=== PATIENT | male | born 1960 | race Two or more races ===

== ENCOUNTER 2020-10-19 06:54 | Day surgery (SDC) | payer OTHER, SELFPAY ==
[2020-10-13 13:42] VITALS: BMI 33.0
--- NOTE | 2020-10-18 12:23 | HO.ANESPROP2 ---
Documented by User: Jasmin Newell 10/18/20 12:24 HPI - Anesthesia Eval Consult details Narrative: 60yo M for Colonoscopy [facility] Past Medical History Medical History Amputation of thumb, left Asthma CAD (coronary artery disease) DDD (degenerative disc disease), lumbar DJD (degenerative joint disease) of cervical spine History of back pain HTN (hypertension) Hx of hepatitis Hx of vertigo Hyperlipidemia Myocardial infarction Peripheral neuropathy Surgical History Surgical History History of circumcision History of rhinoplasty History of surgery on left wrist Hx of colonoscopy Hx of left knee surgery Social History Social History Smoking Status: Former smoker Smoking Quit Date: > 10 yrs ago Advance Directives: No Advance Directives Information Provided: No Advance Directives on File: No Meds Allergies Allergy/AdvReac Type Severity Reaction Status Date / Time Penicillins Allergy Intermediate PASSED Unverified 10/13/20 13:23 OUT simvastatin Allergy Unknown blurring Unverified 10/13/20 13:23 of vision atorvastatin AdvReac Unknown blurring Verified 10/13/20 13:23 of vision Home Medications Medication Instructions Recorded Confirmed Type rosuvastatin 5 mg tablet 5 mg PO DAILY 10/01/20 10/13/20 History ibuprofen 800 mg PO TID PRN 10/13/20 10/13/20 History Exam Exam Date and Time: October 18, 2020 1223 Height,Weight and Vital Signs: Height 5 ft 10 in Weight 104.326 kg Assessment and Plan Assessment Anesthesia Assessment: Chart Reviewed Documented by User: Shawna Nelson 10/19/20 08:09 [facility] Past Medical History Medical History Amputation of thumb, left Asthma CAD (coronary artery disease) DDD (degenerative disc disease), lumbar DJD (degenerative joint disease) of cervical spine History of back pain HTN (hypertension) Hx of hepatitis Hx of vertigo Hyperlipidemia Myocardial infarction Peripheral neuropathy Surgical History Surgical History History of circumcision History of rhinoplasty History of surgery on left wrist Hx of colonoscopy Hx of left knee surgery Social History Social History Smoking Status: Former smoker Smoking Quit Date: > 10 yrs ago Advance Directives: No Advance Directives Information Provided: No Advance Directives on File: No Meds Allergies Allergy/AdvReac Type Severity Reaction Status Date / Time Penicillins Allergy Intermediate PASSED Unverified 10/13/20 13:23 OUT simvastatin Allergy Unknown blurring Unverified 10/13/20 13:23 of vision atorvastatin AdvReac Unknown blurring Verified 10/13/20 13:23 of vision Home Medications Medication Instructions Recorded Confirmed Type rosuvastatin 5 mg tablet 5 mg PO DAILY 10/01/20 10/13/20 History ibuprofen 800 mg PO TID PRN 10/13/20 10/13/20 History Exam Airway Mallampati Class: III TM Dist: >3cm Neck ROM: Full
[2020-10-19 07:56] VITALS: BP 136/86; PULSE 84; RESP 16; TEMP 35.9; O2SAT 98
[2020-10-19] MEDS: Lactated Ringers 1,000 ML 100 ML IVCONT (08:15)
--- NOTE | 2020-10-19 08:16 | W.PM.OPN ---
Operative Note Operative Note Date of Service: 10/19/20 Narrative: Pre-op diagnosis: Colon cancer screening, hx of colon polyps Post-op diagnosis: other (Colon polyps, diverticulosis, hemorrhoids) Procedure: COLONOSCOPY TO CECUM WITH BIOPSIES AND SNARE POLYPECTOMY Consent: Indications for the procedure and potential complications of bleeding, perforation, reaction to medications and missed diagnosis were discussed with the patient and informed consent was obtained. Instrument: Olympus PCF H 190 L variable stiffness pediatric colonoscope Monitoring: Vital signs and clinical assessment, intermittent blood pressure monitoring, continuous EKG monitoring, Pulse oximetry and Carbon Dioxide monitoring were done throughout the procedure. Colon withdrawl time was 20 minutes. Procedure: The patient was placed in the left lateral decubitis position and pre-procedure medications were administered. After a digital rectal examination of the ano-rectum, the video colonoscope was inserted into the rectum and advanced through the colon to the cecum. The colonoscope was slowly withdrawn in a retrograde panoramic fashion and the colon mucosa was carefully examined including a retroflexed view of the rectum. Findings and interventions are described below. Procedure Difficulty: Colon was long and there was some loop formation. Pt was placed in the supine position and LLQ pressure was applied to intubate the cecum Findings: Terminal Ileum: Not evaluated Cecum: Normal Ascending Colon: Normal Transverse Colon: A 10-12 mm sessile polyp in proximal TC removed with a hot snare. Descending Colon: Normal Sigmoid Colon: Two 12-15 mm sessile polyps - removed with a hot snare. A 4-5 mm sessile polyp removed with a cold bx. Moderate diverticulosis Rectum: Normal Ano-rectum: Moderate internal hemorrhoids Colon preparation: Excellent Impression and Post Procedure Diagnosis: Colonoscopy Findings: Four polyps removed (three polyps were 10-15 mm in size) Moderate diverticulosis seen in the sigmoid colon Moderate hemorrhoids on retroflexed exam. Plan: Await pathology results Patient has an appointment on in the GI Clinic with [ALFONSO Pink] [Mesha Ryan NP] [Gume Hamilton M.D.]. Repeat Colonoscopy interval based on path results - in 3 years if polyps are adenomatous and 5 years if polyps are hyperplastic. Above findings were reviewed with the patient and colon polyps and diverticulosis handouts were given in the discharge area Surgeon: Gume Hamilton MD Anesthesia: MAC (BONNIE Petersen & Dr Nelson) Estimated blood loss (mL): 0 Pathology: other (A. TC polyp x 1, B. SC polyps x 3) Condition: stable Disposition: PACU
--- NOTE | 2020-10-19 08:16 | MHC.SHP ---
Pre-Procedural Eval Section A The patient is an INPATIENT: No The History & Physical has been completed within 30 days and I have reviewed it.: No Section B Chief Complaint: POLP OF COLON Relevant Family History (Specify if Yes): No Present Medications: see Short Stay Collaborative assessment Medical History: Significant History (Hypertension. Hyperlipidemia. transient ischemic attack (TIA). Peripheral neuropathy. H. pylori tx'd 01/2015. LLQ abdominal pain-probable hyperesthetic type. Tubular adenoma (02/2015)-repeat colo 5 yrs. Chronic low lumbar and L lower back pain-hx DDD L4) History of Previous Operations: Relevant previous surgery/procedure and date(s) (Colonoscopy-sm TA, unusual appearing appendiceal orifice (Dr. Fuentes) 02/2015 Colonoscopy normal, though unable to see behind ileocecal valve (Dr. Ren) 08/2011 foot surgery left knee arthroscopy femur surgery, left for tumor deviated septum repair left hand and and arm surgery nose ) Allergies: Allergies Allergy/AdvReac Type Severity Reaction Status Date / Time Penicillins Allergy Intermediate PASSED Unverified 10/13/20 13:23 OUT simvastatin Allergy Unknown blurring Unverified 10/13/20 13:23 of vision atorvastatin AdvReac Unknown blurring Verified 10/13/20 13:23 of vision Review of Systems Sugical H&P ROS: Negative: Constitution, Cardiovascular, Respiratory and Gastrointestinal Exam Surgical H&P Exam: Normal: Heart, Normal: Lungs, Normal: Extremities and Normal: Abdomen Plan Diagnosis/Plan: Unchanged Patient has been examined and remains a candidate for the planned procedure
[2020-10-19 09:09] VITALS: BP 109/74; PULSE 93; RESP 16; TEMP 36.6; O2SAT 99
[2020-10-19 09:25] VITALS: BP 111/70; PULSE 76; RESP 16; TEMP 36.1; O2SAT 96
[2020-10-19 09:40] VITALS: BP 117/60; PULSE 75; RESP 16; TEMP 36.1; O2SAT 97
== END 2020-10-19 10:20 | disposition home or self-care (01) ==
PROVIDERS: PCP Internal Medicine; Visit Provider Internal Medicine Gastroenterology
PROC: 0DJD8ZZ Inspection of Lower Intestinal Tract, Via Natural or Artificial Opening Endoscopic (ICD-10-PCS; CPT 45378; principal; 2020-10-19 08:30)
DX: Z12.11 Encounter for screening for malignant neoplasm of colon (principal); D12.3 Benign neoplasm of transverse colon; D12.5 Benign neoplasm of sigmoid colon; K57.30 Diverticulosis of large intestine without perforation or abscess without bleeding; K56.2 Volvulus; K64.8 Other hemorrhoids; Z86.010 Personal history of colon polyps; Z88.0 Allergy status to penicillin; Z88.8 Allergy status to other drugs, medicaments and biological substances
CPT/HCPCS: 45385; 45380; 88305

== ENCOUNTER 2020-10-27 08:16 | Outpatient (REF) | payer OTHER, SELFPAY ==
[2020-10-27 12:35] LABS: MANUAL DIFF FLAG NO
[2020-10-27 12:39] LABS: Basophils Percent Auto 0.6 % (0-2); Eosinophils Absolute Auto 0.3 X10*3/uL (0.0-0.4); Eosinophils Percent Auto 4.3 % (0-4); Hematocrit 43.1 % (42-52); Hemoglobin 14.9 g/dl (14.0-18.0); Imm Gran Abs Auto 0.02 X10*3/uL (0.00-0.03); Imm Gran Pct Auto 0.3 % (0.0-0.4); Lymphocytes Percent Auto 28.9 % (20-40); Mean Corpuscular HGB Conc 34.6 g/dl (31.0-36.0); Mean Corpuscular Hemoglobin 31.4 pg (27.0-33.0); Mean Corpuscular Volume 90.7 fL (80-98); Mean Platelet Volume 9.8 fL (9.4-12.4); Monocytes Absolute Auto 0.5 X10*3/uL (0.1-1.2); Monocytes Percent Auto 6.6 % (2-11); Neutrophils Absolute Auto 4.1 X10*3/uL (2.0-8.3); Neutrophils Percent Auto 59.3 % (45-73); Platelet Count 286 X10*3/uL (160-400); Red Blood Count 4.75 X10*6/uL (4.60-5.80); Red Cell Distribution Width 12.3 % (11.0-16.0); White Blood Count 6.8 X10*3/uL (4.8-10.8)
[2020-10-27 13:11] LABS: Alanine Aminotransferase 34 U/L (0-40); Albumin Level 4.4 g/dL (3.5-5.0); Alkaline Phosphatase 70 U/L (39-117); Anion Gap 10 (12-20); Aspartate Amino Transferase 25 U/L (5-37); Bilirubin Total 0.7 mg/dL (0.0-1.0); Blood Urea Nitrogen 11 mg/dL (9-16); Calcium 9.4 mg/dL (8.4-10.2); Carbon Dioxide 32 mmol/L (22-29); Chloride 102 mmol/L (96-108); Estimated Glomerular Filt Rate > 60; Glucose Random 96 mg/dL (60-115); Potassium 3.9 mmol/l (3.3-5.1); Sodium 140 mmol/L (135-145); Total Protein 7.1 g/dL (6.5-8.0)
[2020-10-27 13:54] LABS: Erythrocyte Sedimentation Rate 2 MM/HR (0-15)
== END 2020-10-27 08:17 | disposition home or self-care (01) ==
LOC: HO.LAB 08:16
PROVIDERS: Visit Provider Internal Medicine
DX: R19.04 Left lower quadrant abdominal swelling, mass and lump (principal); R10.9 Unspecified abdominal pain
CPT/HCPCS: 36415; 80053; 85025; 85652

== ENCOUNTER → 2020-11-02 14:31 | Outpatient (BNVA) | payer OTHER, SELFPAY | PROVIDERS: PCP Internal Medicine; Visit Provider Physician Assistant | DX: Z76.89 Persons encountering health services in other specified circumstances (principal) ==

== ENCOUNTER 2020-11-29 13:34 | Outpatient (REF) | payer OTHER, SELFPAY | END 2020-11-29 13:35 | disposition home or self-care (01) | LOC: HO.LAB 13:34 | PROVIDERS: Visit Provider Internal Medicine | DX: Z20.822 Contact with and (suspected) exposure to COVID-19 (principal) | CPT/HCPCS: 36415; C9803; U0003 ==

== ENCOUNTER 2021-01-07 13:10 | Outpatient (REF) | payer OTHER, SELFPAY ==
--- NOTE | ~2021-01-07 | CT_ITS ---
EXAMINATION: CT ABDOMEN AND PELVIS WITH CONTRAST CLINICAL INFORMATION: Left lower quadrant pain COMPARISON: Previous CT of the abdomen and pelvis most recent December 2016 TECHNIQUE: Multidetector volumetric images were obtained from the superior aspect of the liver through the pubic symphysis following administration of 75 mL of Omnipaque 350 intravenous contrast. Sagittal and coronal reformatted images were obtained on the technologist's workstation. Oral contrast: Yes This CT examination was performed using dose optimization techniques as appropriate, variously including the following: *Automated exposure control *Adjustment of mA and/or kV according to patient size (this includes techniques or standardized protocols for targeted exams where dose is matched to indication/reason for exam; i.e. extremities or head) *Use of iterative reconstruction technique DLP: 631 mGy-cm FINDINGS: LUNG BASES: The visualized lung bases are unremarkable. LIVER, GALLBLADDER, AND BILIARY TREE: The liver is normal in size and shape. The liver is low in attenuation suggestive of fatty infiltration. No focal liver lesion or biliary ductal dilatation is seen. The gallbladder is unremarkable with no evidence of radiopaque gallstones, gallbladder wall thickening, or obvious pericholecystic inflammatory changes. PANCREAS: Unremarkable. SPLEEN: Unremarkable. ADRENAL GLANDS: There is a 1 x 1.3 cm low-attenuation right adrenal nodule that is able. The left adrenal gland is normal. KIDNEYS AND URETERS: There are small bilateral renal stones. There is a 2 mm stone in the mid right kidney. There is a 3 mm stone in the lower pole right kidney. There is a 1 to 2 mm stone in the upper pole the left kidney. There is a 3 mm stone in the lower pole of the left kidney. No hydronephrosis, ureteral dilatation or ureteral stone is seen. BLADDER: Unremarkable. GASTROINTESTINAL TRACT: The colon is slightly distended. There is a large amount of stool seen in the proximal colon questionable for constipation. No evidence of mechanical obstruction, diverticular disease disease, colitis or mass is seen. The appendix is normal. The stomach is normal. ABDOMINAL WALL: No significant hernia is appreciated. LYMPH NODES: Normal. VASCULAR: Unremarkable. PELVIC VISCERA: The prostate gland is slightly enlarged measuring 4 x 4.4 cm in AP and transverse dimension. OSSEOUS STRUCTURES: There are degenerative changes of the spine. CT/CT abdomen pelvis w con IMPRESSION: Fatty liver. Small bilateral renal stones. Stable small right adrenal nodule. Stool throughout the colon questionable for constipation.
[2021-01-07 14:43] LABS: Alanine Aminotransferase 39 U/L (0-40); Albumin Level 4.6 g/dL (3.5-5.0); Alkaline Phosphatase 75 U/L (39-117); Anion Gap 11 (12-20); Aspartate Amino Transferase 27 U/L (5-37); Bilirubin Total 0.5 mg/dL (0.0-1.0); Blood Urea Nitrogen 14 mg/dL (9-16); Calcium 9.8 mg/dL (8.4-10.2); Carbon Dioxide 33 mmol/L (22-29); Chloride 101 mmol/L (96-108); Cholesterol 199 mg/dL; Estimated Glomerular Filt Rate > 60; Glucose Fasting 93 mg/dL (60-99); HDL Cholesterol 36 mg/dL; LDL Cholesterol Calculated 108 mg/dl; Potassium 4.3 mmol/L (3.3-5.1); Sodium 141 mmol/L (135-145); Total Protein 7.2 g/dL (6.5-8.0); Triglycerides 279 mg/dL
[2021-01-07] MEDS: Barium Sulfate Oral (Mocha) 450 ML ORAL.SUSP 900 ML PO (15:54)
[2021-01-07] MEDS: iohexoL 350 MG/ML 75 ML INFUS..BTL IV (15:54)
== END 2021-01-07 13:11 | disposition home or self-care (01) ==
LOC: HO.CT 13:10
PROVIDERS: PCP Internal Medicine; Visit Provider Internal Medicine
DX: R10.9 Unspecified abdominal pain (principal); R19.04 Left lower quadrant abdominal swelling, mass and lump; E78.00 Pure hypercholesterolemia, unspecified
CPT/HCPCS: 36415; 74177; 80053; 80061; Q9967

== ENCOUNTER 2021-01-28 15:02 | Outpatient (REF) | payer OTHER, SELFPAY | END 2021-01-28 15:03 | disposition home or self-care (01) | LOC: HO.LAB 15:02 | PROVIDERS: Visit Provider Internal Medicine | DX: Z20.822 Contact with and (suspected) exposure to COVID-19 (principal) | CPT/HCPCS: 36415; C9803; U0003; U0005 ==

== ENCOUNTER → 2021-02-10 15:12 | Outpatient (BNVA) | payer OTHER, SELFPAY | PROVIDERS: Visit Provider Physician Assistant | DX: K64.9 Unspecified hemorrhoids (principal); K59.09 Other constipation | CPT/HCPCS: 99212 ==

== ENCOUNTER → 2021-03-03 08:02 | Outpatient (BNVA) | payer OTHER, SELFPAY | PROVIDERS: PCP Internal Medicine; Visit Provider Physician Assistant | DX: K64.9 Unspecified hemorrhoids (principal); K59.09 Other constipation | CPT/HCPCS: 99212 ==

== ENCOUNTER → 2021-04-25 15:18 | Outpatient (BNVA) | payer OTHER, SELFPAY | PROVIDERS: PCP Internal Medicine; Referring Provider Internal Medicine; Visit Provider Surgery | DX: K64.4 Residual hemorrhoidal skin tags (principal); K64.8 Other hemorrhoids | CPT/HCPCS: 46600; 99202 ==

== ENCOUNTER → 2021-06-13 07:43 | Outpatient (BNVA) | payer OTHER, SELFPAY | PROVIDERS: PCP Internal Medicine; Visit Provider Physician Assistant | DX: K59.09 Other constipation (principal); D12.6 Benign neoplasm of colon, unspecified | CPT/HCPCS: 99212 ==

== ENCOUNTER 2021-08-24 13:47 | Emergency (ER) | payer OTHER, SELFPAY ==
[2021-08-24 14:12] VITALS: BP 169/99; PULSE 90; RESP 18; TEMP 37.1; O2SAT 97; BMI 34.0
== END 2021-08-24 15:58 | disposition left against medical advice (07) ==
PROVIDERS: Emergency Provider Emergency Medicine; PCP Internal Medicine
DX: R50.9 Fever, unspecified (principal)
CPT/HCPCS: 99281; 99282

== ENCOUNTER 2021-08-25 13:53 | Outpatient (REF) | payer OTHER, SELFPAY ==
[2021-08-25 14:58] LABS: Influenza A PCR NEGATIVE (Negative); Influenza B PCR NEGATIVE (Negative); Resp Syncy Virus RNA Qual PCR NEGATIVE (Negative); SARS COV2 PCR INHOUSE NEGATIVE (Negative)
== END 2021-08-25 13:54 | disposition home or self-care (01) ==
LOC: HO.LNP 13:53
PROVIDERS: Visit Provider Physician Assistant Medical
DX: Z20.822 Contact with and (suspected) exposure to COVID-19 (principal); J06.9 Acute upper respiratory infection, unspecified
CPT/HCPCS: 0241U

== ENCOUNTER 2022-02-25 06:58 | Outpatient (REF) | payer OTHER, SELFPAY ==
[2022-02-25 08:10] LABS: Alanine Aminotransferase 40 U/L (0-40); Albumin Level 4.3 g/dL (3.5-5.0); Alkaline Phosphatase 71 U/L (39-117); Anion Gap 9 (12-20); Aspartate Amino Transferase 29 U/L (5-37); Bilirubin Total 0.7 mg/dL (0.0-1.0); Blood Urea Nitrogen 14 mg/dL (9-16); Calcium 9.6 mg/dL (8.4-10.2); Carbon Dioxide 30 mmol/L (22-29); Chloride 105 mmol/L (96-108); Cholesterol 185 mg/dL; Estimated Glomerular Filt Rate > 60; Glucose Fasting 112 mg/dL (60-99); HDL Cholesterol 33 mg/dL; LDL Cholesterol Calculated 116 mg/dl; Sodium 140 mmol/L (135-145); Total Protein 6.9 g/dL (6.5-8.0); Triglycerides 180 mg/dL
== END 2022-02-25 06:59 | disposition home or self-care (01) ==
LOC: HO.LAB 06:58
PROVIDERS: PCP Internal Medicine; Visit Provider Internal Medicine
DX: E78.00 Pure hypercholesterolemia, unspecified (principal)
CPT/HCPCS: 36415; 80053; 80061

== ENCOUNTER 2022-03-10 09:52 | Outpatient (REF) | payer OTHER, SELFPAY ==
[2022-03-10 10:14] LABS: MANUAL DIFF FLAG NO
[2022-03-10 10:33] LABS: Basophils Percent Auto 0.5 % (0-2); Eosinophils Absolute Auto 0.2 X10*3/uL (0.0-0.4); Eosinophils Percent Auto 3.8 % (0-4); Hematocrit 42.4 % (42.0-52.0); Imm Gran Abs Auto 0.02 X10*3/uL (0.00-0.03); Imm Gran Pct Auto 0.3 % (0.0-0.4); Lymphocytes Percent Auto 32.2 % (20-40); Mean Corpuscular HGB Conc 35.4 g/dl (31.0-36.0); Mean Corpuscular Hemoglobin 31.6 pg (27.0-33.0); Mean Corpuscular Volume 89.3 fL (80.0-98.0); Mean Platelet Volume 9.9 fL (9.4-12.4); Monocytes Absolute Auto 0.5 X10*3/uL (0.1-1.2); Neutrophils Absolute Auto 3.5 x10*3/uL (2.0-8.3); Neutrophils Percent Auto 55.2 % (45-73); Platelet Count 265 X10*3/uL (160-400); Red Blood Count 4.75 X10*6/uL (4.60-5.80); Red Cell Distribution Width 12.3 % (11.0-16.0); White Blood Count 6.3 X10*3/uL (4.8-10.8)
[2022-03-10 11:10] LABS: Prostate Specific Antigen 0.82 ng/mL (<0.05-4.0)
[2022-03-10 11:39] LABS: Vitamin B12 371 pg/mL (200-900)
[2022-03-10 11:46] LABS: Erythrocyte Sedimentation Rate 5 MM/HR (0-15)
== END 2022-03-10 09:53 | disposition home or self-care (01) ==
LOC: HO.LAB 09:52
PROVIDERS: PCP Internal Medicine; Visit Provider Internal Medicine
DX: Z12.5 Encounter for screening for malignant neoplasm of prostate (principal); G62.9 Polyneuropathy, unspecified; I10 Essential (primary) hypertension; E53.8 Deficiency of other specified B group vitamins; N40.0 Benign prostatic hyperplasia without lower urinary tract symptoms
CPT/HCPCS: 36415; 82607; 82746; 84153; 85025; 85652

== ENCOUNTER → 2022-08-08 14:35 | Outpatient (BNVA) | payer OTHER, SELFPAY | PROVIDERS: PCP Internal Medicine; Visit Provider Nurse Practitioner Family | DX: E66.9 Obesity, unspecified (principal); R06.83 Snoring; R40.0 Somnolence; Z68.33 Body mass index [BMI] 33.0-33.9, adult | CPT/HCPCS: 99202 ==

== ENCOUNTER 2022-10-10 14:21 | Outpatient (REF) | payer OTHER, SELFPAY ==
--- NOTE | ~2022-10-10 | XR_ITS ---
EXAMINATION: XR FOOT, RIGHT CLINICAL INFORMATION: Pain COMPARISON: 09/20/2015 TECHNIQUE: AP, lateral, and oblique views of the right foot. FINDINGS: No acute fracture or dislocation. Mild hallux sinus. Small first metatarsophalangeal joint marginal osteophytes. Small plantar calcaneal enthesophyte. Moderate Achilles insertional enthesophyte. Small bunion. Soft tissues unremarkable. XR/XR foot RT min 3V IMPRESSION: No acute findings. Mild first metatarsophalangeal joint arthrosis, associated hallux valgus and small bunion, similar in appearance to prior. Calcaneal spurs
== END 2022-10-10 14:22 | disposition home or self-care (01) ==
LOC: HO.HMGCX 14:21
PROVIDERS: PCP Internal Medicine; Visit Provider Nurse Practitioner Family
DX: R52 Pain, unspecified (principal)
CPT/HCPCS: 73630

== ENCOUNTER 2022-10-14 07:09 | Outpatient (REF) | payer OTHER, SELFPAY ==
[2022-10-14 08:23] LABS: Alanine Aminotransferase 33 U/L (0-40); Albumin Level 4.5 g/dL (3.5-5.0); Alkaline Phosphatase 76 U/L (39-117); Anion Gap 12 (12-20); Aspartate Amino Transferase 24 U/L (5-37); Blood Urea Nitrogen 13 mg/dL (9-16); Calcium 9.6 mg/dL (8.4-10.2); Carbon Dioxide 31 mmol/L (22-29); Chloride 103 mmol/L (96-108); Cholesterol 221 mg/dL; Estimated Glomerular Filt Rate > 60; Glucose Fasting 114 mg/dL (60-99); HDL Cholesterol 35 mg/dL; LDL Cholesterol Calculated 140 mg/dl; Potassium 4.3 mmol/L (3.3-5.1); Sodium 142 mmol/L (135-145); TSH reflex Free T4 2.21 uIU/mL (0.32-4.0); Triglycerides 234 mg/dL
[2022-10-14 08:34] LABS: Estimated Average Glucose 131 mg/dL; Hemoglobin A1c % 6.2 %
[2022-10-14 08:44] LABS: Bilirubin Total 0.8 mg/dL (0.0-1.0)
[2022-10-14 10:35] LABS: Appearance Urine Clear; Color Urine Yellow; Glucose Urine UA Negative (Negative); Leukocyte Esterase Urine Negative (Negative); Nitrite Urine Negative (Negative); Urine Blood Negative (Negative); Urine Ketones Negative (Negative); Urine Protein Negative (Neg-Trace)
== END 2022-10-14 07:10 | disposition home or self-care (01) ==
LOC: HO.LAB 07:09
PROVIDERS: PCP Internal Medicine; Visit Provider Internal Medicine
DX: E78.00 Pure hypercholesterolemia, unspecified (principal); E55.9 Vitamin D deficiency, unspecified; I10 Essential (primary) hypertension; R73.01 Impaired fasting glucose
CPT/HCPCS: 36415; 80053; 80061; 81003; 82306; 83036; 84443

== ENCOUNTER → 2022-11-10 15:13 | Outpatient (BNVA) | payer OTHER, SELFPAY | PROVIDERS: PCP Internal Medicine; Visit Provider Surgery | DX: M25.522 Pain in left elbow (principal); R22.32 Localized swelling, mass and lump, left upper limb; I25.10 Atherosclerotic heart disease of native coronary artery without angina pectoris; I10 Essential (primary) hypertension; E78.00 Pure hypercholesterolemia, unspecified; Z89.012 Acquired absence of left thumb | CPT/HCPCS: 99202 ==

== ENCOUNTER → 2022-11-28 09:46 | Outpatient (BNVA) | payer OTHER, SELFPAY | PROVIDERS: PCP Internal Medicine; Visit Provider Urology | DX: N40.1 Benign prostatic hyperplasia with lower urinary tract symptoms (principal); R35.0 Frequency of micturition; R39.11 Hesitancy of micturition | CPT/HCPCS: 51798; 99202 ==

== ENCOUNTER 2022-12-13 12:11 | Outpatient (REF) | payer OTHER, SELFPAY ==
--- NOTE | ~2022-12-13 | XR_ITS ---
EXAMINATION: XR ELBOW, LEFT CLINICAL INFORMATION: Pain in left elbow COMPARISON: None TECHNIQUE: AP, lateral, and oblique views of the left elbow. FINDINGS: The bones and soft tissues are normal. No fracture or joint effusion. Alignment is anatomic. Joint spaces are maintained. XR/XR elbow LT min 3V IMPRESSION: Normal left elbow.
== END 2022-12-13 12:12 | disposition home or self-care (01) ==
LOC: HO.HOSX 12:11
PROVIDERS: Visit Provider Physician Assistant
DX: M77.12 Lateral epicondylitis, left elbow (principal); S68.012A Complete traumatic metacarpophalangeal amputation of left thumb, initial encounter
CPT/HCPCS: 73080; 99202

== ENCOUNTER 2022-12-26 14:14 | Outpatient (REF) | payer OTHER, SELFPAY ==
--- NOTE | ~2022-12-26 | US_ITS ---
EXAMINATION: US PELVIS LIMITED (BLADDER) CLINICAL INFORMATION: Poor urinary stream. COMPARISON: CT abdomen and pelvis with contrast 01/07/2021. TECHNIQUE: Real-time imaging of the bladder. FINDINGS: BLADDER: Well distended and normal. Bilateral ureteral jets are demonstrated. Prevoid bladder volume is 179 mL. Postvoid bladder volume is 21.5 mL. ADDITIONAL FINDINGS: Enlarged prostate with volume of 53 mL. US/US bladder IMPRESSION: Enlarged prostate. Post void residual volume of 21.5 mL.
== END 2022-12-26 14:15 | disposition home or self-care (01) ==
LOC: HO.US 14:14
PROVIDERS: Visit Provider Urology
DX: R39.12 Poor urinary stream (principal)
CPT/HCPCS: 76857

== ENCOUNTER 2023-01-13 07:26 | Outpatient (REF) | payer OTHER, SELFPAY ==
[2023-01-13 07:41] LABS: MANUAL DIFF FLAG NO
[2023-01-13 07:58] LABS: Basophils Percent Auto 0.7 % (0-2); Eosinophils Absolute Auto 0.3 X10*3/uL (0.0-0.4); Eosinophils Percent Auto 4.5 % (0-4); Hematocrit 43.9 % (42.0-52.0); Hemoglobin 15.4 g/dl (14.0-18.0); Imm Gran Abs Auto 0.01 X10*3/uL (0.00-0.03); Imm Gran Pct Auto 0.2 % (0.0-0.4); Lymphocytes Absolute Auto 1.9 X10*3/uL (1.2-4.9); Lymphocytes Percent Auto 32.4 % (20-40); Mean Corpuscular HGB Conc 35.1 g/dl (31.0-36.0); Mean Corpuscular Hemoglobin 31.1 pg (27.0-33.0); Mean Corpuscular Volume 88.7 fL (80.0-98.0); Mean Platelet Volume 9.9 fL (9.4-12.4); Monocytes Absolute Auto 0.4 X10*3/uL (0.1-1.2); Monocytes Percent Auto 7.5 % (2-11); Neutrophils Absolute Auto 3.2 x10*3/uL (2.0-8.3); Neutrophils Percent Auto 54.7 % (45-73); Platelet Count 249 X10*3/uL (160-400); Red Blood Count 4.95 X10*6/uL (4.60-5.80); Red Cell Distribution Width 12.2 % (11.0-16.0); White Blood Count 5.8 X10*3/uL (4.8-10.8)
[2023-01-13 08:18] LABS: Appearance Urine Clear; Color Urine Yellow; Glucose Urine UA Negative (Negative); Leukocyte Esterase Urine Negative (Negative); Nitrite Urine Negative (Negative); Urine Blood Negative (Negative); Urine Ketones Negative (Negative); Urine Protein Negative (Neg-Trace)
[2023-01-13 08:22] LABS: Estimated Average Glucose 114 mg/dL; Hemoglobin A1c % 5.6 %
[2023-01-13 08:51] LABS: Alanine Aminotransferase 20 U/L (0-40); Albumin Level 4.3 g/dL (3.5-5.0); Alkaline Phosphatase 77 U/L (39-117); Anion Gap 13 (12-20); Aspartate Amino Transferase 22 U/L (5-37); Bilirubin Total 1.1 mg/dL (0.0-1.0); Blood Urea Nitrogen 15 mg/dL (9-16); Calcium 9.1 mg/dL (8.4-10.2); Carbon Dioxide 27 mmol/L (22-29); Chloride 105 mmol/L (96-108); Cholesterol 164 mg/dL; Estimated Glomerular Filt Rate > 60; Glucose Fasting 102 mg/dL (60-99); HDL Cholesterol 33 mg/dL; LDL Cholesterol Calculated 108 mg/dl; Sodium 141 mmol/L (135-145); Total Protein 6.7 g/dL (6.5-8.0); Triglycerides 116 mg/dL
[2023-01-13 09:14] LABS: TSH reflex Free T4 1.29 uIU/mL (0.32-4.0)
[2023-01-13 09:53] LABS: Vitamin D 25-OH Total 19.4 ng/mL (>30)
== END 2023-01-13 07:27 | disposition home or self-care (01) ==
LOC: HO.LAB 07:26
PROVIDERS: PCP Internal Medicine; Visit Provider Internal Medicine
DX: E78.00 Pure hypercholesterolemia, unspecified (principal); E55.9 Vitamin D deficiency, unspecified; R30.0 Dysuria; E11.9 Type 2 diabetes mellitus without complications; I10 Essential (primary) hypertension
CPT/HCPCS: 36415; 80053; 80061; 81003; 82306; 83036; 84443; 85025

== ENCOUNTER 2023-01-23 09:31 | Outpatient (REF) | payer OTHER, SELFPAY ==
--- NOTE | ~2023-01-23 | XR_ITS ---
EXAMINATION: XR HAND, LEFT CLINICAL INFORMATION: Pain. Attention thumb COMPARISON: None available. TECHNIQUE: PA, lateral, and oblique views of the left hand. FINDINGS: There is chronic amputation of the distal first phalanx with bony irregularity along the distal aspect of the remaining first proximal phalanx. This appears be well-corticated however and does not appear to represent an acute bony destruction. I do not appreciate any obvious soft tissue gas or radiopaque foreign body. XR/XR hand LT min 3V IMPRESSION: Chronic appearing changes to the remaining aspect of the first digit status post amputated distal first phalanx. I do not appreciate any superimposed acute bony destruction or soft tissue gas.
== END 2023-01-23 09:32 | disposition home or self-care (01) ==
LOC: HO.HOSX 09:31
PROVIDERS: Visit Provider Orthopaedic Surgery
DX: S68.022D Partial traumatic metacarpophalangeal amputation of left thumb, subsequent encounter (principal); L60.8 Other nail disorders; X58.XXXD Exposure to other specified factors, subsequent encounter
CPT/HCPCS: 73130; 99202

== ENCOUNTER 2023-02-12 06:54 | Day surgery (SDC) | payer OTHER, SELFPAY ==
[2023-02-12 09:16] VITALS: BMI 32.5
--- NOTE | 2023-02-12 10:04 | MHC.SHP ---
Pre-Procedural Eval Section A Date of Service: 02/12/23 The patient is an INPATIENT: No Changes since office visit: No Cold of Flu in the past 2 weeks, No New Medical Problems, No Changes in Medication and No Patient answered all questions The History & Physical has been completed within 30 days and I have reviewed it.: Yes Section B Chief Complaint: Complete traumatic metacarpophalangeal amp,nail di Allergies: Allergies Allergy/AdvReac Type Severity Reaction Status Date / Time Penicillins Allergy Intermediate PASSED Verified 01/23/23 14:50 OUT gabapentin AdvReac Intermediate Dizziness Verified 01/23/23 14:50 atorvastatin AdvReac Unknown blurring Verified 01/23/23 14:50 of vision simvastatin AdvReac Unknown blurring Verified 01/23/23 14:50 of vision Plan I have reviewed the history and physical and performed a pertinent physical examination on my patient. No changes have occurred unless specified. Time Spent With Patient Time: Total time managing care of this patient today ____ minutes.
--- NOTE | 2023-02-12 10:04 | W.PM.OPN ---
Operative Note Operative Note Date of Service: 02/12/23 Narrative: Operative Note Preop diagnosis: 1. Left thumb nail horn Postop diagnosis: same Procedure: 1. Left thumb nail horn excision of nail and germinal matrix Surgeon: Mary Webster MD Anesthesia: digital block using 1% lidocaine with epinephrine Findings: Nail horn EBL: Less than 5 mL Tourniquet time: None Specimens: Nail horn and germinal matrix Complications: None Disposition: Brought to recovery room in stable condition Plan: Follow-up for 7-10 days for wound check and suture removal and to check pathology Indications: The patient is 62 years old, with a left thumb nail horn in a patient status post a traumatic thumb amputation some years ago. . The risks and benefits of operative treatment including but not limited to risk of damage to blood vessels, nerves, tendons, infection, persistent pain, persistent symptoms, recurrence or possible need for additional surgery were discussed with the patient and the patient wishes to proceed with surgery. Procedure: Once consent was obtained a digital block was performed in the preop area using a combination of 1% lidocaine with epinephrine. The patient was then brought back to the operating suite and placed on the operative table in supine position. The left upper extremity and the limb was prepped and draped in a standard surgical fashion. Once assured that we had a good block, I applied a finger tourniquet about the base of the thumb. I then made an elliptical incision extending about the nail horn and approximately 5 mm proximally. I used a 15. Blade to follow the nail horn deeply to its base. Iris scissors were then used to isolate it and to remove it from its base within the thumb. I then used a rongeur or to further try to assure that all of the germinal matrix cells were removed. Once satisfied with our nail horn removal and removed removal of the remaining germinal matrix the wound was copiously irrigated with normal saline and hemostasis was obtained with a brief period of local pressure. The skin edges were reapproximated with some 5.0 nylon suture material and a sterile dressing was applied. The patient appears to have tolerated the procedure well and with no complications. All digits were well vascularized at the conclusion of the case.
[2023-02-12 11:14] VITALS: BP 122/78; PULSE 74; RESP 17; O2SAT 96
== END 2023-02-12 11:16 | disposition home or self-care (01) ==
PROVIDERS: PCP Internal Medicine; Visit Provider Orthopaedic Surgery
PROC: (CPT 11750; principal; 2023-02-12 09:50)
DX: L60.2 Onychogryphosis (principal); S68.0 Traumatic metacarpophalangeal amputation of thumb; W34.00XS Accidental discharge from unspecified firearms or gun, sequela; I10 Essential (primary) hypertension; J45.909 Unspecified asthma, uncomplicated; Z88.0 Allergy status to penicillin; Y93.9 Activity, unspecified; Y92.9 Unspecified place or not applicable; Y99.1 Military activity
CPT/HCPCS: 11750; 88304; J0171

== ENCOUNTER 2023-02-16 15:16 | Outpatient (AMB) | payer OTHER, SELFPAY ==
--- NOTE | 2023-02-16 15:34 | A.OFFVIS_ITS ---
Intake Intake Visit Reasons: US/PVR(SET) Intake Note: Patient is present for Ultrasound/PVR Urology Med: Doxazosin, Antibiotic Allergy: Penicillins Blood Thinner: None PVR: 0ML Allergies Penicillins Allergy (Intermediate, Verified 03/27/23 14:52) PASSED OUT gabapentin Adverse Reaction (Intermediate, Verified 03/27/23 14:52) Dizziness atorvastatin Adverse Reaction (Unknown, Verified 03/27/23 14:52) blurring of vision simvastatin Adverse Reaction (Unknown, Verified 03/27/23 14:52) blurring of vision Medication List - Last Reconciled 02/16/23 by Terry Kearney MD bisacodyl (Dulcolax (bisacodyl)) 10 mg VA DAILY PRN cholecalciferol (vitamin D3) 50 mcg PO DAILY 90 days doxazosin 4 mg PO BEDTIME 90 days hydrocodone-acetaminophen 5-325 mg 1 tab PO Q4-6H PRN hydrocortisone 2.5% (Proctozone-HC) 1 appl VA BID PRN lisinopril 10 mg PO DAILY 90 days rosuvastatin 10 mg PO DAILY 90 days sennosides (Senna Lax) 17.2 mg (2 x 8.6 mg) PO BEDTIME PRN 30 days tizanidine 4 mg PO BEDTIME PRN 30 days HPI HPI Comments History of Present Illness Details Antonio is a very pleasant male. He is a patient of Dr. Han. He is seen for the following urologic conditions - lower urinary tract symptoms Good response to alpha-ara Will continue 6 month review Lower urinary tract symptoms Follow-up symptom presentation - lower urinary tract symptoms predominantly obstructive symptoms with hesitancy. Current treatment includes - doxazosin 4 mg Prostate Symptom Score - Initial moderate moderate bother Symptoms include - weakness of stream, hesitancy, intermittency - and are slowly progressing Results from testing include - 12/28 bladder ultrasound 53 g prostate, 20 cc residual PSA - 03/26 0.8 Associated conditions CAD No CVA No Diabetes - new pad glucose tolerance Treatment plan - continue therapy PFSH Medical History Amputation of thumb, left Asthma Benign essential hypertension CAD (coronary artery disease) Chronic constipation DDD (degenerative disc disease), lumbar DJD (degenerative joint disease) of cervical spine Hemorrhoids History of back pain HTN (hypertension) Hx of hepatitis Hx of vertigo Hyperlipidemia Left lower quadrant abdominal mass Left sided abdominal pain Myocardial infarction Neuropathy Obesity (BMI 30-39.9) Peripheral neuropathy Pure hypercholesterolemia Vitamin D deficiency Surgical History History of circumcision History of rhinoplasty History of surgery on left wrist Hx of colonoscopy Hx of left knee surgery Family History Unknown No family history of colorectal cancer Social History Household Members: None Housing: House Alcohol intake: never Patient Tobacco Use Status: Former Tobacco user e-Cigarette/Vaping Use: Never Used Second Hand Smoke Exposure: Yes service: No Current occupational status: retired Cognitive needs: No Hearing needs: Yes (? B/L hearing loss) Vision needs: Yes Review of Systems Const Denies chills and Denies fever(s) Card Reports no additional complaints and Denies syncope Resp Denies cough GI Denies abdominal pain and Denies heartburn Reports as per HPI and Denies change in libido Neuro Denies syncope Psych Denies change in libido Endo Denies change in libido Physical Exam Const General: cooperative, healthy appearing, comfortable and no acute distress Orientation/consciousness: patient oriented x3 HEENT Face and sinus: Yes normal facial exam Mouth: moist mucous membranes Neck Neck: Yes normal visual inspection, Yes full ROM and Yes trachea midline Chest Chest palpation & inspection: normal inspection of the chest Resp Effort & Inspection: normal respiratory effort, able to speak in complete sentences and no respiratory distress GI Inspection: Yes normal to inspection Back/Spine/Pelvis Cervical Spine: normal cervical lordosis Thoracic/Lumbar Spine: thoracic and lumbar spine normal to inspection Skin General skin exam: no rashes or lesions noted Neuro General: patient oriented x3, gait normal, tone normal and moves all extremities Extrem General: Yes normal to inspection and Yes capillary refill normal Office Procedures Post Void Residual Post Residual Void Post Void Residual (PVR): 0 [id number] Void Residual by ultrasound Assessment & Plan Assessment & Plan (1) Urinary hesitancy due to benign prostatic hyperplasia: Code(s): N40.1 - Benign prostatic hyperplasia with lower urinary tract symptoms; R39.11 - Hesitancy of micturition Plan 6 month follow-up PVR Orders: Orders AMB Urinalysis Automated 02/16/23 Z13.9 - Encounter for screening, unspecified AMB Post Void Residual by ultrasound 02/16/23 R35.0 - Frequency of micturition Patient Instructions: Imaging studies, laboratory and physical exam results were discussed and reviewed in detail. No major barriers to patient understanding were identified. An opportunity to ask questions regarding the treatment plan was provided. All questions were answered. The patient expressed understanding and agreement with the above treatment plan. The patient is aware they should contact our office by phone for worsening of their current condition or the appearance of new urologic symptoms. Compliance is encouraged with any medications and followup testing that is ordered. It is a privilege to participate in the urologic care of your patient. If you have any questions or concerns regarding treatment for the above conditions, or other urologic issues, please do not hesitate to contact me. The office telephone contact is [phone]. This note is constructed using voice recognition software. While every effort has been made to ensure accuracy assistant softball coach errors may have been included. Yours sincerely, Dr Terry Kearney MD, [facility] - Urology Providers of expert, compassionate care for the genitourinary system Coding Level of Care Code Est Pt Level 3 (98743) Diagnoses Urinary hesitancy due to benign prostatic hyperplasia N40.1; R39.11 CPT Codes Post Residual Void - PVR CPT Code: 64574-Eyxx Void Residual by ultrasound ([id number])
== END 2023-02-16 16:15 | disposition home or self-care (01) ==
LOC: HO.HUSH 15:16
PROVIDERS: PCP Internal Medicine; Visit Provider Urology
DX: N40.1 Benign prostatic hyperplasia with lower urinary tract symptoms (principal); R39.11 Hesitancy of micturition
CPT/HCPCS: 99213

== ENCOUNTER → 2023-02-16 15:16 | Outpatient (BNVA) | payer OTHER, SELFPAY | PROVIDERS: PCP Internal Medicine; Visit Provider Urology | DX: R35.0 Frequency of micturition (principal); N40.1 Benign prostatic hyperplasia with lower urinary tract symptoms; N13.8 Other obstructive and reflux uropathy; R39.11 Hesitancy of micturition | CPT/HCPCS: 51798; 99212 ==

== ENCOUNTER → 2023-02-27 09:33 | Outpatient (BNVA) | payer SELFPAY | PROVIDERS: PCP Internal Medicine; Visit Provider Physician Assistant Medical | DX: Z02.79 Encounter for issue of other medical certificate (principal); Z48.02 Encounter for removal of sutures; S68.012A Complete traumatic metacarpophalangeal amputation of left thumb, initial encounter; W34.00XA Accidental discharge from unspecified firearms or gun, initial encounter; L85.8 Other specified epidermal thickening ==

== ENCOUNTER → 2023-03-13 08:46 | Outpatient (BNVA) | payer OTHER, SELFPAY | PROVIDERS: PCP Internal Medicine; Visit Provider Orthopaedic Surgery ==

== ENCOUNTER → 2023-03-16 13:07 | Outpatient (BNVA) | payer OTHER, SELFPAY | PROVIDERS: PCP Internal Medicine; Visit Provider Physician Assistant ==

== ENCOUNTER → 2023-03-27 14:42 | Outpatient (BNVA) | payer OTHER, SELFPAY | PROVIDERS: PCP Internal Medicine; Visit Provider Orthopaedic Surgery | DX: L85.8 Other specified epidermal thickening (principal); S68.012A Complete traumatic metacarpophalangeal amputation of left thumb, initial encounter; L03.012 Cellulitis of left finger; W34.00XA Accidental discharge from unspecified firearms or gun, initial encounter; Y93.89 Activity, other specified; Y92.138 Other place on military base as the place of occurrence of the external cause; Y99.1 Military activity | CPT/HCPCS: 99212 ==

== ENCOUNTER 2023-03-31 07:25 | Outpatient (REF) | payer OTHER, SELFPAY ==
[2023-03-31 07:41] LABS: MANUAL DIFF FLAG NO
[2023-03-31 08:08] LABS: Basophils Percent Auto 0.3 % (0-2); Eosinophils Absolute Auto 0.1 X10*3/uL (0.0-0.4); Eosinophils Percent Auto 2.4 % (0-4); Hematocrit 42.3 % (42.0-52.0); Hemoglobin 14.7 g/dl (14.0-18.0); Imm Gran Abs Auto 0.01 X10*3/uL (0.00-0.03); Imm Gran Pct Auto 0.2 % (0.0-0.4); Lymphocytes Percent Auto 33.3 % (20-40); Mean Corpuscular HGB Conc 34.8 g/dl (31.0-36.0); Mean Corpuscular Hemoglobin 30.9 pg (27.0-33.0); Mean Corpuscular Volume 88.9 fL (80.0-98.0); Mean Platelet Volume 9.9 fL (9.4-12.4); Monocytes Absolute Auto 0.5 X10*3/uL (0.1-1.2); Monocytes Percent Auto 7.6 % (2-11); Neutrophils Absolute Auto 3.3 x10*3/uL (2.0-8.3); Neutrophils Percent Auto 56.2 % (45-73); Platelet Count 239 X10*3/uL (160-400); Red Blood Count 4.76 X10*6/uL (4.60-5.80); Red Cell Distribution Width 12.4 % (11.0-16.0); White Blood Count 5.9 X10*3/uL (4.8-10.8)
[2023-03-31 08:18] LABS: Estimated Average Glucose 111 mg/dL; Hemoglobin A1c % 5.5 %
[2023-03-31 08:36] LABS: Alanine Aminotransferase 19 U/L (0-40); Albumin Level 4.2 g/dL (3.5-5.0); Alkaline Phosphatase 71 U/L (39-117); Anion Gap 10 (12-20); Aspartate Amino Transferase 25 U/L (5-37); Blood Urea Nitrogen 13 mg/dL (9-16); Calcium 9.4 mg/dL (8.4-10.2); Carbon Dioxide 30 mmol/L (22-29); Chloride 105 mmol/L (96-108); Cholesterol 163 mg/dL; Estimated Glomerular Filt Rate > 60; Glucose Fasting 103 mg/dL (60-99); HDL Cholesterol 32 mg/dL; LDL Cholesterol Calculated 107 mg/dl; Potassium 3.9 mmol/L (3.3-5.1); Sodium 141 mmol/L (135-145); Total Protein 6.6 g/dL (6.5-8.0); Triglycerides 123 mg/dL
[2023-03-31 08:54] LABS: TSH reflex Free T4 1.28 uIU/mL (0.32-4.0); Vitamin D 25-OH Total 25.5 ng/mL (>30)
[2023-03-31 09:02] LABS: Appearance Urine Clear; Color Urine Yellow; Glucose Urine UA Negative (Negative); Leukocyte Esterase Urine Negative (Negative); Nitrite Urine Negative (Negative); PH 5.5 (5.0-9.0); UMIC TRIGGER UACC YES; Urine Blood Small (1+) (Negative); Urine Ketones Negative (Negative); Urine Protein Negative (Neg-Trace)
[2023-03-31 09:07] LABS: Bacteria Urine None Seen (None Seen); Hyaline Casts Urine 0-2 /LPF (0-2); Squamous Epithelial Cell Urine 0-2 /HPF (0-2); WBC Urine 0-5 /HPF (0-5)
== END 2023-03-31 07:26 | disposition home or self-care (01) ==
LOC: HO.LAB 07:25
PROVIDERS: PCP Internal Medicine; Visit Provider Internal Medicine
DX: E78.00 Pure hypercholesterolemia, unspecified (principal); R73.01 Impaired fasting glucose; E55.9 Vitamin D deficiency, unspecified; R31.9 Hematuria, unspecified; R30.0 Dysuria; I10 Essential (primary) hypertension
CPT/HCPCS: 36415; 80053; 80061; 81001; 81003; 82306; 83036; 84443; 85025

== ENCOUNTER 2023-08-17 06:57 | Emergency (ER) | payer MEDICARE, MEDICAID, SELFPAY ==
--- NOTE | ~2023-08-17 | CT_ITS ---
EXAMINATION: CT ABDOMEN AND PELVIS WITHOUT CONTRAST CLINICAL INFORMATION: Flank pain COMPARISON: Previous studies, most recent, 01/08/2021, most remote, 06/18/2014 TECHNIQUE: Multidetector volumetric imaging was performed from the superior aspect of the liver through the pubic symphysis. Sagittal and coronal reformatted images were obtained on the technologist's workstation. This CT examination was performed using dose optimization techniques as appropriate, variously including the following: *Automated exposure control *Adjustment of mA and/or kV according to patient size (this includes techniques or standardized protocols for targeted exams where dose is matched to indication/reason for exam; i.e. 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 Pelvic phleboliths. Degenerative changes and mild dextroscoliosis. LUNG BASES: Right middle lobe granuloma. Bibasilar atelectasis. Nonenlarged heart. No pericardial effusion. LIVER, GALLBLADDER, AND BILIARY TREE: No focal hepatic lesion or biliary ductal dilatation is present. The gallbladder is decompressed without evidence of radiopaque gallstones, gallbladder wall thickening, or obvious pericholecystic inflammatory changes. PANCREAS: Unremarkable. SPLEEN: Unremarkable. ADRENAL GLANDS: 1.7 cm right adrenal lesion has been present dating back to 2013, slightly increased in size to 1.7 cm currently. Hounsfield units less than 10 consistent with lipid rich adenoma. No further workup recommended. KIDNEYS AND URETERS: Left kidney measures 11.9 cm in longest sagittal projection, right 11.6 cm. Bilateral nonspecific perinephric stranding. No hydronephrosis. Multiple left nonobstructing renal calculi, largest measures measures 4 mm in the mid/lower pole. 2 mm nonobstructing right lower pole renal calculus. There is a 6 mm calculus in the right hemipelvis, not seen on previous studies and associated with focally prominent distal ureter just proximal to the stone. BLADDER: Under distended with mild wall thickening. GASTROINTESTINAL TRACT: Moderately distended stomach. Nonobstructive bowel pattern. Unremarkable appendix. Mild fecal retention. Decompressed descending colon. ABDOMINAL WALL: Tiny fat filled umbilical and inguinal hernias. LYMPH NODES: No pathologic lymphadenopathy. PERITONEUM: Mesenteric swirling again noted. No free air or free fluid. No significant inflammatory changes. VASCULAR: Nonaneurysmal aorta with atherosclerotic calcifications. Tortuous iliac arteries. Normal caliber inferior vena cava. Left retroaortic renal vein. PELVIC VISCERA: Unremarkable. Multiple phleboliths. OSSEOUS AND SOFT TISSUE STRUCTURES: Mild gynecomastia. Degenerative changes. L3-L4 spurring with moderate spinal canal narrowing narrowing CT/CT abdomen pelvis wo IV con IMPRESSION: 6 mm distal right ureteral calculus. Only mild dilatation of the distal right ureter proximal to the stone. No significant hydroureteronephrosis. Absence of perinephric and periureteral stranding. Nonobstructing left renal calculi. Fleischner guidelines were followed.
[2023-08-17 07:08] VITALS: BP 130/84; PULSE 100; RESP 17; TEMP 36.1; O2SAT 97; BMI 32.4
--- NOTE | 2023-08-17 07:26 | ED.GENADULT ---
HPI - General Adult General Chief complaint: General Medical Stated complaint: Low back pain Time Seen by Provider: 08/17/23 07:20 Source: patient and log brander Mode of arrival: ambulatory Limitations: language barrier History of Present Illness HPI narrative: Patient is a 63-year-old Maori-speaking male with history of BPH, HTN, chronic constipation, hypercholesterolemia, asthma, HLD, [place] in 2005, CAD presenting to the emergency department with complaint of sudden onset left flank pain which began at midnight. Reports some lower abdominal pain. Denies any dysuria, frequency, hematuria. Denies nausea, vomiting, diarrhea. Denies fevers. Reports that he had a test done in March which showed some hematuria. Denies any history of kidney stones. Deneis chest pain or dyspnea. MD complaint: left flank pain Onset (ago): hour(s) Location: left Radiation: abdomen Severity: severe Quality: sharp Pain Consistency: constant Relieving factors: none Exacerbating factors: other (palpation) Associated symptoms: denies other symptoms Treatments prior to arrival: none Related Data Previous Rx's Medication Instructions Recorded bisacodyl 10 mg rectal suppository 10 mg [place] DAILY PRN constipation 11/02/20 (Dulcolax (bisacodyl)) #20 ea hydrocortisone 2.5 % topical cream 1 appl [place] BID PRN hemorrhoids #30 02/10/21 with perineal applicator grams (Proctozone-HC) cholecalciferol (vitamin D3) 50 50 mcg PO DAILY 90 days #90 caps 11/16/22 mcg (2,000 unit) capsule tizanidine 4 mg tablet 4 mg PO BEDTIME PRN low back pain 01/22/23 30 days #30 tabs hydrocodone 5 mg-acetaminophen 325 1 tab PO Q4-6H PRN pain #5 tabs 02/12/23 mg tablet amoxicillin 875 mg-potassium 1 tab PO Q12H #20 tabs 03/13/23 clavulanate 125 mg tablet lisinopril 10 mg tablet 10 mg PO DAILY 90 days #90 tabs 07/22/23 rosuvastatin 10 mg tablet 10 mg PO DAILY 90 days #90 tabs 07/22/23 doxazosin 4 mg tablet 4 mg PO BEDTIME 90 days #90 tabs 08/15/23 sennosides 8.6 mg tablet (Senna 17.2 mg (2 x 8.6 mg) PO BEDTIME 10/11/23 Lax) PRN constipation 30 days #60 tabs Allergies Allergy/AdvReac Type Severity Reaction Status Date / Time Penicillins Allergy Intermediate PASSED Verified 03/27/23 14:52 OUT gabapentin AdvReac Intermediate Dizziness Verified 03/27/23 14:52 atorvastatin AdvReac Unknown blurring Verified 03/27/23 14:52 of vision simvastatin AdvReac Unknown blurring Verified 03/27/23 14:52 of vision Review of Systems Review of Systems: As per HPI. Yes all other systems are reviewed and are negative Constitutional: Constitutional: Reports as per HPI [facility] Past Medical History Medical History Amputation of thumb, left Asthma Benign essential hypertension CAD (coronary artery disease) Chronic constipation DDD (degenerative disc disease), lumbar DJD (degenerative joint disease) of cervical spine Hemorrhoids History of back pain HTN (hypertension) Hx of hepatitis Hx of vertigo Hyperlipidemia Left lower quadrant abdominal mass Left sided abdominal pain Myocardial infarction Neuropathy Obesity (BMI 30-39.9) Peripheral neuropathy Pure hypercholesterolemia Vitamin D deficiency Surgical History History of circumcision History of rhinoplasty History of surgery on left wrist Hx of colonoscopy Hx of left knee surgery Family History Family History Unknown No family history of colorectal cancer Social History Social History Household Members: None Housing: House Alcohol intake: never Patient Tobacco Use Status: Former Tobacco user e-Cigarette/Vaping Use: Never Used Second Hand Smoke Exposure: Yes Advance Directives: Yes Advance Directives Information Provided: Yes Advance Directives on File: No service: No Current occupational status: retired Cognitive needs: No Hearing needs: Yes (? B/L hearing loss) Vision needs: Yes Physical Exam ED Vital Signs: Vital Signs - 24 hr 08/17/23 07:08 Temperature 96.9 F Pulse Rate 100 Respiratory Rate 17 Blood Pressure 130/84 Pulse Oximetry 97 Oxygen Delivery Method Room Air BMI result Body Mass Index 32.4 Vital signs have been reviewed and appear to be correct. Blood pressure normal. Heart rate normal. Respiratory rate normal. Temperature normal. Oxygen saturation normal. Const General: cooperative, healthy appearing and no acute distress Orientation/consciousness: oriented to person, oriented to place, oriented to time and patient oriented x3 Limitations: no limitations HENMT Head: Yes normocephalic and Yes atraumatic Ears: external ears normal General nose exam: Normal external nose present Face and sinus: Yes face symmetric Mouth: oropharynx normal and moist mucous membranes Throat: Yes uvula midline Eyes Pupils: Equal, round and reactive pupils present Neck Neck: Yes normal visual inspection and Yes supple Resp Effort & Inspection: normal respiratory effort and able to speak in complete sentences Auscultation: clear to auscultation bilaterally Cardio Rate: regular rate Rhythm: regular rhythm Heart sounds: S1 normal heart sound present and S2 normal heart sound present GI Inspection: Yes normal to inspection Palpation (GI): Soft to palpation, Tenderness to palpation present (GI) in the LLQ, in the RLQ, in the LUQ and suprapubicly, no guarding and No Rebound tenderness present Auscultation: normoactive bowel sounds General: Yes CVA tenderness on the left Back/Spine/Pelvis Back: CVA tenderness Skin General skin exam: elasticity normal and turgor normal Neuro General: oriented to person, oriented to place, oriented to time, patient oriented x3, moves all extremities, no focal motor deficits and CN's II-XI intact bilaterally Cranial nerves: Yes Equal, round and reactive pupils present Cognition (Neuro): normal cognition Extrem General: Yes full ROM, Yes no pedal edema and Yes no calf tenderness Psych Mental Status: mental status grossly normal Affect: normal affect Thought process: Normal thought process present Medications Administered Discontinued Medications Generic Name Dose Route Start Last Admin Trade Name Jonesq PRN Reason Stop Dose Admin Sodium Chloride 1,000 mls @ 999 mls/hr 08/17/23 07:45 08/17/23 09:00 Ns IV 08/17/23 08:45 Infused .Q1H1M NANNETTE Infusion Ketorolac Tromethamine 15 mg 08/17/23 07:40 08/17/23 07:50 Ketorolac Tromethamine 15 Mg/Ml Vial IVPUSH 08/17/23 07:41 15 mg ONCE ONE Administration Morphine Sulfate 2 mg 08/17/23 10:04 08/17/23 10:15 Morphine Sulfate 2 Mg/Ml Cartridge IVPUSH 08/17/23 10:05 2 mg ONCE ONE Administration Protocol Ondansetron HCl 4 mg 08/17/23 07:32 08/17/23 07:50 Ondansetron Hcl 4 Mg/2 Ml Vial IVPUSH 08/17/23 07:33 4 mg ONCE ONE Administration Prednisone 20 mg 08/17/23 10:07 08/17/23 10:16 Prednisone 20 Mg Tablet PO 08/17/23 10:08 20 mg ONCE ONE Administration Medical Decision Making Medical Decision Making MDM Narrative: Patient is a 63-year-old Maori-speaking male with history of BPH, HTN, chronic constipation, hypercholesterolemia, asthma, HLD, [place] in 2005, CAD presenting to the emergency department with complaint of sudden onset left flank pain which began at midnight. On exam patient is awake, A+Ox3, VS WNL, afebrile, normal neurological exam without focal deficits, physical exam findings as above. Given reported symptoms and physical exam findings, initial differential includes renal colic/calculi, UTI/pyelonephritis, diverticulitis. Do not suspect AAA rupture, mesenteric ischemia, perforated viscous, SBO. Labs notable for no leukocytosis, anemia, no significant electrolyte abnormalities. No hematuria or evidence of UTI on UA. Plan is for pain medication, CT abdomen pelvis. Initially ordered morphine which patient declined, will order ketorolac. CT notable for 6mm distal right ureteral calculus, only mild dilation of distal ureter proximal to the stone, no significant hydronephrosis. No stranding. My interpretation is in agreement with the radiologist's interpretation. Pain improved in the ED with ketorolac initially then worsened again. Patient finally agreeable to small dose of morphine. Patient and updated on results and all questions answered. Discussed case with Dr. Deleon and she is comfortable with patient being discharged home on p.o. oxycodone, prednisone, tamsulosin. During discussion, patient stating that he has an appointment with Dr. Kearney at 1:30 p.m. this afternoon. [place] text also sent to Dr. Kearney to notify him of patient's diagnosis. Return precautions discussed at bedside. Patient and verbalized understanding of and agreement with plan. Differential Diagnosis Differential Diagnoses: The differential diagnosis associated with the presentation includes As per MDM. Admission/Observation Consideration of admission/observation: Escalation of care including admission/observation considered Considered admission for pain management Consult Healthcare Provider Management of the patient was discussed with: Sharemilker (Dr. Deleon) Lab Data [facility] Lab Attestation statement: I reviewed the patient's lab results. As per [facility]. 08/17/23 07:21 08/17/23 07:21 Labs: Lab Results 08/17/23 Range/Units 07:21 WBC 7.2 (4.8-10.8) X10*3/uL RBC 4.90 (4.60-5.80) X10*6/uL Hgb 15.3 (14.0-18.0) g/dl Hct 43.7 (42.0-52.0) % MCV 89.2 (80.0-98.0) fL MCH 31.2 (27.0-33.0) pg MCHC 35.0 (31.0-36.0) g/dl RDW 12.3 (11.0-16.0) % Plt Count 259 (160-400) X10*3/uL MPV 9.4 (9.4-12.4) fL Immature Gran % (Auto) 0.3 (0.0-0.4) % Neut % (Auto) 73.1 H (45-73) % Lymph % (Auto) 19.4 L (20-40) % Smith % (Auto) 4.3 (2-11) % Eos % (Auto) 2.5 (0-4) % Baso % (Auto) 0.4 (0-2) % Lymph # (Auto) 1.4 (1.2-4.9) X10*3/uL Smith # (Auto) 0.3 (0.1-1.2) X10*3/uL Eos # (Auto) 0.2 (0.0-0.4) X10*3/uL Baso # (Auto) 0.0 (0.0-0.2) X10*3/uL Abs Immat Gran (auto) 0.02 (0.00-0.03) X10*3/uL Absolute Neuts (auto) 5.2 (2.0-8.3) x10*3/uL Absolute Nucleated RBC 0.000 (0.0-0.012) X10*3/uL Nucleated RBC % (auto) 0.0 (0.0-0.2) /100WBC Sodium 140 (135-145) mmol/L Potassium 4.0 (3.3-5.1) mmol/L Chloride 101 (96-108) mmol/L Carbon Dioxide 28 (22-29) mmol/L Anion Gap 15 (12-20) BUN 12 (9-16) mg/dL Creatinine 1.04 (0.5-1.4) mg/dL Estim Creat Clear Calc 84.8 Estimated GFR > 60 Random Glucose 170 H (60-115) mg/dL Calcium 9.7 (8.4-10.2) mg/dL Total Bilirubin 0.9 (0.0-1.0) mg/dL AST 21 (5-37) U/L ALT 18 (0-40) U/L Alkaline Phosphatase 79 (39-117) U/L Total Protein 7.2 (6.5-8.0) g/dL Albumin 4.3 (3.5-5.0) g/dL Urine Color Yellow Urine Appearance Clear Urine pH 7.0 (5.0-9.0) Ur Specific [place] 1.020 (1.005-1.025) Urine Protein Negative (Neg-Trace) mg/dL Urine Glucose (UA) Negative (Negative) mg/dL Urine Ketones Negative (Negative) mg/dL Urine Blood Negative (Negative) Urine Nitrite Negative (Negative) Ur Leukocyte Esterase Negative (Negative) Independent Interpretation I performed an independent interpretation of an: CT Scan Interpretation: 6 mm distal right ureteral calculus. Radiology Impression Discussion of test interpretation with radiology: I have reviewed the radiologist's reading. Radiologist Impression: CT/CT abdomen pelvis wo IV con IMPRESSION: 6 mm distal right ureteral calculus. Only mild dilatation of the distal right ureter proximal to the stone. No significant hydroureteronephrosis. Absence of perinephric and periureteral stranding. Nonobstructing left renal calculi. Fleischner guidelines were followed. Independent Historian Clinical information obtained from an independent historian. History obtained from or confirmed by: Spouse External Record Review External record reviewed: Inpatient record, Office record and Outpatient record Prescription Management I considered prescription management with: Pain Medication and Other Discharge Plan Discharge Clinical Impression: Calculi, ureter Patient Disposition: Home, Self-Care Instructions: Renal Colic (ED), How to Strain Your Urine (ED), Ureteral Stones (ED) Additional Instructions: Usted fue evaluado en el departamento de emergencias por dolor en el flanco. Pizano tomograf?a computarizada mostr? evidencia de un c?lculo en el ur?ter derecho. El c?lculo es de 6 mm que puede pasar o no por s? solo. Se le proporcionar? un colador de orina para usar en casa; las instrucciones se incluyen en la documentaci?n del mirtha. Le recetan prednisona para disminuir la inflamaci?n, tamsulosina para ayudar a que el c?lculo pase m?s f?cilmente y oxicodona seg?n sea necesario para el dolor intenso. Tambi?n puedes abdulaziz 600 mg de ibuprofeno cada 6 horas seg?n sea necesario para el dolor. Por favor acuda a pizano manda con el Dr. Caio chung a la 1:30. ?l est? al tanto de los resultados de pizano TC. Regrese al departamento de emergencias si presenta un dolor que empeora, v?mitos persistentes, fiebre de 100,4? o m?s, incapacidad para orinar o cualquier otro s?ntoma preocupante. Prescriptions: No Action lisinopril 10 mg tablet 10 mg PO DAILY 90 Days Qty: 90 1RF rosuvastatin 10 mg tablet 10 mg PO DAILY 90 Days Qty: 90 1RF doxazosin 4 mg tablet 4 mg PO BEDTIME 90 Days Qty: 90 1RF sennosides [Senna Lax] 8.6 mg tablet 17.2 mg PO BEDTIME PRN (Reason: constipation) 30 Days Qty: 60 5RF hydrocodone-acetaminophen 5-325 mg tablet 1 tab PO Q4-6H PRN (Reason: pain) Qty: 5 0RF Rx Instructions: Partial Fill upon patient request. cholecalciferol (vitamin D3) 50 mcg (2,000 unit) capsule 50 mcg PO DAILY 90 Days Qty: 90 3RF ibuprofen 200 mg tablet 600 mg PO ONCE Qty: 3 0RF tizanidine 4 mg tablet 4 mg PO BEDTIME PRN (Reason: low back pain) 30 Days Qty: 30 3RF bisacodyl [Dulcolax (bisacodyl)] 10 mg suppository 10 mg AK DAILY PRN (Reason: constipation) Qty: 20 0RF hydrocortisone [Proctozone-HC] 2.5 % cream with perineal applicator 1 appl AK BID PRN (Reason: hemorrhoids) Qty: 30 3RF Rx Instructions: apply AK BID prn amoxicillin-pot clavulanate 875-125 mg tablet 1 tab PO Q12H Qty: 20 0RF Referrals: [facility] [place] [facility] [Provider Group]
[2023-08-17 07:27] LABS: MANUAL DIFF FLAG NO
[2023-08-17 07:30] LABS: Appearance Urine Clear; Color Urine Yellow; Glucose Urine UA Negative (Negative); Leukocyte Esterase Urine Negative (Negative); Nitrite Urine Negative (Negative); Urine Blood Negative (Negative); Urine Ketones Negative (Negative); Urine Protein Negative (Neg-Trace)
[2023-08-17 07:35] LABS: Basophils Percent Auto 0.4 % (0-2); Eosinophils Absolute Auto 0.2 X10*3/uL (0.0-0.4); Eosinophils Percent Auto 2.5 % (0-4); Hematocrit 43.7 % (42.0-52.0); Hemoglobin 15.3 g/dl (14.0-18.0); Imm Gran Abs Auto 0.02 X10*3/uL (0.00-0.03); Imm Gran Pct Auto 0.3 % (0.0-0.4); Lymphocytes Absolute Auto 1.4 X10*3/uL (1.2-4.9); Lymphocytes Percent Auto 19.4 % (20-40); Mean Corpuscular Hemoglobin 31.2 pg (27.0-33.0); Mean Corpuscular Volume 89.2 fL (80.0-98.0); Mean Platelet Volume 9.4 fL (9.4-12.4); Monocytes Absolute Auto 0.3 X10*3/uL (0.1-1.2); Monocytes Percent Auto 4.3 % (2-11); Neutrophils Absolute Auto 5.2 x10*3/uL (2.0-8.3); Neutrophils Percent Auto 73.1 % (45-73); Platelet Count 259 X10*3/uL (160-400); Red Cell Distribution Width 12.3 % (11.0-16.0); White Blood Count 7.2 X10*3/uL (4.8-10.8)
[2023-08-17 07:44] LABS: Alanine Aminotransferase 18 U/L (0-40); Albumin Level 4.3 g/dL (3.5-5.0); Alkaline Phosphatase 79 U/L (39-117); Anion Gap 15 (12-20); Aspartate Amino Transferase 21 U/L (5-37); Bilirubin Total 0.9 mg/dL (0.0-1.0); Blood Urea Nitrogen 12 mg/dL (9-16); Calcium 9.7 mg/dL (8.4-10.2); Carbon Dioxide 28 mmol/L (22-29); Chloride 101 mmol/L (96-108); Creatinine Clr Calc Pharmacy 84.8; Estimated Glomerular Filt Rate > 60; Glucose Random 170 mg/dL (60-115); Sodium 140 mmol/L (135-145); Total Protein 7.2 g/dL (6.5-8.0)
[2023-08-17] MEDS: Ketorolac Tromethamine 15 MG/ML VIAL IVPUSH (07:50)
[2023-08-17] MEDS: ondansetron HCL 4 MG/2 ML VIAL IVPUSH (07:50)
[2023-08-17] MEDS: 0.9 % Sodium Chloride 1,000 ML 999 ML IV (07:51)
[2023-08-17] MEDS: Morphine Sulfate 2 MG/ML CARTRIDGE IVPUSH (10:15)
[2023-08-17] MEDS: predniSONE 20 MG TABLET PO (10:16)
[2023-08-17 11:00] VITALS: BP 127/72; PULSE 67; RESP 18; O2SAT 96
== END 2023-08-17 11:31 | disposition home or self-care (01) ==
PROVIDERS: Emergency Provider Student in an Organized Health Care Education/Training Program; PCP Internal Medicine
DX: N20.1 Calculus of ureter (principal); M54.50 Low back pain, unspecified; E78.00 Pure hypercholesterolemia, unspecified; Z79.899 Other long term (current) drug therapy; Z87.891 Personal history of nicotine dependence
CPT/HCPCS: 36415; 51798; 74176; 80053; 81003; 85025; 96361; 96374; 96375; 99212; 99284; J1885; J2270; J2405

== ENCOUNTER 2023-08-17 12:57 | Outpatient (AMB) | payer MEDICARE, MEDICAID, SELFPAY ==
--- NOTE | 2023-08-17 13:48 | A.OFFVIS_ITS ---
Intake Intake Visit Reasons: 6m/PVR Intake Note: Patient is Present for Follow Up PVR Urology Medication: Doxazosin Antibiotic Allergies: Penicillin Blood Thinners: None Pharmacy: [facility] PVR: 0 Patient states he is currently having severe pain on left flank side, States this started since last night and the pain has not gone away. States he had Kidney stones in 1990. Denies any urinary issues Allergies Penicillins Allergy (Intermediate, Verified 08/17/23 13:50) PASSED OUT gabapentin Adverse Reaction (Intermediate, Verified 08/17/23 13:50) Dizziness atorvastatin Adverse Reaction (Unknown, Verified 08/17/23 13:50) blurring of vision simvastatin Adverse Reaction (Unknown, Verified 08/17/23 13:50) blurring of vision Medication List - Last Reconciled 08/17/23 by Terry Kearney MD amoxicillin-pot clavulanate 875-125 mg 1 tab PO Q12H bisacodyl (Dulcolax (bisacodyl)) 10 mg [place] DAILY PRN cholecalciferol (vitamin D3) 50 mcg PO DAILY 90 days doxazosin 4 mg PO BEDTIME 90 days hydrocodone-acetaminophen 5-325 mg 1 tab PO Q4-6H PRN hydrocortisone 2.5% (Proctozone-HC) 1 appl [place] BID PRN lisinopril 10 mg PO DAILY 90 days rosuvastatin 10 mg PO DAILY 90 days sennosides (Senna Lax) 17.2 mg (2 x 8.6 mg) PO BEDTIME PRN 30 days tizanidine 4 mg PO BEDTIME PRN 30 days HPI HPI Comments History of Present Illness Details Antonio is a very pleasant male. He is a patient of Dr. Han. He is seen for the following urologic conditions - lower urinary tract symptoms - nephrolithiasis Evaluated this morning at emergency room for nephrolithiasis CT Multiple left nonobstructing renal calculi, largest measures measures 4 mm in the mid/lower pole. 2 mm nonobstructing right lower pole renal calculus Prescriptions provided Six week follow-up ultrasound Lower urinary tract symptoms Follow-up symptom presentation - lower urinary tract symptoms predomina ntly obstructive symptoms with hesitancy. Current treatment includes - doxazosin 4 mg Prostate Symptom Score - Initial moderate moderate bother Symptoms include - weakness of stream, hesitancy, intermi ttency - and are slowly progressing Results from testing include - 12/28 bladder ultrasound 53 g prostate, 20 cc residual PSA - 03/26 0.8 Associated conditions CAD No CVA No Diabetes - no Treatment plan - continue therapy PFSH Medical History Amputation of thumb, left Asthma Benign essential hypertension CAD (coronary artery disease) Chronic constipation DDD (degenerative disc disease), lumbar DJD (degenerative joint disease) of cervical spine Hemorrhoids History of back pain HTN (hypertension) Hx of hepatitis Hx of vertigo Hyperlipidemia Left lower quadrant abdominal mass Left sided abdominal pain Myocardial infarction Neuropathy Obesity (BMI 30-39.9) Peripheral neuropathy Pure hypercholesterolemia Vitamin D deficiency Surgical History History of circumcision History of rhinoplasty History of surgery on left wrist Hx of colonoscopy Hx of left knee surgery Family History Unknown No family history of colorectal cancer Social History Household Members: None Housing: House Alcohol intake: never Patient Tobacco Use Status: Former Tobacco user e-Cigarette/Vaping Use: Never Used Second Hand Smoke Exposure: Yes service: No Current occupational status: retired Cognitive needs: No Hearing needs: Yes (? B/L hearing loss) Vision needs: Yes Review of Systems Const Denies chills and Denies fever(s) Card Reports no additional complaints and Denies syncope Resp Denies cough GI Denies abdominal pain and Denies heartburn Reports as per HPI and Denies change in libido Neuro Denies syncope Psych Denies change in libido Endo Denies change in libido Physical Exam Const General: cooperative, healthy appearing, comfortable and no acute distress Orientation/consciousness: patient oriented x3 HEENT Face and sinus: Yes normal facial exam Mouth: moist mucous membranes Neck Neck: Yes normal visual inspection, Yes full ROM and Yes trachea midline Chest Chest palpation & inspection: normal inspection of the chest Resp Effort & Inspection: normal respiratory effort, able to speak in complete sentences and no respiratory distress GI Inspection: Yes normal to inspection Back/Spine/Pelvis Cervical Spine: normal cervical lordosis Thoracic/Lumbar Spine: thoracic and lumbar spine normal to inspection Skin General skin exam: no rashes or lesions noted Neuro General: patient oriented x3, gait normal, tone normal and moves all extremities Extrem General: Yes normal to inspection and Yes capillary refill normal Office Procedures Post Void Residual Post Residual Void Post Void Residual (PVR): 0 [id number] Void Residual by ultrasound Results AMB Urinalysis, Automated UA Leukoctes 0 Michelle/uL Last Edit by Wendy Laguna [facility] on 08/17/23 13:58 UA Nitrite Negative Last Edit by Wendy Laguna [facility] on 08/17/23 13:58 UA Urobilinogen 0.2 mg/dL Last Edit by Wendy Laguna [facility] on 08/17/23 13:5 8 UA Protein 0 mg/dL Last Edit by Wendy Laguna A on 08/17/23 13:58 UA pH 6.0 Last Edit by Wendy Laguna [facility] on 08/17/23 13:58 UA Blood 10 Jose/uL Last Edit by Wendy Laguna [facility] on 08/17/23 13:58 UA Specific [place] 1.015 Last Edit by Wendy Laguna [facility] on 08/17/23 13: 58 UA Ketone Negative Last Edit by Wendy Laguna [facility] on 08/17/23 13:58 UA Bilirubin 0 mg/dL Last Edit by Wendy Laguna [facility] on 08/17/23 13:58 UA Glucose 0 mg/dL Last Edit by Wendy Laguna [facility] on 08/17/23 13:58 Results Reviewed Results Reviewed: Laboratory Last Values Urine pH (Auto) 6.0 08/17/23 13:50 Specific [place] (Auto) 1.015 08/17/23 13:50 Urine Protein (Auto) 0 mg/dL 08/17/23 13:50 Glucose (UA)(Auto) 0 mg/dL 08/17/23 13:50 Urine Ketones (Auto) Negative 08/17/23 13:50 Urine Blood (Auto) 10 Joes/uL 08/17/23 13:50 Urine Nitrite (Auto) Negative 08/17/23 13:50 Urine Bilirubin (Auto) 0 mg/dL 08/17/23 13:50 Urine Urobilinogen (Auto) 0.2 mg/dL 08/17/23 13:50 Leukocyte Esterase (Auto) 0 Michelle/uL 08/17/23 13:50 Assessment & Plan Assessment & Plan (1) Calculi, ureter: Code(s): N20.1 - Calculus of ureter Plan Six week follow-up Orders: Orders AMB Post Void Residual by ultrasound Today N40.1 - Benign prostatic hyperplasia with lower urinary tract symptoms, R39.11 - Hesitancy of micturition US renal BI 6 Weeks N20.0 - Calculus of kidney, N20.1 - Calculus of ureter AMB Urinalysis Automated Today Z13.9 - Encounter for screening, unspecified Medications: New tramadol 50 mg PO Q8H PRN 15 tabs 0RF pain N20.1 - Calculus of ureter, N43.3 - Hydrocele, unspecified prednisone 20 mg PO DAILY 5 tabs 0RF 5 days N20.0 - Calculus of kidney, N20.1 - Calculus of ureter Patient Instructions: Imaging studies, laboratory and physical exam results were discussed and reviewed in detail. No major barriers to patient understanding were identified. An opportunity to ask questions regarding the treatment plan was provided. All questions were answered. The patient expressed understanding and agreement with the above treatment plan. The patient is aware they should contact our office by phone for worsening of their current condition or the appearance of new urologic symptoms. Compliance is encouraged with any medications and followup testing that is ordered. It is a privilege to participate in the urologic care of your patient. If you have any questions or concerns regarding treatment for the above conditions, or other urologic issues, please do not hesitate to contact me. The office telephone contact is [phone]. This note is constructed using voice recognition software. While every effort has been made to ensure accuracy marzipan molder errors may have been included. Yours sincerely, Dr Terry Kearney MD, [facility] - Urology Providers of Expert, Compassionate Care for the Genitourinary System Coding Level of Care Code Est Pt Level 4 (88744) Diagnoses Calculi, ureter N20.1 CPT Codes Post Residual Void - PVR CPT Code: 99706-Pxqo Void Residual by ultrasound ([id number])
== END 2023-08-17 14:19 | disposition home or self-care (01) ==
PROVIDERS: PCP Internal Medicine; Visit Provider Urology
DX: N20.1 Calculus of ureter (principal); Z13.9 Encounter for screening, unspecified
CPT/HCPCS: 99214

== ENCOUNTER 2023-08-21 13:26 | Day surgery (SDC) | payer MEDICARE, MEDICAID, SELFPAY ==
[2023-08-21] VITALS (8 sets, daily range): BP systolic 130–151; BP diastolic 77–94; PULSE 78–88; RESP 14–18; TEMP 36.4–36.8; O2SAT 94–98; BMI 32.3
--- NOTE | ~2023-08-21 | FL_ITS ---
EXAMINATION: XR FLUOROSCOPY WITH IMAGES CLINICAL INFORMATION: Cystoscopy, ureteroscopy, retrograde, laser. COMPARISON: None available. TECHNIQUE: Fluoroscopy Supervised By: Dr. Deleon. Fluoroscopy Time: 61.1 seconds. Cumulative Dose: 28.61 mGy. Images: 14. FINDINGS: Fluoroscopy guidance for retrograde exam and bilateral ureteral stent placement. The left renal collecting system is normal. The left ureter not opacified. Right renal collecting system and ureter normal. Final images demonstrate bilateral internal ureteral stents in satisfactory position. FL/FL guidance in OR IMPRESSION: Fluoroscopy guidance for urology procedure.
--- NOTE | 2023-08-21 14:01 | PC.NURSE ---
IV inserted by Lili mistry RN
--- NOTE | 2023-08-21 14:11 | PC.NURSE ---
pt was c/o 10/10 pain to left flank and diaphoretic when arrived. vs wnl. patient now resting on right lateral side with pillow behind and warm blankets. sleeping and very comfortable now.
[2023-08-21] MEDS: Lactated Ringers 1,000 ML 80 ML IVCONT (14:15)
--- NOTE | 2023-08-21 14:27 | PC.NURSE ---
report given to karol english rn. report given to ask surgeon is she is ordering an antibiotic, and that procedure needs to be written in today's notes. and to also use lvn to identify pain as patient is c/o of more pain on the left today. patient moved to pacu and still comfortable laying on right side.
--- NOTE | 2023-08-21 15:19 | P.HPSUR_ITS ---
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 Relevant Family History (Specify if Yes): No Allergies: Allergies Allergy/AdvReac Type Severity Reaction Status Date / Time Penicillins Allergy Intermediate PASSED Verified 08/17/23 13:50 OUT gabapentin AdvReac Intermediate Dizziness Verified 08/17/23 13:50 atorvastatin AdvReac Unknown blurring Verified 08/17/23 13:50 of vision simvastatin AdvReac Unknown blurring Verified 08/17/23 13:50 of vision Review of Systems Review of Systems Comment: 10 point?review?of?systems?negative?other?than?stated?in?HPI Exam Surgical H&P Exam: Normal: HEENT, Normal: Heart, Normal: Lungs, Normal: Skin and Normal: Neurological Exam Comment: Left?flank?and?left?lower?quadrant?tenderness Plan Diagnosis/Plan: Unchanged I have reviewed the history and physical and performed a pertinent physical examination on my patient. No changes have occurred unless specified. Cystoscopy?right?retrograde?ureteroscopy?laser?lithotripsy?ureteral?stone?possib le?stent, left?retrograde?left?ureteral?stent, possible?ureteroscopy. Time Spent With Patient Time: Total time managing care of this patient today ____ minutes.
--- NOTE | 2023-08-21 17:11 | P.CONAN_ITS ---
Documented by User: Terry Apodaca MD 08/21/23 18:20 [facility] Past Medical History Medical History Amputation of thumb, left Asthma Benign essential hypertension CAD (coronary artery disease) Chronic constipation DDD (degenerative disc disease), lumbar DJD (degenerative joint disease) of cervical spine Hemorrhoids History of back pain HTN (hypertension) Hx of hepatitis Hx of vertigo Hyperlipidemia Left lower quadrant abdominal mass Left sided abdominal pain Myocardial infarction Neuropathy Obesity (BMI 30-39.9) Peripheral neuropathy Pure hypercholesterolemia Vitamin D deficiency Family History Family History Unknown No family history of colorectal cancer Family history of problems with anesthesia: No Surgical History Surgical History History of circumcision History of rhinoplasty History of surgery on left wrist Hx of colonoscopy Hx of left knee surgery History of Problems with Anesthesia: No Social History Social History Household Members: None Housing: House Alcohol intake: never Patient Tobacco Use Status: Former Tobacco user e-Cigarette/Vaping Use: Never Used Second Hand Smoke Exposure: Yes Are you DNR?: No Advance Directives: No Advance Directives Information Provided: Yes Nutrition Risks: No Nutritional Risk service: No Current occupational status: retired Cognitive needs: No Hearing needs: Yes (? B/L hearing loss) Vision needs: Yes Meds Allergies Allergy/AdvReac Type Severity Reaction Status Date / Time Penicillins Allergy Intermediate PASSED Verified 08/17/23 13:50 OUT gabapentin AdvReac Intermediate Dizziness Verified 08/17/23 13:50 atorvastatin AdvReac Unknown blurring Verified 08/17/23 13:50 of vision simvastatin AdvReac Unknown blurring Verified 08/17/23 13:50 of vision Exam Airway Mallampati Class: II TM Dist: >3cm Neck ROM: Full Loose/Missing/Broken Teeth: No Heart: RRR Lungs: CTA Assessment and Plan Assessment Anesthesia Assessment: Anesthesia Plan Discussed and Chart Reviewed Final Anesthetic Review Family History of Problems with Anesthesia: No History of Problems with Anesthesia: No NPO: Yes ASA Class: III Final Preanesthetic Review: No Changes in Pt Med Stat, Meds/Allgs Chart Reviewed, Consent Obtained/Reviewed and Anes Risks/Benef Reviewed Patient Risk: Intermediate Procedure Risk: Low Anesthetic Plan Anesthetic Plan: GA Disposition: Standard PACU Documented by User: Mariola Arias MD [facility] Active Problems Active Problems: All Active Problems (Updated 08/18/23 @ 00:03 by Background Rk) Cellulitis of thumb, left (Acute) Nail deformity (Acute) Amputation of left thumb (Acute) Lateral epicondylitis of left elbow (Acute) Urinary hesitancy due to benign prostatic hyperplasia (Acute) Vitamin D deficiency (Acute) Left elbow pain (Acute) Dermoid cyst of arm (Acute) Right foot pain (Acute) Daytime sleepiness (Acute) Loud snoring (Acute) Skin lesion of neck (Acute) Witnessed apneic spells (Acute) Urinary frequency (Acute) Impaired fasting glucose (Acute) Neuropathy (Acute) Asthma (Acute) Viral illness (Acute) Hemorrhoids (Acute) Chronic constipation (Acute) Tubular adenoma of colon (Acute) Obesity (BMI 30-39.9) (Acute) Benign essential hypertension (Acute) Pure hypercholesterolemia (Acute) CAD (coronary artery disease) (Acute) Skin lesions (Acute) Left lower quadrant abdominal mass (Acute) Left sided abdominal pain (Acute) Sessile colonic polyp (Acute) Hemorrhoids (Acute) Diverticulosis (Acute) Past Medical History Medical History Amputation of thumb, left Asthma Benign essential hypertension CAD (coronary artery disease) Chronic constipation DDD (degenerative disc disease), lumbar DJD (degenerative joint disease) of cervical spine Hemorrhoids History of back pain HTN (hypertension) Hx of hepatitis Hx of vertigo Hyperlipidemia Left lower quadrant abdominal mass Left sided abdominal pain Myocardial infarction Neuropathy Obesity (BMI 30-39.9) Peripheral neuropathy Pure hypercholesterolemia Vitamin D deficiency Family History Family History Unknown No family history of colorectal cancer Surgical History Surgical History History of circumcision History of rhinoplasty History of surgery on left wrist Hx of colonoscopy Hx of left knee surgery Social History Social History Household Members: None Housing: House Alcohol intake: never Patient Tobacco Use Status: Former Tobacco user e-Cigarette/Vaping Use: Never Used Second Hand Smoke Exposure: Yes Are you DNR?: No Advance Directives: No Advance Directives Information Provided: Yes Nutrition Risks: No Nutritional Risk service: No Current occupational status: retired Cognitive needs: No Hearing needs: Yes (? B/L hearing loss) Vision needs: Yes Meds Allergies Allergy/AdvReac Type Severity Reaction Status Date / Time Penicillins Allergy Intermediate PASSED Verified 08/17/23 13:50 OUT gabapentin AdvReac Intermediate Dizziness Verified 08/17/23 13:50 atorvastatin AdvReac Unknown blurring Verified 08/17/23 13:50 of vision simvastatin AdvReac Unknown blurring Verified 08/17/23 13:50 of vision Active Medications: Current Medications Lactated Ringer's (Lr) 1,000 mls @ 80 mls/hr IVCONT .[id number] NANNETTE Last Admin: 08/21/23 14:15 Dose: 80 mls/hr Exam Exam Date and Time: August 21, [id number] Height,Weight and Vital Signs: Height 5 ft 10 in Weight 102 kg Last Vital Signs Temp 97.9 F 08/21/23 14:02 Pulse 81 08/21/23 14:02 Resp 18 08/21/23 14:02 BP 151/94 H 08/21/23 14:02 Pulse Ox 96 08/21/23 14:02 O2 Del Method Room Air 08/21/23 14:02
[2023-08-21] MEDS: Acetaminophen 1,000 MG/100 ML PIGGYBACK 400 MG IV (17:26)
--- NOTE | 2023-08-21 17:27 | PC.NURSE ---
patient oob to voidx1 reports significant left flank pain. dr. salcedo and dr. guardado made aware. new orders obtained. medicated for pain
--- NOTE | 2023-08-21 19:59 | P.OP_ITS ---
Operative Note Operative Note Date of Service: 08/21/23 Narrative: PreOperative Diagnosis:?? Left?renal?calculi,?right?ureteral?stone,?hydronephrosis Post Operative Diagnosis:?? Left?renal?calculi,?right?ureteral?stone,?hydronephrosis Procedure: - cystoscopy, bilateral retrograde, right ureteroscopy laser lithotripsy Right?stent insertion, 6 Gu[place]ian by multi?length cm, Left?ureteral?stent?insertion 6?Guamanian?by?multi?length Surgeon:?Dr Jonathan Deleon Anesthesia:? General Indications for procedure: ?The?patient?wa s?seen?in?the?emergency?room?on?08/17/23 with?complaints?of?acute?left?flank?pain.??CTAP?noted?right?mid?to?distal?ureter al?stone?with?mild?right?dilatation, left?renal?calculi?with?some?isabell?nephric? stranding?and?prominence?of?the?left?pelvis. Procedure: After informed consent was verified the patient was brought to the operating placed on the OR table in supine position.? General Anesthesia was administered per protocol.? The patient was placed in lithotomy position, prepped and draped in the usual sterile fashion.? Safety pause time-out and side of surgery confirmed.? Antibiotics confirmed. 2% lidocaine jelly 10 mL was passed transurethrally. A 22 Guamanian cystoscope was inserted transurethrally, the bulbous urethra was within normal limits. The prostatic urethra was enlarged, with?mild to moderate?prominence?of?the?median?lobe. The bladder was visualized.? Both ureteric orifices were in normal position. An open-ended ureteral catheter was passed into the left ureteral orifice and a retrograde examination was performed. There?was?not?significant?distal?ureteral?dilatation.??The?guidewire?was?passed? into?the?kidney?a?double-J?stent?was?placed?size?6?Guamanian?by?multi?length?cm. An open-ended ureteral catheter was passed into the right ureteral orifice and a retrograde examination was performed. There was a filling defect in the mid ureter and dilatation of the proximal ureter and renal pelvis and calyces. A guidewire was passed through the ureteral catheter into the kidney. The balloon dilator size 12 fr by?4?cm?was passed over the guide -wire the balloon was inflated to 10 mmHg and the intramural ureter was dilated for 30 seconds. The balloon was deflated and removed. After removing the balloon dilator a 2nd guidewire was then passed into the kidney to use as a safety. The cystoscope was removed, leaving both guidewires in place. One guidewire was used as the safety and was attached to the draping. The semi rigid ureteroscope was passed over one of the guidewires to the level of the stone in the ureter. One guidewire was then removed. Laser lithotripsy of the stone was done using the 365 fiber with a settings 0.5 joules by 15 hertz. There was good fragmentation of the stone. The 0 degree basket was passed through the ureteroscope, and?stone?fragments?were removed to send for analysis. The ureteroscope was removed. The cystoscope was passed over the safety guidewire. A? 6 Gu[place]ian by multilevel cm stent was placed into the ureter and renal pelvis under a combination of fluoroscopy and direct visualization. The bladder was emptied.? The rigid cystoscope was removed. ? The patient tolerated the procedure well and was brought to the recovery room in stable condition. Complications: None Drains: Bilateral?Ureteral stents as dictated above
[2023-08-21] MEDS: Phenazopyridine HCL 200 MG TABLET PO (20:22)
[2023-08-21] MEDS: traMADoL HCL 50 MG TABLET PO (20:25)
[2023-08-28 16:08] LABS: Stone Source RIGHT URETERAL STONE
== END 2023-08-21 21:13 | disposition home or self-care (01) ==
PROVIDERS: PCP Internal Medicine; Visit Provider Urology
PROC: (CPT 52332; principal; 2023-08-21 15:00)
DX: N13.2 Hydronephrosis with renal and ureteral calculous obstruction (principal); Z87.442 Personal history of urinary calculi; N40.1 Benign prostatic hyperplasia with lower urinary tract symptoms; R39.11 Hesitancy of micturition; N43.3 Hydrocele, unspecified; I25.10 Atherosclerotic heart disease of native coronary artery without angina pectoris; I25.2 Old myocardial infarction; I10 Essential (primary) hypertension; E78.00 Pure hypercholesterolemia, unspecified; E55.9 Vitamin D deficiency, unspecified; J45.909 Unspecified asthma, uncomplicated; G62.9 Polyneuropathy, unspecified; Z79.899 Other long term (current) drug therapy; Z88.0 Allergy status to penicillin; Z88.8 Allergy status to other drugs, medicaments and biological substances; Z87.891 Personal history of nicotine dependence
CPT/HCPCS: 52332; 52356; 52344; 82365; 88300; C1726; C1758; C1769; C2617; J0131; J1100; J1956; J2250; J3010; Q9967

== ENCOUNTER → 2023-08-21 13:26 | Outpatient (BNV) | payer MEDICARE, MEDICAID, SELFPAY | PROVIDERS: PCP Internal Medicine; Visit Provider Urology | DX: N20.2 Calculus of kidney with calculus of ureter (principal) | CPT/HCPCS: 52356; 74420 ==

== ENCOUNTER 2023-09-12 11:06 | Outpatient (REF) | payer MEDICARE, MEDICAID, SELFPAY ==
--- NOTE | ~2023-09-12 | US_ITS ---
EXAMINATION: US RETROPERITONEAL LIMITED (RENAL ONLY) CLINICAL INFORMATION: Calculus of kidney. COMPARISON: CT abdomen and pelvis without contrast 08/17/2023. Ultrasound pelvis limited (bladder) 12/26/2022. Ultrasound retroperitoneal limited 11/27/2016. TECHNIQUE: Real-time imaging of the kidneys. FINDINGS: RIGHT KIDNEY: 10.5 x 6.2 x 6.3 cm (SAG x AP x TRV). The kidney is normal in size, contour, and echogenicity. Renal cortical thickness is normal. No focal parenchymal lesions or hydronephrosis. 5 mm nonobstructing calculus in the lower pole. 6 mm nonobstructing calculus in the lower pole. LEFT KIDNEY: 10.7 x 5.7 x 4.9 cm (SAG x AP x TRV). The kidney is normal in size and echogenicity. Renal cortical thickness is normal. No focal parenchymal lesions or hydronephrosis. Multiple calculi, the largest measuring 5 mm in the mid kidney and 5 mm in the mid kidney. US/US renal BI IMPRESSION: Bilateral renal calculi with no hydronephrosis.
== END 2023-09-12 11:07 | disposition home or self-care (01) ==
LOC: HO.US 11:06
PROVIDERS: PCP Internal Medicine; Visit Provider Urology
DX: N20.0 Calculus of kidney (principal); N20.1 Calculus of ureter
CPT/HCPCS: 76775

== ENCOUNTER 2023-09-12 13:13 | Outpatient (AMB) | payer MEDICARE, MEDICAID, SELFPAY ==
[2023-09-12 13:14] VITALS: BP 108/70; PULSE 93; O2SAT 97; BMI 31.4
--- NOTE | 2023-09-12 13:14 | MHC.PC.OV ---
Vital Signs 09/12/23 13:14 Height 5 ft 10 in Weight 219 lb BMI 31.4 BP 108/70 Blood Pressure Location Lt brachial Position Sitting Pulse 93 Pulse Source Pulse Oximeter Pulse Oximetry (%) 97 Oxygen Delivery Method Room Air Intake Visit Reasons: kidney stones high bp Intake Note: pt states custodial kidney stones, with dark urine, dizziness and low blood pressure Glove Parts Inspector Required: No Accompanied by: Self / Same As Patient Allergies Penicillins Allergy (Intermediate, Verified 09/12/23 13:50) PASSED OUT gabapentin Adverse Reaction (Intermediate, Verified 09/12/23 13:50) Dizziness atorvastatin Adverse Reaction (Unknown, Verified 09/12/23 13:50) blurring of vision simvastatin Adverse Reaction (Unknown, Verified 09/12/23 13:50) blurring of vision Medication List - Last Reconciled 09/12/23 by Ambreen Slater MD bisacodyl (Dulcolax (bisacodyl)) 10 mg WI DAILY PRN cholecalciferol (vitamin D3) 50 mcg PO DAILY 90 days doxazosin 4 mg PO BEDTIME 90 days hydrocodone-acetaminophen 5-325 mg 1 tab PO Q4-6H PRN hydrocortisone 2.5% (Proctozone-HC) 1 appl WI BID PRN levofloxacin 500 mg PO DAILY 7 days lisinopril 10 mg PO DAILY 90 days oxycodone-acetaminophen 5-325 mg (Percocet) 1 tab PO Q6H PRN phenazopyridine (Pyridium) 200 mg PO TID rosuvastatin 10 mg PO DAILY 90 days sennosides (Senna Lax) 17.2 mg (2 x 8.6 mg) PO BEDTIME PRN 30 days tizanidine 4 mg PO BEDTIME PRN 30 days tramadol 50 mg PO Q8H PRN Tobacco use date assessed: 09/12/23 Fall risk assessment: No Falls in past year Last assessed Fall Risk: 09/12/23 HPI HPI Comments History of Present Illness Details This is a 63-year-old male with hypertension, pure hypercholesterolemia, impaired fasting glucose and nephrolithiasis that comes today complaining of left lower quadrant abdominal pain that has been present for about 1-2 weeks. He had procedure to remove kidney stones 2 weeks ago. Tomorrow he will see urology for this matter. Had an ultrasound of did abdomen today. Results still pending. Blood pressure stable. Stop taking statins a while ago and lipid panel will be order. He complains of polyuria and polydipsia and had elevated random blood glucose and fasting blood glucose will be order. [facility] Medical History (Updated 09/12/23 @ 14:27 by Ambreen Slater MD) Vitamin D deficiency Neuropathy Hemorrhoids Chronic constipation Obesity (BMI 30-39.9) Benign essential hypertension Pure hypercholesterolemia Left lower quadrant abdominal mass Left sided abdominal pain Peripheral neuropathy History of back pain Hx of hepatitis Amputation of thumb, left DJD (degenerative joint disease) of cervical spine DDD (degenerative disc disease), lumbar Hx of vertigo Asthma Hyperlipidemia Myocardial infarction CAD (coronary artery disease) HTN (hypertension) Surgical History History of surgery on left wrist History of circumcision History of rhinoplasty Hx of left knee surgery Hx of colonoscopy Family History Unknown No family history of colorectal cancer Social History Household Members: None Housing: House Alcohol intake: never Patient Tobacco Use Status: Former Tobacco user e-Cigarette/Vaping Use: Never Used Second Hand Smoke Exposure: Yes service: No Current occupational status: retired Cognitive needs: No Hearing needs: Yes (? B/L hearing loss) Vision needs: Yes Questionnaire Thrive Questionnaire Date Thrive assessed: 01/22/23 AUDIT C Alcohol Use Questionnaire (AUDIT-C) 1. How often do you have a drink containing alcohol?: Never 3. How often do you have six or more drinks on one occasion?: Never Total Score: 0 Score Reviewed/Action Taken: Yes LING-7 AMB Questionnaire LING-7 Date LING - 7 assessed: 01/22/23 Source: Developed by Drs. Brendon Nixon, Marlen Tanner, Angelo Arreola and colleagues, with an educational zen from ice. Review of Systems Const All systems reviewed & are unremarkable except as noted in HPI and below Eyes Reports no additional complaints, Denies change in vision and Denies other visual disturbances Card Denies chest pain at rest, Denies chest pain with activity, Denies edema, Denies irregular heart rhythm, Denies claudication, Denies dyspnea, Denies dyspnea on exertion, Denies orthopnea, Denies paroxysmal nocturnal dyspnea and Denies slow heart rate Resp Denies cough, Denies dyspnea and Denies dyspnea on exertion GI Reports abdominal pain, Denies change in bowel habits, Denies excessive flatus, Denies nausea and Denies vomiting Denies urinary hesitancy, Denies urinary incontinence and Denies urinary urgency Musc Denies atrophy, Denies deformity and Denies limited range of motion Skin/Breast Denies bleeding lesions, Denies changing lesions and Denies rash Physical exam (Primary Care) Vital Signs: Last Vital Signs Pulse 93 09/12/23 13:14 BP 108/70 09/12/23 13:14 Pulse Ox 97 09/12/23 13:14 Oxygen Delivery Method Room Air 09/12/23 13:14 BMI result Body Mass Index 31.4 Tobacco/Smoking Status: Tobacco use Status Tobacco use date assessed 09/12/23 09/12/23 13:15 Patient Tobacco Use Status Former Tobacco user 09/12/23 13:15 e-Cigarette/Vaping Use Never Used 09/12/23 13:15 Thrive Assessment: Date of Thrive Assessment Date Thrive assessed 01/22/23 09/12/23 13:15 HENMT Head: Yes normal to inspection, Yes normocephalic and Yes atraumatic Ears: external ears normal General nose exam: Normal external nose present and No nasal discharge present Face and sinus: Yes sinuses nontender Mouth: lip normal Eyes General: appearance normal, both eyes and all related structures Eyelids: Yes eyelids normal Conjunctivae: conjunctivae normal Neck Neck: Yes normal visual inspection and Yes supple Resp Effort & Inspection: normal respiratory effort Auscultation: clear to auscultation bilaterally Cardio Jugular venous distension: no JVD Rate: regular rate Rhythm: regular rhythm Heart sounds: S1 normal heart sound present and S2 normal heart sound present GI Palpation (GI): Tenderness to palpation present (GI) in the LLQ Extrem General: Yes full ROM Assessment and Plan Assessment & Plan (1) Benign essential hypertension: Code(s): I10 - Essential (primary) hypertension Plan: Continue lisinopril. Blood pressure goal is equal or less than 130/80. (2) Pure hypercholesterolemia: Code(s): E78.00 - Pure hypercholesterolemia, unspecified Plan: Repeat lipid panel. (3) Impaired fasting glucose: Code(s): R73.01 - Impaired fasting glucose Plan: Fasting blood glucose ordered. (4) Nephrolithiasis: Code(s): N20.0 - Calculus of kidney Plan: Follow-up with Urology. Orders: Orders Lipid Panel Today E78.5 - Hyperlipidemia, unspecified Comprehensive [place]. Panel Fast Today R73.01 - Impaired fasting glucose Vitamin D 25-OH Total Today E55.9 - Vitamin D deficiency, unspecified Medications: New pyridoxine (vitamin B6) 50 mg PO DAILY 90 days 90 tabs 1RF Coding Level of Care Code Est Pt Level 4 (57744) Diagnoses Benign essential hypertension I10 Pure hypercholesterolemia E78.00 Impaired fasting glucose R73.01 Nephrolithiasis N20.0 Time Spent (min) 24
== END 2023-09-12 14:08 | disposition home or self-care (01) ==
PROVIDERS: PCP Internal Medicine; Visit Provider Internal Medicine
DX: I10 Essential (primary) hypertension (principal); E78.00 Pure hypercholesterolemia, unspecified; R73.01 Impaired fasting glucose; N20.0 Calculus of kidney
CPT/HCPCS: 99214

== ENCOUNTER 2023-09-13 07:06 | Outpatient (REF) | payer MEDICARE, MEDICAID, SELFPAY ==
--- NOTE | ~2023-09-13 | XR_ITS ---
EXAMINATION: XR ABDOMEN KUB CLINICAL INDICATION: Calculus of kidney. COMPARISON: Renal ultrasound 09/14/2023. CT scan of the abdomen and pelvis of 08/17/2020. TECHNIQUE: 2 AP views of the abdomen. FINDINGS: Nonobstructive bowel gas pattern. Moderate amount of stool in the colon. Visualization of the bilateral kidneys is limited due to overlying bowel. Calcifications overlying the left kidney, largest lower pole 4 mm. Possible calcifications overlying the right kidney are difficult to characterize due to overlying bowel. Right double-J ureteral stent with proximal portion overlying the right kidney and distal portion overlying the pelvis. Left double-J ureteral stent with proximal portion overlying the left kidney and distal portion overlying the pelvis. Small rounded pelvic calcifications are likely vascular. Dextroscoliosis of the lumbar spine with advanced degenerative changes. XR/XR KUB IMPRESSION: Bilateral ureteral stents in place.
[2023-09-13 08:48] LABS: Alanine Aminotransferase 13 U/L (0-40); Alkaline Phosphatase 69 U/L (39-117); Anion Gap 12 (12-20); Aspartate Amino Transferase 15 U/L (5-37); Bilirubin Total 0.8 mg/dL (0.0-1.0); Blood Urea Nitrogen 15 mg/dL (9-16); Calcium 9.1 mg/dL (8.4-10.2); Carbon Dioxide 31 mmol/L (22-29); Chloride 104 mmol/L (96-108); Cholesterol 202 mg/dL (<200); Estimated Glomerular Filt Rate > 60; Glucose Fasting 107 mg/dL (60-99); HDL Cholesterol 34 mg/dL (>40); LDL Cholesterol Calculated 130 mg/dL (<100); Potassium 3.5 mmol/L (3.3-5.1); Sodium 143 mmol/L (135-145); Total Protein 6.6 g/dL (6.5-8.0); Triglycerides 193 mg/dL (<150)
[2023-09-13 09:04] LABS: Vitamin D 25-OH Total 22.1 ng/mL (>30)
[2023-09-21 18:13] LABS: Stone Source KIDNEY STONE
== END 2023-09-13 07:07 | disposition home or self-care (01) ==
LOC: HO.XRAY 07:06
PROVIDERS: Absent Provider Urology; PCP Internal Medicine; Visit Provider Internal Medicine
DX: N20.0 Calculus of kidney (principal); R10.9 Unspecified abdominal pain; N11.9 Chronic tubulo-interstitial nephritis, unspecified; E78.5 Hyperlipidemia, unspecified; R73.01 Impaired fasting glucose; E55.9 Vitamin D deficiency, unspecified; Z79.899 Other long term (current) drug therapy
CPT/HCPCS: 36415; 74018; 80053; 80061; 81003; 82306; 82365; 88300; 99212

== ENCOUNTER 2023-09-13 09:19 | Outpatient (AMB) | payer MEDICARE, MEDICAID, SELFPAY ==
--- NOTE | 2023-09-13 09:24 | A.OFFVIS_ITS ---
Intake Intake Visit Reasons: BI stent removal Intake Note: Patient presents today for a CYSTOSCOPY/STENT REMOVAL Procedure: Patient declined to be performed in office School Bus Driver/Teacher Assistant Required: Yes School Bus Driver/Teacher Assistant Language: Development Spec Name: ELISA Cotton, IVONE SPAN Information Interpreted: non-clinical & clinical Peanut Sheller: Peanut Sheller Present Accompanied by: Self / Same As Patient Allergies Penicillins Allergy (Intermediate, Verified 09/13/23 09:54) PASSED OUT gabapentin Adverse Reaction (Intermediate, Verified 09/13/23 09:54) Dizziness atorvastatin Adverse Reaction (Unknown, Verified 09/13/23 09:54) blurring of vision simvastatin Adverse Reaction (Unknown, Verified 09/13/23 09:54) blurring of vision Medication List - Last Reconciled 09/13/23 by Jonathan Deleon MD bisacodyl (Dulcolax (bisacodyl)) 10 mg AK DAILY PRN cholecalciferol (vitamin D3) 50 mcg PO DAILY 90 days doxazosin 4 mg PO BEDTIME 90 days hydrocodone-acetaminophen 5-325 mg 1 tab PO Q4-6H PRN hydrocortisone 2.5% (Proctozone-HC) 1 appl AK BID PRN levofloxacin 500 mg PO DAILY 7 days lisinopril 10 mg PO DAILY 90 days oxycodone-acetaminophen 5-325 mg (Percocet) 1 tab PO Q6H PRN phenazopyridine (Pyridium) 200 mg PO TID pyridoxine (vitamin B6) 50 mg PO DAILY 90 days rosuvastatin 10 mg PO DAILY 90 days sennosides (Senna Lax) 17.2 mg (2 x 8.6 mg) PO BEDTIME PRN 30 days tizanidine 4 mg PO BEDTIME PRN 30 days tramadol 50 mg PO Q8H PRN HPI HPI Comments History of Present Illness Details Yash is a 63-year-old male who presents today to the office for a follow-up. 09/13/2023-- Yash is followed today post outpatient procedure 08/21/23 for Cystoscopy, bilateral ureteral stent, right ureteroscopy and laser stone which was performed due to 6 mm obstructing right ureteral stone and Left flank pain, left kidney pyelonephritis. Patient was scheduled to have stent removal today in the office; however, he refuses today and states that he only wants the stent to be removed in the operating room as he cannot tolerate the pain related to the procedure. He has seen Terry Neves in the past for kidney stones. He had circumcision about 7-8 years ago. Patient states that he had seen his PCP on 09/12/2023. He c/o's of persistent left flank pain is improved but not resolved Evaluation today--UA--Leukocytes: 2 +; blood: 3 +. Patient has had US yesterday and the final meter attendant is pending. I will review it with the patient when the results are available. Plan: To schedule an X-ray KUB. Refilled Levaquin for 7 days for chronic pyelonephritis I will schedule a follow-up Cystoscopy, bilateral stent removal as an outpatient. [facility] Medical History Vitamin D deficiency Neuropathy Hemorrhoids Chronic constipation Obesity (BMI 30-39.9) Benign essential hypertension Pure hypercholesterolemia Left lower quadrant abdominal mass Left sided abdominal pain Peripheral neuropathy History of back pain Hx of hepatitis Amputation of thumb, left DJD (degenerative joint disease) of cervical spine DDD (degenerative disc disease), lumbar Hx of vertigo Asthma Hyperlipidemia Myocardial infarction CAD (coronary artery disease) HTN (hypertension) Surgical History History of surgery on left wrist History of circumcision History of rhinoplasty Hx of left knee surgery Hx of colonoscopy Family History Unknown No family history of colorectal cancer Social History Household Members: None Housing: House Alcohol intake: never Patient Tobacco Use Status: Former Tobacco user e-Cigarette/Vaping Use: Never Used Second Hand Smoke Exposure: Yes service: No Current occupational status: retired Cognitive needs: No Hearing needs: Yes (? B/L hearing loss) Vision needs: Yes Review of Systems Const All systems reviewed & are unremarkable except as noted in HPI and below Reports no additional complaints Eyes Reports no additional complaints ENT Reports no additional complaints Card Denies dyspnea Resp Denies cough and Denies dyspnea GI Reports no additional complaints Musc Reports no additional complaints Skin/Breast Denies rash and Denies unusual bruising Neuro Reports no additional complaints Psych Reports no additional complaints Endo Reports no additional complaints Niko/Lymph Reports no additional complaints Aller/Immun Reports no additional complaints Physical Exam Const General: healthy appearing, no acute distress and well developed Orientation/consciousness: patient oriented x3 HEENT Head: Yes normocephalic and Yes atraumatic Eyes Conjunctivae: conjunctivae normal Neck Neck: Yes normal visual inspection Chest Chest palpation & inspection: normal inspection of the chest Resp Effort & Inspection: normal respiratory effort Cardio Rate: regular rate GI Inspection: Yes normal to inspection Skin General skin exam: no rashes or lesions noted Neuro General: patient oriented x3 Extrem General: No pedal edema Psych Appearance: grossly normal Affect: normal affect Office Procedures Cystoscopy Consent Discussed risk and benefit or proposed procedure with the patient. Information consent for procedure given to the patient. Discussed technical aspects, risks, benefits and alternatives in full. Addressed all of the patient's questions and concerns regarding the procedure. The patient demonstrated knowledge and understanding. They wish to proceed with this procedure. Preparation The patient was prepped in the usual manner. A form carpenter was present and in the room. Genitalia was prepped with betadine solution in a sterile manner. Lidocaine Jelly 2% was placed into the urethra and 16Fr flexible Olympus cystoscope was inserted into the meatus after adequate lubrication. Procedure code (CPT) selection complete (PT REFUSED PROCEDURE- NOT DONE ) Office Meds lidocaine HCl 2 % mucosal jelly in applicator Performing Provider: Jonathan Deleon MD [facility] Documented (not given) by: Esthela Gandara RN on 09/13/23 09:32 Reason Not Given: Patient Refused naproxen 500 mg tablet Performing Provider: Jonathan Deleon MD Performing Location[facility] Documented (not given) by: Esthela Gandara RN on 09/13/23 09:32 Reason Not Given: Patient Refused ciprofloxacin HCl 500 mg tablet Performing Provider: Jonathan Deleon MD Performing Location: [facility] Documented (not given) by: Esthela Gandara RN on 09/13/23 09:32 Reason Not Given: Patient Refused Results AMB Urinalysis, Automated UA Leukoctes 125 Michelle/uL Last Edit by ELISA Cotton on 09/13/23 12:02 2+ Nacho Maldonado 09/13/23 12:02 UA Nitrite Negative Last Edit by ELISA Cotton on 09/13/23 12:02 UA Urobilinogen 0.2 mg/dL Last Edit by ELISA Cotton on 09/13/23 12:0 2 UA Protein 15 mg/dL Last Edit by ELISA Cotton on 09/13/23 12:02 UA pH 6.0 Last Edit by ELISA Cotton on 09/13/23 12:02 UA Blood 200 Jose/uL Last Edit by ELISA Cotton on 09/13/23 12:02 3+ Nacho Maldonado 09/13/23 12:02 UA Specific [place] 1.015 Last Edit by ELISA Cotton on 09/13/23 12: 02 UA Ketone Negative Last Edit by ELISA Cotton on 09/13/23 12:02 UA Bilirubin 0 mg/dL Last Edit by ELISA Cotton on 09/13/23 12:02 UA Glucose 0 mg/dL Last Edit by ELISA oCtton on 09/13/23 12:02 Results Reviewed Results Reviewed: Laboratory Last Values Urine pH (Auto) 6.0 09/13/23 12:00 Specific [place] (Auto) 1.015 09/13/23 12:00 Urine Protein (Auto) 15 mg/dL 09/13/23 12:00 Glucose (UA)(Auto) 0 mg/dL 09/13/23 12:00 Urine Ketones (Auto) Negative 09/13/23 12:00 Urine Blood (Auto) 200 Jose/uL 09/13/23 12:00 Urine Nitrite (Auto) Negative 09/13/23 12:00 Urine Bilirubin (Auto) 0 mg/dL 09/13/23 12:00 Urine Urobilinogen (Auto) 0.2 mg/dL 09/13/23 12:00 Leukocyte Esterase (Auto) 125 Michelle/uL 09/13/23 12:00 Date of Service: 08/17/23 EXAMINATION: CT ABDOMEN AND PELVIS WITHOUT CONTRAST CLINICAL INFORMATION: Flank pain COMPARISON: Previous studies, most recent, 01/08/2021, most remote, 06/18/2014 TECHNIQUE: Multidetector volumetric imaging was performed from the superior aspect of the liver through the pubic symphysis. Sagittal and coronal reformatted images were obtained on the technologist's workstation. This CT examination was performed using dose optimization techniques as appropriate, variously including the following: *Automated exposure control *Adjustment of mA and/or kV according to patient size (this includes techniques or standardized protocols for targeted exams where dose is matched to indication/reason for exam; i.e. extremities or head) *Use of iterative reconstruction technique DLP: 741 mGy-cm FINDINGS: [employer]: Nonobstructive bowel pattern. Pelvic phleboliths. Degenerative changes and mild dextroscoliosis. LUNG BASES: Right middle lobe granuloma. Bibasilar atelectasis. Nonenlarged heart. No pericardial effusion. LIVER, GALLBLADDER, AND BILIARY TREE: No focal hepatic lesion or biliary ductal dilatation is present. The gallbladder is decompressed without evidence of radiopaque gallstones, gallbladder wall thickening, or obvious pericholecystic inflammatory changes. PANCREAS: Unremarkable. SPLEEN: Unremarkable. ADRENAL GLANDS: 1.7 cm right adrenal lesion has been present dating back to 2013, slightly increased in size to 1.7 cm currently. Hounsfield units less than 10 consistent with lipid rich adenoma. No further workup recommended. KIDNEYS AND URETERS: Left kidney measures 11.9 cm in longest sagittal projection, right 11.6 cm. Bilateral nonspecific perinephric stranding. No hydronephrosis. Multiple left nonobstructing renal calculi, largest measures measures 4 mm in the mid/lower pole. 2 mm nonobstructing right lower pole renal calculus. There is a 6 mm calculus in the right hemipelvis, not seen on previous studies and associated with focally prominent distal ureter just proximal to the stone. BLADDER: Under distended with mild wall thickening. GASTROINTESTINAL TRACT: Moderately distended stomach. Nonobstructive bowel pattern. Unremarkable appendix. Mild fecal retention. Decompressed descending colon. ABDOMINAL WALL: Tiny fat filled umbilical and inguinal hernias. LYMPH NODES: No pathologic lymphadenopathy. PERITONEUM: Mesenteric swirling again noted. No free air or free fluid. No significant inflammatory changes. VASCULAR: Nonaneurysmal aorta with atherosclerotic calcifications. Tortuous iliac arteries. Normal caliber inferior vena cava. Left retroaortic renal vein. PELVIC VISCERA: Unremarkable. Multiple phleboliths. OSSEOUS AND SOFT TISSUE STRUCTURES: Mild gynecomastia. Degenerative changes. L3-L4 spurring with moderate spinal canal narrowing narrowing IMPRESSION: 6 mm distal right ureteral calculus. Only mild dilatation of the distal right ureter proximal to the stone. No significant hydroureteronephrosis. Absence of perinephric and periureteral stranding. Nonobstructing left renal calculi. Assessment & Plan Assessment & Plan (1) Nephrolithiasis: Code(s): N20.0 - Calculus of kidney (2) Left flank pain: Code(s): R10.9 - Unspecified abdominal pain (3) Chronic pyelonephritis: Code(s): N11.9 - Chronic tubulo-interstitial nephritis, unspecified Plan To schedule an X-ray KUB. Refilled Levaquin for 7 days. I will schedule a follow-up Cystoscopy, bilateral stent removal as an outpa tient. Orders: Orders AMB Cystoscopy 09/13/23 N20.0 - Calculus of kidney XR KUB 09/13/23 N20.0 - Calculus of kidney AMB Urinalysis Automated 09/13/23 Z13.9 - Encounter for screening, unspecified Surgical 09/13/23 N20.0 - Calculus of kidney Medications: Refilled levofloxacin 500 mg PO DAILY 7 days 7 tabs 0RF Patient Instructions: The patient had an opportunity to ask questions regarding treatment plan. All questions were answered. Imaging, Laboratory studies and physical exam results were discussed and reviewed in detail. No major barriers to understanding were identified. The patient expressed understanding and agreement with the above treatment plan. The patient is aware they should contact our office by phone for worsening of their current condition or the appearance of new symptoms. Compliance is encouraged with any medications and followup testing that is ordered. It is a privilege to be allowed the opportunity to participate in the urologic care of your patient. If you have any questions or concerns regarding treatment for the above conditions please do not hesitate to contact me. The office telephone contact is [phone]. This note is constructed in part using voice recognition software. While every effort has been made to ensure accuracy meter attendant errors may have been included. Yours sincerely, Jonathan Deleon MD Coding Level of Care Code Est Pt Level 4 (53644) Diagnoses Nephrolithiasis N20.0 Left flank pain R10.9 Chronic pyelonephritis N11.9
== END 2023-09-13 10:40 | disposition home or self-care (01) ==
PROVIDERS: PCP Internal Medicine; Visit Provider Urology
DX: N20.0 Calculus of kidney (principal); R10.9 Unspecified abdominal pain; N11.9 Chronic tubulo-interstitial nephritis, unspecified
CPT/HCPCS: 99214

== ENCOUNTER 2023-09-25 08:17 | Day surgery (SDC) | payer MEDICARE, MEDICAID, SELFPAY ==
[2023-09-20 14:29] VITALS: BMI 31.4
--- NOTE | 2023-09-24 09:47 | HO.ANESPROP2 ---
HPI - Anesthesia Eval Consult details Narrative: 63yo M for Cystoscopy, Ureteroroscopy, Retro, Laser,with poss stent removal, s/p same 08/2023 with LMA 5 PMFSH Active Problems Active Problems: All Active Problems (Updated 09/15/23 @ 20:10 by Jonathan Deleon MD) Chronic pyelonephritis (Acute) Left flank pain (Acute) Nephrolithiasis (Acute) Cellulitis of thumb, left (Acute) Nail deformity (Acute) Amputation of left thumb (Acute) Lateral epicondylitis of left elbow (Acute) Urinary hesitancy due to benign prostatic hyperplasia (Acute) Left elbow pain (Acute) Dermoid cyst of arm (Acute) Right foot pain (Acute) Daytime sleepiness (Acute) Loud snoring (Acute) Skin lesion of neck (Acute) Witnessed apneic spells (Acute) Urinary frequency (Acute) Impaired fasting glucose (Acute) Viral illness (Acute) Tubular adenoma of colon (Acute) Skin lesions (Acute) Sessile colonic polyp (Acute) Hemorrhoids (Acute) Diverticulosis (Acute) Vitamin D deficiency (Acute) Neuropathy (Acute) Asthma (Acute) Hemorrhoids (Acute) Chronic constipation (Acute) Obesity (BMI 30-39.9) (Acute) Benign essential hypertension (Acute) Pure hypercholesterolemia (Acute) CAD (coronary artery disease) (Acute) Left lower quadrant abdominal mass (Acute) Left sided abdominal pain (Acute) Past Medical History Medical History (Updated 09/15/23 @ 20:10 by Jonathan Deleon MD) Vitamin D deficiency Neuropathy Hemorrhoids Chronic constipation Obesity (BMI 30-39.9) Benign essential hypertension Pure hypercholesterolemia Left lower quadrant abdominal mass Left sided abdominal pain Peripheral neuropathy History of back pain Hx of hepatitis Amputation of thumb, left DJD (degenerative joint disease) of cervical spine DDD (degenerative disc disease), lumbar Hx of vertigo Asthma Hyperlipidemia Myocardial infarction CAD (coronary artery disease) HTN (hypertension) Family History Family History Unknown No family history of colorectal cancer Family history of problems with anesthesia: No Surgical History Surgical History (Updated 09/20/23 @ 14:24 by Patricia Loya RN) Hx of cystoscopy History of surgery on left wrist History of circumcision History of rhinoplasty Hx of left knee surgery Hx of colonoscopy History of Problems with Anesthesia: No Social History Social History Household Members: None Housing: House Alcohol intake: never Patient Tobacco Use Status: Former Tobacco user e-Cigarette/Vaping Use: Never Used Second Hand Smoke Exposure: Yes service: No Current occupational status: retired Cognitive needs: No Hearing needs: Yes (? B/L hearing loss) Vision needs: Yes Meds Allergies Allergy/AdvReac Type Severity Reaction Status Date / Time Penicillins Allergy Intermediate PASSED Verified 09/13/23 09:54 OUT atorvastatin AdvReac Intermediate blurring Verified 09/20/23 14:25 of vision gabapentin AdvReac Intermediate Dizziness Verified 09/13/23 09:54 simvastatin AdvReac Intermediate blurring Verified 09/20/23 14:25 of vision Exam Height,Weight and Vital Signs: Height 5 ft 10 in Weight 99.337 kg Pertinent Lab Results Pertinent Lab Results: Laboratory Tests 08/17/23 09/13/23 07:21 07:20 WBC 7.2 Hgb 15.3 Hct 43.7 Plt Count 259 Sodium 143 Potassium 3.5 Chloride 104 Carbon Dioxide 31 H BUN 15 Creatinine 0.95 Assessment and Plan Assessment Anesthesia Assessment: Chart Reviewed Final Anesthetic Review Family History of Problems with Anesthesia: No History of Problems with Anesthesia: No
[2023-09-25 08:26] VITALS: BMI 31.4
[2023-09-25 09:04] VITALS: BP 145/85; PULSE 82; RESP 16; TEMP 36.3; O2SAT 98
[2023-09-25] MEDS: Lactated Ringers 1,000 ML 100 ML IVCONT (09:11)
--- NOTE | 2023-09-25 10:06 | MHC.SHP ---
Pre-Procedural Eval Section A Date of Service: 09/25/23 The patient is an INPATIENT: No The History & Physical has been completed within 30 days and I have reviewed it.: Yes Section B Chief Complaint: Nephrolithiasis Allergies: Allergies Allergy/AdvReac Type Severity Reaction Status Date / Time Penicillins Allergy Intermediate PASSED Verified 09/25/23 08:35 OUT atorvastatin AdvReac Intermediate blurring Verified 09/25/23 08:35 of vision gabapentin AdvReac Intermediate Dizziness Verified 09/25/23 08:35 simvastatin AdvReac Intermediate blurring Verified 09/25/23 08:35 of vision Plan Diagnosis/Plan: Unchanged I have reviewed the history and physical and performed a pertinent physical examination on my patient. No changes have occurred unless specified. Cystoscopy, Ureteroroscopy, Retro, Laser,with poss bilateral stent removal. Time Spent With Patient Time: Total time managing care of this patient today ____ minutes.
--- NOTE | 2023-09-25 10:08 | P.CONAN_ITS ---
[facility] Active Problems Active Problems: All Active Problems (Updated 09/15/23 @ 20:10 by Jonathan Deleon MD) Chronic pyelonephritis (Acute) Left flank pain (Acute) Nephrolithiasis (Acute) Cellulitis of thumb, left (Acute) Nail deformity (Acute) Amputation of left thumb (Acute) Lateral epicondylitis of left elbow (Acute) Urinary hesitancy due to benign prostatic hyperplasia (Acute) Left elbow pain (Acute) Dermoid cyst of arm (Acute) Right foot pain (Acute) Daytime sleepiness (Acute) Loud snoring (Acute) Skin lesion of neck (Acute) Witnessed apneic spells (Acute) Urinary frequency (Acute) Impaired fasting glucose (Acute) Viral illness (Acute) Tubular adenoma of colon (Acute) Skin lesions (Acute) Sessile colonic polyp (Acute) Hemorrhoids (Acute) Diverticulosis (Acute) Vitamin D deficiency (Acute) Neuropathy (Acute) Asthma (Acute) Hemorrhoids (Acute) Chronic constipation (Acute) Obesity (BMI 30-39.9) (Acute) Benign essential hypertension (Acute) Pure hypercholesterolemia (Acute) CAD (coronary artery disease) (Acute) Left lower quadrant abdominal mass (Acute) Left sided abdominal pain (Acute) Past Medical History Medical History Vitamin D deficiency Neuropathy Hemorrhoids Chronic constipation Obesity (BMI 30-39.9) Benign essential hypertension Pure hypercholesterolemia Left lower quadrant abdominal mass Left sided abdominal pain Peripheral neuropathy History of back pain Hx of hepatitis Amputation of thumb, left DJD (degenerative joint disease) of cervical spine DDD (degenerative disc disease), lumbar Hx of vertigo Asthma Hyperlipidemia Myocardial infarction CAD (coronary artery disease) HTN (hypertension) Family History Family History Unknown No family history of colorectal cancer Family history of problems with anesthesia: No Surgical History Surgical History Hx of cystoscopy History of surgery on left wrist History of circumcision History of rhinoplasty Hx of left knee surgery Hx of colonoscopy History of Problems with Anesthesia: No Social History Household Members: None Housing: House Alcohol intake: never Patient Tobacco Use Status: Former Tobacco user Quit Date: 1983 e-Cigarette/Vaping Use: Never Used Second Hand Smoke Exposure: Yes Use of substances other than those prescribed or required for medical reasons: No Are you DNR?: No Advance Directives: No Advance Directives Information Provided: Yes service: No Current occupational status: retired Cognitive needs: No Hearing needs: Yes (? B/L hearing loss) Vision needs: Yes Meds Allergies Allergy/AdvReac Type Severity Reaction Status Date / Time Penicillins Allergy Intermediate PASSED Verified 09/25/23 08:35 OUT atorvastatin AdvReac Intermediate blurring Verified 09/25/23 08:35 of vision gabapentin AdvReac Intermediate Dizziness Verified 09/25/23 08:35 simvastatin AdvReac Intermediate blurring Verified 09/25/23 08:35 of vision Active Medications: Current Medications Albuterol Sulfate (Albuterol Sulfate (0.083%) 2.5 Mg/3 Ml Vial.Neb) 2.5 mg INHALE ONCE PRN PRN Reason: Shortness of Breath/Wheezing Lactated Ringer's (Lr) 1,000 mls @ 100 mls/hr IVCONT .Q10H NANNETTE Last Admin: 09/25/23 09:11 Dose: 100 mls/hr Exam Height,Weight and Vital Signs: Height 5 ft 10 in Weight 99.393 kg Last Vital Signs Temp 97.3 F 09/25/23 09:04 Pulse 82 09/25/23 09:04 Resp 16 09/25/23 09:04 BP 145/85 H 09/25/23 09:04 Pulse Ox 98 09/25/23 09:04 O2 Del Method Room Air 09/25/23 09:04 Airway Mallampati Class: I TM Dist: >3cm Neck ROM: Full Denture: Upper Heart: rrr Lungs: clear Assessment and Plan Final Anesthetic Review Family History of Problems with Anesthesia: No History of Problems with Anesthesia: No NPO: Yes ASA Class: III Final Preanesthetic Review: No Changes in Pt Med Stat, Meds/Allgs Chart Reviewed, Consent Obtained/Reviewed and Anes Risks/Benef Reviewed Patient Risk: Intermediate Procedure Risk: Low Anesthetic Plan Anesthetic Plan: GA Disposition: Standard PACU
[2023-09-25 11:07] VITALS: BP 117/68; PULSE 81; RESP 18; TEMP 36.2; O2SAT 98
[2023-09-25 11:10] VITALS: BP 124/72; PULSE 77; RESP 16; O2SAT 98
[2023-09-25 11:15] VITALS: BP 108/80; PULSE 76; RESP 16; O2SAT 98
[2023-09-25 11:20] VITALS: BP 113/66; PULSE 81; RESP 16; O2SAT 98
[2023-09-25] MEDS: Phenazopyridine HCL 200 MG TABLET PO (11:21)
[2023-09-25 11:35] VITALS: BP 120/72; PULSE 81; RESP 16; TEMP 36.3; O2SAT 96
--- NOTE | 2023-09-25 14:10 | P.OP_ITS ---
Operative Note Operative Note Date of Service: 09/25/23 Narrative: PreOperative Diagnosis:?? Nephrolithiasis, s/p bilateral ureteral stents Post Operative Diagnosis:?? Nephrolithiasis, s/p bilateral ureteral stents Procedure: Cystoscopy, Bilateral ureteral stent removal Surgeon:?Dr Jonathan Deleon Anesthesia:? General Indications for procedure: The patient refused to have ureteral stents removed in the office, he stated he was tramatized due to a painful aguilar catheter insertion in the past. Procedure: After informed consent was verified the patient was brought to the operating placed on the OR table in supine position.? General Anesthesia was administered per protocol.? The patient was placed in lithotomy position, prepped and draped in the usual sterile fashion.? Safety pause time-out and side of surgery confirmed.? Antibiotics confirmed. A 22 Croatian cystoscope was inserted transurethrally, the bulbous urethra was within normal limits. The prostatic urethra had a prominent median lobe. The bladder was visualized.? Both ureteric orifices were in normal position. Both the ureteral stents were curled in the bladder. The? distal end of the right ureteral stent was grasped with the flexible grasping forceps. The right stent was pulled retrograde through the urethra. This was repeated on the left side. Both ureteral stents were removed without difficulty. The bladder was emptied.? The rigid cystoscope was removed. ? The patient tolerated the procedure well and was brought to the recovery room in stable condition. Complications: None Drains: None
== END 2023-09-25 12:22 | disposition home or self-care (01) ==
PROVIDERS: PCP Internal Medicine; Visit Provider Urology
PROC: (CPT 52310; principal; 2023-09-25 10:10)
DX: N11.9 Chronic tubulo-interstitial nephritis, unspecified (principal); Z87.442 Personal history of urinary calculi; I10 Essential (primary) hypertension; E78.00 Pure hypercholesterolemia, unspecified; N40.1 Benign prostatic hyperplasia with lower urinary tract symptoms; R35.0 Frequency of micturition; E55.9 Vitamin D deficiency, unspecified; J45.909 Unspecified asthma, uncomplicated; I25.10 Atherosclerotic heart disease of native coronary artery without angina pectoris; R19.04 Left lower quadrant abdominal swelling, mass and lump; K57.90 Diverticulosis of intestine, part unspecified, without perforation or abscess without bleeding; Z87.891 Personal history of nicotine dependence; Z79.899 Other long term (current) drug therapy
CPT/HCPCS: 52310; C1769; J1100; J1956; J2250; J2405; J2704; J3010; Q9967

== ENCOUNTER → 2023-09-25 08:17 | Outpatient (BNV) | payer MEDICARE, MEDICAID, SELFPAY | PROVIDERS: PCP Internal Medicine; Visit Provider Urology | DX: N20.0 Calculus of kidney (principal); Z96.0 Presence of urogenital implants | CPT/HCPCS: 52310 ==

== ENCOUNTER 2023-10-02 10:22 | Outpatient (AMB) | payer MEDICARE, MEDICAID, SELFPAY ==
[2023-10-02 10:22] VITALS: BP 136/84; PULSE 86; O2SAT 98; BMI 31.7
--- NOTE | 2023-10-02 10:22 | A.OFFPC_ITS ---
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 Ca[employer] Shift Superintendent Language: Panamanian Allergies Penicillins Allergy (Intermediate, Verified 10/02/23 10:34) PASSED OUT atorvastatin Adverse Reaction (Intermediate, Verified 10/02/23 10:34) blurring of vision gabapentin Adverse Reaction (Intermediate, Verified 10/02/23 10:34) Dizziness simvastatin Adverse Reaction (Intermediate, Verified 10/02/23 10:34) blurring of vision Medication List - Last Reconciled 10/02/23 by Nasreen Pulliam, JASON bisacodyl (Dulcolax (bisacodyl)) 10 mg [place] DAILY PRN cholecalciferol (vitamin D3) 50 mcg PO DAILY 90 days doxazosin 4 mg PO BEDTIME 90 days hydrocortisone 2.5% (Proctozone-HC) 1 appl VA BID PRN lisinopril 10 mg PO DAILY 90 days phenazopyridine (Pyridium) 200 mg PO TID pyridoxine (vitamin B6) 50 mg PO DAILY 90 days rosuvastatin 10 mg PO DAILY 90 days sennosides (Senna Lax) 17.2 mg (2 x 8.6 mg) PO BEDTIME PRN 30 days tizanidine 4 mg PO BEDTIME PRN 30 days Tobacco use date assessed: 10/02/23 Fall risk assessment: No Falls in past year Last assessed Fall Risk: 10/02/23 HPI Kidneys F/U 2 HPI0 Details Patient is a 63-year-old male presents today to follow-up on his kidneys. Patient of Dr. Han. Medical history significant for CAD, hypercholesterolemia, hypertension asthma nephrolithiasis-followed by Urology. Patient did have cystoscopy and bilateral stent removal 7 days ago by [facility], he is here for a follow-up - patient also reports that urology office will call him for an appointment after this procedure. Patient reports chronic low back pain before procedure. He also reports left lower quadrant lump prior to this procedure which is chronic for him which is tender. Reports mild pain with urination, reports this prior to procedure as well. No urgency or frequency. Denies blood in urine, reports urinating fine. No changes in bowels. Fever or chills. Patient is a Panamanian-speaking and Mel KAY was helping with interpretation. [facility] Medical History Vitamin D deficiency Neuropathy Hemorrhoids Chronic constipation Obesity (BMI 30-39.9) Benign essential hypertension Pure hypercholesterolemia Left lower quadrant abdominal mass Left sided abdominal pain Peripheral neuropathy History of back pain Hx of hepatitis Amputation of thumb, left DJD (degenerative joint disease) of cervical spine DDD (degenerative disc disease), lumbar Hx of vertigo Asthma Hyperlipidemia Myocardial infarction CAD (coronary artery disease) HTN (hypertension) Surgical History Hx of cystoscopy History of surgery on left wrist History of circumcision History of rhinoplasty Hx of left knee surgery Hx of colonoscopy Family History Unknown No family history of colorectal cancer Social History Household Members: None Housing: House Alcohol intake: never Patient Tobacco Use Status: Former Tobacco user Quit Date: 1983 e-Cigarette/Vaping Use: Never Used Second Hand Smoke Exposure: Yes service: No Current occupational status: retired Cognitive needs: No Hearing needs: Yes (? B/L hearing loss) Vision needs: Yes Questionnaire PHQ-9 Over the last 2 weeks, how often have you been bothered by any of the following problems? 1. Little interest or pleasure in doing things: not at all 2. Feeling down, depressed, or hopeless: not at all 3. Trouble falling or staying asleep, or sleeping too much: not at all 4. Feeling tired or having little energy: not at all 5. Poor appetite or overeating: not at all 6. Feeling bad about yourself - or that you are a failure or have let yourself or your family down: not at all 7. Trouble concentrating on things, such as reading the newspaper or watching television: not at all 8. Moving or speaking so slowly that other people could have noticed. Or the opposite - being so fidgety or restless that you have been moving around a lot more than usual: not at all 9. Thoughts that you would be better off or of hurting yourself in some way: not at all Total score: 0 Depression Screening Interpretation: Negative Depression Screening Done: Yes 63506 - PHQ-9 Billing: Yes Source: Developed by Drs. Brendon Nixon, Marlen Tanner, Angelo Arreola and colleagues, with an educational zen from [employer]. Thrive Questionnaire Date Thrive assessed: 01/22/23 AUDIT C Alcohol Use Questionnaire (AUDIT-C) 1. How often do you have a drink containing alcohol?: Never 3. How often do you have six or more drinks on one occasion?: Never Total Score: 0 Score Reviewed/Action Taken: No LING-7 AMB Questionnaire LING-7 Date LING - 7 assessed: 01/22/23 Source: Developed by Drs. Brendon Nixon, Marlen Tanner, Angelo Arreola and colleagues, with an educational zen from [employer]. Review of Systems Const Denies body aches, Denies chills, Denies fever(s) and Denies headache(s) ENT Denies dizziness, Denies otalgia, Denies headache(s), Denies nasal discharge, Denies sinus pain and Denies sore throat Card Denies chest pain, Denies edema, Denies lightheadedness and Denies dyspnea Resp Denies cough, Denies dyspnea and Denies wheezing GI Reports as per HPI, Reports abdominal pain, Denies constipation, Denies diarrhea, Denies nausea and Denies vomiting Reports dysuria (Chronic) Musc Denies myalgias Skin/Breast Denies rash Neuro Denies dizziness and Denies headache(s) Aller/Immun Denies wheezing Physical exam (Primary Care) Vital Signs: Last Vital Signs Pulse 86 10/02/23 10:22 BP 136/84 10/02/23 10:22 Pulse Ox 98 10/02/23 10:22 Oxygen Delivery Method Room Air 10/02/23 10:22 BMI result Body Mass Index 31.7 Tobacco/Smoking Status: Tobacco use Status Tobacco use date assessed 10/02/23 10/02/23 10:23 Patient Tobacco Use Status Former Tobacco user 10/02/23 10:23 e-Cigarette/Vaping Use Never Used 10/02/23 10:23 PHQ-9: PHQ-9 Score PHQ-9: Total score 0 11/28/23 11:16 Depression Screening Interpretation: Negative Thrive Assessment: Date of Thrive Assessment Date Thrive assessed 01/22/23 10/02/23 10:23 Const General: cooperative and no acute distress Orientation/consciousness: patient oriented x3 HENMT Head: Yes normocephalic and Yes atraumatic Throat: Yes posterior oropharynx normal Eyes General: appearance normal, both eyes and all related structures Neck Neck: Yes normal visual inspection and Yes full ROM Resp Effort & Inspection: normal respiratory effort and able to speak in complete sentences Auscultation: clear to auscultation bilaterally, no crackles, no rales, no rhonchi and no wheezes Cardio Rate: regular rate Rhythm: regular rhythm Heart sounds: S1 normal heart sound present and S2 normal heart sound present GI Palpation (GI): Soft to palpation, not firm, nontender, no guarding, not rigid and no hepatosplenomegaly Auscultation: normal bowel sounds Abdomen image: 2 1. Left lower quadrant tender lump noted about 4cm, skin intact, no signs of infection noted General: No CVA tenderness Back/Spine/Pelvis Back: No CVA tenderness Thoracic/Lumbar Spine: paraspinal muscle tenderness (Bilateral lumbar aspect), No thoracic spinal tenderness and lumbar spinal tenderness Skin General skin exam: no rashes or lesions noted Neuro General: patient oriented x3 Gait exam (Neuro): Normal gait present Extrem General: Yes full ROM and No edema Results AMB Urinalysis, Automated 2 UA Leukoctes 0 Michelle/uL Last Edit by ELISA Smith on 10/02/23 11:18 UA Nitrite Negative Last Edit by ELISA Smith on 10/02/23 11:18 UA Urobilinogen 0.2 mg/dL Last Edit by ELISA Smith on 10/02/23 11:18 UA Protein 0 mg/dL Last Edit by ELISA Smith on 10/02/23 11:18 UA pH 6.0 Last Edit by ELISA Smith on 10/02/23 11:18 UA Blood 10 Jose/uL Last Edit by ELISA Smith on 10/02/23 11:18 UA Specific [place] 1.025 Last Edit by ELISA Smith on 10/02/23 11:18 UA Ketone Negative Last Edit by ELISA Smith on 10/02/23 11:18 UA Bilirubin 0 mg/dL Last Edit by ELISA Smith on 10/02/23 11:18 UA Glucose 0 mg/dL Last Edit by ELISA Smith on 10/02/23 11:18 Results Reviewed Results Reviewed: Laboratory Last Values Urine pH (Auto) 6.0 10/02/23 11:16 Specific [place] (Auto) 1.025 10/02/23 11:16 Urine Protein (Auto) 0 mg/dL 10/02/23 11:16 Glucose (UA)(Auto) 0 mg/dL 10/02/23 11:16 Urine Ketones (Auto) Negative 10/02/23 11:16 Urine Blood (Auto) 10 Jose/uL 10/02/23 11:16 Urine Nitrite (Auto) Negative 10/02/23 11:16 Urine Bilirubin (Auto) 0 mg/dL 10/02/23 11:16 Urine Urobilinogen (Auto) 0.2 mg/dL 10/02/23 11:16 Leukocyte Esterase (Auto) 0 Michelle/uL 10/02/23 11:16 Assessment and Plan Assessment & Plan (1) Elevated fasting glucose: Code(s): R73.01 - Impaired fasting glucose Plan: A1c ordered Fasting glucose 107 09/2023 (2) Nephrolithiasis: Code(s): N20.0 - Calculus of kidney Plan: Continue to follow-up with [facility] Will provide patient with Tylenol as needed for pain Refill sent on tizanidine Urinalysis with some blood, will send urine for culture (3) Vitamin D deficiency: Code(s): E55.9 - Vitamin D deficiency, unspecified Plan: Vitamin-D 22.1 Will decrease vitamin D to 25 mcg daily (4) Left sided abdominal pain: Code(s): R10.9 - Unspecified abdominal pain Plan: Left lower quadrant tender lump noted about 4cm, skin intact, no signs of infection noted ? Hernia/lipoma Will obtain ultrasound of this area Plan Follow-up with PCP in 3 months or sooner as needed Orders: Orders 2 Hemoglobin A1c Today R73.01 - Impaired fasting glucose AMB Urinalysis Automated Today R10.9 - Unspecified abdominal pain US pelvic limited Today R10.9 - Unspecified abdominal pain Urine Culture Today R10.9 - Unspecified abdominal pain Medications: New 2 cholecalciferol (vitamin D3) 25 mcg PO DAILY 90 tabs 0RF R79.89 - Other specified abnormal findings of blood chemistry acetaminophen (Tylenol) 650 mg (2 x 325 mg) PO Q6H PRN 60 tabs 0RF pain R10.9 - Unspecified abdominal pain Refilled 2 tizanidine 4 mg PO BEDTIME 30 days PRN 30 tabs 3RF low back pain Discontinued 2 cholecalciferol (vitamin D3) Discontinued Reason: Doctor's Order 50 mcg PO DAILY 90 days 90 caps 3RF E55.9 - Vitamin D deficiency, unspecified Coding Level of Care Code Est Pt Level 4 (60253) Diagnoses Elevated fasting glucose R73.01 Nephrolithiasis N20.0 Vitamin D deficiency E55.9 Left sided abdominal pain R10.9
== END 2023-10-02 11:01 | disposition home or self-care (01) ==
PROVIDERS: PCP Internal Medicine; Visit Provider Nurse Practitioner Family
DX: R73.01 Impaired fasting glucose (principal); N20.0 Calculus of kidney; E55.9 Vitamin D deficiency, unspecified; R10.9 Unspecified abdominal pain
CPT/HCPCS: 81003; 99214

== ENCOUNTER 2023-10-02 10:52 | Outpatient (REF) | payer MEDICARE, MEDICAID, SELFPAY | END 2023-10-02 10:53 | disposition home or self-care (01) | LOC: HO.LAB 10:52 | PROVIDERS: Visit Provider Nurse Practitioner Family | DX: R10.9 Unspecified abdominal pain (principal); R73.01 Impaired fasting glucose | CPT/HCPCS: 87086 ==

== ENCOUNTER 2023-11-06 10:44 | Outpatient (AMB) | payer MEDICARE, MEDICAID, SELFPAY ==
--- NOTE | 2023-11-06 10:57 | A.OFFVIS_ITS ---
Intake Vital Signs 11/06/23 10:59 Height 5 ft 10 in Weight 224 lb BMI 32.1 BP 132/74 Blood Pressure Location Lt brachial Position Sitting Pulse 100 Intake Visit Reasons: pre colonoscopy screening Intake Note: Patient follow up for pre colonoscopy screening and chronic constipation. Patient denies any GI issues. Household Personal Assistant Required: No Accompanied by: Self / Same As Patient Allergies Penicillins Allergy (Intermediate, Verified 11/06/23 10:57) PASSED OUT atorvastatin Adverse Reaction (Intermediate, Verified 11/06/23 10:57) blurring of vision gabapentin Adverse Reaction (Intermediate, Verified 11/06/23 10:57) Dizziness simvastatin Adverse Reaction (Intermediate, Verified 11/06/23 10:57) blurring of vision Medication List - Last Reconciled 11/06/23 by Nisa Simms PA-C acetaminophen (Tylenol) 650 mg (2 x 325 mg) PO Q6H PRN bisacodyl (Dulcolax (bisacodyl)) 10 mg ME DAILY PRN cholecalciferol (vitamin D3) 25 mcg PO DAILY doxazosin 4 mg PO BEDTIME 90 days hydrocortisone 2.5% (Proctozone-HC) 1 appl ME BID PRN lisinopril 10 mg PO DAILY 90 days phenazopyridine (Pyridium) 200 mg PO TID pyridoxine (vitamin B6) 50 mg PO DAILY 90 days rosuvastatin 10 mg PO DAILY 90 days sennosides (Senna Lax) 17.2 mg (2 x 8.6 mg) PO BEDTIME PRN 30 days tizanidine 4 mg PO BEDTIME PRN 30 days HPI HPI Comments History of Present Illness Details 63-year-old male personal history of col on polyps due for polyp surveillance colonoscopy-last colonoscopy 2019 revealed adenomas He had history of constipation however we have begun him on a bowel regimen with very good response. His appetite is good as well. He had recent kidney stones- In going to [facility] in January for 3 weeks very excited about No N/V/D/ abdominal pain- fever or chills PFSH Medical History Vitamin D deficiency Neuropathy Hemorrhoids Chronic constipation Obesity (BMI 30-39.9) Benign essential hypertension Pure hypercholesterolemia Left lower quadrant abdominal mass Left sided abdominal pain Peripheral neuropathy History of back pain Hx of hepatitis Amputation of thumb, left DJD (degenerative joint disease) of cervical spine DDD (degenerative disc disease), lumbar Hx of vertigo Asthma Hyperlipidemia Myocardial infarction CAD (coronary artery disease) HTN (hypertension) Surgical History Hx of cystoscopy History of surgery on left wrist History of circumcision History of rhinoplasty Hx of left knee surgery Hx of colonoscopy Family History Unknown No family history of colorectal cancer Social History Household Members: None Housing: House Alcohol intake: never Patient Tobacco Use Status: Former Tobacco user Quit Date: 1983 e-Cigarette/Vaping Use: Never Used Second Hand Smoke Exposure: Yes service: No Current occupational status: retired Cognitive needs: No Hearing needs: Yes (? B/L hearing loss) Vision needs: Yes Review of Systems Const All systems reviewed & are unremarkable except as noted in HPI and below Card Denies chest pain and Denies dyspnea Resp Denies dyspnea Physical Exam Vital Signs: Last Vital Signs Pulse 100 11/06/23 10:59 BP 132/74 11/06/23 10:59 BMI result Body Mass Index 32.1 Const General: cooperative, healthy appearing and comfortable Orientation/consciousness: patient oriented x3 Limitations: language barrier Eyes Sclerae: sclerae normal Resp Effort & Inspection: normal respiratory effort and able to speak in complete sentences Auscultation: clear to auscultation bilaterally, no rales, no rhonchi and no wheezes Cardio Rate: regular rate () Rhythm: regular rhythm Heart sounds: S1 normal heart sound present and S2 normal heart sound present GI Inspection: Yes obesity Palpation (GI): Soft to palpation and nontender Auscultation: normal bowel sounds Skin General skin exam: no rashes or lesions noted Neuro General: patient oriented x3 Extrem General: Yes full ROM Psych Appearance: grossly normal and well kempt Speech and movement: Normal speech and movement present Affect: normal affect Attitude: cooperative Thought process: Normal thought process present Thought content: Normal thought content present Results Reviewed Results Reviewed: 09/2023 XR/XR KUB IMPRESSION: Bilateral ureteral stents in place. 08/2023 CT/CT abdomen pelvis wo IV con IMPRESSION: 6 mm distal right ureteral calculus. Only mild dilatation of the distal right ureter proximal to the stone. No significant hydroureteronephrosis. Absence of perinephric and periureteral stranding. Nonobstructing left renal calculi. Fleischner guidelines were followed. 10/2020- Dr. Hamilton Impression and Post Procedure Diagnosis: Colonoscopy Findings: Four polyps removed (three polyps were 10-15 mm in size) Moderate diverticulosis seen in the sigmoid colon Moderate hemorrhoids on retroflexed exam. Plan: Await pathology results Patient has an appointment on in the GI Clinic with [ALFONSO Pink] [Mesha Ryan NP] [Gume Hamilton M.D.]. Repeat Colonoscopy interval based on path results - in 3 years if polyps are adenomatous and 5 years if polyps are hyperplastic. Above findings were reviewed with the patient and colon polyps and diverticulosis handouts were given in the discharge area taryn: Yash Elena Specimen #: [id number] Age/Sex: 60/M Attending: Gume Hamilton MD : 1960 Submitted by: Gume Hamilton MD Collected: 10/19/20 MR #: [id number] Received: 10/19/20 Status: [facility] Location: [facility] Diagnosis A. Colon, transverse, polypectomy: Fragments of tubular adenoma; no high grade dysplasia or carcinoma seen. B. Colon, sigmoid, polypectomies: Tubular adenomas (3); no high grade dysplasia or carcinoma seen. Clinical History Pre-Op Dx: Polyp of colon Post-Op Dx: Colon polyps, diverticulosis, hemorrhoids Assessment & Plan Assessment & Plan (1) Tubular adenoma of colon: Comment: 63-year-old male hx 4 tubular adenomas, no high-grade dysplasia or carcinoma seen due for colonoscopy 3 years Yash Elena Specimen #: [id number] Age/Sex: 60/M Attending: Gume Hamilton MD : 1960 Submitted by: Gume Hamilton MD Collected: 10/19/20 MR #: [id number] Received: 10/19/20 Status: [facility] Location: [facility] Diagnosis A. Colon, transverse, polypectomy: Fragments of tubular adenoma; no high grade dysplasia or carcinoma seen. B. Colon, sigmoid, polypectomies: Tubular adenomas (3); no high grade dysplasia or carcinoma seen. Code(s): D12.6 - Benign neoplasm of colon, unspecified Plan: Polyp surveillance colon Plan polyp surveillance colonoscopy MG prep Dr. Hamilton- established Orders: Orders Colonoscopy - GI Use Only Today D12.6 - Benign neoplasm of colon, unspecified Medications: New bisacodyl (Dulcolax (bisacodyl)) Day before procedure, prep day Take 4 tablets by mouth upon awakening followed by large glass of water 20 mg (4 x 5 mg) PO ONCE PRN 4 tabs 0RF colonoscopy prep 1 day Z12.11 - Encounter for screening for malignant neoplasm of colon polyethylene glycol 3350 (Miralax) Take as directed by mouth the day before your procedure. 238 grams PO ONCE 238 grams 0RF laxative effect 1 day psyllium husk (with sugar) 3.4 gram/12 gram (Metamucil (with sugar)) 1 tsp PO DAILY 575 grams 3RF Patient Instructions: Pleasant 63-year-old Gent personal history of colon polyps polyp surveillance colonoscopy MG prep-reviewed, Encouraged to call with questions or concerns Coding Level of Care Code Est Pt Level 3 (18190) Diagnoses Tubular adenoma of colon D12.6 Time Spent (min) 30
[2023-11-06 10:59] VITALS: BP 132/74; PULSE 100; BMI 32.1
== END 2023-11-06 11:35 | disposition home or self-care (01) ==
PROVIDERS: PCP Internal Medicine; Visit Provider Physician Assistant
DX: D12.6 Benign neoplasm of colon, unspecified (principal)
CPT/HCPCS: 99213

== ENCOUNTER 2023-11-06 13:29 | Outpatient (REF) | payer MEDICARE, MEDICAID, SELFPAY ==
--- NOTE | ~2023-11-06 | US_ITS ---
EXAMINATION: US ABDOMEN LIMITED CLINICAL INFORMATION: Unspecified abdominal pain Left lower quadrant tender lump. COMPARISON: Renal ultrasound 09/12/2023 TECHNIQUE: Real-time imaging of the left lower quadrant over the palpable area indicated by the patient. FINDINGS: The area indicated by the patient was the left flank/left kidney. No abnormality is seen in the area indicated by the patient. There is no free fluid, no hernia. LEFT KIDNEY: No hydronephrosis. No renal calculi. 0.8 x 0.7 x 0.8 cm simple exophytic cyst in the lower pole requires no imaging follow-up. The kidney measures 12.2 cm in maximum dimension. FREE FLUID: None. US/US abdomen limited IMPRESSION: No abnormality demonstrated in the area indicated by the patient in the left flank/left kidney.
== END 2023-11-06 13:30 | disposition home or self-care (01) ==
LOC: HO.US 13:29
PROVIDERS: PCP Internal Medicine; Visit Provider Nurse Practitioner Family
DX: D12.5 Benign neoplasm of sigmoid colon (principal); D12.3 Benign neoplasm of transverse colon; Z98.890 Other specified postprocedural states
CPT/HCPCS: 76705; 99212

== ENCOUNTER 2023-11-07 09:30 | Outpatient (REF) | payer MEDICARE, SELFPAY | END 2023-11-07 09:31 | disposition home or self-care (01) | LOC: HO.LAB 09:30 | PROVIDERS: PCP Internal Medicine; Visit Provider Nurse Practitioner Family | DX: R73.01 Impaired fasting glucose (principal) | CPT/HCPCS: 36415; 83036 ==

== ENCOUNTER 2023-11-26 09:47 | Outpatient (AMB) | payer MEDICARE, MEDICAID, SELFPAY ==
--- NOTE | 2023-11-26 10:06 | A.OFFVIS_ITS ---
Intake Intake Visit Reasons: 2 month follow up/ US Intake Note: Patient is Present for follow-up for US Results: Urology Medication: Doxazosin & Pyridium Antibiotic Allergies: Penicillin Blood Thinners: None Accompanied by: Self / Same As Patient Allergies Penicillins Allergy (Intermediate, Verified 11/06/23 10:57) PASSED OUT atorvastatin Adverse Reaction (Intermediate, Verified 11/06/23 10:57) blurring of vision gabapentin Adverse Reaction (Intermediate, Verified 11/06/23 10:57) Dizziness simvastatin Adverse Reaction (Intermediate, Verified 11/06/23 10:57) blurring of vision Medication List - Last Reconciled 11/26/23 by Jonathan Deleon MD acetaminophen (Tylenol) 650 mg (2 x 325 mg) PO Q6H PRN bisacodyl (Dulcolax (bisacodyl)) 10 mg CO DAILY PRN bisacodyl (Dulcolax (bisacodyl)) 20 mg (4 x 5 mg) PO ONCE PRN 1 day cholecalciferol (vitamin D3) 25 mcg PO DAILY hydrocortisone 2.5% (Proctozone-HC) 1 appl CO BID PRN lisinopril 10 mg PO DAILY 90 days polyethylene glycol 3350 (Miralax) 238 grams PO ONCE 1 day psyllium husk (with sugar) 3.4 gram/12 gram (Metamucil (with sugar)) 1 tsp PO DAILY pyridoxine (vitamin B6) 50 mg PO DAILY 90 days rosuvastatin 10 mg PO DAILY 90 days sennosides (Senna Lax) 17.2 mg (2 x 8.6 mg) PO BEDTIME PRN 30 days tamsulosin (Flomax) 0.8 mg (2 x 0.4 mg) PO BEDTIME tizanidine 4 mg PO BEDTIME PRN 30 days HPI HPI Comments History of Present Illness Details Yash is a 63-year-old male who presents today to the office for a follow-up. 11/26/23-- s/p cystoscopy bilateral stent removal on 09/25/23; he complains of urinary frequency and ocassional dysuria. He finished the cardura that was prescribed by Dr. Kearney and did not get it refilled. I have discussed that I will prescribe tamsulosin. UA today no signs of infection. He continues to has intermittent left flank pain, recent Abd sono on 11/06/23 was WNL Review of chart: LV--09/13/2023-- followed today post outpatient procedure 08/21/23 for Cystoscopy, bilateral ureteral stent, right ureteroscopy and laser stone which was performed due to 6 mm obstructing right ureteral stone and Left flank pain, left kidney pyelonephritis. He has seen Terry Neves in the past for kidney stones. He had circumcision about 7-8 years ago. Evaluation today--UA--Leukocytes: neg blood: tr. Plan:11/26/23 tamsulosin 0.8 mg qhs CTAP stone protocol in 3 months, FU post PFSH Medical History Vitamin D deficiency Neuropathy Hemorrhoids Chronic constipation Obesity (BMI 30-39.9) Benign essential hypertension Pure hypercholesterolemia Left lower quadrant abdominal mass Left sided abdominal pain Peripheral neuropathy History of back pain Hx of hepatitis Amputation of thumb, left DJD (degenerative joint disease) of cervical spine DDD (degenerative disc disease), lumbar Hx of vertigo Asthma Hyperlipidemia Myocardial infarction CAD (coronary artery disease) HTN (hypertension) Surgical History Hx of cystoscopy History of surgery on left wrist History of circumcision History of rhinoplasty Hx of left knee surgery Hx of colonoscopy Family History Unknown No family history of colorectal cancer Social History Household Members: None Housing: House Alcohol intake: never Patient Tobacco Use Status: Former Tobacco user Quit Date: 1983 e-Cigarette/Vaping Use: Never Used Second Hand Smoke Exposure: Yes service: No Current occupational status: retired Cognitive needs: No Hearing needs: Yes (? B/L hearing loss) Vision needs: Yes Review of Systems Const All systems reviewed & are unremarkable except as noted in HPI and below Reports no additional complaints Eyes Reports no additional complaints ENT Reports no additional complaints Card Denies dyspnea Resp Denies cough and Denies dyspnea GI Reports no additional complaints Musc Reports no additional complaints Skin/Breast Denies rash and Denies unusual bruising Neuro Reports no additional complaints Psych Reports no additional complaints Endo Reports no additional complaints Niko/Lymph Reports no additional complaints Aller/Immun Reports no additional complaints Results AMB Urinalysis, Automated UA Leukoctes 0 Michelle/uL Last Edit by Nacho Maldonado [facility] on 11/26/23 10:26 UA Nitrite Negative Last Edit by Nacho Maldonado Thomas on 11/26/23 10:26 UA Urobilinogen 0 mg/dL Last Edit by Nacho Maldonado [facility] on 11/26/23 10:26 UA Protein 15 mg/dL Last Edit by Nacho Maldonado [facility] on 11/26/23 10:26 UA pH 6.0 Last Edit by Nacho Maldonado [facility] on 11/26/23 10:26 UA Blood 10 Jose/uL Last Edit by Nacho Maldonado [facility] on 11/26/23 10:26 UA Specific [place] 1.020 Last Edit by Nacho Maldonado Thomas on 11/26/23 10: 26 UA Ketone Negative Last Edit by Nacho Maldonado Thomas on 11/26/23 10:26 UA Bilirubin 0 mg/dL Last Edit by Nacho Maldonado [facility] on 11/26/23 10:26 UA Glucose 0 mg/dL Last Edit by Nacho Maldonado [facility] on 11/26/23 10:26 Results Reviewed Results Reviewed: Laboratory Last Values Urine pH (Auto) 6.0 11/26/23 10:17 Specific [place] (Auto) 1.020 11/26/23 10:17 Urine Protein (Auto) 15 mg/dL 11/26/23 10:17 Glucose (UA)(Auto) 0 mg/dL 11/26/23 10:17 Urine Ketones (Auto) Negative 11/26/23 10:17 Urine Blood (Auto) 10 Jose/uL 11/26/23 10:17 Urine Nitrite (Auto) Negative 11/26/23 10:17 Urine Bilirubin (Auto) 0 mg/dL 11/26/23 10:17 Urine Urobilinogen (Auto) 0 mg/dL 11/26/23 10:17 Leukocyte Esterase (Auto) 0 Michelle/uL 11/26/23 10:17 Date of Service: 11/06/23 EXAMINATION: US ABDOMEN LIMITED CLINICAL INFORMATION: Unspecified abdominal pain Left lower quadrant tender lump. COMPARISON: Renal ultrasound 09/12/2023 TECHNIQUE: Real-time imaging of the left lower quadrant over the palpable area indicated by the patient. FINDINGS: The area indicated by the patient was the left flank/left kidney. No abnormality is seen in the area indicated by the patient. There is no free fluid, no hernia. LEFT KIDNEY: No hydronephrosis. No renal calculi. 0.8 x 0.7 x 0.8 cm simple exophytic cyst in the lower pole requires no imaging follow-up. The kidney measures 12.2 cm in maximum dimension. FREE FLUID: None. IMPRESSION: No abnormality demonstrated in the area indicated by the patient in the left flank/left kidney. Assessment & Plan Assessment & Plan (1) Nephrolithiasis: Code(s): N20.0 - Calculus of kidney (2) Left flank pain: Code(s): R10.9 - Unspecified abdominal pain (3) Chronic pyelonephritis: Code(s): N11.9 - Chronic tubulo-interstitial nephritis, unspecified Plan tamsulosin 0.8 mg qhs CTAP stone protocol in 3 months, FU post Orders: Orders AMB Urinalysis Automated Today Z13.9 - Encounter for screening, unspecified CT abdomen pelvis wo IV con Today R10.9 - Unspecified abdominal pain Medications: New tamsulosin (Flomax) 0.8 mg (2 x 0.4 mg) PO BEDTIME 60 caps 3RF Patient Instructions: The patient had an opportunity to ask questions regarding treatment plan. All questions were answered. Imaging, Laboratory studies and physical exam results were discussed and reviewed in detail. No major barriers to understanding were identified. The patient expressed understanding and agreement with the above treatment plan. The patient is aware they should contact our office by phone for worsening of their current condition or the appearance of new symptoms. Compliance is encouraged with any medications and followup testing that is ordered. It is a privilege to be allowed the opportunity to participate in the urologic care of your patient. If you have any questions or concerns regarding treatment for the above conditions please do not hesitate to contact me. The office telephone contact is [phone]. This note is constructed in part using voice recognition software. While every effort has been made to ensure accuracy biochemical development engineer errors may have been included. Yours sincerely, Jonathan Deleon MD Coding Level of Care Code Est Pt Level 4 (06394) Diagnoses Nephrolithiasis N20.0 Left flank pain R10.9 Chronic pyelonephritis N11.9
== END 2023-11-26 10:39 | disposition home or self-care (01) ==
PROVIDERS: PCP Internal Medicine; Visit Provider Urology
DX: N20.0 Calculus of kidney (principal); R10.9 Unspecified abdominal pain; N11.9 Chronic tubulo-interstitial nephritis, unspecified; Z13.9 Encounter for screening, unspecified
CPT/HCPCS: 99214

== ENCOUNTER → 2023-11-26 09:47 | Outpatient (BNVA) | payer MEDICARE, MEDICAID, SELFPAY | PROVIDERS: PCP Internal Medicine; Visit Provider Urology | DX: N20.0 Calculus of kidney (principal); N11.9 Chronic tubulo-interstitial nephritis, unspecified; R10.9 Unspecified abdominal pain | CPT/HCPCS: 81003; 99212 ==

== ENCOUNTER 2023-12-20 07:14 | Outpatient (REF) | payer OTHER, SELFPAY ==
[2023-12-20 07:35] LABS: MANUAL DIFF FLAG NO
[2023-12-20 07:58] LABS: Basophils Percent Auto 0.4 % (0-2); Eosinophils Absolute Auto 0.3 X10*3/uL (0.0-0.4); Eosinophils Percent Auto 3.8 % (0-4); Hematocrit 41.3 % (42.0-52.0); Hemoglobin 14.6 g/dl (14.0-18.0); Imm Gran Abs Auto 0.01 X10*3/uL (0.00-0.03); Imm Gran Pct Auto 0.1 % (0.0-0.4); Lymphocytes Absolute Auto 2.4 X10*3/uL (1.2-4.9); Lymphocytes Percent Auto 35.5 % (20-40); Mean Corpuscular HGB Conc 35.4 g/dl (31.0-36.0); Mean Corpuscular Hemoglobin 31.4 pg (27.0-33.0); Mean Corpuscular Volume 88.8 fL (80.0-98.0); Mean Platelet Volume 9.6 fL (9.4-12.4); Monocytes Absolute Auto 0.4 X10*3/uL (0.1-1.2); Monocytes Percent Auto 6.1 % (2-11); Neutrophils Absolute Auto 3.7 x10*3/uL (2.0-8.3); Neutrophils Percent Auto 54.1 % (45-73); Platelet Count 248 X10*3/uL (160-400); Red Blood Count 4.65 X10*6/uL (4.60-5.80); Red Cell Distribution Width 12.2 % (11.0-16.0); White Blood Count 6.9 X10*3/uL (4.8-10.8)
[2023-12-20 08:08] LABS: Estimated Average Glucose 103 mg/dL; Hemoglobin A1c % 5.2 % (<6.0)
[2023-12-20 08:19] LABS: Alanine Aminotransferase 24 U/L (0-40); Albumin Level 4.1 g/dL (3.5-5.0); Alkaline Phosphatase 65 U/L (39-117); Anion Gap 13 (12-20); Aspartate Amino Transferase 24 U/L (5-37); Bilirubin Total 0.8 mg/dL (0.0-1.0); Blood Urea Nitrogen 13 mg/dL (9-16); Calcium 9.2 mg/dL (8.4-10.2); Carbon Dioxide 30 mmol/L (22-29); Chloride 105 mmol/L (96-108); Cholesterol 152 mg/dL (<200); Estimated Glomerular Filt Rate > 60; Glucose Fasting 96 mg/dL (60-99); HDL Cholesterol 32 mg/dL (>40); LDL Cholesterol Calculated 88 mg/dL (<100); Potassium 3.6 mmol/L (3.3-5.1); Sodium 144 mmol/L (135-145); Total Protein 6.6 g/dL (6.5-8.0); Triglycerides 162 mg/dL (<150)
[2023-12-20 08:30] LABS: Prostate Specific Antigen 1.15 ng/mL (<0.05-4.0)
[2023-12-20 08:31] LABS: Appearance Urine Clear; Color Urine Yellow; Glucose Urine UA Negative (Negative); Leukocyte Esterase Urine Negative (Negative); Nitrite Urine Negative (Negative); UMIC TRIGGER UACC YES; Urine Blood Trace (Negative); Urine Ketones Negative (Negative); Urine Protein Negative (Neg-Trace)
[2023-12-20 08:37] LABS: Bacteria Urine None Seen (None Seen); Hyaline Casts Urine 0-2 /LPF (0-2); RBC Urine 0-2 /HPF (0-2); Squamous Epithelial Cell Urine 0-2 /HPF (0-2); WBC Urine 0-5 /HPF (0-5)
[2023-12-20 08:39] LABS: TSH reflex Free T4 2.81 uIU/mL (0.32-4.0); Vitamin D 25-OH Total 18.1 ng/mL (>30)
[2023-12-20 08:54] LABS: Microalbum/Creatinine Ratio Ur 4.7 ug/mg cr (<30)
== END 2023-12-20 07:15 | disposition home or self-care (01) ==
LOC: HO.LAB 07:14
PROVIDERS: PCP Internal Medicine; Visit Provider Internal Medicine
DX: D64.9 Anemia, unspecified (principal); R30.0 Dysuria; E55.9 Vitamin D deficiency, unspecified; E78.00 Pure hypercholesterolemia, unspecified; N40.0 Benign prostatic hyperplasia without lower urinary tract symptoms; E11.9 Type 2 diabetes mellitus without complications; Z12.5 Encounter for screening for malignant neoplasm of prostate
CPT/HCPCS: 36415; 80053; 80061; 81001; 82043; 82306; 82570; 83036; 84153; 84443; 85025

== ENCOUNTER 2023-12-26 12:44 | Outpatient (AMB) | payer OTHER, SELFPAY ==
[2023-12-26 13:09] VITALS: BP 108/80; PULSE 90; O2SAT 96; BMI 33.3
--- NOTE | 2023-12-26 13:09 | A.OFFPC_ITS ---
Vital Signs 12/26/23 13:09 Height 5 ft 10 in Weight 232 lb BMI 33.3 BP 108/80 Blood Pressure Location Lt brachial Position Sitting Pulse 90 Pulse Source Pulse Oximeter Pulse Oximetry (%) 96 Oxygen Delivery Method Room Air Intake Visit Reasons: kidneys Septic Tank Servicer Required: No Accompanied by: Self / Same As Patient Allergies Penicillins Allergy (Intermediate, Verified 12/26/23 14:05) PASSED OUT atorvastatin Adverse Reaction (Intermediate, Verified 12/26/23 14:05) blurring of vision gabapentin Adverse Reaction (Intermediate, Verified 12/26/23 14:05) Dizziness simvastatin Adverse Reaction (Intermediate, Verified 12/26/23 14:05) blurring of vision tamsulosin Adverse Reaction (Intermediate, Verified 12/26/23 14:05) Dizziness Medication List - Last Reconciled 12/26/23 by Cristhian Han MD acetaminophen (Tylenol) 650 mg (2 x 325 mg) PO Q6H PRN bisacodyl (Dulcolax (bisacodyl)) 20 mg (4 x 5 mg) PO ONCE PRN 1 day cholecalciferol (vitamin D3) 25 mcg PO DAILY doxazosin 4 mg PO BEDTIME 90 days hydrocortisone 2.5% (Proctozone-HC) 1 appl MA BID PRN lisinopril 10 mg PO DAILY 90 days polyethylene glycol 3350 (Miralax) 238 grams PO ONCE 1 day psyllium husk (with sugar) 3.4 gram/12 gram (Metamucil (with sugar)) 1 tsp PO DAILY pyridoxine (vitamin B6) 50 mg PO DAILY 90 days rosuvastatin 10 mg PO DAILY 90 days tizanidine 4 mg PO BEDTIME PRN 30 days Tobacco use date assessed: 12/26/23 Fall risk assessment: No Falls in past year Last assessed Fall Risk: 12/26/23 Dental Screening Dental Screen Date: 12/26/23 Did you have a dental visit in the last 12 months?: Yes Did you have a dental problem in the last 6 months where you did not have access to dental care?: No Was dental information given to patient?: Patient has dentist HPI kidneys HPI Details Patient comes in today for his follow up visit - was last seen by me in January 2023 States that he feels okay Had a bout of kidney stones back in September 2023 - states that he's had no problems since He denies any headaches or dizziness Denies any chest pains, no SOB No nausea/vomiting, no abdominal pain No change in bowel habits noted Had his follow up labs done last week - to discuss his results [facility] Medical History Vitamin D deficiency Neuropathy Hemorrhoids Chronic constipation Obesity (BMI 30-39.9) Benign essential hypertension Pure hypercholesterolemia Left lower quadrant abdominal mass Left sided abdominal pain Peripheral neuropathy History of back pain Hx of hepatitis Amputation of thumb, left DJD (degenerative joint disease) of cervical spine DDD (degenerative disc disease), lumbar Hx of vertigo Asthma Hyperlipidemia Myocardial infarction CAD (coronary artery disease) HTN (hypertension) Surgical History Hx of cystoscopy History of surgery on left wrist History of circumcision History of rhinoplasty Hx of left knee surgery Hx of colonoscopy Family History Unknown No family history of colorectal cancer Social History Household Members: None Housing: House Alcohol intake: never Patient Tobacco Use Status: Former Tobacco user Quit Date: 1983 e-Cigarette/Vaping Use: Never Used Second Hand Smoke Exposure: Yes service: No Current occupational status: retired Cognitive needs: No Hearing needs: Yes (? B/L hearing loss) Vision needs: Yes Questionnaire PHQ-9 Over the last 2 weeks, how often have you been bothered by any of the following problems? 1. Little interest or pleasure in doing things: not at all 2. Feeling down, depressed, or hopeless: not at all 3. Trouble falling or staying asleep, or sleeping too much: not at all 4. Feeling tired or having little energy: not at all 5. Poor appetite or overeating: not at all 6. Feeling bad about yourself - or that you are a failure or have let yourself or your family down: not at all 7. Trouble concentrating on things, such as reading the newspaper or watching television: not at all 8. Moving or speaking so slowly that other people could have noticed. Or the opposite - being so fidgety or restless that you have been moving around a lot more than usual: not at all 9. Thoughts that you would be better off or of hurting yourself in some way: not at all Total score: 0 Depression Screening Interpretation: Negative Depression Screening Done: Yes 64994 - PHQ-9 Billing: Yes Source: Developed by Drs. Brendon Nixon, Marlen Tanner, Angelo Arreola and colleagues, with an educational zen from [employer]. Thrive Questionnaire Date Thrive assessed: 12/26/23 I am a: Patient What is your living situation today?: I have a steady place to live Within the past 12 months, did the food you bought not last and you didn't have the money to get more?: Never true Within the past 12 months, did you worry whether your food would run out before you got money to buy more?: Never true Do you have trouble paying for medicines?: No Do you have trouble getting transportation to medical appointments?: No Do you have trouble paying your heating and electricity bill?: No Do you have trouble taking care of your child, family member or friend?: No Do you have trouble with day-to-day activities such as bathing, preparing meals, shopping, managing finances, etc.?: No Are you currently unemployed and looking for a job?: No Are you interested in more education?: No Please select the resources that you would like help with: None Currently or been in a relationship where the following occur: no concerns reported THRIVE Score: 0 AUDIT C Alcohol Use Questionnaire (AUDIT-C) 1. How often do you have a drink containing alcohol?: Never 3. How often do you have six or more drinks on one occasion?: Never Total Score: 0 Score Reviewed/Action Taken: Yes LING-7 AMB Questionnaire LING-7 Date LING - 7 assessed: 12/26/23 Feeling nervous, anxious, or on edge: 0 = Not at all Not being able to stop or control worryin = Not at all Worrying too much about different things: 0 = Not at all Trouble relaxin = Not at all Being so restless that it is hard to sit still: 0 = Not at all Becoming easily annoyed or irritable: 0 = Not at all Feeling afraid as if something awful might happen: 0 = Not at all Total LING-7 score (0-4 normal; 5-9 mild; 10-14 moderate; 15-21 severe): 0 Source: Developed by Drs. Brendon Nixon, Marlen Tanner, Angelo Arreola and colleagues, with an educational zen from [employer]. Review of Systems Const Denies chills, Denies fatigue, Denies fever(s) and Denies headache(s) ENT Denies dysphagia, Denies dizziness, Denies otalgia, Denies headache(s), Denies neck pain, Denies odynophagia and Denies sore throat Card Denies chest pain, Denies palpitations and Denies dyspnea Resp Denies chest congestion, Denies cough and Denies dyspnea GI Denies abdominal pain, Denies constipation, Denies dysphagia, Denies heartburn, Denies diarrhea, Denies nausea, Denies odynophagia and Denies vomiting Denies difficulty urinating, Denies dysuria, Denies nocturia and Denies urinary frequency Musc Reports back pain (over the lower back, on and off), Denies arthralgias and Denies neck pain Skin/Breast Denies rash Neuro Denies dizziness and Denies headache(s) Psych Denies anxiety and Denies depression Endo Denies fatigue and Denies palpitations Physical exam (Primary Care) Vital Signs: Last Vital Signs Pulse 90 12/26/23 13:09 BP 108/80 12/26/23 13:09 Pulse Ox 96 12/26/23 13:09 Oxygen Delivery Method Room Air 12/26/23 13:09 BMI result Body Mass Index 33.3 Tobacco/Smoking Status: Tobacco use Status Tobacco use date assessed 12/26/23 12/26/23 13:11 Patient Tobacco Use Status Former Tobacco user 12/26/23 13:11 e-Cigarette/Vaping Use Never Used 12/26/23 13:11 PHQ-9: PHQ-9 Score PHQ-9: Total score 0 12/26/23 13:11 Depression Screening Interpretation: Negative Thrive Assessment: Date of Thrive Assessment Date Thrive assessed 12/26/23 12/26/23 13:11 Currently or been in a relationship where the following occur: no concerns reported Const General: no acute distress and alert HENMT Ears: TM's normal bilaterally and EAC's normal Throat: Yes posterior oropharynx normal and Yes tonsils normal (no TP congestion) Neck Neck: Yes no lymphadenopathy and Yes supple Thyroid: Thyroid normal Resp Auscultation: clear to auscultation bilaterally, no rales and no wheezes Cardio Rate: regular rate Rhythm: regular rhythm Heart sounds: no murmurs GI Palpation (GI): Soft to palpation and nontender Auscultation: normal bowel sounds General: Yes no CVA tenderness Back/Spine/Pelvis Back: no CVA tenderness Thoracic/Lumbar Spine: lumbar spinal tenderness Skin Rashes: no rashes Extrem General: Yes no clubbing, cyanosis or edema Results Reviewed Results Reviewed: Laboratory Tests 12/20/23 12/20/23 12/20/23 07:33 07:33 07:34 WBC 6.9 Hgb 14.6 Hct 41.3 L Plt Count 248 Sodium 144 Potassium 3.6 Creatinine 1.06 Estimated GFR > 60 Fasting Glucose Hemoglobin A1c % 5.2 Calcium 9.2 AST 24 ALT 24 Triglycerides 162 H Cholesterol 152 LDL Cholesterol, Calc 88 HDL Cholesterol 32 L Prostate Specific Ag 1.15 25-OH Vitamin D Total 18.1 L TSH 2.81 Urine pH 6.0 Ur Specific [place] 1.020 Urine Protein Negative Urine Glucose (UA) Negative Urine Blood Trace H Urine Nitrite Negative Ur Leukocyte Esterase Negative Microalb/Creat Ratio 4.7 12/20/23 07:34 WBC Hgb Hct Plt Count Sodium Potassium Creatinine Estimated GFR Fasting Glucose 96 Hemoglobin A1c % Calcium AST ALT Triglycerides Cholesterol LDL Cholesterol, Calc HDL Cholesterol Prostate Specific Ag 25-OH Vitamin D Total TSH Urine pH Ur Specific [place] Urine Protein Urine Glucose (UA) Urine Blood Urine Nitrite Ur Leukocyte Esterase Microalb/Creat Ratio Assessment and Plan Assessment & Plan (1) Pure hypercholesterolemia: Code(s): E78.00 - Pure hypercholesterolemia, unspecified Plan: Results of his labs done last week reviewed and discussed with patient Reinforced low cholesterol diet Continue Rosuvastatin 10 mg QD Will recheck his labs and fasting lipids in 4 months for follow up (2) CAD (coronary artery disease): Comment: S/P [facility] in 2005 Code(s): I25.10 - Atherosclerotic heart disease of [place] coronary artery without angina pectoris Qualifiers: Coronary Disease-Associated Artery/Lesion type: [place] artery [place] vs. transplanted heart: [place] heart Associated angina: without angina Qualified Code(s): I25.10 - Atherosclerotic heart disease of [place] coronary [place] without angina pectoris Plan: Patient currently remains asymptomatic from a cardiac standpoint Follow up with cardiology as scheduled (3) Benign essential hypertension: Code(s): I10 - Essential (primary) hypertension Plan: Reinforced low sodium diet - goal is systolic BP of 120 to 130 mm or less Continue Lisinopril 10 mg QD (4) Impaired fasting glucose: Code(s): R73.01 - Impaired fasting glucose Plan: HgbA1c is at 5.2% on his labs done last week (was previously at 5.6%); FBS was normal at 96 mg/dL Reassured that he does NOT have diabetes and is not even a borderline diabetic any longer Reinforced low calorie diet/exercise as tolerated (5) Neuropathy: Code(s): G62.9 - Polyneuropathy, unspecified Plan: Most likely due to neuropathy Was previously started on Gabapentin 100 mg BID but he stopped taking this a few weeks ago as he started experiencing dizziness every time he took the Rx Still does not wish to take anything else at this time (6) Vitamin D deficiency: Code(s): E55.9 - Vitamin D deficiency, unspecified Plan: Patient is advised that his vitamin D level is low again on his recent labs and he should start back on Vitamin D3 2000 units QD - Rx sent (7) Urinary frequency: Code(s): R35.0 - Frequency of micturition Plan: PSA was normal when checked back in March 2022; his urinary frequency may be partly due to his water/fluid intake as he admits to drinking a lot of water often throughout the day Continue Doxazosin 4 mg QD Follow up with urology as scheduled (8) Chronic constipation: Comment: Colace 200 mg, MiraLax 17 g q.h.s. maintain high-fiber diet, Proctozone is need for hemorrhoid Code(s): K59.09 - Other constipation Plan: Reinforced increased oral fluids and dietary fiber States that his bowels are presently well-controlled on his current regimen of fiber laxative and stool softeners PRN Will start him on Senna 8.6 mg 2 tablets Q HS Follow up with GI as scheduled (9) Obesity (BMI 30-39.9): Code(s): E66.9 - Obesity, unspecified Plan: Reinforced diet/exercise as tolerated/lose weight Plan Follow up in 4 months Orders: Orders Complete Blood Count Auto Diff 4 Months D64.9 - Anemia, unspecified UA CC w/rflx Micro + Cult 4 Months R30.0 - Dysuria Vitamin B12 and Folate 4 Months E53.8 - Deficiency of other specified B group vitamins Vitamin D 25-OH Total 4 Months E55.9 - Vitamin D deficiency, unspecified Comprehensive [place]. Panel Fast 4 Months E78.00 - Pure hypercholesterolemia, unspecified Lipid Panel 4 Months E78.00 - Pure hypercholesterolemia, unspecified TSH reflex Free T4 4 Months E78.00 - Pure hypercholesterolemia, unspecified Medications: Changed From cholecalciferol (vitamin D3) 25 mcg PO DAILY 90 tabs 0RF R79.89 - Other specified abnormal findings of blood chemistry To cholecalciferol (vitamin D3) 50 mcg PO DAILY 90 days 90 tabs 3RF R79.89 - Other specified abnormal findings of blood chemistry Coding Level of Care Code Est Pt Level 4 (42581) Diagnoses Pure hypercholesterolemia E78.00 Coronary artery disease involving [place] coronary artery of [place] heart without angina pectoris I25.10 Coronary Disease-Associated Artery/Lesion type: [place] artery [place] vs. transplanted heart: [place] heart Associated angina: without angina Benign essential hypertension I10 Impaired fasting glucose R73.01 Neuropathy G62.9 Vitamin D deficiency E55.9 Urinary frequency R35.0 Chronic constipation K59.09 Obesity (BMI 30-39.9) E66.9
== END 2023-12-26 14:18 | disposition home or self-care (01) ==
PROVIDERS: PCP Internal Medicine; Visit Provider Internal Medicine
DX: E78.00 Pure hypercholesterolemia, unspecified (principal); I25.10 Atherosclerotic heart disease of native coronary artery without angina pectoris; E66.9 Obesity, unspecified; Z68.33 Body mass index [BMI] 33.0-33.9, adult; I10 Essential (primary) hypertension; R73.01 Impaired fasting glucose; G62.9 Polyneuropathy, unspecified; E55.9 Vitamin D deficiency, unspecified; R35.0 Frequency of micturition; K59.09 Other constipation
CPT/HCPCS: 99214

== ENCOUNTER 2024-02-05 12:00 | Outpatient (AMB) | payer OTHER, SELFPAY ==
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
== END 2024-02-05 13:09 | disposition home or self-care (01) ==
LOC: HO.HOS 12:00
PROVIDERS: PCP Internal Medicine; Visit Provider Orthopaedic Surgery
DX: S68.012A Complete traumatic metacarpophalangeal amputation of left thumb, initial encounter (principal); L60.8 Other nail disorders; Z04.2 Encounter for examination and observation following work accident
CPT/HCPCS: 99214

== ENCOUNTER → 2024-02-05 12:00 | Outpatient (BNVA) | payer OTHER, SELFPAY | PROVIDERS: PCP Internal Medicine; Visit Provider Orthopaedic Surgery | DX: S68.012D Complete traumatic metacarpophalangeal amputation of left thumb, subsequent encounter (principal); L60.8 Other nail disorders | CPT/HCPCS: 99212 ==

== ENCOUNTER 2024-03-10 07:53 | Outpatient (REF) | payer OTHER, SELFPAY ==
--- NOTE | ~2024-03-10 | CT_ITS ---
EXAMINATION: CT ABDOMEN AND PELVIS WITHOUT CONTRAST CLINICAL INFORMATION: Unspecified abdominal pain. Left flank pain. Calculus of kidney. COMPARISON: Abdominal ultrasound 11/06/[address] abdomen pelvis 08/17/2023 TECHNIQUE: Multidetector volumetric imaging was performed from the superior aspect of the liver through the pubic symphysis. Sagittal and coronal reformatted images were obtained on the technologist's workstation. This CT examination was performed using dose optimization techniques as appropriate, variously including the following: *Automated exposure control *Adjustment of mA and/or kV according to patient size (this includes techniques or standardized protocols for targeted exams where dose is matched to indication/reason for exam; i.e. extremities or head) *Use of iterative reconstruction technique DLP: 671 mGy-cm FINDINGS: Visualized lung bases are well aerated. Similar partially visualized small right middle lobe granuloma. Small cystic focus within the posterior right lung base is unchanged. The liver is normal in size but demonstrates diffusely decreased attenuation. The gallbladder is normal in appearance. The pancreas, spleen and left adrenal gland are unremarkable. Stable 1.7 cm right adrenal lesion most consistent with an adenoma. Symmetrically sized kidneys. There are a few nonobstructing calculi present within the left kidney, largest measuring approximately 5 mm. No right-sided renal calculi are identified. There is no hydronephrosis of either kidney. Normal caliber loops of small and large bowel. Normal appendix. Normal caliber abdominal aorta demonstrating mild atherosclerotic disease. Retroaortic left renal vein. No retroperitoneal lymphadenopathy. The bladder is normal in appearance. The prostate gland is normal in size. Tiny fat-containing inguinal hernias bilaterally. No inguinal lymphadenopathy. No gross free pelvic fluid. Mild to moderate diffuse degenerative changes of the spine. Stable sclerotic focus within the right ilium, likely bone island. CT/CT abdomen pelvis wo IV con IMPRESSION: 1. There are a few nonobstructing calculi present within the left kidney, largest measuring approximately 5 mm. No right-sided renal calculi are identified. There is no hydronephrosis of either kidney. 2. Diffusely decreased liver attenuation suggesting hepatic steatosis. Correlation with liver enzymes recommended. 3. Stable 1.7 cm right adrenal lesion most consistent with an adenoma. Fleischner guidelines were followed.
== END 2024-03-10 07:54 | disposition home or self-care (01) ==
LOC: HO.CT 07:53
PROVIDERS: PCP Internal Medicine; Visit Provider Urology
DX: R10.9 Unspecified abdominal pain (principal)
CPT/HCPCS: 74176

== ENCOUNTER 2024-03-24 09:19 | Outpatient (AMB) | payer OTHER, SELFPAY ==
--- NOTE | 2024-03-24 09:55 | A.OFFVIS_ITS ---
Intake Visit Reasons: 4m/CT Intake Note: Patient is Present for follow-up for CT Results: Urology Medication: Doxazosin & vitamin B6 Antibiotic Allergies: Penicillin Blood Thinners: None Shield Runner Required: No Accompanied by: Self / Same As Patient Allergies Penicillins Allergy (Intermediate, Verified 03/24/24 09:56) PASSED OUT atorvastatin Adverse Reaction (Intermediate, Verified 03/24/24 09:56) blurring of vision gabapentin Adverse Reaction (Intermediate, Verified 03/24/24 09:56) Dizziness simvastatin Adverse Reaction (Intermediate, Verified 03/24/24 09:56) blurring of vision tamsulosin Adverse Reaction (Intermediate, Verified 03/24/24 09:56) Dizziness Medication List - Last Reconciled 03/24/24 by Jonathan Deleon MD acetaminophen (Tylenol) 650 mg (2 x 325 mg) PO Q6H PRN bisacodyl (Dulcolax (bisacodyl)) 20 mg (4 x 5 mg) PO ONCE PRN 1 day cholecalciferol (vitamin D3) 50 mcg PO DAILY 90 days doxazosin 4 mg PO BEDTIME 90 days hydrocortisone 2.5% (Proctozone-HC) 1 appl SC BID PRN lisinopril 10 mg PO DAILY 90 days polyethylene glycol 3350 (Miralax) 238 grams PO ONCE 1 day psyllium husk (with sugar) 3.4 gram/12 gram (Metamucil (with sugar)) 1 tsp PO DAILY pyridoxine (vitamin B6) 50 mg PO DAILY 90 days rosuvastatin 10 mg PO DAILY 90 days tizanidine 4 mg PO BEDTIME PRN 30 days HPI Comments Details: 03/24/2024 Yash is a 63-year-old male who presents today to the office for a follow-up. Yash is evaluated due to nephrolithiasis and BPH. I have reviewed recent CT scan, 03/10/2024. There are a few kidney stones in the left kidney largest measuring up to 5 mm. Right kidney no renal calculi noted. No hydronephrosis present. He is prescribed doxazosin 4 mg daily. He states that the tamsulosin affects his breathing. 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 The patient states he gets intermittent left kidney pain. I have discussed scheduling left ESWL. Gabonese pamphlet provided. Review of chart: 11/26/23-- s/p cystoscopy bilateral stent removal on 09/25/23; he complains of urinary frequency and ocassional dysuria. He finished the cardura that was prescribed by Dr. Kearney and did not get it refilled. I have discussed that I will prescribe tamsulosin. UA today no signs of infection. He continues to has intermittent left flank pain, recent Abd sono on 11/06/23 was WNL. Plan discussed tamsulosin 0.8 mg qhs, CTAP stone protocol in 3 months, FU post. 09/13/2023-- followed today post outpatient procedure 08/21/23 for Cystoscopy, bilateral ureteral stent, right ureteroscopy and laser stone which was performed due to 6 mm obstructing right ureteral stone and Left flank pain, left kidney pyelonephritis. He has seen Terry Neves in the past for kidney stones. He had circumcision about 7-8 years ago. Evaluation today--UA--Leukocytes: neg blood: tr. PFSH Medical History Vitamin D deficiency Neuropathy Hemorrhoids Chronic constipation Obesity (BMI 30-39.9) Benign essential hypertension Pure hypercholesterolemia Left lower quadrant abdominal mass Left sided abdominal pain Peripheral neuropathy History of back pain Hx of hepatitis Amputation of thumb, left DJD (degenerative joint disease) of cervical spine DDD (degenerative disc disease), lumbar Hx of vertigo Asthma Hyperlipidemia Myocardial infarction CAD (coronary artery disease) HTN (hypertension) Surgical History Hx of cystoscopy History of surgery on left wrist History of circumcision History of rhinoplasty Hx of left knee surgery Hx of colonoscopy Family History Unknown No family history of colorectal cancer Social History Household Members: None Housing: House Alcohol intake: never Patient Tobacco Use Status: Former Tobacco user Quit Date: 1983 e-Cigarette/Vaping Use: Never Used Second Hand Smoke Exposure: Yes service: No Current occupational status: retired Cognitive needs: No Hearing needs: Yes (? B/L hearing loss) Vision needs: Yes Review of Systems Const All systems reviewed & are unremarkable except as noted in HPI and below Reports no additional complaints Eyes Reports no additional complaints ENT Reports no additional complaints Card Reports no additional complaints Resp Reports no additional complaints GI Reports no additional complaints Reports as per HPI Musc Reports no additional complaints Skin/Breast Reports system reviewed and no additional complaints, except as documented Neuro Reports no additional complaints Psych Reports no additional complaints Endo Reports no additional complaints Niko/Lymph Reports no additional complaints Aller/Immun Reports no additional complaints Results Reviewed Results Reviewed: Date of Service: 03/10/24 CT ABDOMEN AND PELVIS WITHOUT CONTRAST CLINICAL INFORMATION: Unspecified abdominal pain. Left flank pain. Calculus of kidney. COMPARISON: Abdominal ultrasound 11/06/[address] abdomen pelvis 08/17/2023 TECHNIQUE: Multidetector volumetric imaging was performed from the superior aspect of the liver through the pubic symphysis. Sagittal and coronal reformatted images were obtained on the technologist's workstation. This CT examination was performed using dose optimization techniques as appropriate, variously including the following: *Automated exposure control *Adjustment of mA and/or kV according to patient size (this includes techniques or standardized protocols for targeted exams where dose is matched to indication/reason for exam; i.e. extremities or head) *Use of iterative reconstruction technique DLP: 671 mGy-cm FINDINGS: Visualized lung bases are well aerated. Similar partially visualized small right middle lobe granuloma. Small cystic focus within the posterior right lung base is unchanged. The liver is normal in size but demonstrates diffusely decreased attenuation. The gallbladder is normal in appearance. The pancreas, spleen and left adrenal gland are unremarkable. Stable 1.7 cm right adrenal lesion most consistent with an adenoma. Symmetrically sized kidneys. There are a few nonobstructing calculi present within the left kidney, largest measuring approximately 5 mm. No right-sided renal calculi are identified. There is no hydronephrosis of either kidney. Normal caliber loops of small and large bowel. Normal appendix. Normal caliber abdominal aorta demonstrating mild atherosclerotic disease. Retroaortic left renal vein. No retroperitoneal lymphadenopathy. The bladder is normal in appearance. The prostate gland is normal in size. Tiny fat-containing inguinal hernias bilaterally. No inguinal lymphadenopathy. No gross free pelvic fluid. Mild to moderate diffuse degenerative changes of the spine. Stable sclerotic focus within the right ilium, likely bone island. IMPRESSION: 1. There are a few nonobstructing calculi present within the left kidney, largest measuring approximately 5 mm. No right-sided renal calculi are identified. There is no hydronephrosis of either kidney. 2. Diffusely decreased liver attenuation suggesting hepatic steatosis. Correlation with liver enzymes recommended. 3. Stable 1.7 cm right adrenal lesion most consistent with an adenoma. Date of Service: 11/06/23 EXAMINATION: US ABDOMEN LIMITED CLINICAL INFORMATION: Unspecified abdominal pain Left lower quadrant tender lump. COMPARISON: Renal ultrasound 09/12/2023 TECHNIQUE: Real-time imaging of the left lower quadrant over the palpable area indicated by the patient. FINDINGS: The area indicated by the patient was the left flank/left kidney. No abnormality is seen in the area indicated by the patient. There is no free fluid, no hernia. LEFT KIDNEY: No hydronephrosis. No renal calculi. 0.8 x 0.7 x 0.8 cm simple exophytic cyst in the lower pole requires no imaging follow-up. The kidney measures 12.2 cm in maximum dimension. FREE FLUID: None. IMPRESSION: No abnormality demonstrated in the area indicated by the patient in the left flank/left kidney. Assessment & Plan Assessment & Plan (1) Nephrolithiasis: Code(s): N20.0 - Calculus of kidney Category: Medical (2) Left flank pain: Code(s): R10.9 - Unspecified abdominal pain Category: Medical (3) Chronic pyelonephritis: Code(s): N11.9 - Chronic tubulo-interstitial nephritis, unspecified Category: Medical (4) BPH loc w urin obs/LUTS: Code(s): N40.1 - Benign prostatic hyperplasia with lower urinary tract symptoms Category: Medical Plan Discussed left ESWL. Continue doxazosin 4 mg daily. Continue vitamin B6 50 mg daily. Patient Instructions: The patient had an opportunity to ask questions regarding treatment plan. The patient expressed understanding and agreement with the above treatment plan. The patient is aware they should contact our office by phone for worsening of their current condition or the appearance of new symptoms. Compliance is encouraged with any medications and followup testing that is ordered. It is a privilege to be allowed the opportunity to participate in the urologic care of your patient. If you have any questions or concerns regarding treatment for the above conditions please do not hesitate to contact me. The office telephone contact is [phone]. This note is constructed in part using voice recognition software. While every effort has been made to ensure accuracy greens cutter errors may have been included. Yours sincerely, Jonathan Deleon MD Coding Level of Care Code Est Pt Level 4 (40286) Complex EM visit Add On G2211 Diagnoses Nephrolithiasis N20.0 Left flank pain R10.9 Chronic pyelonephritis N11.9 BPH loc w urin obs/LUTS N40.1
== END 2024-03-24 11:09 | disposition home or self-care (01) ==
PROVIDERS: PCP Internal Medicine; Visit Provider Urology
DX: N20.0 Calculus of kidney (principal); R10.9 Unspecified abdominal pain; N11.9 Chronic tubulo-interstitial nephritis, unspecified; N40.1 Benign prostatic hyperplasia with lower urinary tract symptoms; Z13.9 Encounter for screening, unspecified
CPT/HCPCS: 99214; G2211

== ENCOUNTER → 2024-03-24 09:19 | Outpatient (BNVA) | payer OTHER, SELFPAY | PROVIDERS: PCP Internal Medicine; Visit Provider Urology | DX: N20.0 Calculus of kidney (principal); N40.1 Benign prostatic hyperplasia with lower urinary tract symptoms; N11.9 Chronic tubulo-interstitial nephritis, unspecified; R10.9 Unspecified abdominal pain | CPT/HCPCS: 81003; 99212 ==

== ENCOUNTER 2024-04-07 06:00 | Day surgery (SDC) | payer OTHER, SELFPAY ==
--- NOTE | 2024-04-03 12:45 | HO.ANESPROP2 ---
Documented by User: Jasmin Newell NP 04/03/24 12:50 HPI - Anesthesia Eval Consult details Narrative: 63yo M for Colonoscopy PMFSH Active Problems Active Problems: All Active Problems BPH loc w urin obs/LUTS (Acute) Elevated fasting glucose (Acute) Chronic pyelonephritis (Acute) Left flank pain (Acute) Nephrolithiasis (Acute) Cellulitis of thumb, left (Acute) Nail deformity (Acute) Amputation of left thumb (Acute) Lateral epicondylitis of left elbow (Acute) Urinary hesitancy due to benign prostatic hyperplasia (Acute) Left elbow pain (Acute) Dermoid cyst of arm (Acute) Right foot pain (Acute) Daytime sleepiness (Acute) Loud snoring (Acute) Skin lesion of neck (Acute) Witnessed apneic spells (Acute) Urinary frequency (Acute) Impaired fasting glucose (Acute) Viral illness (Acute) Tubular adenoma of colon (Acute) Skin lesions (Acute) Sessile colonic polyp (Acute) Hemorrhoids (Acute) Diverticulosis (Acute) Vitamin D deficiency (Acute) Neuropathy (Acute) Asthma (Acute) Hemorrhoids (Acute) Chronic constipation (Acute) Obesity (BMI 30-39.9) (Acute) Benign essential hypertension (Acute) Pure hypercholesterolemia (Acute) CAD (coronary artery disease) (Acute) Left lower quadrant abdominal mass (Acute) Left sided abdominal pain (Acute) Past Medical History Medical History (Updated 03/24/24 @ 11:04 by Jonathan Deleon MD) Vitamin D deficiency Neuropathy Hemorrhoids Chronic constipation Obesity (BMI 30-39.9) Benign essential hypertension Pure hypercholesterolemia Left lower quadrant abdominal mass Left sided abdominal pain Peripheral neuropathy History of back pain Hx of hepatitis Amputation of thumb, left DJD (degenerative joint disease) of cervical spine DDD (degenerative disc disease), lumbar Hx of vertigo Asthma Hyperlipidemia Myocardial infarction CAD (coronary artery disease) HTN (hypertension) Family History Family History Unknown No family history of colorectal cancer Family history of problems with anesthesia: No Surgical History Surgical History (Updated 04/07/24 @ 07:53 by Dottie Roy RN) History of amputation History of amputation of both great toes Hx of cystoscopy History of surgery on left wrist History of circumcision History of rhinoplasty Hx of left knee surgery Hx of colonoscopy History of Problems with Anesthesia: No Social History Social History Household Members: None Housing: House Alcohol intake: never Patient Tobacco Use Status: Former Tobacco user e-Cigarette/Vaping Use: Never Used Second Hand Smoke Exposure: Yes Use of substances other than those prescribed or required for medical reasons: No Are you DNR?: No Advance Directives: No Advance Directives Information Provided: Yes service: No Current occupational status: retired Cognitive needs: No Hearing needs: Yes (? B/L hearing loss) Vision needs: Yes Meds Allergies Allergy/AdvReac Type Severity Reaction Status Date / Time Penicillins Allergy Intermediate PASSED Verified 03/24/24 09:56 OUT atorvastatin AdvReac Intermediate blurring Verified 03/24/24 09:56 of vision gabapentin AdvReac Intermediate Dizziness Verified 03/24/24 09:56 simvastatin AdvReac Intermediate blurring Verified 03/24/24 09:56 of vision tamsulosin AdvReac Intermediate Dizziness Verified 03/24/24 09:56 Exam Pertinent Lab Results Pertinent Lab Results: Laboratory Tests 12/20/23 07:34 WBC 6.9 Hgb 14.6 Hct 41.3 L Plt Count 248 Sodium 144 Potassium 3.6 Chloride 105 Carbon Dioxide 30 H BUN 13 Creatinine 1.06 Assessment and Plan Assessment Anesthesia Assessment: Chart Reviewed Final Anesthetic Review Family History of Problems with Anesthesia: No History of Problems with Anesthesia: No Documented by User: Shahida Henderson MD 04/07/24 09:05 [facility] Past Medical History Medical History (Updated 03/24/24 @ 11:04 by Jonathan Deleon MD) Vitamin D deficiency Neuropathy Hemorrhoids Chronic constipation Obesity (BMI 30-39.9) Benign essential hypertension Pure hypercholesterolemia Left lower quadrant abdominal mass Left sided abdominal pain Peripheral neuropathy History of back pain Hx of hepatitis Amputation of thumb, left DJD (degenerative joint disease) of cervical spine DDD (degenerative disc disease), lumbar Hx of vertigo Asthma Hyperlipidemia Myocardial infarction CAD (coronary artery disease) HTN (hypertension) Family History Family History Unknown No family history of colorectal cancer Surgical History Surgical History (Updated 04/07/24 @ 07:53 by Dottie Roy RN) History of amputation History of amputation of both great toes Hx of cystoscopy History of surgery on left wrist History of circumcision History of rhinoplasty Hx of left knee surgery Hx of colonoscopy Social History Social History Household Members: None Housing: House Alcohol intake: never Patient Tobacco Use Status: Former Tobacco user e-Cigarette/Vaping Use: Never Used Second Hand Smoke Exposure: Yes Use of substances other than those prescribed or required for medical reasons: No Are you DNR?: No Advance Directives: No Advance Directives Information Provided: Yes service: No Current occupational status: retired Cognitive needs: No Hearing needs: Yes (? B/L hearing loss) Vision needs: Yes Meds Allergies Allergy/AdvReac Type Severity Reaction Status Date / Time Penicillins Allergy Intermediate PASSED Verified 03/24/24 09:56 OUT atorvastatin AdvReac Intermediate blurring Verified 03/24/24 09:56 of vision gabapentin AdvReac Intermediate Dizziness Verified 03/24/24 09:56 simvastatin AdvReac Intermediate blurring Verified 03/24/24 09:56 of vision tamsulosin AdvReac Intermediate Dizziness Verified 03/24/24 09:56 Exam Airway Mallampati Class: II TM Dist: >3cm Neck ROM: Full Heart: rrr Lungs: cta Assessment and Plan Assessment Anesthesia Assessment: Anesthesia Plan Discussed Final Anesthetic Review NPO: Yes ASA Class: II Final Preanesthetic Review: No Changes in Pt Med Stat, Meds/Allgs Chart Reviewed and Consent Obtained/Reviewed Patient Risk: Low Procedure Risk: Low Anesthetic Plan Anesthetic Plan: MAC: Disposition: Standard PACU
[2024-04-07 07:02] VITALS: BMI 30.4
[2024-04-07 07:49] VITALS: BP 162/90; PULSE 70; RESP 18; TEMP 36.1; O2SAT 97
--- NOTE | 2024-04-07 08:47 | MHC.SHP ---
Pre-Procedural Eval Section A - 24 Hr Update-Section A only Date of Service: 04/07/24 Section B - Complete if H&P > 30 days Chief Complaint: Benign neoplasm of colon, unspecified Relevant Family History (Specify if Yes): No Relevant Social History: None Present Medications: see Short Stay Collaborative assessment Medical History: Significant History (Vitamin D deficiency Neuropathy Hemorrhoids Chronic constipation Obesity (BMI 30-39.9) Benign essential hypertension Pure hypercholesterolemia Left lower quadrant abdominal mass Left sided abdominal pain Peripheral neuropathy History of back pain Hx of hepatitis Amputation of thumb, left DJD (degene) History of Previous Operations: Relevant previous surgery/procedure and date(s) ( Hx of cystoscopy History of surgery on left wrist History of circumcision History of rhinoplasty Hx of left knee surgery Hx of colonoscopy) Allergies: Allergies Allergy/AdvReac Type Severity Reaction Status Date / Time Penicillins Allergy Intermediate PASSED Verified 03/24/24 09:56 OUT atorvastatin AdvReac Intermediate blurring Verified 03/24/24 09:56 of vision gabapentin AdvReac Intermediate Dizziness Verified 03/24/24 09:56 simvastatin AdvReac Intermediate blurring Verified 03/24/24 09:56 of vision tamsulosin AdvReac Intermediate Dizziness Verified 03/24/24 09:56 Review of Systems Sugical H&P ROS: Negative: Constitution, Cardiovascular, Respiratory, Neurological, Psychiatric, Hem-Onc, Allergic/Immunologic, Gastrointestinal, Genitourinary, Musculoskeletal, Integumentary, Endocrine and Eyes/Ears/Nose/Throat Exam Surgical H&P Exam: Normal: HEENT, Normal: Heart, Normal: Lungs, Normal: Extremities, Normal: Abdomen, Normal: Skin and Normal: Neurological Plan Diagnosis/Plan: Unchanged I have reviewed the history and physical and performed a pertinent physical examination on my patient. No changes have occurred unless specified. Time Spent With Patient Time: Total time managing care of this patient today ____ minutes.
[2024-04-07] MEDS: Lactated Ringers 1,000 ML 100 ML IVCONT (08:58)
--- NOTE | 2024-04-07 10:15 | P.OPN-COLO_ITS ---
Colonoscopy Operative Note Operative Note Date of Service: 04/07/24 Narrative: Operative Information Procedure Description: Colonoscopy Indication: hx of colon polyps Anesthesia: MAC COLONOSCOPY Instrument: Olympus variable stiffness ADULT scope 190L Colonoscopy Monitoring: Vital signs and clinical assessment, continuous EKG monitoring, Pulse oximetry, Carbon Dioxide monitoring and blood pressure monitoring were done throughout the procedure. Colon withdrawal time was 14 minutes. Procedure: The patient was placed in the left lateral decubitis position and pre-procedure medications were administered. After a digital rectal examination of the ano-rectum, the video colonoscope was inserted into the rectum and advanced through the colon to the cecum/TI. The colonoscope was slowly withdrawn in a retrograde panoramic fashion and the colon mucosa was carefully examined including a retroflexed view of the rectum. Findings and interventions are described below. Procedure Difficulty: moderate Findings: Terminal Ileum-normal Cecum:normal Ascending Colon: normal Transverse Colon -normal Descending Colon: 4-6 mm sessile polyp removed with cold forceps Sigmoid Colon: normal Rectum: Retroflexion with small internal hemorrhoids seen, grade I Anorectum - normal Intervention: cold forceps Colon preparation: [place] Bowel Preparation Scale Right colon; 1-2 Transverse colon: 1-2 Left colon; 2 (0 = Unprepared colon segment with mucosa not seen due to solid stool that cannot be cleared. 1 = Portion of mucosa of the colon segment seen, but other areas of the colon segment not well seen due to staining, residual stool and/or opaque liquid. 2 = Minor amount of residual staining, small fragments of stool and/or opaque liquid, but mucosa of colon segment seen well. 3 = Entire mucosa of colon segment seen well with no residual staining, small fragments of stool or opaque liquid) Impression and Post Procedure Diagnosis: colon polyp internal hemorrhoids Plan: High fiber diet leaflet Avoid straining at stool, epsom salts and sitz bath, anusol supps or cream Repeat Colonoscopy in 3-5 years due to fair prep or earlier if clinically indicated Above findings were reviewed with the patient and relevant handouts were provided if indicated.
[2024-04-07 10:19] VITALS: BP 106/80; PULSE 83; RESP 16; TEMP 36.1; O2SAT 95
[2024-04-07 10:34] VITALS: BP 116/77; PULSE 85; RESP 16; O2SAT 96
[2024-04-07 10:49] VITALS: BP 108/75; PULSE 75; RESP 18; TEMP 36.6; O2SAT 96
== END 2024-04-07 12:41 | disposition home or self-care (01) ==
PROVIDERS: PCP Internal Medicine; Visit Provider Internal Medicine Gastroenterology
PROC: 0DJD8ZZ Inspection of Lower Intestinal Tract, Via Natural or Artificial Opening Endoscopic (ICD-10-PCS; CPT 45378; principal; 2024-04-07 10:40)
DX: Z12.11 Encounter for screening for malignant neoplasm of colon (principal); D12.4 Benign neoplasm of descending colon; K64.0 First degree hemorrhoids; Z86.010 Personal history of colon polyps; I10 Essential (primary) hypertension; Z88.0 Allergy status to penicillin
CPT/HCPCS: 45380; 88305; J2704

== ENCOUNTER → 2024-04-07 06:00 | Outpatient (BNV) | payer OTHER, SELFPAY | PROVIDERS: PCP Internal Medicine; Visit Provider Internal Medicine Gastroenterology | DX: Z12.11 Encounter for screening for malignant neoplasm of colon (principal); Z86.010 Personal history of colon polyps; K63.5 Polyp of colon; K64.0 First degree hemorrhoids | CPT/HCPCS: 45380 ==

== ENCOUNTER 2024-04-14 06:53 | Emergency (ER) | payer OTHER, SELFPAY ==
--- NOTE | ~2024-04-14 | XR_ITS ---
EXAMINATION: RIGHT SHOULDER, RIGHT HUMERUS CLINICAL INFORMATION: Pain COMPARISON: None available. TECHNIQUE: 3 views right shoulder, 2 views right humerus FINDINGS: Aside from degenerative changes seen at the right AC joint no significant abnormality is seen. No fractures or dislocations. No rotator cuff calcifications. XR/XR humerus RT IMPRESSION: Degenerative changes right AC joint. No acute finding.
--- NOTE | ~2024-04-14 | XR_ITS ---
EXAMINATION: RIGHT SHOULDER, RIGHT HUMERUS CLINICAL INFORMATION: Pain COMPARISON: None available. TECHNIQUE: 3 views right shoulder, 2 views right humerus FINDINGS: Aside from degenerative changes seen at the right AC joint no significant abnormality is seen. No fractures or dislocations. No rotator cuff calcifications. XR/XR shoulder RT min 2V IMPRESSION: Degenerative changes right AC joint. No acute finding.
[2024-04-14 07:05] VITALS: BP 147/85; PULSE 95; RESP 16; TEMP 36; O2SAT 95; BMI 33.4
--- NOTE | 2024-04-14 09:16 | ED_ITS ---
HPI - Extremity Problem General Chief complaint: Extremity Injury, Upper Stated complaint: pain upper right arm Time Seen by Provider: 04/14/24 09:14 Source: patient, RN notes reviewed and old records reviewed Mode of arrival: ambulatory Limitations: no limitations History of Present Illness ED Provider: REGINA VAZQUEZ PA-C HPI Narrative: 64 year old Citizen Of [place] speaking male with pmhx significant for presents to the ED today for evaluation of atraumatic right upper arm pain x45 days. Reports waking up this morning with a loose sensation in his right upper arm as though something snapped however denies known injury or trauma. Admits to taking naproxen and icing the area with minimal relief. Patient reports being evaluated by his PCP for this multiple times without diagnosis. Denies numbness/tingling/weakness of the extremity, fever, chills. Denies joint swelling. Denies recent tick or insect bites. Related Data Previous Rx's ?Medication ?Instructions ?Recorded hydrocortisone 2.5 % topical cream 1 appl [place] BID PRN hemorrhoids #30 02/10/21 with perineal applicator grams (Proctozone-HC) acetaminophen 325 mg tablet 650 mg (2 x 325 mg) PO Q6H PRN 10/02/23 (Tylenol) pain #60 tabs tizanidine 4 mg tablet 4 mg PO BEDTIME PRN low back pain 10/02/23 30 days #30 tabs doxazosin 4 mg tablet 4 mg PO BEDTIME 90 days #90 tabs 12/03/23 cholecalciferol (vitamin D3) 50 50 mcg PO DAILY 90 days #90 tabs 12/26/23 mcg (2,000 unit) tablet lisinopril 10 mg tablet 10 mg PO DAILY 90 days #90 tabs 02/07/24 rosuvastatin 10 mg tablet 10 mg PO DAILY 90 days #90 tabs 02/07/24 pyridoxine (vitamin B6) 50 mg 50 mg PO DAILY 90 days #90 tabs 03/24/24 tablet lidocaine 5 % topical patch 1 patch topical DAILY #15 ea 04/14/24 (Lidoderm) naproxen 500 mg tablet 500 mg PO Q8-12H PRN pain (scale 04/14/24 score 4-6) #20 tabs prednisone 20 mg tablet 40 mg (2 x 20 mg) PO DAILY 5 days 04/14/24 #10 tabs Allergies Allergy/AdvReac Type Severity Reaction Status Date / Time Penicillins Allergy Intermediate PASSED Verified 04/14/24 07:12 OUT atorvastatin AdvReac Intermediate blurring Verified 04/14/24 07:12 of vision gabapentin AdvReac Intermediate Dizziness Verified 04/14/24 07:12 simvastatin AdvReac Intermediate blurring Verified 04/14/24 07:12 of vision tamsulosin AdvReac Intermediate Dizziness Verified 04/14/24 07:12 Review of Systems Review of Systems: Constitutional: No fever, chills, fatigue, night sweats, weight changes ENT/Mouth: No ear pain, hearing loss, nasal congestion, sinus pain, rhinorrhea, sore throat Eyes: No eye pain, swelling, redness, vision changes, discharge Cardio: No chest pain, palpitations, PALACIO, orthopnea, peripheral edema Pulm: No SOB, cough, sputum, wheezing, dyspnea, hemoptysis GI: No nausea, vomiting, hematemesis, abdominal pain, diarrhea, constipation, hematochezia, melena : No irregular bleeding, dysuria, frequency, urgency, hesitancy, hematuria, flank pain, urinary flow changes, urinary incontinence or retention MSK: No back pain, neck pain, joint pain, myalgias, +right shoulder pain Skin: No lesions, rashes Neuro: No weakness, numbness, paresthesias, LOC, dizziness, headache Psych: No anxiety/panic, depression, SI/HI, AH/VH All other systems reviewed and are negative. [facility] Past Medical History Attestation statement: The following information was validated with the patient. Source: old records reviewed and nursing notes reviewed Medical History Vitamin D deficiency Neuropathy Hemorrhoids Chronic constipation Obesity (BMI 30-39.9) Benign essential hypertension Pure hypercholesterolemia Left lower quadrant abdominal mass Left sided abdominal pain Peripheral neuropathy History of back pain Hx of hepatitis Amputation of thumb, left DJD (degenerative joint disease) of cervical spine DDD (degenerative disc disease), lumbar Hx of vertigo Asthma Hyperlipidemia Myocardial infarction CAD (coronary artery disease) HTN (hypertension) Surgical History History of amputation History of amputation of both great toes Hx of cystoscopy History of surgery on left wrist History of circumcision History of rhinoplasty Hx of left knee surgery Hx of colonoscopy Family History Family History Unknown No family history of colorectal cancer Social History Social History Household Members: None Housing: House Alcohol intake: never Patient Tobacco Use Status: Former Tobacco user e-Cigarette/Vaping Use: Never Used Second Hand Smoke Exposure: Yes Advance Directives: No Advance Directives Information Provided: Yes Do you have a plan to hurt others: No Plan service: No Current occupational status: retired Cognitive needs: No Hearing needs: Yes (? B/L hearing loss) Vision needs: Yes Physical Exam Vital Signs: Vital Signs: Last Vital Signs Temp 97.2 F 04/14/24 09:54 Pulse 92 04/14/24 09:54 Resp 16 04/14/24 09:54 BP 138/88 04/14/24 09:54 Pulse Ox 96 04/14/24 09:54 O2 Del Method Room Air 04/14/24 09:54 BMI result Body Mass Index 33.4 Vital signs stable Const: General: cooperative, healthy appearing, comfortable, no acute distress, alert, awake and Physically active Orientation/consciousness: patient oriented x3 Limitations: no limitations HEENT: Head: Yes normal to inspection, Yes No palpable skull fracture present, Yes normocephalic and Yes atraumatic Eyes: General: appearance normal, both eyes and all related structures Conjunctivae: conjunctivae normal Sclerae: sclerae normal Pupils: Equal, round and reactive pupils present Neck: Neck: Yes normal visual inspection and Yes full ROM Resp: Effort & Inspection: normal respiratory effort and able to speak in complete sentences Auscultation: clear to auscultation bilaterally Cardio: Rate: regular rate Rhythm: regular rhythm Back/Spine/Pelvis: Other: No midline spinous tenderness or step off deformity. No paraspinal muscle tenderness. Skin: General skin exam: no rashes or lesions noted Neuro: Other: Strength 5/5 intact throughout.?Sensation intact to light touch.? Neurovascular intact distally.? General: patient oriented x3 Cranial nerves: Yes Equal, round and reactive pupils present Extrem: Other: + right shoulder with full ROM intact. No overlying deformities, skin changes o r joint effusion. Full ROM intact to right elbow and right wrist. positive yergasons test. 2+ radial/ulnar pulse intact. [employer] strength intact. Medical Decision Making Medical Decision Making MDM Narrative: 64 year old Citizen Of [place] speaking male with pmhx significant for presents to the ED today for evaluation of atraumatic right upper arm pain x45 days. Vital signs stable. He is nontoxic appearing and in NAD. On exam, right shoulder with full ROM intact. No overlying deformities, skin changes or joint effusion. Full ROM intact to right elbow and right wrist. positive yergasons test. 2+ radial/ulnar pulse intact. [employer] strength intact. Differential diagnosis includes fracture, dislocation, ligament/tendon injury, arthritis, tendonitis. Unlikely NV compromise, threat to limb, compartment syndrome, gout, pseudogout. Plan for xrays and re-evaluation. Differential Diagnosis Differential Diagnoses: The differential diagnosis associated with the presentation includes As above Admission/Observation Not indicated Independent Interpretation I performed an independent interpretation of an: Plain X-Ray Interpretation: X-rays right shoulder and humerus without acute fracture, agree with radiologist's interpretation. Radiology Impression Discussion of test interpretation with radiology: I have reviewed the radiologist's reading. Radiologist Impression: EXAMINATION: RIGHT SHOULDER, RIGHT HUMERUS CLINICAL INFORMATION: Pain COMPARISON: None available. TECHNIQUE: 3 views right shoulder, 2 views right humerus FINDINGS: Aside from degenerative changes seen at the right AC joint no significant abnormality is seen. No fractures or dislocations. No rotator cuff calcifications. XR/XR shoulder RT min 2V IMPRESSION: Degenerative changes right AC joint. No acute finding. EXAMINATION: RIGHT SHOULDER, RIGHT HUMERUS CLINICAL INFORMATION: Pain COMPARISON: None available. TECHNIQUE: 3 views right shoulder, 2 views right humerus FINDINGS: Aside from degenerative changes seen at the right AC joint no significant abnormality is seen. No fractures or dislocations. No rotator cuff calcifications. XR/XR humerus RT IMPRESSION: Degenerative changes right AC joint. No acute finding. External Record Review External record reviewed: Inpatient record, Office record, Outpatient record, Prior outpatient labs, Prior outpatient radiology, Primary care record and Outside ED record Prescription Management I considered prescription management with: Pain Medication (Naproxen) and Other (Prednisone) Social Determinants Patient?s care significantly limited by Social Determinants of Health including: Other Social Determinant of Health Critical Care Time Critical Care Time Critical Care Time: No Discharge Plan Discharge Clinical Impression: Bicipital tendinitis of right shoulder Patient Disposition: Home, Self-Care Instructions: Tendinitis (ED) Additional Instructions: Your xrays today do not demonstrate fracture. Prednisone is a steroid that has been sent to your pharmacy. Take this over the next 5 days in conjunction with naproxen every 8-12 hours. You are declining sling today. Please follow-up with your primary care provider as needed. You may also follow-up with our orthopedic team if symptoms continue. Return with new or worsening symptoms. In the case of an emergency call 911. Prescriptions: New prednisone 20 mg tablet 40 mg PO DAILY 5 Days Qty: 10 0RF lidocaine [Lidoderm] 5 % adhesive patch,medicated 1 patch topical DAILY Qty: 15 0RF Rx Instructions: leave on most painful area for up to 12 hrs naproxen 500 mg tablet 500 mg PO Q8-12H PRN (Reason: pain (scale score 4-6)) Qty: 20 0RF No Action doxazosin 4 mg tablet 4 mg PO BEDTIME 90 Days Qty: 90 1RF lisinopril 10 mg tablet 10 mg PO DAILY 90 Days Qty: 90 1RF rosuvastatin 10 mg tablet 10 mg PO DAILY 90 Days Qty: 90 1RF tizanidine 4 mg tablet 4 mg PO BEDTIME PRN (Reason: low back pain) 30 Days Qty: 30 3RF acetaminophen [Tylenol] 325 mg tablet 650 mg PO Q6H PRN (Reason: pain) Qty: 60 0RF cholecalciferol (vitamin D3) 50 mcg (2,000 unit) tablet 50 mcg PO DAILY 90 Days Qty: 90 3RF hydrocortisone [Proctozone-HC] 2.5 % cream with perineal applicator 1 appl [place] BID PRN (Reason: hemorrhoids) Qty: 30 3RF Rx Instructions: apply [place] BID prn pyridoxine (vitamin B6) 50 mg tablet 50 mg PO DAILY 90 Days Qty: 90 2RF Referrals: [facility] [Provider Group] Cristhian Han MD [Primary Care Provider] - Interventions: ED Discharge Assessment Last Done: 04/14/24 09:54 Discharge Date/Time: 04/14/24 09:55 Print Language: Citizen Of [place]
[2024-04-14 09:54] VITALS: BP 138/88; PULSE 92; RESP 16; TEMP 36.2; O2SAT 96
== END 2024-04-14 09:55 | disposition home or self-care (01) ==
PROVIDERS: Emergency Provider Emergency Medicine; PCP Internal Medicine
DX: M75.21 Bicipital tendinitis, right shoulder (principal); I10 Essential (primary) hypertension
CPT/HCPCS: 73030; 73060; 99282; 99283

== ENCOUNTER 2024-04-23 06:38 | Outpatient (REF) | payer OTHER, SELFPAY ==
[2024-04-23 06:56] LABS: MANUAL DIFF FLAG NO
[2024-04-23 07:49] LABS: Basophils Percent Auto 0.6 % (0-2); Eosinophils Absolute Auto 0.2 X10*3/uL (0.0-0.4); Eosinophils Percent Auto 2.3 % (0-4); Hematocrit 41.1 % (42.0-52.0); Hemoglobin 14.8 g/dl (14.0-18.0); Imm Gran Abs Auto 0.03 X10*3/uL (0.00-0.03); Imm Gran Pct Auto 0.4 % (0.0-0.4); Lymphocytes Percent Auto 28.6 % (20-40); Mean Corpuscular Hemoglobin 31.8 pg (27.0-33.0); Mean Corpuscular Volume 88.4 fL (80.0-98.0); Mean Platelet Volume 9.6 fL (9.4-12.4); Monocytes Absolute Auto 0.6 X10*3/uL (0.1-1.2); Monocytes Percent Auto 8.3 % (2-11); Neutrophils Absolute Auto 4.3 x10*3/uL (2.0-8.3); Neutrophils Percent Auto 59.8 % (45-73); Platelet Count 242 X10*3/uL (160-400); Red Blood Count 4.65 X10*6/uL (4.60-5.80); White Blood Count 7.1 X10*3/uL (4.8-10.8)
[2024-04-23 08:13] LABS: Alanine Aminotransferase 28 U/L (0-40); Alkaline Phosphatase 61 U/L (39-117); Anion Gap 10 (12-20); Aspartate Amino Transferase 23 U/L (5-37); Bilirubin Total 0.9 mg/dL (0.0-1.0); Blood Urea Nitrogen 17 mg/dL (9-16); Calcium 9.1 mg/dL (8.4-10.2); Carbon Dioxide 32 mmol/L (22-29); Chloride 106 mmol/L (96-108); Cholesterol 139 mg/dL (<200); Estimated Glomerular Filt Rate > 60; Glucose Fasting 104 mg/dL (60-99); HDL Cholesterol 35 mg/dL (>40); LDL Cholesterol Calculated 68 mg/dL (<100); Potassium 3.7 mmol/L (3.3-5.1); Sodium 144 mmol/L (135-145); Total Protein 6.6 g/dL (6.5-8.0); Triglycerides 183 mg/dL (<150)
[2024-04-23 08:26] LABS: Appearance Urine Cloudy; Color Urine Yellow; Glucose Urine UA Negative (Negative); Leukocyte Esterase Urine Negative (Negative); Nitrite Urine Negative (Negative); Urine Blood Negative (Negative); Urine Ketones Negative (Negative); Urine Protein Negative (Neg-Trace)
[2024-04-23 08:33] LABS: TSH reflex Free T4 1.47 uIU/mL (0.32-4.0); Vitamin D 25-OH Total 30.6 ng/mL (>30)
[2024-04-23 08:38] LABS: Folate 8.2 ng/mL (> or = 4.0); Vitamin B12 321 pg/mL (200-900)
== END 2024-04-23 06:39 | disposition home or self-care (01) ==
LOC: HO.LAB 06:38
PROVIDERS: PCP Internal Medicine; Visit Provider Internal Medicine
DX: D64.9 Anemia, unspecified (principal); R30.0 Dysuria; E53.8 Deficiency of other specified B group vitamins; E78.00 Pure hypercholesterolemia, unspecified; E55.9 Vitamin D deficiency, unspecified
CPT/HCPCS: 36415; 80053; 80061; 81003; 82306; 82607; 82746; 84443; 85025

== ENCOUNTER 2024-05-01 11:06 | Outpatient (AMB) | payer OTHER, SELFPAY ==
[2024-05-01 11:11] VITALS: BP 132/90; PULSE 98; O2SAT 98; BMI 33.4
--- NOTE | 2024-05-01 11:11 | A.OFFPC_ITS ---
Vital Signs 05/01/24 11:11 Height 5 ft 10 in Weight 233 lb BMI 33.4 BP 132/90 H Blood Pressure Location Lt brachial Position Sitting Pulse 98 Pulse Source Pulse Oximeter Pulse Oximetry (%) 98 Oxygen Delivery Method Room Air Intake Visit Reasons: hyperlipidemia, HTN, BPH Intake Note: Patient here for a follow up Hyperlipidemia, HTN, BPH, c/o right arm pain Receivable Manager Required: Yes Receivable Manager Language: Kiswahili Accompanied by: Self / Same As Patient Allergies Penicillins Allergy (Intermediate, Verified 05/01/24 11:37) PASSED OUT atorvastatin Adverse Reaction (Intermediate, Verified 05/01/24 11:37) blurring of vision gabapentin Adverse Reaction (Intermediate, Verified 05/01/24 11:37) Dizziness simvastatin Adverse Reaction (Intermediate, Verified 05/01/24 11:37) blurring of vision tamsulosin Adverse Reaction (Intermediate, Verified 05/01/24 11:37) Dizziness Medication List - Last Reconciled 05/01/24 by Cristhian Han MD cholecalciferol (vitamin D3) 50 mcg PO DAILY 90 days doxazosin 4 mg PO BEDTIME 90 days hydrocortisone 2.5% (Proctozone-HC) 1 appl SD BID PRN lidocaine 5% (Lidoderm) 1 patch topical DAILY lisinopril 10 mg PO DAILY 90 days naproxen 500 mg PO Q8-12H PRN pyridoxine (vitamin B6) 50 mg PO DAILY 90 days rosuvastatin 10 mg PO DAILY 90 days tizanidine 4 mg PO BEDTIME PRN 30 days Tobacco use date assessed: 12/26/23 Fall risk assessment: No Falls in past year Last assessed Fall Risk: 05/01/24 Dental Screening Dental Screen Date: 12/26/23 HPI hyperlipidemia, HTN, BPH HPI Details Patient comes in today for his follow up visit He went to the ER a couple of weeks ago for increasing pain over his right upper arm, which he states he's had for a while now but got worse for a few days before he went to the ER X-rays done at the ER revealed only (+) degenerative changes in the right AC joint He was diagnosed with bicipital tendinitis of the right shoulder and sent home with Rx for oral prednisone for a few days as well as Naproxen and Lidocaine patch He declined a sling at the time Patient states that the prednisone provided him with some temporary relief but his shoulder has been acting up again lately - notes that the sharp pains seem to occur more often when he is using his right arm Would like to see what else can be done to help with his shoulder pain but he does not want any injections at all - is averse to needles States that he feels okay otherwise and would like to know how his recent labs came out He denies any headaches or dizziness Denies any chest pains, no SOB No nausea/vomiting, no abdominal pain No change in bowel habits noted PFSH Medical History Vitamin D deficiency Neuropathy Hemorrhoids Chronic constipation Obesity (BMI 30-39.9) Benign essential hypertension Pure hypercholesterolemia Peripheral neuropathy History of back pain Hx of hepatitis Amputation of thumb, left DJD (degenerative joint disease) of cervical spine DDD (degenerative disc disease), lumbar Hx of vertigo Asthma Myocardial infarction CAD (coronary artery disease) Surgical History History of amputation History of amputation of both great toes Hx of cystoscopy History of surgery on left wrist History of circumcision History of rhinoplasty Hx of left knee surgery Hx of colonoscopy Family History Unknown No family history of colorectal cancer Social History Household Members: None Housing: House Alcohol intake: never Patient Tobacco Use Status: Former Tobacco user e-Cigarette/Vaping Use: Never Used Second Hand Smoke Exposure: Yes service: No Current occupational status: retired Cognitive needs: No Hearing needs: Yes (? B/L hearing loss) Vision needs: Yes Questionnaire Thrive Questionnaire Date Thrive assessed: 12/26/23 LING-7 AMB Questionnaire LING-7 Date LING - 7 assessed: 12/26/23 Source: Developed by Drs. Brendon Nixon, Marlen Tanner, Angelo Arreola and colleagues, with an educational zen from [employer]. Review of Systems Const Denies chills, Denies fatigue, Denies fever(s) and Denies headache(s) ENT Denies dysphagia, Denies dizziness, Denies otalgia, Denies headache(s), Denies neck pain, Denies odynophagia and Denies sore throat Card Denies chest pain, Denies palpitations and Denies dyspnea Resp Denies chest congestion, Denies cough and Denies dyspnea GI Denies abdominal pain, Denies constipation, Denies dysphagia, Denies heartburn, Denies diarrhea, Denies nausea, Denies odynophagia and Denies vomiting Denies difficulty urinating, Denies dysuria, Denies nocturia and Denies urinary frequency Musc Reports back pain (over the lower back, on and off), Denies arthralgias and Denies neck pain Skin/Breast Denies rash Neuro Denies dizziness and Denies headache(s) Psych Denies anxiety and Denies depression Endo Denies fatigue and Denies palpitations Physical exam (Primary Care) Vital Signs: Last Vital Signs Pulse 98 05/01/24 11:11 BP 132/90 H 05/01/24 11:11 Pulse Ox 98 05/01/24 11:11 Oxygen Delivery Method Room Air 05/01/24 11:11 BMI result Body Mass Index 33.4 Tobacco/Smoking Status: Tobacco use Status Tobacco use date assessed 12/26/23 05/01/24 11:17 Patient Tobacco Use Status Former Tobacco user 05/01/24 11:17 e-Cigarette/Vaping Use Never Used 05/01/24 11:17 Thrive Assessment: Date of Thrive Assessment Date Thrive assessed 12/26/23 05/01/24 11:17 Const General: no acute distress and alert HENMT Ears: TM's normal bilaterally and EAC's normal Throat: Yes posterior oropharynx normal and Yes tonsils normal (no TP congestion) Neck Neck: Yes no lymphadenopathy and Yes supple Thyroid: Thyroid normal Resp Auscultation: clear to auscultation bilaterally, no rales and no wheezes Cardio Rate: regular rate Rhythm: regular rhythm Heart sounds: no murmurs GI Palpation (GI): Soft to palpation and nontender Auscultation: normal bowel sounds General: Yes no CVA tenderness Back/Spine/Pelvis Back: no CVA tenderness Thoracic/Lumbar Spine: lumbar spinal tenderness Skin Rashes: no rashes Extrem General: Yes no clubbing, cyanosis or edema Right upper extremity: shoulder/upper arm Details: tenderness Location: of the A-C joint and of the proximal humerus ((+) tenderness on palpation over the proximal 3rd of the humerus) Results Reviewed Results Reviewed: Laboratory Tests 04/23/24 04/23/24 06:50 06:54 WBC 7.1 Hgb 14.8 Hct 41.1 L Plt Count 242 Sodium 144 Potassium 3.7 Creatinine 0.98 Estimated GFR > 60 Fasting Glucose 104 H Calcium 9.1 AST 23 ALT 28 Triglycerides 183 H Cholesterol 139 LDL Cholesterol, Calc 68 HDL Cholesterol 35 L Vitamin B12 321 25-OH Vitamin D Total 30.6 L TSH 1.47 Ur Specific [place] 1.020 Urine Protein Negative Urine Glucose (UA) Negative Urine Blood Negative Urine Nitrite Negative Ur Leukocyte Esterase Negative Assessment and Plan Assessment & Plan (1) Pure hypercholesterolemia: Code(s): E78.00 - Pure hypercholesterolemia, unspecified Plan: Results of his labs done last week reviewed and discussed with patient - he is reassured that his cholesterol levels are all at goal Reinforced low cholesterol diet Continue Rosuvastatin 10 mg QD Will recheck his labs and fasting lipids in 4 months for follow up (2) CAD (coronary artery disease): Comment: S/P OR in 2005 Code(s): I25.10 - Atherosclerotic heart disease of [place] coronary artery without angina pectoris Qualifiers: Coronary Disease-Associated Artery/Lesion type: [place] artery [place] vs. transplanted heart: [place] heart Associated angina: without angina Qualified Code(s): I25.10 - Atherosclerotic heart disease of [place] coronary artery without angina pectoris Plan: Patient currently remains asymptomatic from a cardiac standpoint Follow up with cardiology as scheduled (3) Benign essential hypertension: Code(s): I10 - Essential (primary) hypertension Plan: Reinforced low sodium diet - goal is systolic BP of 120 to 130 mm or less Continue Lisinopril 10 mg QD (4) Impaired fasting glucose: Code(s): R73.01 - Impaired fasting glucose Plan: His HgbA1c was at 5.2% and 5.6% when previously checked; FBS was slightly elevated at 104 mg/dL Patient is again reassured that he does NOT have diabetes Reinforced low calorie diet/exercise as tolerated (5) Neuropathy: Code(s): G62.9 - Polyneuropathy, unspecified Plan: This is most likely due to neuropathy He was previously started on Gabapentin 100 mg BID but he stopped taking this a few months ago when he experienced dizziness every time he took the Rx He still does not wish to take anything else for his neuropathy at this time (6) Right shoulder pain: Code(s): M25.511 - Pain in right shoulder Qualifiers: Chronicity: unspecified Qualified Code(s): M25.511 - Pain in right shoulder Plan: Patient states that his right shoulder has been bothering him for a while now but the pain has gotten worse lately He was advised at the ER that he has bicipital tendinitis; shoulder x-rays done a couple of weeks ago revealed (+) AC arthritis changes We offered to refer him to orthopedics for possible cortisone injection to provide him with some relief but he states that he is averse to needles and will NOT go for any injections and would like another alternative solution Will try referring him to physical therapy for further management and Tx with ultrasound and iontophoresis if appropriate Will also try him on some topical Lidocaine 5% ointment QID to the shoulder PRN for pain (7) Vitamin D deficiency: Code(s): E55.9 - Vitamin D deficiency, unspecified Plan: Continue Vitamin D3 2000 units QD (8) Urinary frequency: Code(s): R35.0 - Frequency of micturition Plan: PSA was normal when checked back in March 2022; his urinary frequency may be partly due to his water/fluid intake as he admits to drinking a lot of water often throughout the day Continue Doxazosin 4 mg QD Follow up with urology as scheduled (9) Chronic constipation: Comment: Colace 200 mg, MiraLax 17 g q.h.s. maintain high-fiber diet, Proctozone is need for hemorrhoid Code(s): K59.09 - Other constipation Plan: Reinforced increased oral fluids and dietary fiber States that his bowels are presently well-controlled on his current regimen of fiber laxative and stool softeners PRN Continue Senna 8.6 mg 2 tablets Q HS Follow up with GI as scheduled (10) Obesity (BMI 30-39.9): Code(s): E66.9 - Obesity, unspecified Plan: Reinforced diet/exercise as tolerated/lose weight Plan Follow up in 4 months Orders: Orders PT Evaluation and Treatment Today M25.511 - Pain in right shoulder, M75.21 - Bicipital tendinitis, right shoulder UA CC w/rflx Micro + Cult 4 Months R30.0 - Dysuria Vitamin D 25-OH Total 4 Months E55.9 - Vitamin D deficiency, unspecified Hemoglobin A1c 4 Months R73.01 - Impaired fasting glucose Complete Blood Count Auto Diff 4 Months D64.9 - Anemia, unspecified Comprehensive [place]. Panel Fast 4 Months E78.00 - Pure hypercholesterolemia, unspecified Lipid Panel 4 Months E78.00 - Pure hypercholesterolemia, unspecified TSH reflex Free T4 4 Months E78.00 - Pure hypercholesterolemia, unspecified Vitamin B12 and Folate 4 Months E53.8 - Deficiency of other specified B group vitamins Medications: New lidocaine 5% 1 appl topical QID 15 days PRN 60 grams 1RF pain Coding Level of Care Code Est Pt Level 4 (56049) Complex EM visit Add On G2211 Diagnoses Pure hypercholesterolemia E78.00 Coronary artery disease involving [place] coronary artery of [place] heart without angina pectoris I25.10 Coronary Disease-Associated Artery/Lesion type: [place] artery [place] vs. transplanted heart: [place] heart Associated angina: without angina Benign essential hypertension I10 Impaired fasting glucose R73.01 Neuropathy G62.9 Right shoulder pain, unspecified chronicity M25.511 Chronicity: unspecified Vitamin D deficiency E55.9 Urinary frequency R35.0 Chronic constipation K59.09 Obesity (BMI 30-39.9) E66.9
== END 2024-05-01 11:47 | disposition home or self-care (01) ==
PROVIDERS: PCP Internal Medicine; Visit Provider Internal Medicine
DX: E78.00 Pure hypercholesterolemia, unspecified (principal); I25.10 Atherosclerotic heart disease of native coronary artery without angina pectoris; E66.9 Obesity, unspecified; Z68.33 Body mass index [BMI] 33.0-33.9, adult; I10 Essential (primary) hypertension; R73.01 Impaired fasting glucose; G62.9 Polyneuropathy, unspecified; M25.511 Pain in right shoulder; E55.9 Vitamin D deficiency, unspecified; R35.0 Frequency of micturition; K59.09 Other constipation
CPT/HCPCS: 99214; G2211

== ENCOUNTER 2024-05-07 07:17 | Day surgery (SDC) | payer OTHER, SELFPAY ==
[2024-05-05 14:03] VITALS: BMI 33.4
[2024-05-07] VITALS (8 sets, daily range): BP systolic 118–135; BP diastolic 73–91; PULSE 69–80; RESP 16–18; TEMP 36.3–36.6; O2SAT 93–95; BMI 33.3
--- NOTE | ~2024-05-07 | XR_ITS ---
EXAMINATION: XR ABDOMEN KUB CLINICAL INDICATION: Pre-ESWL, left renal calculi. COMPARISON: CT abdomen and pelvis of 03/10/2024, x-ray abdomen 09/13/2023, renal ultrasound 09/14/2023, ultrasound abdomen 11/06/2023. TECHNIQUE: 2 AP views of the abdomen. FINDINGS: Nonobstructive bowel gas pattern. Degenerative changes in the lumbar spine. Multiple pelvic calcifications are likely vascular. Redemonstration of multiple left calculi overlying left kidney, largest lower pole 4 mm. No definitive right renal calculi appreciated; however, visualization limited due to overlying bowel. XR/XR KUB IMPRESSION: Redemonstration of multiple left calculi overlying left kidney, largest lower pole 4 mm. No definitive right renal calculi appreciated; however, visualization limited due to overlying bowel.
[2024-05-07] MEDS: Lactated Ringers 500 ML 999 ML IV (08:49)
--- NOTE | 2024-05-07 09:33 | MHC.SHP ---
Pre-Procedural Eval Section A - 24 Hr Update-Section A only Date of Service: 05/07/24 The patient is an INPATIENT: No The patient has been examined within 24 hours of the surgical procedure. The History & Physical has been completed within 30 days and I have reviewed it.: Yes Section B - Complete if H&P > 30 days Chief Complaint: Calculus of kidney Allergies: Allergies Allergy/AdvReac Type Severity Reaction Status Date / Time Penicillins Allergy Intermediate PASSED Verified 05/07/24 08:15 OUT atorvastatin AdvReac Intermediate blurring Verified 05/07/24 08:15 of vision gabapentin AdvReac Intermediate Dizziness Verified 05/07/24 08:15 simvastatin AdvReac Intermediate blurring Verified 05/07/24 08:15 of vision tamsulosin AdvReac Intermediate Dizziness Verified 05/07/24 08:15 Plan Diagnosis/Plan: Unchanged I have reviewed the history and physical and performed a pertinent physical examination on my patient. No changes have occurred unless specified. Left ESWL. Discussed risks to include but not limited to, blood in the urine, bruising to the skin, kidney hematoma, possible need for another procedure if a stone fragment obstructs the ureter while passing, possible need to repeat procedure if stone is not completely fragmented. Time Spent With Patient Time: Total time managing care of this patient today ____ minutes.
--- NOTE | 2024-05-07 09:40 | HO.ANESPROP2 ---
HPI - Anesthesia Eval Consult details Narrative: for left ESWL PMFSH Active Problems Active Problems: All Active Problems Right shoulder pain (Acute) BPH loc w urin obs/LUTS (Acute) Elevated fasting glucose (Acute) Chronic pyelonephritis (Acute) Left flank pain (Acute) Nephrolithiasis (Acute) Cellulitis of thumb, left (Acute) Nail deformity (Acute) Amputation of left thumb (Acute) Lateral epicondylitis of left elbow (Acute) Urinary hesitancy due to benign prostatic hyperplasia (Acute) Left elbow pain (Acute) Dermoid cyst of arm (Acute) Right foot pain (Acute) Daytime sleepiness (Acute) Loud snoring (Acute) Skin lesion of neck (Acute) Witnessed apneic spells (Acute) Urinary frequency (Acute) Impaired fasting glucose (Acute) Viral illness (Acute) Tubular adenoma of colon (Acute) Skin lesions (Acute) Left lower quadrant abdominal mass (Acute) Left sided abdominal pain (Acute) Sessile colonic polyp (Acute) Hemorrhoids (Acute) Diverticulosis (Acute) Vitamin D deficiency (Acute) Neuropathy (Acute) Asthma (Acute) Hemorrhoids (Acute) Chronic constipation (Acute) Obesity (BMI 30-39.9) (Acute) Benign essential hypertension (Acute) Pure hypercholesterolemia (Acute) CAD (coronary artery disease) (Acute) Past Medical History Medical History (Updated 05/01/24 @ 13:26 by Cristhian Han MD) Vitamin D deficiency Neuropathy Hemorrhoids Chronic constipation Obesity (BMI 30-39.9) Benign essential hypertension Pure hypercholesterolemia Peripheral neuropathy History of back pain Hx of hepatitis Amputation of thumb, left DJD (degenerative joint disease) of cervical spine DDD (degenerative disc disease), lumbar Hx of vertigo Asthma Myocardial infarction CAD (coronary artery disease) Family History Family History Unknown No family history of colorectal cancer Family history of problems with anesthesia: No Surgical History Surgical History (Updated 05/07/24 @ 08:14 by Dottie Roy RN) Hx of hand surgery History of amputation of both great toes Hx of cystoscopy History of surgery on left wrist History of circumcision History of rhinoplasty Hx of colonoscopy History of Problems with Anesthesia: No Social History Social History Household Members: None Housing: House Alcohol intake: never Patient Tobacco Use Status: Former Tobacco user e-Cigarette/Vaping Use: Never Used Second Hand Smoke Exposure: Yes Use of substances other than those prescribed or required for medical reasons: No Are you DNR?: No Advance Directives: No Advance Directives Information Provided: Yes service: No Current occupational status: retired Cognitive needs: No Hearing needs: Yes (? B/L hearing loss) Vision needs: Yes Meds Allergies Allergy/AdvReac Type Severity Reaction Status Date / Time Penicillins Allergy Intermediate PASSED Verified 05/07/24 08:15 OUT atorvastatin AdvReac Intermediate blurring Verified 05/07/24 08:15 of vision gabapentin AdvReac Intermediate Dizziness Verified 05/07/24 08:15 simvastatin AdvReac Intermediate blurring Verified 05/07/24 08:15 of vision tamsulosin AdvReac Intermediate Dizziness Verified 05/07/24 08:15 Exam Height,Weight and Vital Signs: Height 5 ft 10 in Weight 105.233 kg Last Vital Signs Temp 97.4 F 05/07/24 08:19 Pulse 78 05/07/24 08:19 Resp 18 05/07/24 08:19 BP 135/83 05/07/24 08:19 Pulse Ox 95 05/07/24 08:19 O2 Del Method Room Air 05/07/24 08:19 Airway Mallampati Class: II TM Dist: <=3cm Neck ROM: Full Heart: ok. was told he had a heart attack in 2005, but it was asx, he's never had heart problems. Lungs: ok Assessment and Plan Assessment Anesthesia Assessment: Anesthesia Plan Discussed and Chart Reviewed Final Anesthetic Review Family History of Problems with Anesthesia: No History of Problems with Anesthesia: No NPO: Yes ASA Class: III Final Preanesthetic Review: No Changes in Pt Med Stat, Meds/Allgs Chart Reviewed, Consent Obtained/Reviewed, Anes Risks/Benef Reviewed and DNR Form (If Appl.) Patient Risk: Intermediate Procedure Risk: Low Anesthetic Plan Anesthetic Plan: GA and Agree w/ Assess. and Plan Disposition: Standard PACU
--- NOTE | 2024-05-07 10:40 | P.OP_ITS ---
Operative Note Operative Note Date of Service: 05/07/24 Narrative: PreOperative Diagnosis:? ? Left Renal stone Post Operative Diagnosis:?Left? Renal stone Procedure:?Left? ESWL Surgeon:?Dr Jonathan Deleon Anesthesia:? General Indications for procedure: The patient understands there is a risk of bruising or hematoma to the kidney, infection, and stone migration following the procedure and subsequent intervention may be required.? - Imaging 6 mm left lower pole stone Procedure: After informed consent was verified the patient was brought to the operating room and placed in a supine position.? Anesthesia was performed per protocol. Safety pause time-out was performed. Imaging was displayed in the room and l aterality confirmed. ESWL was performed.?The stone was visualized on both fluoroscopy and ultrasound.? Shockwave lithotripsy was performed, with a maximum rate of 120 hertz. After the first 300 shocks a pause for 3 minutes was completed.? A total of 2500 shocks to a maximum of power of 18 with a maximum rate of 120 hertz.? Some fragmentation of the stone was appreciated. The patient tolerated the procedure well and was transferred to the recovery area upon completion. Complications: None
== END 2024-05-07 12:45 | disposition home or self-care (01) ==
PROVIDERS: PCP Internal Medicine; Visit Provider Urology
PROC: (CPT 50590; principal; 2024-05-07 09:30)
DX: N20.0 Calculus of kidney (principal); I25.10 Atherosclerotic heart disease of native coronary artery without angina pectoris; I10 Essential (primary) hypertension; E78.00 Pure hypercholesterolemia, unspecified; G62.9 Polyneuropathy, unspecified; J45.909 Unspecified asthma, uncomplicated; Z79.52 Long term (current) use of systemic steroids; Z79.899 Other long term (current) drug therapy; Z88.0 Allergy status to penicillin; Z88.8 Allergy status to other drugs, medicaments and biological substances; Z98.890 Other specified postprocedural states; Z87.891 Personal history of nicotine dependence
CPT/HCPCS: 50590; 74018; J0131; J1940; J1956; J2704; J3010

== ENCOUNTER → 2024-05-07 07:17 | Outpatient (BNV) | payer OTHER, SELFPAY | PROVIDERS: PCP Internal Medicine; Visit Provider Urology | DX: N20.0 Calculus of kidney (principal) | CPT/HCPCS: 50590 ==

== ENCOUNTER 2024-06-02 13:05 | Emergency (ER) | payer OTHER, SELFPAY ==
--- NOTE | ~2024-06-02 | XR_ITS ---
EXAMINATION: XR KNEE, RIGHT CLINICAL INFORMATION: Right knee pain for 4 days. No injury COMPARISON: None available. TECHNIQUE: Four views of the right knee. FINDINGS: No fracture. Small joint effusion. Alignment is anatomic. There is mild narrowing in the medial joint compartment. Chondrocalcinosis is seen in the medial and lateral joint compartments. XR/XR knee RT 4V IMPRESSION: 1. No acute bony abnormality. 2. Mild osteoarthritis. 3. Chondrocalcinosis.
--- NOTE | ~2024-06-02 | US_ITS ---
EXAMINATION: US VENOUS ULTRASOUND WITH DOPPLER LOWER EXTREMITY, RIGHT CLINICAL INFORMATION: Calf pain COMPARISON: None available. TECHNIQUE: Ultrasound of the deep veins is performed from the hip to the calf with compression sonography and color and pulse Doppler assessment. Spectral analysis with color-flow imaging is performed. FINDINGS: There is normal venous compression and respiratory variation. The visualized common femoral vein, superficial femoral vein, profunda femoral vein, popliteal vein, and the posterior tibial and peroneal veins show no evidence of deep venous thrombosis. 3.6 x 0.6 x 1.1 cm lymph node is seen in the right groin. 4.2 x 0.7 x 2.5 cm fluid collection is noted anterior, just superior to the right knee. US/US venous duplex LE RT IMPRESSION: 1. No DVT demonstrated in the right lower extremity. 2. 4.2 cm fluid collection is noted anterior, just superior to the right knee. 3. 3.6 cm lymph node in the right groin.
[2024-06-02 13:22] VITALS: BP 151/82; PULSE 98; RESP 16; TEMP 36.4; O2SAT 95; BMI 33.3
--- NOTE | 2024-06-02 13:26 | ED_ITS ---
HPI - Extremity Injury (Lower) General Chief Complaint: Extremity Problem Stated Complaint: R Knee Pain No Injury Time Seen by Provider: 06/02/24 14:54 Source: patient, family, old records reviewed and chief growth officer Mode of arrival: ambulatory Limitations: no limitations History of Present Illness ED Provider: Prieto Brown PA-C HPI Narrative: 64-year-old Ukrainian-speaking male presents to the ER for evaluation of right calf and knee pain that started 4 days ago and he woke up. He denies any specific injury to the area. He states he has pain in his right calf that radiates up the inner portion of the knee to the medial upper portion of the knee. He reports significant pain with flexion of the knee, ambulation and palpation. He states the area was slightly red yesterday. he states it has been cold. He denies any fever or chills. No shortness a breath or chest pain. He did have a recent prolonged travel to [place] in January. No personal or family history of blood clot. MD complaint: knee injury and leg injury Onset (ago): day(s) (4) Injury: Right: knee Type of Injury: unknown Place: home Severity: severe Relieving factors: immobilization and rest Exacerbating factors: weight bearing, movement and palpation Associated symptoms: swelling and able to partially bear weight Related Data Previous Rx's ?Medication ?Instructions ?Recorded hydrocortisone 2.5 % topical cream 1 appl NV BID PRN hemorrhoids #30 02/10/21 with perineal applicator grams (Proctozone-HC) tizanidine 4 mg tablet 4 mg PO BEDTIME PRN low back pain 10/02/23 30 days #30 tabs lisinopril 10 mg tablet 10 mg PO DAILY 90 days #90 tabs 02/07/24 rosuvastatin 10 mg tablet 10 mg PO DAILY 90 days #90 tabs 02/07/24 pyridoxine (vitamin B6) 50 mg 50 mg PO DAILY 90 days #90 tabs 03/24/24 tablet naproxen 500 mg tablet 500 mg PO Q8-12H PRN pain (scale 04/14/24 score 4-6) #20 tabs lidocaine 5 % topical patch 1 patch topical DAILY #15 ea 04/18/24 (Lidoderm) cholecalciferol (vitamin D3) 50 50 mcg PO DAILY 90 days #90 tabs 06/24/24 mcg (2,000 unit) tablet lidocaine 5 % topical ointment 1 appl topical QID PRN pain 15 05/01/24 days #60 grams oxycodone-acetaminophen 5 mg-325 1 tab PO Q6-8H PRN pain #8 tabs 05/07/24 mg tablet (Percocet) oxycodone-acetaminophen 5 mg-325 1 tab PO Q6H PRN pain #6 tabs 05/07/24 mg tablet (Percocet) doxazosin 4 mg tablet 4 mg PO BEDTIME #90 tabs 05/25/24 naproxen 500 mg tablet 500 mg PO BID #20 tabs 06/02/24 oxycodone 5 mg tablet 5 mg PO Q8H PRN severe pain (scale 06/02/24 score 7-10) #5 tabs Allergies Allergy/AdvReac Type Severity Reaction Status Date / Time Penicillins Allergy Intermediate PASSED Verified 06/02/24 13:31 OUT atorvastatin AdvReac Intermediate blurring Verified 06/02/24 13:31 of vision gabapentin AdvReac Intermediate Dizziness Verified 06/02/24 13:31 simvastatin AdvReac Intermediate blurring Verified 06/02/24 13:31 of vision tamsulosin AdvReac Intermediate Dizziness Verified 06/02/24 13:31 Review of Systems 2 Review of Systems: Yes all other systems are reviewed and are negative PMFSH Past Medical History Medical History (Updated 06/02/24 @ 17:55 by ALFONSO Neri) Vitamin D deficiency Neuropathy Hemorrhoids Chronic constipation Obesity (BMI 30-39.9) Benign essential hypertension Pure hypercholesterolemia Peripheral neuropathy History of back pain Hx of hepatitis Amputation of thumb, left DJD (degenerative joint disease) of cervical spine DDD (degenerative disc disease), lumbar Hx of vertigo Asthma Myocardial infarction CAD (coronary artery disease) Surgical History (Updated 05/07/24 @ 08:14 by Dottie Roy RN) Hx of hand surgery History of amputation of both great toes Hx of cystoscopy History of surgery on left wrist History of circumcision History of rhinoplasty Hx of colonoscopy Family History Family History Unknown No family history of colorectal cancer Social History Social History Household Members: None Housing: House Alcohol intake: never Patient Tobacco Use Status: Former Tobacco user e-Cigarette/Vaping Use: Never Used Second Hand Smoke Exposure: Yes Advance Directives: No service: No Current occupational status: retired Cognitive needs: No Hearing needs: Yes (? B/L hearing loss) Vision needs: Yes Physical Exam 2 Vital Signs: Vital Signs: Last Vital Signs Temp 97.5 F 06/02/24 13:22 Pulse 98 06/02/24 13:22 Resp 16 06/02/24 13:22 BP 151/82 H 06/02/24 13:22 Pulse Ox 95 06/02/24 13:22 O2 Del Method Room Air 06/02/24 13:22 BMI result Body Mass Index 33.3 Appearance: Alert. Oriented X3. No acute distress. HEENT: normal inspection CVS: Normal heart rate and rhythm. Pulses normal. Respiratory: No respiratory distress. Skin: Skin warm and dry. Normal skin color. Normal skin turgor. No rashes. Extremities: Mild swelling of the upper medial portion of the right knee with significant tenderness associated. No fluctuance or induration. Normal palpation of the patella and patellar tendon. there is also soft tissue tenderness of the calf without any overlying erythema or warmth. Foot is warm and well perfused. No swelling of the lower leg Neuro: Oriented X 3. No motor deficit. No sensory deficit. Course Course Course Narrative: This is an RME: Additional HPI, ROS, PE not included below will be deferred to primary provider. RME assessment and note performed by: Christine Lozano PA-C This is a [id number], with a hx of CAD, asthma, CT, who presents to the ER with complaints of right calf pain and right knee pain x 4 days. Pain started 4 days ago No recent surgery. Reports that he traveled to [facility] in January, no other travels. No hx of blood clots. Patient with exquisite tenderness to palpation along the right calf Plan: xr knee, us RLE Medical Decision Making Medical Decision Making MDM Narrative: 64-year-old male presenting to the ER for evaluation of right calf pain and right superior medial knee pain, nontraumatic. Patient has significant soft tissue tenderness in both calf and upper medial knee on the right side. No evidence of infection as the area is not warm or erythematous. No induration. No significant joint swelling. X-ray was performed which showed no acute bony abnormality. Ultrasound of the right lower leg was also performed which showed no DVT but there was a 3.5 cm inguinal lymph node on the right side along with a 4 cm fluid collection in the superior aspect of the right knee. Unclear etiology of this. Likely bursitis. Lab workup was performed which showed normal CPK, no leukocytosis. Low clinical suspicion for infection. Patient was placed in an Zheng wrap for compression. Will prescribe NSAIDs, pain control, refer to orthopedics and PCP for further evaluation and treatment. Patient expressed understanding. electrician helper powerhouse was used to discuss diagnosis, treatment, return precautions. Differential Diagnosis Differential Diagnoses: The differential diagnosis associated with the presentation includes Bursitis, myositis, DVT, Reinoso's cyst, ruptured Reinoso's cyst, septic joint, gout, pseudogout Lab Data MDM Lab Attestation statement: I reviewed the patient's lab results. No leukocytosis, normal CPK 06/02/24 16:49 06/02/24 16:49 Labs: Lab Results 06/02/24 Range/Units 16:49 WBC 8.3 (4.8-10.8) X10*3/uL RBC 4.64 (4.60-5.80) X10*6/uL Hgb 14.9 (14.0-18.0) g/dl Hct 41.4 L (42.0-52.0) % MCV 89.2 (80.0-98.0) fL MCH 32.1 (27.0-33.0) pg MCHC 36.0 (31.0-36.0) g/dl RDW 12.5 (11.0-16.0) % Plt Count 235 (160-400) X10*3/uL MPV 9.6 (9.4-12.4) fL Immature Gran % (Auto) 0.4 (0.0-0.4) % Neut % (Auto) 59.5 (45-73) % Lymph % (Auto) 26.3 (20-40) % Addison % (Auto) 8.5 (2-11) % Eos % (Auto) 4.8 H (0-4) % Baso % (Auto) 0.5 (0-2) % Lymph # (Auto) 2.2 (1.2-4.9) X10*3/uL Addison # (Auto) 0.7 (0.1-1.2) X10*3/uL Eos # (Auto) 0.4 (0.0-0.4) X10*3/uL Baso # (Auto) 0.0 (0.0-0.2) X10*3/uL Abs Immat Gran (auto) 0.03 (0.00-0.03) X10*3/uL Absolute Neuts (auto) 4.9 (2.0-8.3) x10*3/uL Absolute Nucleated RBC 0.000 (0.0-0.012) X10*3/uL Nucleated RBC % (auto) 0.0 (0.0-0.2) /100WBC Sodium 143 (135-145) mmol/L Potassium 3.9 (3.3-5.1) mmol/L Chloride 106 (96-108) mmol/L Carbon Dioxide 30 H (22-29) mmol/L Anion Gap 11 L (12-20) BUN 16 (9-16) mg/dL Creatinine 1.10 (0.5-1.4) mg/dL Estim Creat Clear Calc 80.2 Estimated GFR > 60 Random Glucose 111 (60-115) mg/dL Calcium 10.2 D (8.4-10.2) mg/dL Magnesium 2.4 (1.6-2.6) mg/dL Total Bilirubin 0.5 (0.0-1.0) mg/dL Direct Bilirubin 0.2 (0.0-0.5) mg/dL AST 23 (5-37) U/L ALT 24 (0-40) U/L Alkaline Phosphatase 69 (39-117) U/L Total Creatine Kinase 133 (38-174) U/L Total Protein 7.3 (6.5-8.0) g/dL Albumin 4.5 (3.5-5.0) g/dL Independent Interpretation I performed an independent interpretation of an: Plain X-Ray and Ultrasound Interpretation: X-ray without acute bony abnormality Ultrasound without any DVT appreciated, fluid collection noted, agrees radiology read Radiology Impression Discussion of test interpretation with radiology: I have reviewed the radiologist's reading. Radiologist Impression: XR/XR knee RT 4V IMPRESSION: 1. No acute bony abnormality. 2. Mild osteoarthritis. 3. Chondrocalcinosis. US/US venous duplex LE RT IMPRESSION: 1. No DVT demonstrated in the right lower extremity. 2. 4.2 cm fluid collection is noted anterior, just superior to the right knee. 3. 3.6 cm lymph node in the right groin. External Record Review External record reviewed: Outpatient record, Prior outpatient labs and Prior outpatient radiology Prescription Management I considered prescription management with: Pain Medication and Antibiotic Discharge Plan Discharge Clinical Impression: Bursitis Qualifiers: Bursitis location: knee Knee bursitis location: suprapatellar bursitis L aterality: right Qualified Code(s): M70.51 - Other bursitis of knee, right knee Patient Disposition: Home, Self-Care Instructions: Knee Bursitis (ED) Additional Instructions: Where the provided Zheng wrap for compression support. Ice and elevate her knee when possible. Take the prescribed oxycodone as needed for severe pain only. Follow-up with your doctor. Follow-up with orthopedics for further evaluation treatment. Call for an appointment. Name and number below. If you develop new or worsening symptoms call 911 or come back to the ER for further evaluation. EXAMINATION: US VENOUS ULTRASOUND WITH DOPPLER LOWER EXTREMITY, RIGHT CLINICAL INFORMATION: Calf pain COMPARISON: None available. TECHNIQUE: Ultrasound of the deep veins is performed from the hip to the calf with compression sonography and color and pulse Doppler assessment. Spectral analysis with color-flow imaging is performed. FINDINGS: There is normal venous compression and respiratory variation. The visualized common femoral vein, superficial femoral vein, profunda femoral vein, popliteal vein, and the posterior tibial and peroneal veins show no evidence of deep venous thrombosis. 3.6 x 0.6 x 1.1 cm lymph node is seen in the right groin. 4.2 x 0.7 x 2.5 cm fluid collection is noted anterior, just superior to the right knee. US/US venous duplex LE RT IMPRESSION: 1. No DVT demonstrated in the right lower extremity. 2. 4.2 cm fluid collection is noted anterior, just superior to the right knee. 3. 3.6 cm lymph node in the right groin. Prescriptions: New naproxen 500 mg tablet 500 mg PO BID Qty: 20 0RF oxycodone 5 mg tablet 5 mg PO Q8H PRN (Reason: severe pain (scale score 7-10)) Qty: 5 0RF Rx Instructions: Partial Fill upon patient request. No Action lisinopril 10 mg tablet 10 mg PO DAILY 90 Days Qty: 90 1RF rosuvastatin 10 mg tablet 10 mg PO DAILY 90 Days Qty: 90 1RF lidocaine [Lidoderm] 5 % adhesive patch,medicated 1 patch topical DAILY Qty: 15 0RF Rx Instructions: leave on most painful area for up to 12 hrs cholecalciferol (vitamin D3) 50 mcg (2,000 unit) tablet 50 mcg PO DAILY 90 Days Qty: 90 1RF doxazosin 4 mg tablet 4 mg PO BEDTIME Qty: 90 1RF oxycodone-acetaminophen [Percocet] 5-325 mg tablet 1 tab PO Q6-8H PRN (Reason: pain) Qty: 8 0RF Rx Instructions: Partial Fill upon patient request. oxycodone-acetaminophen [Percocet] 5-325 mg tablet 1 tab PO Q6H PRN (Reason: pain) Qty: 6 0RF Rx Instructions: Partial Fill upon patient request. naproxen 500 mg tablet 500 mg PO Q8-12H PRN (Reason: pain (scale score 4-6)) Qty: 20 0RF lidocaine 5 % ointment 1 appl topical QID PRN (Reason: pain) 15 Days Qty: 60 1RF tizanidine 4 mg tablet 4 mg PO BEDTIME PRN (Reason: low back pain) 30 Days Qty: 30 3RF hydrocortisone [Proctozone-HC] 2.5 % cream with perineal applicator 1 appl NV BID PRN (Reason: hemorrhoids) Qty: 30 3RF Rx Instructions: apply NV BID prn pyridoxine (vitamin B6) 50 mg tablet 50 mg PO DAILY 90 Days Qty: 90 2RF Referrals: [facility] [Provider Group] Cristhian Han MD [Primary Care Provider] - Print Language: Ukrainian
[2024-06-02 16:53] LABS: MANUAL DIFF FLAG NO
[2024-06-02 17:00] LABS: Basophils Percent Auto 0.5 % (0-2); Eosinophils Absolute Auto 0.4 X10*3/uL (0.0-0.4); Eosinophils Percent Auto 4.8 % (0-4); Hematocrit 41.4 % (42.0-52.0); Hemoglobin 14.9 g/dl (14.0-18.0); Imm Gran Abs Auto 0.03 X10*3/uL (0.00-0.03); Imm Gran Pct Auto 0.4 % (0.0-0.4); Lymphocytes Absolute Auto 2.2 X10*3/uL (1.2-4.9); Lymphocytes Percent Auto 26.3 % (20-40); Mean Corpuscular Hemoglobin 32.1 pg (27.0-33.0); Mean Corpuscular Volume 89.2 fL (80.0-98.0); Mean Platelet Volume 9.6 fL (9.4-12.4); Monocytes Absolute Auto 0.7 X10*3/uL (0.1-1.2); Monocytes Percent Auto 8.5 % (2-11); Neutrophils Absolute Auto 4.9 x10*3/uL (2.0-8.3); Neutrophils Percent Auto 59.5 % (45-73); Platelet Count 235 X10*3/uL (160-400); Red Blood Count 4.64 X10*6/uL (4.60-5.80); Red Cell Distribution Width 12.5 % (11.0-16.0); White Blood Count 8.3 X10*3/uL (4.8-10.8)
[2024-06-02 17:15] LABS: Alanine Aminotransferase 24 U/L (0-40); Albumin Level 4.5 g/dL (3.5-5.0); Alkaline Phosphatase 69 U/L (39-117); Anion Gap 11 (12-20); Aspartate Amino Transferase 23 U/L (5-37); Bilirubin Direct 0.2 mg/dL (0.0-0.5); Bilirubin Total 0.5 mg/dL (0.0-1.0); Blood Urea Nitrogen 16 mg/dL (9-16); Calcium 10.2 mg/dL (8.4-10.2); Carbon Dioxide 30 mmol/L (22-29); Chloride 106 mmol/L (96-108); Creatinine Clr Calc Pharmacy 80.2; Estimated Glomerular Filt Rate > 60; Glucose Random 111 mg/dL (60-115); Magnesium 2.4 mg/dL (1.6-2.6); Potassium 3.9 mmol/L (3.3-5.1); Sodium 143 mmol/L (135-145); Total Protein 7.3 g/dL (6.5-8.0)
[2024-06-02] MEDS: Acetaminophen 325 MG TABLET 975 MG PO (18:19)
[2024-06-02] MEDS: Ketorolac Tromethamine 30 MG/ML VIAL IM (18:19)
[2024-06-02] MEDS: oxyCODONE HCl Immed Release 5 MG TABLET PO (18:19)
[2024-06-02 18:24] VITALS: BP 151/82; PULSE 98; RESP 16; TEMP 36.4; O2SAT 95
[2024-06-03 13:27] LABS: Lyme Abs Screen <0.90 index
[2024-06-03 23:38] LABS: A. Phagocytphilium DNA,RT-PCR NOT DETECTED (NOT DETECTED); Babesia Microti DNA, RT-PCR NOT DETECTED (NOT DETECTED); Borrelia Miyamotoi,DNA RT-PCR NOT DETECTED (NOT DETECTED); E.Chaffeensis DNA RT-PCR NOT DETECTED (NOT DETECTED); Lyme(Borrelia ssp)DNA RT-PCR NOT DETECTED (NOT DETECTED)
== END 2024-06-02 18:25 | disposition home or self-care (01) ==
PROVIDERS: Physician Assistant; Emergency Provider Emergency Medicine; PCP Internal Medicine
DX: M70.51 Other bursitis of knee, right knee (principal); R60.0 Localized edema; Z79.899 Other long term (current) drug therapy
CPT/HCPCS: 36415; 73564; 80048; 80076; 82550; 83735; 85025; 86617; 86618; 87468; 87469; 87478; 87484; 87798; 93971; 96372; 99283; 99284; J1885

== ENCOUNTER 2024-06-04 08:29 | Outpatient (AMB) | payer OTHER, SELFPAY ==
[2024-06-04 09:22] VITALS: BMI 33.3
--- NOTE | 2024-06-04 09:22 | MHC.OFFVIS ---
Vital Signs 06/04/24 09:22 Height 5 ft 10 in Weight 232 lb BMI 33.3 Intake Visit Reasons: New prob- RT shoulder/arm pain Intake Note: Ron 64 year old male who presents today for an evaluation of right shoulder pain. Patient reports his pain has been present for over 3 months. Denies injury. States pain radiates from his shoulder into his bicep area as well as a numbness and tingling sensation. Limited ROM. No previous tx. No relief with Tylenol or Motrin. Log Getter Name: Wyatt ID#[id number] Allergies Penicillins Allergy (Intermediate, Verified 06/04/24 09:43) PASSED OUT atorvastatin Adverse Reaction (Intermediate, Verified 06/04/24 09:43) blurring of vision gabapentin Adverse Reaction (Intermediate, Verified 06/04/24 09:43) Dizziness simvastatin Adverse Reaction (Intermediate, Verified 06/04/24 09:43) blurring of vision tamsulosin Adverse Reaction (Intermediate, Verified 06/04/24 09:43) Dizziness Medication List - Last Reconciled 06/04/24 by Bekah Mata PA-C cholecalciferol (vitamin D3) 50 mcg PO DAILY 90 days doxazosin 4 mg PO BEDTIME hydrocortisone 2.5% (Proctozone-HC) 1 appl [place] BID PRN lidocaine 5% (Lidoderm) 1 patch topical DAILY lidocaine 5% 1 appl topical QID PRN 15 days lisinopril 10 mg PO DAILY 90 days naproxen 500 mg PO Q8-12H PRN naproxen 500 mg PO BID oxycodone 5 mg PO Q8H PRN oxycodone-acetaminophen 5-325 mg (Percocet) 1 tab PO Q6-8H PRN pyridoxine (vitamin B6) 50 mg PO DAILY 90 days rosuvastatin 10 mg PO DAILY 90 days tizanidine 4 mg PO BEDTIME PRN 30 days HPI HPI New prob- RT shoulder/arm pain: Details: Yash is a 64-year-old male who presents today for an evaluation of right shoulder pain. He reports being injured for over 3 months. He states that he notices numbness or tingling sensation. He has limited ROM. He states that pain radiates into his bicep area. He reports that he has difficulty sleeping on his right side secondary to pain and he needs arm support to get out of the bed. He has trouble raising his arm and carrying things. [facility] Medical History (Updated 06/04/24 @ 09:54 by Bekah Mata PA-C) Vitamin D deficiency Neuropathy Hemorrhoids Chronic constipation Obesity (BMI 30-39.9) Benign essential hypertension Pure hypercholesterolemia Peripheral neuropathy History of back pain Hx of hepatitis Amputation of thumb, left DJD (degenerative joint disease) of cervical spine DDD (degenerative disc disease), lumbar Hx of vertigo Asthma Myocardial infarction CAD (coronary artery disease) Surgical History Hx of hand surgery History of amputation of both great toes Hx of cystoscopy History of surgery on left wrist History of circumcision History of rhinoplasty Hx of colonoscopy Family History Unknown No family history of colorectal cancer Social History Household Members: None Housing: House Alcohol intake: never Patient Tobacco Use Status: Former Tobacco user e-Cigarette/Vaping Use: Never Used Second Hand Smoke Exposure: Yes service: No Current occupational status: retired Cognitive needs: No Hearing needs: Yes (? B/L hearing loss) Vision needs: Yes Review of Systems Const All systems reviewed & are unremarkable except as noted in HPI and below Physical Exam Vital Signs: BMI result Body Mass Index 33.3 Const General: cooperative, healthy appearing, comfortable and no acute distress Orientation/consciousness: patient oriented x3 Neck Neck: Yes normal visual inspection and Yes no JVD Chest Chest palpation & inspection: normal inspection of the chest Resp Effort & Inspection: normal respiratory effort Auscultation: clear to auscultation bilaterally, crackles (no), rales (no), rhonchi (no) and wheezes (no) Cardio Jugular venous distension: no JVD Rate: regular rate Rhythm: regular rhythm Heart sounds: S1 normal heart sound present, S2 normal heart sound present, Murmur heart sound present (no) and Rub heart sound present (no) Neuro General: patient oriented x3 Extrem Other: Right shoulder: Normal to inspection. Tenderness over the bicipital groove and along the deltoid region of the shoulder. Forward flexion to 175, external rotation to 90, internal rotation to S1. 5/5 RTC strength. Negative Beal and cross body abduction. NVI. General: Yes normal to inspection, Yes no pedal edema and Yes no calf tenderness Results Reviewed Results Reviewed: xrays of the right shoulder obtained on 04/14/24 show ac joint oa Assessment & Plan Assessment & Plan (1) Arthritis of right acromioclavicular joint: Code(s): M19.011 - Primary osteoarthritis, right shoulder Category: Medical (2) Tendinitis of right rotator cuff: Code(s): M75.81 - Other shoulder lesions, right shoulder Category: Medical Plan We discussed options which include PT, NSAIDs and injections. The patient will defer on the injection today and proceed with PT and NSAIDs. If symptoms persist, she will contact me for an injection, otherwise, PRN. Orders: Orders PT Evaluation and Treatment Today M19.011 - Primary osteoarthritis, right shoulder, M75.81 - Other shoulder lesions, right shoulder Patient Instructions: Scribed for Bekah Mata PA-C, by Amparo Do medical reception specialist, on 06/04/2024 at 9:30 AM CORIE. Bekah Haywood PA-C, have personally reviewed and agree with the information entered by the scribe. Coding Level of Care Code Est Pt Level 3 (49249) Diagnoses Arthritis of right acromioclavicular joint M19.011 Tendinitis of right rotator cuff M75.81
== END 2024-06-04 10:54 | disposition home or self-care (01) ==
PROVIDERS: PCP Internal Medicine; Visit Provider Physician Assistant
DX: M19.011 Primary osteoarthritis, right shoulder (principal); M75.81 Other shoulder lesions, right shoulder
CPT/HCPCS: 99213

== ENCOUNTER → 2024-06-04 08:29 | Outpatient (BNVA) | payer OTHER, SELFPAY | PROVIDERS: PCP Internal Medicine; Visit Provider Physician Assistant | DX: M19.011 Primary osteoarthritis, right shoulder (principal); M75.81 Other shoulder lesions, right shoulder | CPT/HCPCS: 99212 ==

== ENCOUNTER 2024-06-12 13:28 | Outpatient (REF) | payer OTHER, SELFPAY ==
--- NOTE | ~2024-06-12 | XR_ITS ---
EXAMINATION: XR ABDOMEN KUB CLINICAL INDICATION: Benign prostatic hyperplasia with lower urinary tract symptoms COMPARISON: None available. TECHNIQUE: AP view of the abdomen. FINDINGS: The bowel gas pattern is normal with no evidence of ileus or obstruction. Small to moderate volume of stool in the right colon. Scattered stool in the left colon and pelvis. No unusual soft tissue calcifications are noted. Multilevel degenerative spondylosis spine. Disc height narrowing and vertebral endplate spur involving all discs levels of lumbar spine. XR/XR KUB IMPRESSION: No acute abnormality.
--- NOTE | ~2024-06-12 | US_ITS ---
EXAMINATION: US RETROPERITONEAL LIMITED (RENAL ONLY) CLINICAL INFORMATION: BPH with lower urinary tract symptoms. COMPARISON: CT abdomen pelvis 03/10/2024 and ultrasound abdomen 11/06/2023 TECHNIQUE: Ultrasound of the the kidneys was performed. FINDINGS: RIGHT KIDNEY: 10.6 x 6.3 x 5.3 cm (SAG x AP x TRV). The kidney is normal in size, contour, and echogenicity. Renal cortical thickness is normal. No calculi or focal parenchymal lesions. No hydronephrosis. LEFT KIDNEY: 12.1 x 5.7 x 4.9 cm (SAG x AP x TRV). The kidney is normal in size, contour, and echogenicity. Renal cortical thickness is normal. There is a 3 mm echogenic focus seen in the upper pole of the kidney with twinkle artifact consistent with a nonobstructing calculus. At the time of the prior CT, it least additional calculi are seen not identified on this exam. No hydronephrosis. A benign lower pole 0.8 cm Bosniak class I renal cyst is noted which requires no additional imaging or follow up. No solid renal masses are seen. US/US renal BI IMPRESSION: Nonobstructing 3 mm left upper pole renal calculus.
== END 2024-06-12 13:29 | disposition home or self-care (01) ==
LOC: HO.US 13:28
PROVIDERS: PCP Internal Medicine; Visit Provider Urology
DX: N40.1 Benign prostatic hyperplasia with lower urinary tract symptoms (principal); N20.0 Calculus of kidney
CPT/HCPCS: 74018; 76775

== ENCOUNTER 2024-07-03 08:00 | Outpatient (RCR) | payer OTHER, SELFPAY ==
--- NOTE | 2024-06-05 14:59 | MHC.PT.EP ---
[facility] [place] Office [place] Office [place] Office [address] [phone] F: [phone] F: [phone] F: [phone] F: [phone] Physical Therapy Plan of Care Date of Evaluation: 06/05/24 Date of Surgery: Diagnosis: Bicipital tendonitis, R shoulder Assessment: Yash is a 64 y/o M with neuropathy, essential hypertension and CAD who is referred to PT for eval and treat of bicipital tendonitis resulting in decreased tolerance or ability for sleeping, reaching overhead and reaching behind back secondary to pain, decreased ROM and decreased strength. He is motivated and is deemed an appropriate candidate to receive skilled PT services to address his physical impairments in order to improve his function. Frequency and Duration: The patient will be seen 2x/week for 4 weeks Short Term Goals: Initiate home program Full shoulder AROM Improve R shoulder ER MMT grade by 1/2 Fpc Goals: I with home program Will be able to reach into back pocket with R arm with little difficulty; Initial: 8/10 difficulty. Will be able to lay on R side with little difficulty; Initial 8/10 difficulty. Pain will not disrupt sleep. Treatment Plan: Modalities to reduce pain, spasms and effusion. Manual therapy to restore motion and function. Therapeutic exercise to improve strength and flexibility. Neuromuscular re-education for posture and balance. Therapeutic activities to return to functional activities of daily living. Electronically signed by: Ced Hernández PT. Please sign and return to therapist. Thank you for your referral.
--- NOTE | 2024-07-03 08:57 | MHC.PT.DC ---
[facility] [place] [facility] [place] [facility] [address] Dimitry Bullock 140 [facility] [phone] F: [phone] F: [phone] F: [phone] F: [phone] Physical Therapy Discharge Report Diagnosis: Bicipital tendonitis, R shoulder Date of Surgery: Date of Evaluation: 06/05/24 Date of Discharge: 07/03/24 Treatments to Date: 9 Cancellations to Date: No Shows to Date: Discharge Status: Achieved Goals Improved Function Independent with HEP Discharge Summary: Yash has been an active and motivated participant in his therapy in a nd out of the clinic. His SPADI outcome measure improved to 1 % disability improved from 80% on initial eval. Yash is in agreement with DC at this time as he has met all of his therapeutic goals, is I with his home program, and significantly improved of his pain and ROM. Electronically signed by: Ced Hernández PT. Please sign and return to therapist. Thank you for your referral.
== END 2024-07-03 08:58 | disposition home or self-care (01) ==
LOC: HO.PT 08:00
PROVIDERS: PCP Internal Medicine; Visit Provider Internal Medicine
DX: M25.511 Pain in right shoulder (principal); M75.21 Bicipital tendinitis, right shoulder; M25.561 Pain in right knee
CPT/HCPCS: 97033; 97110; 97140; 97161; 97164

== ENCOUNTER → 2024-07-09 16:02 | Outpatient (BNVA) | payer OTHER, SELFPAY | PROVIDERS: PCP Internal Medicine; Visit Provider Urology ==

== ENCOUNTER 2024-07-17 09:00 | Outpatient (AMB) | payer OTHER, SELFPAY ==
--- NOTE | 2024-07-17 09:51 | MHC.OFFVIS ---
Intake Visit Reasons: ESWL follow up/US(set) Intake Note: Patient is present for ESWL/US F/U Urology Medication:DOXAZOSIN, VITAMIN B6, PERCOCET Antibiotic Allergy:PENICILLINS, ATORVASTATIN, GABAPENTIN, SIMVASTATIN, Blood Thinner: NONE Charging Crane Operator Required: No Charging Crane Operator Name: [id number] Information Interpreted: non-clinical & clinical Allergies Penicillins Allergy (Intermediate, Verified 07/17/24 09:54) PASSED OUT atorvastatin Adverse Reaction (Intermediate, Verified 07/17/24 09:54) blurring of vision gabapentin Adverse Reaction (Intermediate, Verified 07/17/24 09:54) Dizziness simvastatin Adverse Reaction (Intermediate, Verified 07/17/24 09:54) blurring of vision tamsulosin Adverse Reaction (Intermediate, Verified 07/17/24 09:54) Dizziness Medication List - Last Reconciled 07/17/24 by Jonathan Deleon MD cholecalciferol (vitamin D3) 50 mcg PO DAILY 90 days doxazosin 4 mg PO BEDTIME hydrocortisone 2.5% (Proctozone-HC) 1 appl AL BID PRN lidocaine 5% (Lidoderm) 1 patch topical DAILY lidocaine 5% 1 appl topical QID PRN 15 days lisinopril 10 mg PO DAILY 90 days naproxen 500 mg PO Q8-12H PRN naproxen 500 mg PO BID pyridoxine (vitamin B6) 50 mg PO DAILY 90 days rosuvastatin 10 mg PO DAILY 90 days tizanidine 4 mg PO BEDTIME PRN 30 days HPI Comments Details: 07/17/24--status post left ESWL 05/07/2024- follow-up renal ultrasound 06/12/2024 remaining 3 mm upper pole fragment KUB 06/12/2024 nonspecific findings. Will cont doxazosin 4mg daily and Vit b 6 100 mg. FU in one year with renal US. Review of chart: 03/24/2024 Yash is a 63-year-old male who presents today to the office for a follow-up. Yahs is evaluated due to nephrolithiasis and BPH. I have reviewed recent CT scan, 03/10/2024. There are a few kidney stones in the left kidney largest measuring up to 5 mm. Right kidney no renal calculi noted. No hydronephrosis present. He is prescribed doxazosin 4 mg daily. He states that the tamsulosin affects his breathing. historical interpreter by video Cedric [id number]. The patient states he gets intermittent left kidney pain. I have discussed scheduling left ESWL. Danish pamphlet provided. 11/26/23-- s/p cystoscopy bilateral stent removal on 09/25/23; he complains of urinary frequency and ocassional dysuria. He finished the cardura that was prescribed by Dr. Kearney and did not get it refilled. I have discussed that I will prescribe tamsulosin. UA today no signs of infection. He continues to has intermittent left flank pain, recent Abd sono on 11/06/23 was WNL. Plan discussed tamsulosin 0.8 mg qhs, CTAP stone protocol in 3 months, FU post. 09/13/2023-- followed today post outpatient procedure 08/21/23 for Cystoscopy, bilateral ureteral stent, right ureteroscopy and laser stone which was performed due to 6 mm obstructing right ureteral stone and Left flank pain, left kidney pyelonephritis. He has seen Terry Neves in the past for kidney stones. He had circumcision about 7-8 years ago. Evaluation today--UA--Leukocytes: neg blood: tr. PFSH Medical History Vitamin D deficiency Neuropathy Hemorrhoids Chronic constipation Obesity (BMI 30-39.9) Benign essential hypertension Pure hypercholesterolemia Peripheral neuropathy History of back pain Hx of hepatitis Amputation of thumb, left DJD (degenerative joint disease) of cervical spine DDD (degenerative disc disease), lumbar Hx of vertigo Asthma Myocardial infarction CAD (coronary artery disease) Surgical History Hx of hand surgery History of amputation of both great toes Hx of cystoscopy History of surgery on left wrist History of circumcision History of rhinoplasty Hx of colonoscopy Family History Unknown No family history of colorectal cancer Social History Household Members: None Housing: House Alcohol intake: never Patient Tobacco Use Status: Former Tobacco user e-Cigarette/Vaping Use: Never Used Second Hand Smoke Exposure: Yes service: No Current occupational status: retired Cognitive needs: No Hearing needs: Yes (? B/L hearing loss) Vision needs: Yes Review of Systems Const All systems reviewed & are unremarkable except as noted in HPI and below Reports no additional complaints Eyes Reports no additional complaints ENT Reports no additional complaints Card Reports no additional complaints Resp Reports no additional complaints GI Reports no additional complaints Reports as per HPI Musc Reports no additional complaints Skin/Breast Reports system reviewed and no additional complaints, except as documented Neuro Reports no additional complaints Psych Reports no additional complaints Endo Reports no additional complaints Niko/Lymph Reports no additional complaints Aller/Immun Reports no additional complaints Results AMB Urinalysis, Automated UA Leukoctes 0 Michelle/uL Last Edit by ALLEGRA Martínez on 07/17/24 10:07 UA Nitrite Negative Last Edit by Lizette Roy [facility] on 07/17/24 10:07 UA Urobilinogen 0.2 mg/dL Last Edit by Lizette Roy [facility] on 07/17/24 10:07 UA Protein 0 mg/dL Last Edit by Lizette Roy [facility] on 07/17/24 10:07 UA pH 6.0 Last Edit by Lizette Roy [facility] on 07/17/24 10:07 UA Blood 0 Jose/uL Last Edit by Lizette Roy [facility] on 07/17/24 10:07 UA Specific [place] 1.025 Last Edit by Lizette Roy [facility] on 07/17/24 10:07 UA Ketone Negative Last Edit by Lizette Roy [facility] on 07/17/24 10:07 UA Bilirubin 0 mg/dL Last Edit by Lizette Roy [facility] on 07/17/24 10:07 UA Glucose 0 mg/dL Last Edit by Lizette Roy [facility] on 07/17/24 10:07 Results Reviewed Results Reviewed: Date of Service: 06/12/24 US RETROPERITONEAL LIMITED (RENAL ONLY) CLINICAL INFORMATION: BPH with lower urinary tract symptoms. COMPARISON: CT abdomen pelvis 03/10/2024 and ultrasound abdomen 11/06/2023 TECHNIQUE: Ultrasound of the the kidneys was performed. FINDINGS: RIGHT KIDNEY: 10.6 x 6.3 x 5.3 cm (SAG x AP x TRV). The kidney is normal in size, contour, and echogenicity. Renal cortical thickness is normal. No calculi or focal parenchymal lesions. No hydronephrosis. LEFT KIDNEY: 12.1 x 5.7 x 4.9 cm (SAG x AP x TRV). The kidney is normal in size, contour, and echogenicity. Renal cortical thickness is normal. There is a 3 mm echogenic focus seen in the upper pole of the kidney with twinkle artifact consistent with a nonobstructing calculus. At the time of the prior CT, it least additional calculi are seen not identified on this exam. No hydronephrosis. A benign lower pole 0.8 cm Bosniak class I renal cyst is noted which requires no additional imaging or follow up. No solid renal masses are seen. IMPRESSION: Nonobstructing 3 mm left upper pole renal calculus. Date of Service: 03/10/24 CT ABDOMEN AND PELVIS WITHOUT CONTRAST CLINICAL INFORMATION: Unspecified abdominal pain. Left flank pain. Calculus of kidney. COMPARISON: Abdominal ultrasound 11/06/[address] abdomen pelvis 08/17/2023 TECHNIQUE: Multidetector volumetric imaging was performed from the superior aspect of the liver through the pubic symphysis. Sagittal and coronal reformatted images were obtained on the technologist's workstation. This CT examination was performed using dose optimization techniques as appropriate, variously including the following: *Automated exposure control *Adjustment of mA and/or kV according to patient size (this includes techniques or standardized protocols for targeted exams where dose is matched to indication/reason for exam; i.e. extremities or head) *Use of iterative reconstruction technique DLP: 671 mGy-cm FINDINGS: Visualized lung bases are well aerated. Similar partially visualized small right middle lobe granuloma. Small cystic focus within the posterior right lung base is unchanged. The liver is normal in size but demonstrates diffusely decreased attenuation. The gallbladder is normal in appearance. The pancreas, spleen and left adrenal gland are unremarkable. Stable 1.7 cm right adrenal lesion most consistent with an adenoma. Symmetrically sized kidneys. There are a few nonobstructing calculi present within the left kidney, largest measuring approximately 5 mm. No right-sided renal calculi are identified. There is no hydronephrosis of either kidney. Normal caliber loops of small and large bowel. Normal appendix. Normal caliber abdominal aorta demonstrating mild atherosclerotic disease. Retroaortic left renal vein. No retroperitoneal lymphadenopathy. The bladder is normal in appearance. The prostate gland is normal in size. Tiny fat-containing inguinal hernias bilaterally. No inguinal lymphadenopathy. No gross free pelvic fluid. Mild to moderate diffuse degenerative changes of the spine. Stable sclerotic focus within the right ilium, likely bone island. IMPRESSION: 1. There are a few nonobstructing calculi present within the left kidney, largest measuring approximately 5 mm. No right-sided renal calculi are identified. There is no hydronephrosis of either kidney. 2. Diffusely decreased liver attenuation suggesting hepatic steatosis. Correlation with liver enzymes recommended. 3. Stable 1.7 cm right adrenal lesion most consistent with an adenoma. Date of Service: 11/06/23 EXAMINATION: US ABDOMEN LIMITED CLINICAL INFORMATION: Unspecified abdominal pain Left lower quadrant tender lump. COMPARISON: Renal ultrasound 09/12/2023 TECHNIQUE: Real-time imaging of the left lower quadrant over the palpable area indicated by the patient. FINDINGS: The area indicated by the patient was the left flank/left kidney. No abnormality is seen in the area indicated by the patient. There is no free fluid, no hernia. LEFT KIDNEY: No hydronephrosis. No renal calculi. 0.8 x 0.7 x 0.8 cm simple exophytic cyst in the lower pole requires no imaging follow-up. The kidney measures 12.2 cm in maximum dimension. FREE FLUID: None. IMPRESSION: No abnormality demonstrated in the area indicated by the patient in the left flank/left kidney. Assessment & Plan Assessment & Plan (1) Nephrolithiasis: Code(s): N20.0 - Calculus of kidney Category: Medical (2) Chronic pyelonephritis: Code(s): N11.9 - Chronic tubulo-interstitial nephritis, unspecified Category: Medical (3) BPH loc w urin obs/LUTS: Code(s): N40.1 - Benign prostatic hyperplasia with lower urinary tract symptoms Category: Medical Plan Status post left ESWL 05/07/2024, good fragmentation. Continue vitamin B6 100 mg. Continue to monitor kidneys follow-up in 1 year renal ultrasound at that time. Continue doxazosin for BPH symptoms Orders: Orders AMB Urinalysis Automated Today Z13.9 - Encounter for screening, unspecified Medications: Refilled pyridoxine (vitamin B6) 50 mg PO DAILY 90 days 90 tabs 3RF doxazosin 4 mg PO BEDTIME 90 tabs 3RF N40.1 - Benign prostatic hyperplasia with lower urinary tract symptoms, R39.11 - Hesitancy of micturition Patient Instructions: The patient had an opportunity to ask questions regarding treatment plan. The patient expressed understanding and agreement with the above treatment plan. The patient is aware they should contact our office by phone for worsening of their current condition or the appearance of new symptoms. Compliance is encouraged with any medications and followup testing that is ordered. It is a privilege to be allowed the opportunity to participate in the urologic care of your patient. If you have any questions or concerns regarding treatment for the above conditions please do not hesitate to contact me. The office telephone contact is [phone]. This note is constructed in part using voice recognition software. While every effort has been made to ensure accuracy new car salesperson errors may have been included. Yours sincerely, Jonathan Deleon MD Coding Level of Care Code Global (73554) Diagnoses Nephrolithiasis N20.0 Chronic pyelonephritis N11.9 BPH loc w urin obs/LUTS N40.1
== END 2024-07-17 10:18 | disposition home or self-care (01) ==
PROVIDERS: PCP Internal Medicine; Visit Provider Urology
DX: N20.0 Calculus of kidney (principal); N11.9 Chronic tubulo-interstitial nephritis, unspecified; N40.1 Benign prostatic hyperplasia with lower urinary tract symptoms; Z13.9 Encounter for screening, unspecified
CPT/HCPCS: 99024

== ENCOUNTER → 2024-07-17 09:00 | Outpatient (BNVA) | payer OTHER, SELFPAY | PROVIDERS: PCP Internal Medicine; Visit Provider Urology | DX: N20.0 Calculus of kidney (principal); N11.9 Chronic tubulo-interstitial nephritis, unspecified; N40.1 Benign prostatic hyperplasia with lower urinary tract symptoms | CPT/HCPCS: 81003; 99212 ==

== ENCOUNTER 2024-08-26 07:16 | Outpatient (REF) | payer OTHER, SELFPAY ==
[2024-08-26 07:41] LABS: MANUAL DIFF FLAG NO
[2024-08-26 08:22] LABS: Basophils Percent Auto 0.6 % (0-2); Eosinophils Absolute Auto 0.5 X10*3/uL (0.0-0.4); Eosinophils Percent Auto 6.6 % (0-4); Hematocrit 41.5 % (42.0-52.0); Hemoglobin 14.8 g/dl (14.0-18.0); Imm Gran Abs Auto 0.01 X10*3/uL (0.00-0.03); Imm Gran Pct Auto 0.1 % (0.0-0.4); Lymphocytes Absolute Auto 2.3 X10*3/uL (1.2-4.9); Lymphocytes Percent Auto 33.2 % (20-40); Mean Corpuscular HGB Conc 35.7 g/dl (31.0-36.0); Mean Corpuscular Hemoglobin 31.6 pg (27.0-33.0); Mean Corpuscular Volume 88.7 fL (80.0-98.0); Mean Platelet Volume 9.6 fL (9.4-12.4); Monocytes Absolute Auto 0.5 X10*3/uL (0.1-1.2); Neutrophils Absolute Auto 3.6 x10*3/uL (2.0-8.3); Neutrophils Percent Auto 52.5 % (45-73); Platelet Count 259 X10*3/uL (160-400); Red Blood Count 4.68 X10*6/uL (4.60-5.80); Red Cell Distribution Width 12.3 % (11.0-16.0); White Blood Count 6.8 X10*3/uL (4.8-10.8)
[2024-08-26 08:37] LABS: Appearance Urine Clear; Color Urine Yellow; Glucose Urine UA Negative (Negative); Leukocyte Esterase Urine Negative (Negative); Nitrite Urine Negative (Negative); PH 5.5 (5.0-9.0); Urine Blood Negative (Negative); Urine Ketones Negative (Negative); Urine Protein Negative (Neg-Trace)
[2024-08-26 08:44] LABS: Estimated Average Glucose 117 mg/dL; Hemoglobin A1C 139.4662 umol/L; Hemoglobin A1c % 5.7 % (<6.0); Total Hemoglobin (HGBA1C) 3599.3686 umol/L
[2024-08-26 09:06] LABS: Alanine Aminotransferase 40 U/L (0-40); Albumin Level 4.4 g/dL (3.5-5.0); Alkaline Phosphatase 61 U/L (39-117); Anion Gap 11 (12-20); Aspartate Amino Transferase 32 U/L (5-37); Bilirubin Total 0.7 mg/dL (0.0-1.0); Blood Urea Nitrogen 13 mg/dL (9-16); Calcium 9.7 mg/dL (8.4-10.2); Carbon Dioxide 30 mmol/L (22-29); Chloride 105 mmol/L (96-108); Cholesterol 140 mg/dL (<200); Estimated Glomerular Filt Rate > 60; Glucose Fasting 106 mg/dL (60-99); HDL Cholesterol 34 mg/dL (>40); LDL Cholesterol Calculated 72 mg/dL (<100); Potassium 3.6 mmol/L (3.3-5.1); Sodium 142 mmol/L (135-145); Total Protein 6.9 g/dL (6.5-8.0); Triglycerides 173 mg/dL (<150)
[2024-08-26 09:27] LABS: TSH reflex Free T4 2.36 uIU/mL (0.32-4.0)
[2024-08-26 09:34] LABS: Folate 7.1 ng/mL (> or = 4.0); Vitamin B12 402 pg/mL (200-900)
== END 2024-08-26 07:17 | disposition home or self-care (01) ==
LOC: HO.LAB 07:16
PROVIDERS: PCP Internal Medicine; Visit Provider Internal Medicine
DX: D64.9 Anemia, unspecified (principal); E78.00 Pure hypercholesterolemia, unspecified; R73.01 Impaired fasting glucose; R30.0 Dysuria; E53.8 Deficiency of other specified B group vitamins; E55.9 Vitamin D deficiency, unspecified
CPT/HCPCS: 36415; 80053; 80061; 81003; 82306; 82607; 82746; 83036; 84443; 85025

== ENCOUNTER 2024-09-03 10:33 | Outpatient (AMB) | payer OTHER, SELFPAY ==
[2024-09-03 10:45] VITALS: BP 100/78; PULSE 110; O2SAT 98; BMI 34.3
--- NOTE | 2024-09-03 10:45 | MHC.PC.OV ---
Vital Signs 09/03/24 10:45 Height 5 ft 10 in Weight 239 lb 6 oz BMI 34.3 BP 100/78 Blood Pressure Location Lt brachial Position Sitting Pulse 110 H Pulse Source Pulse Oximeter Pulse Oximetry (%) 98 Oxygen Delivery Method Room Air Intake Visit Reasons: 4 Month F/U Medical Laboratory Scientist Required: No Accompanied by: Self / Same As Patient Allergies Penicillins Allergy (Intermediate, Verified 09/03/24 11:23) PASSED OUT atorvastatin Adverse Reaction (Intermediate, Verified 09/03/24 11:23) blurring of vision gabapentin Adverse Reaction (Intermediate, Verified 09/03/24 11:23) Dizziness simvastatin Adverse Reaction (Intermediate, Verified 09/03/24 11:23) blurring of vision tamsulosin Adverse Reaction (Intermediate, Verified 09/03/24 11:23) Dizziness Medication List - Last Reconciled 09/03/24 by Cristhian Han MD cholecalciferol (vitamin D3) 50 mcg PO DAILY 90 days doxazosin 4 mg PO BEDTIME hydrocortisone 2.5% (Proctozone-HC) 1 appl SC BID PRN lidocaine 5% (Lidoderm) 1 patch topical DAILY lidocaine 5% 1 appl topical QID PRN 15 days lisinopril 10 mg PO DAILY 90 days naproxen 500 mg PO Q8-12H PRN naproxen 500 mg PO BID pyridoxine (vitamin B6) 50 mg PO DAILY 90 days rosuvastatin 10 mg PO DAILY 90 days tizanidine 4 mg PO BEDTIME PRN 30 days Tobacco use date assessed: 09/03/24 Fall risk assessment: No Falls in past year Last assessed Fall Risk: 09/03/24 Dental Screening Dental Screen Date: 09/03/24 Did you have a dental visit in the last 12 months?: Yes Did you have a dental problem in the last 6 months where you did not have access to dental care?: No Was dental information given to patient?: Patient has dentist HPI 4 Month F/U HPI Details Patient comes in today for his follow up visit States that he feels okay He denies any headaches or dizziness Denies any chest pains, no increased SOB No nausea/vomiting, no abdominal pain No change in bowel habits noted Needs his Vitamin D Rx refilled He had his follow up labs done last week - to discuss his results [facility] [place] Medical History (Updated 09/08/24 @ 01:08 by Cristhian Han MD) Benign prostatic hyperplasia with lower urinary tract symptoms Vitamin D deficiency Neuropathy Hemorrhoids Chronic constipation Obesity (BMI 30-39.9) Benign essential hypertension Pure hypercholesterolemia Peripheral neuropathy History of back pain Hx of hepatitis Amputation of thumb, left DJD (degenerative joint disease) of cervical spine DDD (degenerative disc disease), lumbar Hx of vertigo Asthma Myocardial infarction CAD (coronary artery disease) Surgical History Hx of hand surgery History of amputation of both great toes Hx of cystoscopy History of surgery on left wrist History of circumcision History of rhinoplasty Hx of colonoscopy Family History Unknown No family history of colorectal cancer Social History Household Members: None Housing: House Alcohol intake: never Patient Tobacco Use Status: Former Tobacco user e-Cigarette/Vaping Use: Never Used Second Hand Smoke Exposure: Yes service: No Current occupational status: retired Cognitive needs: No Hearing needs: Yes (? B/L hearing loss) Vision needs: Yes Questionnaire PHQ-9 Over the last 2 weeks, how often have you been bothered by any of the following problems? 1. Little interest or pleasure in doing things: not at all 2. Feeling down, depressed, or hopeless: not at all 3. Trouble falling or staying asleep, or sleeping too much: not at all 4. Feeling tired or having little energy: not at all 5. Poor appetite or overeating: not at all 6. Feeling bad about yourself - or that you are a failure or have let yourself or your family down: not at all 7. Trouble concentrating on things, such as reading the newspaper or watching television: not at all 8. Moving or speaking so slowly that other people could have noticed. Or the opposite - being so fidgety or restless that you have been moving around a lot more than usual: not at all 9. Thoughts that you would be better off or of hurting yourself in some way: not at all Total score: 0 Depression Screening Interpretation: Negative Depression Screening Done: Yes 28044 - PHQ-9 Billing: Yes Source: Developed by Drs. Brendon Nixon, Marlen Tanner, Angelo Arreola and colleagues, with an educational zen from [employer]. Thrive Questionnaire Date Thrive assessed: 09/03/24 I am a: Patient What is your living situation today?: I have a steady place to live Within the past 12 months, did the food you bought not last and you didn't have the money to get more?: Never true Within the past 12 months, did you worry whether your food would run out before you got money to buy more?: Never true Do you have trouble paying for medicines?: No Do you have trouble getting transportation to medical appointments?: No Do you have trouble paying your heating and electricity bill?: No Do you have trouble taking care of your child, family member or friend?: No Do you have trouble with day-to-day activities such as bathing, preparing meals, shopping, managing finances, etc.?: No Are you currently unemployed and looking for a job?: No Are you interested in more education?: No Please select the resources that you would like help with: None Currently or been in a relationship where the following occur: No concerns reported THRIVE Score: 0 AUDIT C Alcohol Use Questionnaire (AUDIT-C) 1. How often do you have a drink containing alcohol?: Never 3. How often do you have six or more drinks on one occasion?: Never Total Score: 0 Score Reviewed/Action Taken: Yes LING-7 AMB Questionnaire LING-7 Date LING - 7 assessed: 09/03/24 Feeling nervous, anxious, or on edge: 0 = Not at all Not being able to stop or control worryin = Not at all Worrying too much about different things: 0 = Not at all Trouble relaxin = Not at all Being so restless that it is hard to sit still: 0 = Not at all Becoming easily annoyed or irritable: 0 = Not at all Feeling afraid as if something awful might happen: 0 = Not at all Total LING-7 score (0-4 normal; 5-9 mild; 10-14 moderate; 15-21 severe): 0 Source: Developed by Marlen Mcfarland Kurt Kroenke and colleagues, with an educational zen from [employer]. Review of Systems Const Denies chills, Denies fatigue, Denies fever(s) and Denies headache(s) ENT Denies dysphagia, Denies dizziness, Denies otalgia, Denies headache(s), Denies neck pain, Denies odynophagia and Denies sore throat Card Denies chest pain, Denies palpitations and Denies dyspnea Resp Denies chest congestion, Denies cough and Denies dyspnea GI Denies abdominal pain, Denies constipation, Denies dysphagia, Denies heartburn, Denies diarrhea, Denies nausea, Denies odynophagia and Denies vomiting Denies difficulty urinating, Denies dysuria, Denies nocturia and Denies urinary frequency Musc Reports back pain (over the lower back, on and off), Denies arthralgias and Denies neck pain Skin/Breast Denies rash Neuro Denies dizziness and Denies headache(s) Psych Denies anxiety and Denies depression Endo Denies fatigue and Denies palpitations Physical exam (Primary Care) Vital Signs: Last Vital Signs Pulse 110 H 09/03/24 10:45 BP 100/78 09/03/24 10:45 Pulse Ox 98 09/03/24 10:45 Oxygen Delivery Method Room Air 09/03/24 10:45 BMI result Body Mass Index 34.3 Tobacco/Smoking Status: Tobacco use Status Tobacco use date assessed 09/03/24 09/03/24 10:48 Patient Tobacco Use Status Former Tobacco user 09/03/24 10:48 e-Cigarette/Vaping Use Never Used 09/03/24 10:48 PHQ-9: PHQ-9 Score PHQ-9: Total score 0 09/03/24 15:05 Depression Screening Interpretation: Negative Thrive Assessment: Date of Thrive Assessment Date Thrive assessed 09/03/24 09/03/24 10:48 Currently or been in a relationship where the following occur: No concerns reported Const General: no acute distress and alert HENMT Ears: TM's normal bilaterally and EAC's normal Throat: Yes posterior oropharynx normal and Yes tonsils normal (no TP congestion) Neck Neck: Yes no lymphadenopathy and Yes supple Thyroid: Thyroid normal Resp Auscultation: clear to auscultation bilaterally, no rales and no wheezes Cardio Rate: regular rate Rhythm: regular rhythm Heart sounds: no murmurs GI Palpation (GI): Soft to palpation and nontender Auscultation: normal bowel sounds General: Yes no CVA tenderness Back/Spine/Pelvis Back: no CVA tenderness Thoracic/Lumbar Spine: lumbar spinal tenderness Skin Rashes: no rashes Extrem General: Yes no clubbing, cyanosis or edema Right upper extremity: shoulder/upper arm Details: tenderness Location: of the A-C joint and of the proximal humerus ((+) tenderness on palpation over the proximal 3rd of the humerus) Office Procedures Flu Questionnaire Does the patient have a severe egg allergy?: No Flu Questionnaire Does the patient have a severe egg allergy?: No Immunizations Fluarix Triv (PF) 45 mcg (15 mcg x 3)/0.5 mL IM syringe Performing Provider: Cristhian Han MD Performing Location: [facility] Documented (not given) by: ELISA [place] on 09/03/24 10:55 Reason Not Given: Received Previously Fluarix Triv (PF) 45 mcg (15 mcg x 3)/0.5 mL IM syringe Performing Provider: Cristhian Han MD Performing Location: [facility] Documented (not given) by: ELISA [place] on 09/03/24 15:05 Reason Not Given: Received Previously Results Reviewed Results Reviewed: Laboratory Tests 08/26/24 07:37 WBC 6.8 Hgb 14.8 Hct 41.5 L Plt Count 259 Sodium 142 Potassium 3.6 Creatinine 1.08 Estimated GFR > 60 Fasting Glucose 106 H Hemoglobin A1c % 5.7 Calcium 9.7 AST 32 ALT 40 Triglycerides 173 H Cholesterol 140 LDL Cholesterol, Calc 72 HDL Cholesterol 34 L Vitamin B12 402 25-OH Vitamin D Total 29.0 L TSH 2.36 Ur Specific [place] 1.020 Urine Protein Negative Urine Glucose (UA) Negative Urine Blood Negative Urine Nitrite Negative Ur Leukocyte Esterase Negative Coding Level of Care Code Est Pt Level 4 (92049) Diagnoses Pure hypercholesterolemia E78.00 Coronary artery disease involving [place] coronary artery of [place] heart without angina pectoris I25.10 Coronary Disease-Associated Artery/Lesion type: [place] artery [place] vs. transplanted heart: [place] heart Associated angina: without angina Benign essential hypertension I10 Impaired fasting glucose R73.01 Neuropathy G62.9 Right shoulder pain, unspecified chronicity M25.511 Chronicity: unspecified Vitamin D deficiency E55.9 Chronic constipation K59.09 Benign prostatic hyperplasia with urinary hesitancy N40.1; R39.11 Lower urinary tract symptom detail: urinary hesitancy Obesity (BMI 30-39.9) E66.9 Assessment & Plan Assessment & Plan (1) Pure hypercholesterolemia: Code(s): E78.00 - Pure hypercholesterolemia, unspecified Category: Medical Plan: Results of his labs done last week reviewed and discussed with patient Reinforced low cholesterol diet Continue Rosuvastatin 10 mg QD Will recheck his labs and fasting lipids in 4 months for follow up (2) CAD (coronary artery disease): Comment: S/P [place] in 2005 Code(s): I25.10 - Atherosclerotic heart disease of [place] coronary artery without angina pectoris Category: Medical Qualifiers: Coronary Disease-Associated Artery/Lesion type: [place] artery [place] vs. transplanted heart: [place] heart Associated angina: without angina Qualified Code(s): I25.10 - Atherosclerotic heart disease of [place] coronary artery without angina pectoris Plan: Patient currently remains asymptomatic from a cardiac standpoint Follow up with cardiology as scheduled (3) Benign essential hypertension: Code(s): I10 - Essential (primary) hypertension Category: Medical Plan: Reinforced low sodium diet - goal is systolic BP of 120 to 130 mm or less Continue Lisinopril 10 mg QD (4) Impaired fasting glucose: Code(s): R73.01 - Impaired fasting glucose Category: Medical Plan: His HgbA1c was at 5.7% on his labs done last week; was previously also normal at 5.2% and 5.6% Patient is again reassured that he does NOT have diabetes Reinforced low calorie diet/exercise as tolerated (5) Neuropathy: Code(s): G62.9 - Polyneuropathy, unspecified Category: Medical Plan: He was previously started on Gabapentin 100 mg BID but he stopped taking this a few months ago when he experienced dizziness every time he took the Rx He still does not wish to take anything else for his neuropathy at this time (6) Right shoulder pain: Code(s): M25.511 - Pain in right shoulder Category: Medical Qualifiers: Chronicity: unspecified Qualified Code(s): M25.511 - Pain in right shoulder Plan: He was advised at the ER previously that he has bicipital tendinitis; shoulder x-rays done back in April 2024 revealed (+) AC arthritis changes We offered to refer him to orthopedics for possible cortisone injection to provide him with some relief but he states that he is averse to needles and will NOT go for any injections He has been to physical therapy for his shoulder pain - states that PT has helped a lot, especially iontophoresis Will try referring him to physical therapy for further management and Tx with ultrasound and iontophoresis if appropriate Continue topical Lidocaine 5% ointment QID to the shoulder PRN for pain (7) Vitamin D deficiency: Code(s): E55.9 - Vitamin D deficiency, unspecified Category: Medical Plan: Continue Vitamin D3 2000 units QD (8) Chronic constipation: Comment: Colace 200 mg, MiraLax 17 g q.h.s. maintain high-fiber diet, Proctozone is need for hemorrhoid Code(s): K59.09 - Other constipation Category: Medical Plan: Reinforced increased oral fluids and dietary fiber States that his bowels are presently well-controlled on his current regimen of fiber laxative and stool softeners PRN Continue Senna 8.6 mg 2 tablets Q HS Follow up with GI as scheduled (9) Benign prostatic hyperplasia with lower urinary tract symptoms: Code(s): N40.1 - Benign prostatic hyperplasia with lower urinary tract symptoms Category: Medical Qualifiers: Lower urinary tract symptom detail: urinary hesitancy Qualified Code(s): N40.1 - Benign prostatic hyperplasia with lower urinary tract symptoms; R39.11 - Hesitancy of micturition Plan: Continue Doxazosin 4 mg QD Follow up with urology as scheduled (10) Obesity (BMI 30-39.9): Code(s): E66.9 - Obesity, unspecified Category: Medical Plan: Reinforced diet/exercise as tolerated/lose weight Plan Follow up in 4 months Orders: Orders Comprehensive Henry. Panel Fast 4 Months E78.00 - Pure hypercholesterolemia, unspecified UA CC w/rflx Micro + Cult 4 Months R30.0 - Dysuria Vitamin D 25-OH Total 4 Months E55.9 - Vitamin D deficiency, unspecified Influenza [id number] Immunization 09/03/24 Z23 - Encounter for immunization Complete Blood Count Auto Diff 4 Months D64.9 - Anemia, unspecified Lipid Panel 4 Months E78.00 - Pure hypercholesterolemia, unspecified Hemoglobin A1c 4 Months R73.01 - Impaired fasting glucose Influenza [id number] Immunization 09/03/24 Z23 - Encounter for immunization Medications: Refilled cholecalciferol (vitamin D3) 50 mcg PO DAILY 90 days 90 tabs 1RF R79.89 - Other specified abnormal findings of blood chemistry
== END 2024-09-03 11:35 | disposition home or self-care (01) ==
LOC: HO.HMCH 10:34
PROVIDERS: PCP Internal Medicine; Visit Provider Internal Medicine
DX: E78.00 Pure hypercholesterolemia, unspecified (principal); I25.10 Atherosclerotic heart disease of native coronary artery without angina pectoris; E66.9 Obesity, unspecified; Z68.34 Body mass index [BMI] 34.0-34.9, adult; I10 Essential (primary) hypertension; R73.01 Impaired fasting glucose; G62.9 Polyneuropathy, unspecified; M25.511 Pain in right shoulder; E55.9 Vitamin D deficiency, unspecified; K59.09 Other constipation; N40.1 Benign prostatic hyperplasia with lower urinary tract symptoms; R39.11 Hesitancy of micturition

== ENCOUNTER → 2024-09-03 10:33 | Outpatient (BNVA) | payer OTHER, SELFPAY | PROVIDERS: PCP Internal Medicine; Visit Provider Internal Medicine | DX: E78.00 Pure hypercholesterolemia, unspecified (principal); I25.10 Atherosclerotic heart disease of native coronary artery without angina pectoris | CPT/HCPCS: 90471; 96127; 99212 ==

== ENCOUNTER 2024-09-13 07:31 | Emergency (ER) | payer OTHER, SELFPAY ==
--- NOTE | ~2024-09-13 | CT_ITS ---
EXAMINATION: CT ABDOMEN PELVIS WITHOUT IV CONTRAST CLINICAL INFORMATION: b/l flank pain COMPARISON: Prior CT scan from March 10, 2024 TECHNIQUE: Multidetector volumetric imaging was performed from the superior aspect of the liver through the pubic symphysis , noncontrast CT. Sagittal and coronal reformatted images were obtained on the technologist's workstation. This CT examination was performed using dose optimization techniques as appropriate, variously including the following: *Automated exposure control *Adjustment of mA and/or kV according to patient size (this includes techniques or standardized protocols for targeted exams where dose is matched to indication/reason for exam; i.e. extremities or head) *Use of iterative reconstruction technique DLP: 920 mGy-cm FINDINGS: LOWER THORAX: Included lung bases are clear. HEPATOBILIARY: Diffusely hypodense liver suggesting hepatic steatosis. GALLBLADDER: Gallbladder unremarkable. SPLEEN: Spleen borderline enlarged measuring 13 x 9 cm. PANCREAS: No focal mass or ductal dilatation. STOMACH AND GASTROINTESTINAL TRACT: Stomach is grossly unremarkable. There is no bowel distention or thickening. No CT evidence of appendicitis. ADRENALS: No adrenal nodules. KIDNEYS/URETERS: Redemonstration of bilateral nonobstructing kidney stones the largest on the left about 4 mm unchanged from prior exam. No hydronephrosis. Mild bilateral perinephric fat stranding nonspecific, unchanged. URINARY BLADDER: Partially decompressed. PELVIC VISCERA: Unremarkable PERITONEUM: No free air or fluid. LYMPH NODES: No lymphadenopathy. VASCULAR:Mild aortic vascular calcifications, no aneurysm. BONES, ABDOMINAL WALL AND SOFT TISSUES: Spondylosis of thoracolumbar spine, no pathologic fractures. CT/CT abdomen pelvis wo IV con IMPRESSION: 1. No CT evidence of acute intra-abdominal process to explain patient's pain symptoms. 2. Redemonstration of bilateral nonobstructing tiny kidney stones unchanged largest 4 mm stone left kidney unchanged. No hydronephrosis. 3. Hypodense liver suggesting hepatic steatosis. 4. Borderline splenomegaly. Electronically signed by: Suraj Levi MD 09/13/2024 10:29 AM CORIE
[2024-09-13 07:39] VITALS: BP 142/64; PULSE 108; O2SAT 97
[2024-09-13 07:51] VITALS: BP 152/81; PULSE 90; RESP 20; TEMP 37.1; O2SAT 96; BMI 34.5
[2024-09-13] MEDS: 0.9 % Sodium Chloride 1,000 ML 999 ML IV (07:58)
[2024-09-13 08:00] VITALS: BP 140/77; PULSE 88; RESP 20; TEMP 37.1; O2SAT 96
[2024-09-13 08:01] LABS: MANUAL DIFF FLAG NO
[2024-09-13 08:05] LABS: Basophils Percent Auto 0.4 % (0-2); Eosinophils Absolute Auto 0.1 X10*3/uL (0.0-0.4); Eosinophils Percent Auto 0.6 % (0-4); Hemoglobin 14.4 g/dl (14.0-18.0); Imm Gran Abs Auto 0.03 X10*3/uL (0.00-0.03); Imm Gran Pct Auto 0.4 % (0.0-0.4); Lymphocytes Absolute Auto 0.9 X10*3/uL (1.2-4.9); Lymphocytes Percent Auto 10.3 % (20-40); Mean Corpuscular HGB Conc 35.1 g/dl (31.0-36.0); Mean Corpuscular Volume 88.4 fL (80.0-98.0); Mean Platelet Volume 9.4 fL (9.4-12.4); Monocytes Absolute Auto 0.3 X10*3/uL (0.1-1.2); Monocytes Percent Auto 3.7 % (2-11); Neutrophils Absolute Auto 7.3 x10*3/uL (2.0-8.3); Neutrophils Percent Auto 84.6 % (45-73); Platelet Count 253 X10*3/uL (160-400); Red Blood Count 4.64 X10*6/uL (4.60-5.80); Red Cell Distribution Width 12.1 % (11.0-16.0); White Blood Count 8.6 X10*3/uL (4.8-10.8)
[2024-09-13] MEDS: Morphine Sulfate 2 MG/ML CARTRIDGE IVPUSH (08:11)
[2024-09-13] MEDS: Ketorolac Tromethamine 15 MG/ML VIAL IVPUSH (08:11)
--- NOTE | 2024-09-13 08:13 | ED_ITS ---
HPI - General Adult General Chief complaint: Back Pain/Injury Stated complaint: FLANK PAIN Time Seen by Provider: 09/13/24 07:35 Source: patient and EMS Mode of arrival: EMS Limitations: no limitations History of Present Illness ED Provider: ALFONSO Andersen HPI narrative: This is a 64-year-old male history of kidney stones, hyperlipidemia, asthma, coronary artery disease, hypertension, obesity presenting to the emergency department with excruciating /10 back pain, pain is localized to bilateral flank region, he reports this pain started yesterday and has been progressively worsening ever since. He tells me he has a history of kidney stones and this feels similar to the time he has had kidney stones. Denies any changes in urination at this time. Denies abdominal pain, nausea, vomiting, fevers, chills, headache, vision changes, chest pain, shortness of breath. Related Data Previous Rx's ?Medication ?Instructions ?Recorded hydrocortisone 2.5 % topical cream 1 appl [place] BID PRN hemorrhoids #30 02/10/21 with perineal applicator grams (Proctozone-HC) tizanidine 4 mg tablet 4 mg PO BEDTIME PRN low back pain 10/02/23 30 days #30 tabs naproxen 500 mg tablet 500 mg PO Q8-12H PRN pain (scale 04/14/24 score 4-6) #20 tabs lidocaine 5 % topical patch 1 patch topical DAILY #15 ea 04/18/24 (Lidoderm) lidocaine 5 % topical ointment 1 appl topical QID PRN pain 15 05/01/24 days #60 grams naproxen 500 mg tablet 500 mg PO BID #20 tabs 06/02/24 doxazosin 4 mg tablet 4 mg PO BEDTIME #90 tabs 07/17/24 pyridoxine (vitamin B6) 50 mg 50 mg PO DAILY 90 days #90 tabs 07/17/24 tablet lisinopril 10 mg tablet 10 mg PO DAILY 90 days #90 tabs 07/27/24 cholecalciferol (vitamin D3) 50 50 mcg PO DAILY 90 days #90 tabs 09/03/24 mcg (2,000 unit) tablet rosuvastatin 10 mg tablet 10 mg PO DAILY 90 days #90 tabs 09/12/24 ketorolac 10 mg tablet 10 mg PO TID PRN pain 5 days #15 09/13/24 tabs Allergies Allergy/AdvReac Type Severity Reaction Status Date / Time Penicillins Allergy Intermediate PASSED Verified 09/13/24 07:52 OUT atorvastatin AdvReac Intermediate blurring Verified 09/13/24 07:52 of vision gabapentin AdvReac Intermediate Dizziness Verified 09/13/24 07:52 simvastatin AdvReac Intermediate blurring Verified 09/13/24 07:52 of vision tamsulosin AdvReac Intermediate Dizziness Verified 09/13/24 07:52 Review of Systems 2 Review of Systems: Yes all other systems are reviewed and are negative [facility] Past Medical History Attestation statement: The following information was validated with the patient. Source: old records reviewed and nursing notes reviewed Medical History Benign prostatic hyperplasia with lower urinary tract symptoms Vitamin D deficiency Neuropathy Hemorrhoids Chronic constipation Obesity (BMI 30-39.9) Benign essential hypertension Pure hypercholesterolemia Peripheral neuropathy History of back pain Hx of hepatitis Amputation of thumb, left DJD (degenerative joint disease) of cervical spine DDD (degenerative disc disease), lumbar Hx of vertigo Asthma Myocardial infarction CAD (coronary artery disease) Surgical History Hx of hand surgery History of amputation of both great toes Hx of cystoscopy History of surgery on left wrist History of circumcision History of rhinoplasty Hx of colonoscopy Family History Family History Unknown No family history of colorectal cancer Social History Social History Household Members: None Housing: House Alcohol intake: never Patient Tobacco Use Status: Former Tobacco user Smoked in Last 30 Days: No e-Cigarette/Vaping Use: Never Used Second Hand Smoke Exposure: Yes Use of substances other than those prescribed or required for medical reasons: No Advance Directives: No Advance Directives Information Provided: Yes Do you have a plan to hurt others: No Plan service: No Current occupational status: retired Cognitive needs: No Hearing needs: Yes (? B/L hearing loss) Vision needs: Yes Physical Exam ED Vital Signs: Vital Signs - 24 hr 09/13/24 07:51 09/13/24 08:00 09/13/24 10:42 Temperature 98.8 F 98.8 F 98.8 F Pulse Rate 90 88 108 H Respiratory Rate 20 20 16 Blood Pressure 152/81 H 140/77 H 120/70 Pulse Oximetry 96 96 94 Oxygen Delivery Method Room Air Room Air Room Air BMI result Body Mass Index 34.5 vss Appearance: Alert.? Oriented X3.? No acute distress.? Head: Normocephalic, atraumatic, no step-offs or deformities Eyes: Pupils equal, round and reactive to light.? CVS: Normal heart rate and rhythm.? Pulses normal.? Respiratory: No respiratory distress.? Breath sounds normal.? Abdomen: Soft and nontender.? Skin: Skin warm and dry.? Normal skin color.? Normal skin turgor.? Extremities: No lower extremity edema.? No calf ttp. 5/5 strength to bilateral upper and lower extremities Back: No midline tenderness, no C-spine tenderness, full range of motion, no CVA tenderness bilaterally Neuro: Oriented X 3.? No motor deficit.? No sensory deficit. CN 2-12 intact Course Reevaluation(s) Reevaluation #1: Patient's CBC unremarkable. Chemistry no acute findings eating intervention. UA without infection. CT abdomen and pelvis with no CT evidence of acute intra- abdominal process to explain patient's pain symptoms. Redemonstration of bilateral nonobstructing tiny kidney stones unchanged largest 4 mm in the left kidney. No hydronephrosis. Hypodense liver suggesting hepatic steatosis. Borderline splenomegaly. It is possible that patient may have passed a stone. He is feeling better at this time. Will discharge him home with 5 day script of Toradol. No indication for narcotics at this time. Will have him follow up with Urology. Advised to return with new or worsening symptoms. Educated patient on diagnosis and treatment plan, answered all question, patient verbalizes understanding. At this time patient will be discharged home, advised to return with new or worsening symptoms. Educated on worrisome signs and symptoms and when to return. At this time I feel comfortable discharge home. Time: 10:48 Medications Administered Discontinued Medications Generic Name Dose Route Start Last Admin Trade Name Freq PRN Reason Stop Dose Admin Sodium Chloride 1,000 mls @ 999 mls/hr 09/13/24 07:45 09/13/24 10:42 Ns IV 09/13/24 08:45 Infused .Q1H1M NANNETTE Infusion Ketorolac Tromethamine 15 mg 09/13/24 08:02 09/13/24 08:11 Ketorolac Tromethamine 15 Mg/Ml Vial IVPUSH 09/13/24 08:03 15 mg ONCE ONE Administration Morphine Sulfate 2 mg 09/13/24 08:02 09/13/24 08:11 Morphine Sulfate 2 Mg/Ml Cartridge IVPUSH 09/13/24 08:03 2 mg ONCE ONE Administration Protocol Medical Decision Making Medical Decision Making [facility] Narrative: 0810 64-year-old male presents with left-sided flank pain since yesterday extreme pain 08/14. Physical exam bilateral CVA tenderness patient evidently uncomfortable. Remainder of exam unremarkable. History and physical exam with kidney stones versus pyelonephritis versus renal/biliary colic. Unlikely metabolic derangements will rule out UTI and cystitis. No signs of acute abdomen. Plan- labs, urine, pain meds Differential Diagnosis Differential Diagnoses: The differential diagnosis associated with the presentation includes (History and physical exam with kidney stones versus pyelonephritis versus renal/biliary colic. Unlikely metabolic derangements will rule out UTI and cystitis. No signs of acute abdomen.) Admission/Observation Consideration of admission/observation: Escalation of care including admission/observation considered Lab Data [facility] Lab Attestation statement: I reviewed the patient's lab results. 09/13/24 07:56 09/13/24 07:56 Labs: Lab Results 09/13/24 09/13/24 Range/Units 07:56 08:13 WBC 8.6 (4.8-10.8) X10*3/uL RBC 4.64 (4.60-5.80) X10*6/uL Hgb 14.4 (14.0-18.0) g/dl Hct 41.0 L (42.0-52.0) % MCV 88.4 (80.0-98.0) fL MCH 31.0 (27.0-33.0) pg MCHC 35.1 (31.0-36.0) g/dl RDW 12.1 (11.0-16.0) % Plt Count 253 (160-400) X10*3/uL MPV 9.4 (9.4-12.4) fL Immature Gran % (Auto) 0.4 (0.0-0.4) % Neut % (Auto) 84.6 H (45-73) % Lymph % (Auto) 10.3 L (20-40) % [place] % (Auto) 3.7 (2-11) % Eos % (Auto) 0.6 (0-4) % Baso % (Auto) 0.4 (0-2) % Lymph # (Auto) 0.9 L (1.2-4.9) X10*3/uL [place] # (Auto) 0.3 (0.1-1.2) X10*3/uL Eos # (Auto) 0.1 (0.0-0.4) X10*3/uL Baso # (Auto) 0.0 (0.0-0.2) X10*3/uL Abs Immat Gran (auto) 0.03 (0.00-0.03) X10*3/uL Absolute Neuts (auto) 7.3 (2.0-8.3) x10*3/uL Absolute Nucleated RBC 0.000 (0.0-0.012) X10*3/uL Nucleated RBC % (auto) 0.0 (0.0-0.2) /100WBC Sodium 143 (135-145) mmol/L Potassium 3.8 (3.3-5.1) mmol/L Chloride 105 (96-108) mmol/L Carbon Dioxide 27 (22-29) mmol/L Anion Gap 15 (12-20) BUN 12 (9-16) mg/dL Creatinine 1.07 (0.5-1.4) mg/dL Estim Creat Clear Calc 83.9 Estimated GFR > 60 Random Glucose 165 H (60-115) mg/dL Calcium 9.5 (8.4-10.2) mg/dL Magnesium 1.9 (1.6-2.6) mg/dL Total Bilirubin 0.8 (0.0-1.0) mg/dL AST 34 (5-37) U/L ALT 41 H (0-40) U/L Alkaline Phosphatase 64 (39-117) U/L Total Protein 7.0 (6.5-8.0) g/dL Albumin 4.3 (3.5-5.0) g/dL Urine Color Yellow Urine Appearance Clear Urine pH 7.0 (5.0-9.0) Ur Specific [place] 1.020 (1.005-1.025) Urine Protein Negative (Neg-Trace) mg/dL Urine Glucose (UA) Negative (Negative) mg/dL Urine Ketones Trace (Negative) mg/dL Urine Blood Negative (Negative) Urine Nitrite Negative (Negative) Ur Leukocyte Esterase Negative (Negative) Independent Interpretation I performed an independent interpretation of an: CT Scan (CT/CT abdomen pelvis wo IV con IMPRESSION: 1. No CT evidence of acute intra-abdominal process to explain patient's pain symptoms. 2. Redemonstration of bilateral nonobstructing tiny kidney stones unchanged largest 4 mm stone left kidney unchanged. No hydronephrosis. 3. Hypodense liver [place]) Independent Historian Clinical information obtained from an independent historian. History obtained from or confirmed by: EMS External Record Review External record reviewed: Inpatient record, Office record, Outpatient record, Prior outpatient labs, Prior outpatient radiology, Primary care record and Outside ED record Chronic Conditions Patient?s care impacted by: Other (See hpi ) Critical Care Time Critical Care Time Critical Care Time: Yes Total Critical Care Time: 35 Attestation: I attest to this time spent taking care of the patient, obtaining history, physical, reviewing labs, imaging, treatment of patients condition +/- specialist/hospitalist consult Discharge Plan Discharge Clinical Impression: Bilateral flank pain Patient Disposition: Home, Self-Care Instructions: Abdominal Pain (ED), Flank Pain (ED) Additional Instructions: Take your medications as prescribed. If you were prescribed antibiotics today, it is important that you take your medication to their entirety, do not skip any doses, do not finish them early. Follow-up with your primary care provider this week. Return to the emergency department with new or worsening symptoms. Such as fevers, chills, chest pain, shortness of breath, nausea, vomiting, dizziness, headache, vision changes, lethargy In case of emergency call 911 Toradol has been sent to your pharmacy, you tolerated this well in the department. Please take this as prescribed do not take this with ibuprofen, or other NSAIDs, do not mix this with alcohol. Side effects of this medication including increased risk for bleeding and possible kidney injury. CT/CT abdomen pelvis wo IV con IMPRESSION: 1. No CT evidence of acute intra-abdominal process to explain patient's pain symptoms. 2. Redemonstration of bilateral nonobstructing tiny kidney stones unchanged largest 4 mm stone left kidney unchanged. No hydronephrosis. 3. Hypodense liver suggesting hepatic steatosis. 4. Borderline splenomegaly. Prescriptions: New ketorolac 10 mg tablet 10 mg PO TID PRN (Reason: pain) 5 Days Qty: 15 0RF Rx Instructions: Tolerated IM or IV in department No Action lidocaine [Lidoderm] 5 % adhesive patch,medicated 1 patch topical DAILY Qty: 15 0RF Rx Instructions: leave on most painful area for up to 12 hrs lisinopril 10 mg tablet 10 mg PO DAILY 90 Days Qty: 90 1RF rosuvastatin 10 mg tablet 10 mg PO DAILY 90 Days Qty: 90 1RF naproxen 500 mg tablet 500 mg PO BID Qty: 20 0RF naproxen 500 mg tablet 500 mg PO Q8-12H PRN (Reason: pain (scale score 4-6)) Qty: 20 0RF lidocaine 5 % ointment 1 appl topical QID PRN (Reason: pain) 15 Days Qty: 60 1RF tizanidine 4 mg tablet 4 mg PO BEDTIME PRN (Reason: low back pain) 30 Days Qty: 30 3RF hydrocortisone [Proctozone-HC] 2.5 % cream with perineal applicator 1 appl NH BID PRN (Reason: hemorrhoids) Qty: 30 3RF Rx Instructions: apply NH BID prn cholecalciferol (vitamin D3) 50 mcg (2,000 unit) tablet 50 mcg PO DAILY 90 Days Qty: 90 1RF pyridoxine (vitamin B6) 50 mg tablet 50 mg PO DAILY 90 Days Qty: 90 3RF doxazosin 4 mg tablet 4 mg PO BEDTIME Qty: 90 3RF Referrals: [facility] [Provider Group] - 2 days Cristhian Han MD [Primary Care Provider] - 2 days Print Language: Hebrew
[2024-09-13 08:16] LABS: Alanine Aminotransferase 41 U/L (0-40); Albumin Level 4.3 g/dL (3.5-5.0); Alkaline Phosphatase 64 U/L (39-117); Anion Gap 15 (12-20); Aspartate Amino Transferase 34 U/L (5-37); Bilirubin Total 0.8 mg/dL (0.0-1.0); Blood Urea Nitrogen 12 mg/dL (9-16); Calcium 9.5 mg/dL (8.4-10.2); Carbon Dioxide 27 mmol/L (22-29); Chloride 105 mmol/L (96-108); Creatinine Clr Calc Pharmacy 83.9; Estimated Glomerular Filt Rate > 60; Glucose Random 165 mg/dL (60-115); Magnesium 1.9 mg/dL (1.6-2.6); Potassium 3.8 mmol/L (3.3-5.1); Sodium 143 mmol/L (135-145)
[2024-09-13 08:21] LABS: Appearance Urine Clear; Color Urine Yellow; Glucose Urine UA Negative (Negative); Leukocyte Esterase Urine Negative (Negative); Nitrite Urine Negative (Negative); Urine Blood Negative (Negative); Urine Ketones Trace mg/dL (Negative); Urine Protein Negative (Neg-Trace)
[2024-09-13 10:42] VITALS: BP 120/70; PULSE 108; RESP 16; TEMP 37.1; O2SAT 94
[2024-09-13 10:59] VITALS: BP 130/78; PULSE 90; RESP 18; TEMP 36.7; O2SAT 97
== END 2024-09-13 11:13 | disposition home or self-care (01) ==
PROVIDERS: Physician Assistant; Emergency Provider Emergency Medicine; PCP Internal Medicine
DX: R10.9 Unspecified abdominal pain (principal); I10 Essential (primary) hypertension; E78.00 Pure hypercholesterolemia, unspecified; J45.909 Unspecified asthma, uncomplicated; Z87.442 Personal history of urinary calculi; Z87.891 Personal history of nicotine dependence; Z79.02 Long term (current) use of antithrombotics/antiplatelets; Z79.899 Other long term (current) drug therapy
CPT/HCPCS: 36415; 74176; 80053; 81003; 83735; 85025; 96361; 96374; 96375; 99284; 99285; J1885; J2270

== ENCOUNTER 2024-09-18 18:00 | Emergency (ER) | payer OTHER, SELFPAY ==
--- NOTE | ~2024-09-18 | CT_ITS ---
EXAMINATION: CT ABDOMEN AND PELVIS WITHOUT CONTRAST CLINICAL INFORMATION: Left flank and abdominal pain COMPARISON: CT abdomen and pelvis 09/13/2024 TECHNIQUE: Multidetector volumetric imaging was performed from the superior aspect of the liver through the pubic symphysis. Sagittal and coronal reformatted images were obtained on the technologist's workstation. This CT examination was performed using dose optimization techniques as appropriate, variously including the following: *Automated exposure control *Adjustment of mA and/or kV according to patient size (this includes techniques or standardized protocols for targeted exams where dose is matched to indication/reason for exam; i.e. extremities or head) *Use of iterative reconstruction technique DLP: 667 mGy-cm FINDINGS: LUNG BASES: Calcified granuloma present in the right middle lobe. A peripheral bleb is present at the right lung base. No effusions or consolidations. LIVER, GALLBLADDER, AND BILIARY TREE: The liver is enlarged at 19 cm and demonstrates minimally decreased attenuation suggesting steatosis in size, shape, and attenuation. No focal hepatic lesion or biliary ductal dilatation is present. The gallbladder is unremarkable with no evidence of radiopaque gallstones, gallbladder wall thickening, or obvious pericholecystic inflammatory changes. PANCREAS: Unremarkable. SPLEEN: Unremarkable. ADRENAL GLANDS: There is a 1.9 cm fat attenuation right adrenal adenoma which needs no additional imaging or follow-up. Left adrenal unremarkable. KIDNEYS AND URETERS: The kidneys are normal in size, shape, and attenuation. There is a 4.4 x 3.0 mm nonobstructing left upper pole renal calculus along with a nonobstructing 3 mm right lower pole calculus. There is no hydronephrosis, hydroureter, or ureteral calculi seen. No perinephric stranding. BLADDER: Unremarkable. GASTROINTESTINAL TRACT: The small and large bowel are unremarkable. The appendix is unremarkable. ABDOMINAL WALL: Tiny periumbilical hernia contains only fat. There is diastases of the rectus muscles in the epigastrium. LYMPH NODES: No retroperitoneal lymphadenopathy. VASCULAR: Minimal calcific atherosclerotic changes are present in the aorta and iliofemoral vessels. There is no evidence of an abdominal aortic aneurysm. The left renal vein is retroaortic PELVIC VISCERA: There is mild BPH with normal-appearing seminal vesicles. OSSEOUS STRUCTURES: Unremarkable. Mild degenerative changes are present. CT/CT abdomen pelvis wo IV con IMPRESSION: 1. A cause for the patient's left flank and abdominal pain has not been found. 2. Incidental note made of an enlarged fatty liver, benign right adrenal adenoma which needs no additional imaging or follow-up, bilateral nonobstructing renal calculi, mild BPH and other findings described above. Fleischner guidelines were followed. Electronically signed by: Dominik Matta MD 09/18/2024 07:25 PM [facility]
[2024-09-18 18:06] VITALS: BP 159/87; PULSE 96; RESP 20; TEMP 36.3; O2SAT 97; BMI 34.3
--- NOTE | 2024-09-18 18:07 | ED.ABDPAIN ---
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 Patient was seen here 5 days ago for similar complaint. He had a CT scan, labs and a urinalysis. All this was reassuring and the patient is ultimately discharged home with ketorolac. He reports this has not helped his pain and he presents for worsening left lower back pain. He reports his pain is improved while lying on a right lateral decubitus position. His pain is worse when he is walking or lying in his back He denies any nausea vomiting, diarrhea, urinary complaints His pain is at worst 10/10 He denies any fevers or chills Related Data Previous Rx's ?Medication ?Instructions ?Recorded hydrocortisone 2.5 % topical cream 1 appl [place] BID PRN hemorrhoids #30 02/10/21 with perineal applicator grams (Proctozone-HC) tizanidine 4 mg tablet 4 mg PO BEDTIME PRN low back pain 10/02/23 30 days #30 tabs naproxen 500 mg tablet 500 mg PO Q8-12H PRN pain (scale 04/14/24 score 4-6) #20 tabs lidocaine 5 % topical patch 1 patch topical DAILY #15 ea 04/18/24 (Lidoderm) lidocaine 5 % topical ointment 1 appl topical QID PRN pain 15 05/01/24 days #60 grams naproxen 500 mg tablet 500 mg PO BID #20 tabs 06/02/24 doxazosin 4 mg tablet 4 mg PO BEDTIME #90 tabs 07/17/24 pyridoxine (vitamin B6) 50 mg 50 mg PO DAILY 90 days #90 tabs 07/17/24 tablet lisinopril 10 mg tablet 10 mg PO DAILY 90 days #90 tabs 07/27/24 cholecalciferol (vitamin D3) 50 50 mcg PO DAILY 90 days #90 tabs 09/03/24 mcg (2,000 unit) tablet rosuvastatin 10 mg tablet 10 mg PO DAILY 90 days #90 tabs 09/12/24 ketorolac 10 mg tablet 10 mg PO TID PRN pain 5 days #15 09/13/24 tabs oxycodone 5 mg tablet 5 mg PO Q6H PRN pain #12 tabs 09/19/24 prednisone 20 mg tablet 40 mg (2 x 20 mg) PO DAILY #10 tabs 09/19/24 Allergies Allergy/AdvReac Type Severity Reaction Status Date / Time Penicillins Allergy Intermediate PASSED Verified 09/18/24 18:08 OUT atorvastatin AdvReac Intermediate blurring Verified 09/18/24 18:08 of vision gabapentin AdvReac Intermediate Dizziness Verified 09/18/24 18:08 simvastatin AdvReac Intermediate blurring Verified 09/18/24 18:08 of vision tamsulosin AdvReac Intermediate Dizziness Verified 09/18/24 18:08 Review of Systems Constitutional: Denies body ache(s), Denies chills and Denies fever(s) Eyes: Denies blurry vision Denies vertigo, Denies dizziness and Denies sore throat Cardiovascular: Denies chest pain Gastrointestinal: Denies abdominal pain, Denies nausea and Denies vomiting Genitourinary: Denies oliguria and Denies flank pain Musculoskeletal: Reports back pain, Denies arthralgias and Denies joint swelling Skin/Breast: Denies rash Denies vertigo and Denies dizziness Psychiatric: Denies anxiety PMFSH Past Medical History Medical History Benign prostatic hyperplasia with lower urinary tract symptoms Vitamin D deficiency Neuropathy Hemorrhoids Chronic constipation Obesity (BMI 30-39.9) Benign essential hypertension Pure hypercholesterolemia Peripheral neuropathy History of back pain Hx of hepatitis Amputation of thumb, left DJD (degenerative joint disease) of cervical spine DDD (degenerative disc disease), lumbar Hx of vertigo Asthma Myocardial infarction CAD (coronary artery disease) Surgical History Hx of hand surgery History of amputation of both great toes Hx of cystoscopy History of surgery on left wrist History of circumcision History of rhinoplasty Hx of colonoscopy Family History Family History Unknown No family history of colorectal cancer Social History Social History Household Members: None Housing: House Alcohol intake: never Patient Tobacco Use Status: Former Tobacco user Smoked in Last 30 Days: No e-Cigarette/Vaping Use: Never Used Second Hand Smoke Exposure: Yes Use of substances other than those prescribed or required for medical reasons: No Advance Directives: No Advance Directives Information Provided: Yes service: No Current occupational status: retired Cognitive needs: No Hearing needs: Yes (? B/L hearing loss) Vision needs: Yes Physical Exam ED Vital Signs: Vital Signs - 24 hr 09/18/24 18:06 09/18/24 22:50 Temperature 97.4 F 100 F Pulse Rate 96 81 Respiratory Rate 20 22 H Blood Pressure 159/87 H 130/58 L Pulse Oximetry 97 94 Oxygen Delivery Method Room Air Room Air BMI result Body Mass Index 34.3 Const General: healthy appearing, comfortable, no acute distress, alert and awake Nutritional Appearance: well nourished Orientation/consciousness: patient oriented x3 HENMT Head: Yes normocephalic and Yes atraumatic Throat: Yes posterior oropharynx normal Eyes Eyelids: Yes eyelids normal Conjunctivae: conjunctivae normal Sclerae: sclerae normal Corneas: corneas normal Pupils: Equal, round and reactive pupils present EOM: EOMs intact bilaterally Neck Neck: Yes full ROM Resp Effort & Inspection: normal respiratory effort, able to speak in complete sentences and not labored GI Inspection: No distended Palpation (GI): Soft to palpation, not firm, nontender, no guarding and not rigid Back/Spine/Pelvis Other: Patient is quite tender in the left lumbar sacral region. There is no vertebral tenderness, step-off deformities. He has a positive straight leg raise on left. Skin General skin exam: elasticity normal Neuro General: patient oriented x3 Cranial nerves: Yes Equal, round and reactive pupils present and Yes Bilaterally intact EOM present Cognition (Neuro): normal cognition Extrem Other: Moving all extremities well without any obvious deformities Course Course Course Narrative: This is a Rapid Medical Exam performed in triage by Aniya Oconnell PA-C. Full HPI, ROS and PE to be performed by primary ED provider. 64yo M w/pmhx asthma, CAD, HLD, presenting to the ED c/o intermittent L flank pain/ L sided abdominal pain x8 days w/ nausea. Admits pain feels similar to prior stones. Denies vomiting, urinary sx, testicular pain PE: uncomfortable, +L CVAT/LLQ Plan: labs, UA, CT, Toradol given in Triage Medical Decision Making Medical Decision Making [facility] Narrative: 64-year-old male past medical history significant for BPH, nephrolithiasis, asthma, hemorrhoids, chronic constipation, obesity, hypertension, hyperlipidemia, coronary artery disease presents for evaluation of left lower back pain. On exam his pain is quite reproducible in the left lumbosacral region, it is a positive straight leg raise. This is most consistent with lumbar radiculopathy versus muscle spasm. He has no abdominal pain or tenderness on exam. His labs are quite reassuring. Today CT scan ordered in triage that does not show any acute findings. Urinalysis is pending. Does have a history of chronic pyelonephritis swab sure to get a urinalysis prior to discharge. We will treat the patient's pain with the oxycodone as he has had no improvement with ketorolac at home Differential Diagnosis Differential Diagnoses: The differential diagnosis associated with the presentation includes Lumbar radiculopathy Back pain Sciatica Muscle strain Contusion Pyelonephritis UTI Obstructive uropathy Constipation Lab Data [facility] Lab Attestation statement: I reviewed the patient's lab results. No leukocytosis or anemia. Normal platelet count. Patient's potassium is just below normal at 3.2, no other significant electrolyte abnormalities. 09/18/24 18:26 09/18/24 18:26 Labs: Lab Results 09/18/24 09/19/24 Range/Units 18:26 00:09 WBC 8.8 (4.8-10.8) X10*3/uL RBC 4.94 (4.60-5.80) X10*6/uL Hgb 15.4 (14.0-18.0) g/dl Hct 43.2 (42.0-52.0) % MCV 87.4 (80.0-98.0) fL MCH 31.2 (27.0-33.0) pg MCHC 35.6 (31.0-36.0) g/dl RDW 12.6 (11.0-16.0) % Plt Count 314 (160-400) X10*3/uL MPV 9.4 (9.4-12.4) fL Immature Gran % (Auto) 0.5 H (0.0-0.4) % Neut % (Auto) 66.3 (45-73) % Lymph % (Auto) 25.6 (20-40) % Hopkins % (Auto) 6.9 (2-11) % Eos % (Auto) 0.2 (0-4) % Baso % (Auto) 0.5 (0-2) % Lymph # (Auto) 2.3 (1.2-4.9) X10*3/uL Hopkins # (Auto) 0.6 (0.1-1.2) X10*3/uL Eos # (Auto) 0.0 (0.0-0.4) X10*3/uL Baso # (Auto) 0.0 (0.0-0.2) X10*3/uL Abs Immat Gran (auto) 0.04 H (0.00-0.03) X10*3/uL Absolute Neuts (auto) 5.8 (2.0-8.3) x10*3/uL Absolute Nucleated RBC 0.000 (0.0-0.012) X10*3/uL Nucleated RBC % (auto) 0.0 (0.0-0.2) /100WBC Sodium 140 (135-145) mmol/L Potassium 3.2 L (3.3-5.1) mmol/L Chloride 101 (96-108) mmol/L Carbon Dioxide 29 (22-29) mmol/L Anion Gap 13 (12-20) BUN 22 H (9-16) mg/dL Creatinine 1.09 (0.5-1.4) mg/dL Estim Creat Clear Calc 82.1 Estimated GFR > 60 Random Glucose 110 (60-115) mg/dL Calcium 9.2 (8.4-10.2) mg/dL Magnesium 2.3 (1.6-2.6) mg/dL Total Bilirubin 0.6 (0.0-1.0) mg/dL Direct Bilirubin 0.2 (0.0-0.5) mg/dL AST 35 (5-37) U/L ALT 43 H (0-40) U/L Alkaline Phosphatase 59 (39-117) U/L Total Protein 7.1 (6.5-8.0) g/dL Albumin 4.4 (3.5-5.0) g/dL Lipase 36 (8-78) U/L Urine Color Dark Yellow Urine Appearance Turbid Urine pH 5.5 (5.0-9.0) Ur Specific [place] >= 1.030 H (1.005-1.025) Urine Protein Trace (Neg-Trace) mg/dL Urine Glucose (UA) Negative (Negative) mg/dL Urine Ketones Trace (Negative) mg/dL Urine Blood Negative (Negative) Urine Nitrite Negative (Negative) Ur Leukocyte Esterase Negative (Negative) Independent Interpretation I performed an independent interpretation of an: CT Scan Interpretation: Agree with Radiology interpretation Radiology Impression Discussion of test interpretation with radiology: I have reviewed the radiologist's reading. Radiologist Impression: FINDINGS: LUNG BASES: Calcified granuloma present in the right middle lobe. A peripheral bleb is present at the right lung base. No effusions or consolidations. LIVER, GALLBLADDER, AND BILIARY TREE: The liver is enlarged at 19 cm and demonstrates minimally decreased attenuation suggesting steatosis in size, shape, and attenuation. No focal hepatic lesion or biliary ductal dilatation is present. The gallbladder is unremarkable with no evidence of radiopaque gallstones, gallbladder wall thickening, or obvious pericholecystic inflammatory changes. PANCREAS: Unremarkable. SPLEEN: Unremarkable. ADRENAL GLANDS: There is a 1.9 cm fat attenuation right adrenal adenoma which needs no additional imaging or follow-up. Left adrenal unremarkable. KIDNEYS AND URETERS: The kidneys are normal in size, shape, and attenuation. There is a 4.4 x 3.0 mm nonobstructing left upper pole renal calculus along with a nonobstructing 3 mm right lower pole calculus. There is no hydronephrosis, hydroureter, or ureteral calculi seen. No perinephric stranding. BLADDER: Unremarkable. GASTROINTESTINAL TRACT: The small and large bowel are unremarkable. The appendix is unremarkable. ABDOMINAL WALL: Tiny periumbilical hernia contains only fat. There is diastases of the rectus muscles in the epigastrium. LYMPH NODES: No retroperitoneal lymphadenopathy. VASCULAR: Minimal calcific atherosclerotic changes are present in the aorta and iliofemoral vessels. There is no evidence of an abdominal aortic aneurysm. The left renal vein is retroaortic PELVIC VISCERA: There is mild BPH with normal-appearing seminal vesicles. OSSEOUS STRUCTURES: Unremarkable. Mild degenerative changes are present. CT/CT abdomen pelvis wo IV con IMPRESSION: 1. A cause for the patient's left flank and abdominal pain has not been found. 2. Incidental note made of an enlarged fatty liver, benign right adrenal adenoma which needs no additional imaging or follow-up, bilateral nonobstructing renal calculi, mild BPH and other findings described above. Fleischner guidelines were followed. Electronically signed by: Dominik Matta MD 09/18/2024 07:25 PM [facility] [place]ations Administered Discontinued Medications Generic Name Dose Route Start Last Admin Trade Name Freq PRN Reason Stop Dose Admin Ketorolac Tromethamine 30 mg 09/18/24 18:08 09/18/24 18:13 Ketorolac Tromethamine 30 Mg/Ml Vial IM 09/18/24 18:09 30 mg ONCE ONE Administration Oxycodone HCl 5 mg 09/18/24 23:38 09/19/24 00:08 Oxycodone Hcl Immed Release 5 Mg Tablet PO 09/18/24 23:39 5 mg ONCE ONE Administration Potassium Chloride 40 meq 09/18/24 23:57 09/19/24 00:09 Potassium Chloride Er 20 Meq Tab.Er.Prt PO 09/18/24 23:58 40 meq ONCE ONE Administration Discharge Plan Discharge Clinical Impression: Low back pain Patient Disposition: Home, Self-Care Instructions: Acute Low Back Pain (ED) Additional Instructions: Your workup in the ER today was reassuring. This includes your blood work, your urinalysis. Your CT scan does show small stones in your kidney, however these do not cause any problem unless they leave the kidney. These are not causing your pain. Your pain is most likely musculoskeletal in origin. You may use ibuprofen and Tylenol for discomfort. You may use oxycodone for more severe, breakthrough pain. This may make you drowsy, do not drink alcohol or drive after taking it Take prednisone 40 mg daily for the next 5 days Prescriptions: New oxycodone 5 mg tablet 5 mg PO Q6H PRN (Reason: pain) Qty: 12 0RF Rx Instructions: Partial Fill upon patient request. prednisone 20 mg tablet 40 mg PO DAILY Qty: 10 0RF No Action lidocaine [Lidoderm] 5 % adhesive patch,medicated 1 patch topical DAILY Qty: 15 0RF Rx Instructions: leave on most painful area for up to 12 hrs lisinopril 10 mg tablet 10 mg PO DAILY 90 Days Qty: 90 1RF rosuvastatin 10 mg tablet 10 mg PO DAILY 90 Days Qty: 90 1RF naproxen 500 mg tablet 500 mg PO BID Qty: 20 0RF ketorolac 10 mg tablet 10 mg PO TID PRN (Reason: pain) 5 Days Qty: 15 0RF Rx Instructions: Tolerated IM or IV in department naproxen 500 mg tablet 500 mg PO Q8-12H PRN (Reason: pain (scale score 4-6)) Qty: 20 0RF lidocaine 5 % ointment 1 appl topical QID PRN (Reason: pain) 15 Days Qty: 60 1RF tizanidine 4 mg tablet 4 mg PO BEDTIME PRN (Reason: low back pain) 30 Days Qty: 30 3RF hydrocortisone [Proctozone-HC] 2.5 % cream with perineal applicator 1 appl IL BID PRN (Reason: hemorrhoids) Qty: 30 3RF Rx Instructions: apply IL BID prn cholecalciferol (vitamin D3) 50 mcg (2,000 unit) tablet 50 mcg PO DAILY 90 Days Qty: 90 1RF pyridoxine (vitamin B6) 50 mg tablet 50 mg PO DAILY 90 Days Qty: 90 3RF doxazosin 4 mg tablet 4 mg PO BEDTIME Qty: 90 3RF Print Language: Polish
[2024-09-18] MEDS: Ketorolac Tromethamine 30 MG/ML VIAL IM (18:13)
[2024-09-18 18:37] LABS: MANUAL DIFF FLAG NO
[2024-09-18 18:47] LABS: Basophils Percent Auto 0.5 % (0-2); Eosinophils Percent Auto 0.2 % (0-4); Hematocrit 43.2 % (42.0-52.0); Hemoglobin 15.4 g/dl (14.0-18.0); Imm Gran Abs Auto 0.04 X10*3/uL (0.00-0.03); Imm Gran Pct Auto 0.5 % (0.0-0.4); Lymphocytes Absolute Auto 2.3 X10*3/uL (1.2-4.9); Lymphocytes Percent Auto 25.6 % (20-40); Mean Corpuscular HGB Conc 35.6 g/dl (31.0-36.0); Mean Corpuscular Hemoglobin 31.2 pg (27.0-33.0); Mean Corpuscular Volume 87.4 fL (80.0-98.0); Mean Platelet Volume 9.4 fL (9.4-12.4); Monocytes Absolute Auto 0.6 X10*3/uL (0.1-1.2); Monocytes Percent Auto 6.9 % (2-11); Neutrophils Absolute Auto 5.8 x10*3/uL (2.0-8.3); Neutrophils Percent Auto 66.3 % (45-73); Platelet Count 314 X10*3/uL (160-400); Red Blood Count 4.94 X10*6/uL (4.60-5.80); Red Cell Distribution Width 12.6 % (11.0-16.0); White Blood Count 8.8 X10*3/uL (4.8-10.8)
[2024-09-18 19:01] LABS: Albumin Level 4.4 g/dL (3.5-5.0); Alkaline Phosphatase 59 U/L (39-117); Anion Gap 13 (12-20); Aspartate Amino Transferase 35 U/L (5-37); Bilirubin Direct 0.2 mg/dL (0.0-0.5); Bilirubin Total 0.6 mg/dL (0.0-1.0); Blood Urea Nitrogen 22 mg/dL (9-16); Calcium 9.2 mg/dL (8.4-10.2); Carbon Dioxide 29 mmol/L (22-29); Chloride 101 mmol/L (96-108); Creatinine Clr Calc Pharmacy 82.1; Estimated Glomerular Filt Rate > 60; Glucose Random 110 mg/dL (60-115); Lipase 36 U/L (8-78); Magnesium 2.3 mg/dL (1.6-2.6); Potassium 3.2 mmol/L (3.3-5.1); Sodium 140 mmol/L (135-145); Total Protein 7.1 g/dL (6.5-8.0)
[2024-09-18 19:12] LABS: Alanine Aminotransferase 43 U/L (0-40)
[2024-09-18 22:50] VITALS: BP 130/58; PULSE 81; RESP 22; TEMP 37.7; O2SAT 94
[2024-09-19] MEDS: oxyCODONE HCl Immed Release 5 MG TABLET PO (00:08)
[2024-09-19] MEDS: Potassium Chloride ER 20 MEQ TAB.ER.PRT 40 MEQ PO (00:09)
[2024-09-19 00:19] LABS: Appearance Urine Turbid; Color Urine Dark Yellow; Glucose Urine UA Negative (Negative); Leukocyte Esterase Urine Negative (Negative); Nitrite Urine Negative (Negative); PH 5.5 (5.0-9.0); Specific Gravity - Urine >= 1.030 (1.005-1.025); Urine Blood Negative (Negative); Urine Ketones Trace mg/dL (Negative); Urine Protein Trace mg/dL (Neg-Trace)
[2024-09-19 00:41] VITALS: BP 134/63; PULSE 74; RESP 16; TEMP 36.7; O2SAT 95
[2024-09-19 01:06] VITALS: BP 134/63; PULSE 74; RESP 16; TEMP 36.7; O2SAT 95
== END 2024-09-19 01:07 | disposition home or self-care (01) ==
PROVIDERS: Physician Assistant; Emergency Provider Emergency Medicine; PCP Internal Medicine
DX: M54.50 Low back pain, unspecified (principal); R10.2 Pelvic and perineal pain; Z79.899 Other long term (current) drug therapy
CPT/HCPCS: 36415; 74176; 80048; 80076; 81003; 83690; 83735; 85025; 96372; 99284; J1885

== ENCOUNTER 2024-09-25 09:53 | Emergency (ER) | payer OTHER, SELFPAY ==
--- NOTE | ~2024-09-25 | CT_ITS ---
EXAMINATION: CT ABDOMEN AND PELVIS WITHOUT CONTRAST CLINICAL INFORMATION: Left flank pain COMPARISON: CT dated September 18, 2024. TECHNIQUE: Multidetector volumetric imaging was performed from the superior aspect of the liver through the pubic symphysis. Sagittal and coronal reformatted images were obtained on the technologist's workstation. This CT examination was performed using dose optimization techniques as appropriate, variously including the following: *Automated exposure control *Adjustment of mA and/or kV according to patient size (this includes techniques or standardized protocols for targeted exams where dose is matched to indication/reason for exam; i.e. extremities or head) *Use of iterative reconstruction technique DLP: 789 mGy-cm FINDINGS: Limited examination of the intra-abdominal organs and vascular structures due to lack of IV contrast. 12 mm thin-walled cystic structure right lung base. LIVER, GALLBLADDER, AND BILIARY TREE: Liver measures 20 cm. Decreased attenuation throughout the parenchyma. No intrahepatic or extrahepatic biliary ductal dilatation. Contracted gallbladder without pericholecystic fluid collection or gallbladder thickening. PANCREAS: No peripancreatic edema pattern. No main pancreatic ductal dilatation. SPLEEN: 9 cm. ADRENAL GLANDS: There is a 1.7 cm well-defined ovoid shaped low density nodule measuring -1 Hounsfield units in the right adrenal gland. No nodular lesions in the left adrenal gland. KIDNEYS AND URETERS: 1.5 mm calculus in the lower pole right pelvicalyceal system. No hydronephrosis. 2 mm calculus in the upper pole midportion of the pelvicalyceal system, left kidney. No hydronephrosis. Questionable 4 mm exophytic cyst in the anterior midportion lower junction of the left kidney. BLADDER: Fluid-filled. GASTROINTESTINAL TRACT: Appendix is normal. No intestinal obstruction pattern. No pneumatosis intestinalis. No pneumoperitoneum. No ascites. ABDOMINAL WALL: Small tiny fat-containing umbilical hernia. LYMPH NODES: No gross lymphadenopathy. 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 Calcified plaques abdominal aorta wall without aneurysm. Calcified plaques in the iliac arteries. PELVIC VISCERA: Nonenlarged prostate gland or seminal vesicles. OSSEOUS STRUCTURES: Multilevel thoracolumbar spondylosis. Dextroconvex rotoscoliosis apex at L2-3. Focal blastic lesions in the posterior right iliac bone likely benign bony island. Bilateral neuroforamina narrowing/stenosis from L3-4 to L5-S1 on a degenerative basis. CT/CT abdomen pelvis wo IV con IMPRESSION: Nonobstructing nephrolithiasis, bilaterally. Hepatomegaly and likely steatosis. Small fat-containing umbilical hernia. Multilevel thoracolumbar spondylosis resulting in bilateral neuroforamina stenosis, L3-4 to L5-S1. 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 Fleischner guidelines were followed. Electronically signed by: Bryson Gonzales MD 09/25/2024 11:18 AM CORIE
[2024-09-25 09:55] VITALS: BP 125/67; PULSE 115; RESP 20; TEMP 36.4; O2SAT 98; BMI 33.0
--- NOTE | 2024-09-25 10:04 | ED_ITS ---
HPI - Abdominal Pain General Chief Complaint: Abdominal Pain Stated Complaint: L side pain Time Seen by Provider: 09/25/24 09:57 Source: patient, RN notes reviewed, old records reviewed and deaf interpreter Mode of arrival: ambulatory Limitations: no limitations History of Present Illness ED Provider: Prieto Brown PA-C HPI narrative: 64 yo Lithuanian speaking male with history of BPH, kidney stones, history of chronic pyelonephritis, HTN, HLD, diverticulosis who presents to the ER for evaluation of left sided flank pain for the last 3 weeks. He states he was seen here twice earlier this month and told he had kidney stones one time and then told he didn't the next. He states he has been taking oxycodone, tylenol, ketoralac with no relief. he reports the pain is constant. it is in his left flank and radiates to his left lower quadrant. he has no urinary symptoms, N/V/D or change in BM. no fever or chills. He also reports back pain that is chronic and at its baseline. MD elicited complaint: flank pain Pertinent past history: kidney stones Onset (ago): week(s) Pain Consistency: constant Location: L flank Severity: severe Quality: stabbing Radiation: LLQ Exacerbating factors: movement Relieving factors: nothing Associated symptoms: denies other symptoms Treatments prior to arrival: NSAIDs Related Data Previous Rx's ?Medication ?Instructions ?Recorded hydrocortisone 2.5 % topical cream 1 appl SC BID PRN hemorrhoids #30 02/10/21 with perineal applicator grams (Proctozone-HC) tizanidine 4 mg tablet 4 mg PO BEDTIME PRN low back pain 10/02/23 30 days #30 tabs naproxen 500 mg tablet 500 mg PO Q8-12H PRN pain (scale 04/14/24 score 4-6) #20 tabs lidocaine 5 % topical patch 1 patch topical DAILY #15 ea 04/18/24 (Lidoderm) lidocaine 5 % topical ointment 1 appl topical QID PRN pain 15 05/01/24 days #60 grams naproxen 500 mg tablet 500 mg PO BID #20 tabs 06/02/24 doxazosin 4 mg tablet 4 mg PO BEDTIME #90 tabs 07/17/24 pyridoxine (vitamin B6) 50 mg 50 mg PO DAILY 90 days #90 tabs 07/17/24 tablet lisinopril 10 mg tablet 10 mg PO DAILY 90 days #90 tabs 07/27/24 cholecalciferol (vitamin D3) 50 50 mcg PO DAILY 90 days #90 tabs 09/03/24 mcg (2,000 unit) tablet rosuvastatin 10 mg tablet 10 mg PO DAILY 90 days #90 tabs 09/12/24 ketorolac 10 mg tablet 10 mg PO TID PRN pain 5 days #15 09/13/24 tabs oxycodone 5 mg tablet 5 mg PO Q6H PRN pain #12 tabs 09/19/24 prednisone 20 mg tablet 40 mg (2 x 20 mg) PO DAILY #10 tabs 09/19/24 prednisone 20 mg tablet 40 mg (2 x 20 mg) PO DAILY #10 tabs 09/25/24 Allergies Allergy/AdvReac Type Severity Reaction Status Date / Time Penicillins Allergy Intermediate PASSED Verified 09/25/24 09:58 OUT atorvastatin AdvReac Intermediate blurring Verified 09/25/24 09:58 of vision gabapentin AdvReac Intermediate Dizziness Verified 09/25/24 09:58 simvastatin AdvReac Intermediate blurring Verified 09/25/24 09:58 of vision tamsulosin AdvReac Intermediate Dizziness Verified 09/25/24 09:58 Review of Systems Review of Systems Yes all other systems are reviewed and are negative PMF Past Medical History Medical History Benign prostatic hyperplasia with lower urinary tract symptoms Vitamin D deficiency Neuropathy Hemorrhoids Chronic constipation Obesity (BMI 30-39.9) Benign essential hypertension Pure hypercholesterolemia Peripheral neuropathy History of back pain Hx of hepatitis Amputation of thumb, left DJD (degenerative joint disease) of cervical spine DDD (degenerative disc disease), lumbar Hx of vertigo Asthma Myocardial infarction CAD (coronary artery disease) Surgical History Hx of hand surgery History of amputation of both great toes Hx of cystoscopy History of surgery on left wrist History of circumcision History of rhinoplasty Hx of colonoscopy Family History Family History Unknown No family history of colorectal cancer Social History Social History Household Members: None Housing: House Alcohol intake: never Patient Tobacco Use Status: Former Tobacco user e-Cigarette/Vaping Use: Never Used Second Hand Smoke Exposure: Yes service: No Current occupational status: retired Cognitive needs: No Hearing needs: Yes (? B/L hearing loss) Vision needs: Yes Physical Exam ED Vital Signs: Vital Signs - 24 hr 09/25/24 09:55 09/25/24 11:19 09/25/24 11:57 Temperature 97.6 F 98.5 F Pulse Rate 115 H 92 Respiratory Rate 20 16 16 Blood Pressure 125/67 134/84 Pulse Oximetry 98 95 Oxygen Delivery Method Room Air Room Air 09/25/24 13:58 09/25/24 14:10 Temperature 98.2 F 98.2 F Pulse Rate 107 H 107 H Respiratory Rate 16 16 Blood Pressure 115/83 115/83 Pulse Oximetry 96 96 Oxygen Delivery Method Room Air Room Air BMI result Body Mass Index 33.0 Appearance: Alert. Oriented X3. uncomfortable, laying on his right side. Head: normocephalic, atraumatic. Eyes: Pupils equal, round and reactive to light. ENT: Pharynx normal. No tonsillar swelling or exudate. Neck: Normal inspection. Neck supple. CVS: Normal heart rate and rhythm. Pulses normal. Respiratory: No respiratory distress. Breath sounds normal. Abdomen: Soft with exquisite tenderness of the LLQ with guarding, normal active +BS x4. CVA tenderness on the left, severe Skin: Skin warm and dry. Normal skin color. Normal skin turgor. No rashes. Extremities: No lower extremity edema. No joint swelling. left lateral hip tenderness. Neuro/psych: Oriented X 3. No motor deficit. No sensory deficit. CN II-XII intact. Normal speech and cognition. slow but steady gait Medical Decision Making Medical Decision Making MDM Narrative: 64 yo male presenting with left flank pain radiating to the left lower quadrant for the last 3 weeks. exam w/ significant tenderness of the left flank, LLQ and iliac crest. he is very uncomfortable. IV established and given 1mg IV dilaudid with improvement. labs and UA are normal given his LLQ pain as well a repeat CT scan was done. this does not show any acute findings. he does have multilevel spondylosis of the thoracolumbar spine. ?radicular pain no evidence of ureteral stone, UTI, diverticulitis. will treat with coarse of steroids will refer to PCP for close follow up. stable for d/c home Differential Diagnosis Differential Diagnoses: The differential diagnosis associated with the presentation includes ureteral stone, hydronephrosis, UTI, pyelonephritis, shingles, diverticulitis, perforation Admission/Observation Consideration of admission/observation: Escalation of care including admission/observation considered Lab Data MDM Lab Attestation statement: I reviewed the patient's lab results. 09/25/24 11:14 09/25/24 11:14 Labs: Lab Results 09/25/24 Range/Units 11:14 WBC 7.7 (4.8-10.8) X10*3/uL RBC 4.82 (4.60-5.80) X10*6/uL Hgb 15.3 (14.0-18.0) g/dl Hct 42.9 (42.0-52.0) % MCV 89.0 (80.0-98.0) fL MCH 31.7 (27.0-33.0) pg MCHC 35.7 (31.0-36.0) g/dl RDW 12.2 (11.0-16.0) % Plt Count 285 (160-400) X10*3/uL MPV 9.3 L (9.4-12.4) fL Immature Gran % (Auto) 0.3 (0.0-0.4) % Neut % (Auto) 64.0 (45-73) % Lymph % (Auto) 26.0 (20-40) % [place] % (Auto) 7.3 (2-11) % Eos % (Auto) 2.1 (0-4) % Baso % (Auto) 0.3 (0-2) % Lymph # (Auto) 2.0 (1.2-4.9) X10*3/uL [place] # (Auto) 0.6 (0.1-1.2) X10*3/uL Eos # (Auto) 0.2 (0.0-0.4) X10*3/uL Baso # (Auto) 0.0 (0.0-0.2) X10*3/uL Abs Immat Gran (auto) 0.02 (0.00-0.03) X10*3/uL Absolute Neuts (auto) 5.0 (2.0-8.3) x10*3/uL Absolute Nucleated RBC 0.000 (0.0-0.012) X10*3/uL Nucleated RBC % (auto) 0.0 (0.0-0.2) /100WBC Sodium 141 (135-145) mmol/L Potassium 3.7 (3.3-5.1) mmol/L Chloride 100 (96-108) mmol/L Carbon Dioxide 32 H (22-29) mmol/L Anion Gap 13 (12-20) BUN 13 (9-16) mg/dL Creatinine 1.05 (0.5-1.4) mg/dL Estim Creat Clear Calc 83.7 Estimated GFR > 60 Random Glucose 100 (60-115) mg/dL Calcium 9.9 D (8.4-10.2) mg/dL Magnesium 2.4 (1.6-2.6) mg/dL Total Bilirubin 0.7 (0.0-1.0) mg/dL Direct Bilirubin 0.2 (0.0-0.5) mg/dL AST 29 (5-37) U/L ALT 49 H (0-40) U/L Alkaline Phosphatase 55 (39-117) U/L Total Protein 7.1 (6.5-8.0) g/dL Albumin 4.5 (3.5-5.0) g/dL Urine Color Yellow Urine Appearance Clear Urine pH 7.5 (5.0-9.0) Ur Specific [place] 1.010 (1.005-1.025) Urine Protein Negative (Neg-Trace) mg/dL Urine Glucose (UA) Negative (Negative) mg/dL Urine Ketones Negative (Negative) mg/dL Urine Blood Negative (Negative) Urine Nitrite Negative (Negative) Ur Leukocyte Esterase Negative (Negative) Independent Interpretation I performed an independent interpretation of an: CT Scan Interpretation: no acute ureteral stone, no hydro, agree w/ radiology read Radiology Impression Discussion of test interpretation with radiology: I have reviewed the radiologist's reading. Radiologist Impression: CT/CT abdomen pelvis wo IV con IMPRESSION: Nonobstructing nephrolithiasis, bilaterally. Hepatomegaly and likely steatosis. Small fat-containing umbilical hernia. Multilevel thoracolumbar spondylosis resulting in bilateral neuroforamina stenosis, L3-4 to L5-S1. 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 External Record Review External record reviewed: Outpatient record, Prior outpatient labs and Prior outpatient radiology Prescription Management I considered prescription management with: Pain Medication Chronic Conditions Patient?s care impacted by: Other (kidney stones) Medications Administered Discontinued Medications Generic Name Dose Route Start Last Admin Trade Name Freq PRN Reason Stop Dose Admin Hydromorphone HCl 1 mg 09/25/24 10:43 09/25/24 11:19 Hydromorphone Hcl 1 Mg/Ml Syringe IVPUSH 09/25/24 10:44 1 mg ONCE ONE Administration Protocol Critical Care Time Critical Care Time Critical Care Time: No Discharge Plan Discharge Clinical Impression: Left flank pain Patient Disposition: Home, Self-Care Instructions: Flank Pain (ED) Additional Instructions: your labs and urine test were unremarkable your CT scan did not show kidney stones that would be causing your pain you may be suffering from nerve pain take the prescribed steroid medication for the next 5 days follow up with your doctor next week CT/CT abdomen pelvis wo IV con IMPRESSION: Nonobstructing nephrolithiasis, bilaterally. Hepatomegaly and likely steatosis. Small fat-containing umbilical hernia. Multilevel thoracolumbar spondylosis resulting in bilateral neuroforamina stenosis, L3-4 to L5-S1. 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 Prescriptions: New prednisone 20 mg tablet 40 mg PO DAILY Qty: 10 0RF No Action lidocaine [Lidoderm] 5 % adhesive patch,medicated 1 patch topical DAILY Qty: 15 0RF Rx Instructions: leave on most painful area for up to 12 hrs lisinopril 10 mg tablet 10 mg PO DAILY 90 Days Qty: 90 1RF rosuvastatin 10 mg tablet 10 mg PO DAILY 90 Days Qty: 90 1RF naproxen 500 mg tablet 500 mg PO BID Qty: 20 0RF ketorolac 10 mg tablet 10 mg PO TID PRN (Reason: pain) 5 Days Qty: 15 0RF Rx Instructions: Tolerated IM or IV in department naproxen 500 mg tablet 500 mg PO Q8-12H PRN (Reason: pain (scale score 4-6)) Qty: 20 0RF oxycodone 5 mg tablet 5 mg PO Q6H PRN (Reason: pain) Qty: 12 0RF Rx Instructions: Partial Fill upon patient request. prednisone 20 mg tablet 40 mg PO DAILY Qty: 10 0RF lidocaine 5 % ointment 1 appl topical QID PRN (Reason: pain) 15 Days Qty: 60 1RF tizanidine 4 mg tablet 4 mg PO BEDTIME PRN (Reason: low back pain) 30 Days Qty: 30 3RF hydrocortisone [Proctozone-HC] 2.5 % cream with perineal applicator 1 appl SC BID PRN (Reason: hemorrhoids) Qty: 30 3RF Rx Instructions: apply SC BID prn cholecalciferol (vitamin D3) 50 mcg (2,000 unit) tablet 50 mcg PO DAILY 90 Days Qty: 90 1RF pyridoxine (vitamin B6) 50 mg tablet 50 mg PO DAILY 90 Days Qty: 90 3RF doxazosin 4 mg tablet 4 mg PO BEDTIME Qty: 90 3RF Referrals: Cristhian Han MD [Primary Care Provider] - Stand Alone Forms: Work/School Release Interventions: ED Discharge Assessment Last Done: 09/25/24 14:10 Discharge Date/Time: 09/25/24 14:10 Print Language: Lithuanian
[2024-09-25 11:19] VITALS: RESP 16
[2024-09-25 11:19] LABS: MANUAL DIFF FLAG NO
[2024-09-25] MEDS: HYDROmorphone HCl 1 MG/ML SYRINGE IVPUSH (11:19)
[2024-09-25 11:22] LABS: Appearance Urine Clear; Basophils Percent Auto 0.3 % (0-2); Color Urine Yellow; Eosinophils Absolute Auto 0.2 X10*3/uL (0.0-0.4); Eosinophils Percent Auto 2.1 % (0-4); Glucose Urine UA Negative (Negative); Hematocrit 42.9 % (42.0-52.0); Hemoglobin 15.3 g/dl (14.0-18.0); Imm Gran Abs Auto 0.02 X10*3/uL (0.00-0.03); Imm Gran Pct Auto 0.3 % (0.0-0.4); Leukocyte Esterase Urine Negative (Negative); Mean Corpuscular HGB Conc 35.7 g/dl (31.0-36.0); Mean Corpuscular Hemoglobin 31.7 pg (27.0-33.0); Mean Platelet Volume 9.3 fL (9.4-12.4); Monocytes Absolute Auto 0.6 X10*3/uL (0.1-1.2); Monocytes Percent Auto 7.3 % (2-11); Nitrite Urine Negative (Negative); PH 7.5 (5.0-9.0); Platelet Count 285 X10*3/uL (160-400); Red Blood Count 4.82 X10*6/uL (4.60-5.80); Red Cell Distribution Width 12.2 % (11.0-16.0); Urine Blood Negative (Negative); Urine Ketones Negative (Negative); Urine Protein Negative (Neg-Trace); White Blood Count 7.7 X10*3/uL (4.8-10.8)
[2024-09-25 11:38] LABS: Albumin Level 4.5 g/dL (3.5-5.0); Alkaline Phosphatase 55 U/L (39-117); Anion Gap 13 (12-20); Aspartate Amino Transferase 29 U/L (5-37); Bilirubin Direct 0.2 mg/dL (0.0-0.5); Bilirubin Total 0.7 mg/dL (0.0-1.0); Blood Urea Nitrogen 13 mg/dL (9-16); Calcium 9.9 mg/dL (8.4-10.2); Carbon Dioxide 32 mmol/L (22-29); Chloride 100 mmol/L (96-108); Creatinine Clr Calc Pharmacy 83.7; Estimated Glomerular Filt Rate > 60; Glucose Random 100 mg/dL (60-115); Magnesium 2.4 mg/dL (1.6-2.6); Potassium 3.7 mmol/L (3.3-5.1); Sodium 141 mmol/L (135-145); Total Protein 7.1 g/dL (6.5-8.0)
[2024-09-25 11:56] LABS: Alanine Aminotransferase 49 U/L (0-40)
[2024-09-25 11:57] VITALS: BP 134/84; PULSE 92; RESP 16; TEMP 36.9; O2SAT 95
--- NOTE | 2024-09-25 12:07 | PC.NURSE ---
pt resting quietly on exam stretcher, stsates pain is low, much better 3/10 pain scale. pt resting on right side at this time, call bae within reach
[2024-09-25 13:58] VITALS: BP 115/83; PULSE 107; RESP 16; TEMP 36.8; O2SAT 96
[2024-09-25 14:10] VITALS: BP 115/83; PULSE 107; RESP 16; TEMP 36.8; O2SAT 96
== END 2024-09-25 14:10 | disposition home or self-care (01) ==
PROVIDERS: Physician Assistant; Emergency Provider Emergency Medicine; PCP Internal Medicine
DX: R10.2 Pelvic and perineal pain (principal); R10.32 Left lower quadrant pain; M54.50 Low back pain, unspecified; I25.10 Atherosclerotic heart disease of native coronary artery without angina pectoris; Z79.899 Other long term (current) drug therapy
CPT/HCPCS: 36415; 74176; 80048; 80076; 81003; 83735; 85025; 96374; 99284; J1171

== ENCOUNTER → 2024-09-25 10:06 | Outpatient (BNV) | payer OTHER, SELFPAY | PROVIDERS: Emergency Provider Emergency Medicine; PCP Internal Medicine; Visit Provider Radiology Diagnostic Radiology | DX: N20.0 Calculus of kidney (principal); R16.0 Hepatomegaly, not elsewhere classified; K42.9 Umbilical hernia without obstruction or gangrene | CPT/HCPCS: 74176 ==

== ENCOUNTER 2024-10-06 09:17 | Outpatient (AMB) | payer MEDICAID, SELFPAY ==
--- NOTE | 2024-10-06 09:24 | MHC.OFFVIS ---
Intake Visit Reasons: OV - right shoulder pain Intake Note: Yash is a 64 year old right hand dominant male who presents today for a follow up of his right shoulder OA. Patient reports going to PT which gave him relief. He states that his pain slowly started coming back. Patient is having pain in his right shoulder and feels like it is getting a little worse. Director Of Spa And Guest Experience Services: Director Of Spa And Guest Experience Present (Uche ([id number])) Allergies Penicillins Allergy (Intermediate, Verified 10/06/24 09:43) PASSED OUT atorvastatin Adverse Reaction (Intermediate, Verified 10/06/24 09:43) blurring of vision gabapentin Adverse Reaction (Intermediate, Verified 10/06/24 09:43) Dizziness simvastatin Adverse Reaction (Intermediate, Verified 10/06/24 09:43) blurring of vision tamsulosin Adverse Reaction (Intermediate, Verified 10/06/24 09:43) Dizziness Medication List - Last Reconciled 10/06/24 by Bekah Mata PA-C cholecalciferol (vitamin D3) 50 mcg PO DAILY 90 days doxazosin 4 mg PO BEDTIME hydrocortisone 2.5% (Proctozone-HC) 1 appl ND BID PRN ketorolac 10 mg PO TID PRN 5 days lidocaine 5% (Lidoderm) 1 patch topical DAILY lidocaine 5% 1 appl topical QID PRN 15 days lisinopril 10 mg PO DAILY 90 days naproxen 500 mg PO Q8-12H PRN naproxen 500 mg PO BID oxycodone 5 mg PO Q6H PRN prednisone 40 mg (2 x 20 mg) PO DAILY prednisone 40 mg (2 x 20 mg) PO DAILY pyridoxine (vitamin B6) 50 mg PO DAILY 90 days rosuvastatin 10 mg PO DAILY 90 days tizanidine 4 mg PO BEDTIME PRN 30 days HPI HPI OV - right shoulder pain: Details: 64-year-old male who returns to the office today with an [employer] 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 He currently states he has worsening pain in his right shoulder that has started to gradually come back since last 2 weeks. His pain is aggravated at night with sleeping where he needs to sleep on chair. He denies any pain with daily activities. He continues to work on physical therapy with benefits. He does not have a history of diabetes. [facility] Medical History Benign prostatic hyperplasia with lower urinary tract symptoms Vitamin D deficiency Neuropathy Hemorrhoids Chronic constipation Obesity (BMI 30-39.9) Benign essential hypertension Pure hypercholesterolemia Peripheral neuropathy History of back pain Hx of hepatitis Amputation of thumb, left DJD (degenerative joint disease) of cervical spine DDD (degenerative disc disease), lumbar Hx of vertigo Asthma Myocardial infarction CAD (coronary artery disease) Surgical History Hx of hand surgery History of amputation of both great toes Hx of cystoscopy History of surgery on left wrist History of circumcision History of rhinoplasty Hx of colonoscopy Family History Unknown No family history of colorectal cancer Social History Household Members: None Housing: House Alcohol intake: never Patient Tobacco Use Status: Former Tobacco user e-Cigarette/Vaping Use: Never Used Second Hand Smoke Exposure: Yes service: No Current occupational status: retired Cognitive needs: No Hearing needs: Yes (? B/L hearing loss) Vision needs: Yes Review of Systems Const All systems reviewed & are unremarkable except as noted in HPI and below Physical Exam Const General: cooperative, healthy appearing, comfortable and no acute distress Orientation/consciousness: patient oriented x3 Neck Neck: Yes normal visual inspection and Yes no JVD Chest Chest palpation & inspection: normal inspection of the chest Resp Effort & Inspection: normal respiratory effort Auscultation: clear to auscultation bilaterally, crackles (no), rales (no), rhonchi (no) and wheezes (no) Cardio Jugular venous distension: no JVD Rate: regular rate Rhythm: regular rhythm Heart sounds: S1 normal heart sound present, S2 normal heart sound present, Murmur heart sound present (no) and Rub heart sound present (no) Neuro General: patient oriented x3 Extrem Other: Right shoulder: Normal to inspection. Tenderness over the bicipital groove and along the deltoid region of the shoulder. Forward flexion to 175, external rotation to 90, internal rotation to S1. 5/5 RTC strength. Negative Beal and cross body abduction. NVI. General: Yes normal to inspection, Yes no pedal edema and Yes no calf tenderness Office Procedures AMB Joint Injection/Aspiration Joint Injection/Aspiration Primary Site: right shoulder Prep: site was prepped using aseptic technique, ethochloride spray was applied and injection warnings given Injected: 80 mg of, DepoMedrol, with 8 mL of, 1% plain lidocaine and in the subcromial space Approach Used: posterolateral Procedure: The patient tolerated the procedure well and there was some relief with the local anesthesia Coding 84903 - Glenohumeral/Tronchanteric Bursa/Intraarticular Procedure code (CPT) selection complete Assessment & Plan Assessment & Plan (1) Arthritis of right acromioclavicular joint: Code(s): M19.011 - Primary osteoarthritis, right shoulder Category: Medical (2) Tendinitis of right rotator cuff: Code(s): M75.81 - Other shoulder lesions, right shoulder Category: Medical Plan We discussed options today, which include steroid injection. The patient did consent to move forward with the right shoulder injection, which was tolerated well. I recommended rest, ice, and elevation and OTC anti-inflammatories as needed for discomfort. If symptoms persist or worsens over the next 6-8 weeks, patient will contact the office, otherwise follow-up as needed. Orders: Orders XR shoulder LT min 2V Today M25.512 - Pain in left shoulder Medications: New celecoxib (Celebrex) 200 mg PO BID 60 caps 3RF 30 days Patient Instructions: Scribed for Bekah Mata PA-C, by Aman Andres medical associate, on 10/06/2024 at 11:45 AM EST.? I, Bekah Mata PA-C, have personally reviewed and agree with the information entered by the scribe. Coding Level of Care Code Est Pt Level 3 (29945) Complex EM visit Add On G2211 Diagnoses Arthritis of right acromioclavicular joint M19.011 Tendinitis of right rotator cuff M75.81 CPT Codes Coding - Joint 7: 39731 - Glenohumeral/Tronchanteric Bursa/Intraarticular ([id number])
== END 2024-10-06 11:14 | disposition home or self-care (01) ==
PROVIDERS: PCP Internal Medicine; Visit Provider Physician Assistant
DX: M19.011 Primary osteoarthritis, right shoulder (principal); M75.81 Other shoulder lesions, right shoulder
CPT/HCPCS: 20610; 99213

== ENCOUNTER 2024-10-06 13:46 | Outpatient (AMB) | payer MEDICARE, MEDICAID, SELFPAY ==
--- NOTE | 2024-10-06 14:03 | MHC.PC.OV ---
Vital Signs 10/06/24 14:05 Height 5 ft 10 in Weight 231 lb 6 oz BMI 33.2 BP 130/80 Blood Pressure Location Lt brachial Position Sitting Pulse 76 Pulse Source Pulse Oximeter Pulse Oximetry (%) 96 Oxygen Delivery Method Room Air Intake Visit Reasons: [facility] 09/25 flank pain Intake Note: Patient is here to follow-up after a visit the emergency department at [facility] on 09/25/24. Final Inspector Balance Wheel Required: No Lawn Sprinkler Servicer: Not Required per policy Accompanied by: Self / Same As Patient Allergies Penicillins Allergy (Intermediate, Verified 10/21/24 09:39) PASSED OUT atorvastatin Adverse Reaction (Intermediate, Verified 10/21/24 09:39) blurring of vision gabapentin Adverse Reaction (Intermediate, Verified 10/21/24 09:39) Dizziness simvastatin Adverse Reaction (Intermediate, Verified 10/21/24 09:39) blurring of vision tamsulosin Adverse Reaction (Intermediate, Verified 10/21/24 09:39) Dizziness Medication List - Last Reconciled 10/21/24 by Garrett Samuel MD celecoxib (Celebrex) 200 mg PO BID 30 days cholecalciferol (vitamin D3) 50 mcg PO DAILY 90 days doxazosin 4 mg PO BEDTIME hydrocortisone 2.5% (Proctozone-HC) 1 appl [place] BID PRN ketorolac 10 mg PO TID PRN 5 days lidocaine 5% 1 appl topical QID PRN 15 days lisinopril 10 mg PO DAILY 90 days naproxen 500 mg PO BID oxycodone 5 mg PO Q6H PRN pyridoxine (vitamin B6) 50 mg PO DAILY 90 days rosuvastatin 10 mg PO DAILY 90 days tizanidine 4 mg PO BEDTIME PRN 30 days Tobacco use date assessed: 10/06/24 Fall risk assessment: No Falls in past year Last assessed Fall Risk: 10/06/24 Dental Screening Dental Screen Date: 09/03/24 HPI [facility] 09/25 flank pain HPI Details 64 yr old male presents to the office after a recent ER visit. Patient was seen for low back pain. It was determined he had renal stones. Symptoms of pain have resolved. Improved urine flow. No fever or chills. [facility] Medical History Benign prostatic hyperplasia with lower urinary tract symptoms Vitamin D deficiency Neuropathy Hemorrhoids Chronic constipation Obesity (BMI 30-39.9) Benign essential hypertension Pure hypercholesterolemia Peripheral neuropathy History of back pain Hx of hepatitis Amputation of thumb, left DJD (degenerative joint disease) of cervical spine DDD (degenerative disc disease), lumbar Hx of vertigo Asthma Myocardial infarction CAD (coronary artery disease) Surgical History Hx of hand surgery History of amputation of both great toes Hx of cystoscopy History of surgery on left wrist History of circumcision History of rhinoplasty Hx of colonoscopy Family History Unknown No family history of colorectal cancer Social History Household Members: None Housing: House Alcohol intake: never Patient Tobacco Use Status: Former Tobacco user e-Cigarette/Vaping Use: Never Used Second Hand Smoke Exposure: Yes service: No Current occupational status: retired Cognitive needs: No Hearing needs: Yes (? B/L hearing loss) Vision needs: Yes Questionnaire Thrive Questionnaire Date Thrive assessed: 09/03/24 LING-7 AMB Questionnaire LING-7 Date LING - 7 assessed: 09/03/24 Source: Developed by Drs. Brendon Nixon, Marlen Tanner, Angelo Arreola and colleagues, with an educational zen from [employer]. Physical exam (Primary Care) Vital Signs: Last Vital Signs Pulse 76 10/06/24 14:05 BP 130/80 10/06/24 14:05 Pulse Ox 96 10/06/24 14:05 Oxygen Delivery Method Room Air 10/06/24 14:05 BMI result Body Mass Index 33.2 Tobacco/Smoking Status: Tobacco use Status Tobacco use date assessed 10/06/24 10/06/24 14:11 Patient Tobacco Use Status Former Tobacco user 10/06/24 14:11 e-Cigarette/Vaping Use Never Used 10/06/24 14:11 Thrive Assessment: Date of Thrive Assessment Date Thrive assessed 09/03/24 10/06/24 14:11 Const General: cooperative and healthy appearing Nutritional Appearance: well nourished Orientation/consciousness: patient oriented x3 Limitations: no limitations HENMT Head: Yes normal to inspection Eyes General: appearance normal, both eyes and all related structures Neck Neck: Yes normal visual inspection Chest Chest palpation & inspection: normal palpation of entire chest wall Resp Effort & Inspection: normal respiratory effort Neuro General: patient oriented x3 Coding Level of Care Code Est Pt Level 3 (62954) Complex EM visit Add On G2211 Diagnoses Nephrolithiasis N20.0 Assessment & Plan Assessment & Plan (1) Nephrolithiasis: Code(s): N20.0 - Calculus of kidney Category: Medical Plan: ER note reviewed.Patient has urology consult.
[2024-10-06 14:05] VITALS: BP 130/80; PULSE 76; O2SAT 96; BMI 33.2
== END 2024-10-06 16:23 | disposition home or self-care (01) ==
PROVIDERS: PCP Internal Medicine; Visit Provider Internal Medicine
DX: N20.0 Calculus of kidney (principal)

== ENCOUNTER 2024-10-06 15:19 | Outpatient (REF) | payer MEDICARE, MEDICAID, SELFPAY | END 2024-10-06 15:20 | disposition home or self-care (01) | LOC: HO.HOSX 15:19 | PROVIDERS: Visit Provider Physician Assistant | DX: M19.011 Primary osteoarthritis, right shoulder (principal); M75.81 Other shoulder lesions, right shoulder; N20.0 Calculus of kidney | CPT/HCPCS: 20610; 73030; 99212; J1010; J2003 ==

== ENCOUNTER 2024-12-27 07:37 | Outpatient (REF) | payer MEDICARE, SELFPAY ==
--- OUTSIDE RECORDS SUMMARY | 2024-12-27 07:41 | XMS_ITS | Encounter Summary ---
Author Organization [employer] [facility] Address [address] [place] [address] [address] [place] [address] Care Team Providers Care Clinical Assoc Name Role Phone Unavailable Primary Care Provider Unavailabl e Encounter Details Date Type Department Care Team (Latest Contact Info) Description 12/02/2018 Abstract [facility] CONVERSIONS Dental, Provider, DDS Social History Tobacco Use Types Packs/Day Years Used Date Smoking Tobacco: Never Assessed Sex and Gender Information Value Date Recorded Sex Assigned at Male 09/04/2022 10:18 AM EDT Legal Sex Male 10:18 AM EDT Gender Identity Male 09/04/2022 10:18 AM EDT Sexual Orientation Straight 09/04/2022 10 :18 AM EDT documented as of this encounter Plan of Treatment Not on file documented as of this encounter Visit Diagnoses Not on filedocumented in this encounter
--- OUTSIDE RECORDS SUMMARY | 2024-12-27 07:41 | XMS_ITS | Clinical Summary ---
Author Organization [employer] [facility] Address [address] [place] [address] [address] [place] [address] Care Team Providers Care Database Marketing Manager Name Role Phone Unavailable Primary Care Provider Unavailabl e Allergies Active Allergy Reactions Criticality Noted Date Comments Penicillins 06/03/2014 Medications acetaminophen (Tylenol) 325 MG tablet Take 650 mg by mouth every 6 (six) hours if needed. 10/02/2023 Active gabapentin (Neurontin) 100 MG capsule Take 100 mg by mouth 2 times daily. 12/26/2022 Active lisinopril 10 MG tablet Take 10 mg by mouth in the morning. 10/15/2023 Active pyridoxine (Vitamin B-6) 50 MG tablet Take 50 mg by mouth in the morning. 09/12/2023 Active phenazopyridine (Pyridium) 200 MG tablet Take 200 mg by mouth 3 times daily. 08/22/2023 Active rosuvastatin (Crestor) 10 MG tablet Take 10 mg by mouth in the morning. 10/15/2023 Active traMADol (Ultram) 50 MG tablet Take 50 mg by mouth every 8 (eight) hours if needed. 08/17/2023 Active naproxen (Naprosyn) 500 MG tablet TAKE 1 TABLET BY MOUTH EVERY EIGHT TO TWELVE HOURS NEEDED FOR PAIN (PAIN SCALE 4-6) 04/14/2024 Active doxazosin (Cardura) 4 MG tablet Take 4 mg by mouth at bedtime. 03/03/2024 Active tamsulosin (Flomax) 0.4 MG 24 hr capsule TAKE 2 CAPSULES BY MOUTH EVERY DAY AT BEDTIME 11/26/2023 Active Active Problems Problem Noted Date Diagnosed Date Dental calculus 10/19/2023 Partial edentulism 10/19/2023 Dental caries on smooth surface limited to ename l 10/19/2023 Immunizations Name Administration Dates Next Due Influenza injectable quadrivalent preservative f ree 09/18/2023 Influenza, seasonal, injectable, preservative fr ee 07/29/2024 Pfizer Covid-19 Vaccine 12+ 07/29/2024, 3 Td (adult), 5 Lf tetanus tox oid, preservative free, adsorbed 10/28/2015 Social History Tobacco Use Types Packs/Day Years Used Date Smoking Tobacco: Former Cigarettes Smokeless Tobacco: Never Tobacco Cessation:Counseling Given: Not Answered Alcohol Use Standard Drinks/Week Comments Not Currently 0 (1 standard drink = 0.6 oz pur e alcohol) Sex and Gender Information Value Date Recorded Sex Assigned at Male 09/04/2022 10:18 AM EDT Legal Sex Male 10:18 AM EDT Gender Identity Male 09/04/2022 10:18 AM EDT Sexual Orientation Straight 09/04/2022 10 :18 AM EDT Last Filed Vital Signs Vital Sign Reading Time Taken Comments Blood Pressure 126/62 04/30/2024 9:52 AM EDT Pulse 65 04/30/2024 9:52 AM EDT Temperature - - Respiratory Rate - - Oxygen Saturation - - Inhaled Oxygen Concentration - - Weight - - Height - - Body Mass Index - - Plan of Treatment Health Maintenance Due Date Last Done Comments Anal Pap 1958 CT Colonography 1958 Colonoscopy 1958 Colorectal Cancer Screening 1958 Depression Screening 1958 FIT DNA/Cologuard 1958 FIT 1958 FOBT 1958 Lipid Panel 1958 SDOH Screening 1958 Sigmoidoscopy 1958 Alcohol/Substance Use Screening 1970 Hepatitis C Screening 1976 Hepatitis A Vaccines (1 of 2 - Risk 2-dose series) 1977 Pneumococcal Vaccine: 50+ Years (1 of 1 - PCV) 2008 Zoster Vaccines (1 of 2) 2008 DTaP/Tdap/Td Vaccines (1 - Tdap) 10/29/2015 10/28/2015 Hepatitis B Vaccines (1 of 3 - Risk 3-dose series) 2018 Dental Oral Exam 04/20/2024 10/19/2023, , 06/02/2019, Additional history exists Dental Prophylaxis 10/31/2024 04/30/2024, 1 12/31/2022, 09/29/2020, Additional history exists Dental X-Ray: Bitewings 12/29/2024 12/28/19 24, 11/21/2023, 10/19/2023, Additional history exists Tobacco Screening 04/30/2025 04/30/2024 Dental X-Ray: Full Mouth 10/20/2026 023, 06/02/2019, 05/11/2014 RSV Patients and Patients Aged 60 years or older (1 - 1-dose 75+ series) 2033 COVID-19 Vaccine Completed 07/29/2024, 09/2023, 08/08/2022, Additional history exists Influenza Vaccine Completed 07/29/2024, 09/18/2023 HIB Vaccines Aged Out No longer eligi ble based on patient's age to complete this topic HPV Vaccines Aged Out No longer eligi ble based on patient's age to complete this topic IPV Vaccines Aged Out No longer eligi ble based on patient's age to complete this topic Meningococcal Vaccine Aged Out No [place] ricky eligible based on patient's age to complete this topic RSV under 20 months Aged Out No longe r eligible based on patient's age to complete this topic Rotavirus Vaccines Aged Out No longer eligible based on patient's age to complete this topic Procedures Procedure Name Priority Date/Time Associated Diagnosis Comments Full PROPHYLAXIS - ADULT Routine 024 10:00 AM EDT BITEWING - SINGLE RADIOGRAPHIC IMAGE Routine 12/28/2023 1:00 PM EST Full coverage crown needed for tooth at risk for fracture INTRAORAL - COMPLETE SERIES OF RADIOGRAPHIC IMAGES Routine 10/19/2023 8:00 AM EST PERIODIC ORAL EVALUATION - ESTABLISHED PATIENT Routine 10/19/2023 8:00 AM EST from Last 3 Months or Most Recently Relevant to Health Maintenance Insurance MEDICARE [facility] Member Subscriber Plan / Payer (Ef fective 2023-) Name:Yash Elena Relation to Subscriber:Self Name:Yash Elena Payer ID:Not on file Group ID:Not on file Type:Medicaid Address: [address] [id number] [facility] [facility]
[2024-12-27 07:59] LABS: MANUAL DIFF FLAG NO
[2024-12-27 09:08] LABS: Basophils Percent Auto 0.5 % (0-2); Eosinophils Absolute Auto 0.2 X10*3/uL (0.0-0.4); Eosinophils Percent Auto 2.5 % (0-4); Hematocrit 41.3 % (42.0-52.0); Hemoglobin 14.7 g/dl (14.0-18.0); Imm Gran Abs Auto 0.02 X10*3/uL (0.00-0.03); Imm Gran Pct Auto 0.3 % (0.0-0.4); Lymphocytes Absolute Auto 1.9 X10*3/uL (1.2-4.9); Mean Corpuscular HGB Conc 35.6 g/dl (31.0-36.0); Mean Corpuscular Hemoglobin 31.7 pg (27.0-33.0); Mean Corpuscular Volume 89.2 fL (80.0-98.0); Mean Platelet Volume 9.8 fL (9.4-12.4); Monocytes Absolute Auto 0.4 X10*3/uL (0.1-1.2); Monocytes Percent Auto 7.3 % (2-11); Neutrophils Absolute Auto 3.5 x10*3/uL (2.0-8.3); Neutrophils Percent Auto 57.4 % (45-73); Platelet Count 256 X10*3/uL (160-400); Red Blood Count 4.63 X10*6/uL (4.60-5.80); Red Cell Distribution Width 12.5 % (11.0-16.0)
[2024-12-27 09:19] LABS: Estimated Average Glucose 114 mg/dL; Hemoglobin A1C 142.2412 umol/L; Hemoglobin A1c % 5.6 % (<6.0); Total Hemoglobin (HGBA1C) 3800.3017 umol/L
[2024-12-27 09:24] LABS: Appearance Urine Clear; Color Urine Yellow; Glucose Urine UA Negative (Negative); Leukocyte Esterase Urine Negative (Negative); Nitrite Urine Negative (Negative); PH 5.5 (5.0-9.0); Urine Blood Negative (Negative); Urine Ketones Negative (Negative); Urine Protein Negative (Neg-Trace)
[2024-12-27 09:56] LABS: Alanine Aminotransferase 42 U/L (0-40); Albumin Level 4.2 g/dL (3.5-5.0); Alkaline Phosphatase 64 U/L (39-117); Anion Gap 10 (12-20); Aspartate Amino Transferase 41 U/L (5-37); Blood Urea Nitrogen 10 mg/dL (9-16); Calcium 9.2 mg/dL (8.4-10.2); Carbon Dioxide 29 mmol/L (22-29); Chloride 107 mmol/L (96-108); Cholesterol 142 mg/dL (<200); Estimated Glomerular Filt Rate > 60; Glucose Fasting 109 mg/dL (60-99); HDL Cholesterol 33 mg/dL (>40); LDL Cholesterol Calculated 77 mg/dL (<100); Potassium 3.6 mmol/L (3.3-5.1); Sodium 142 mmol/L (135-145); Total Protein 6.9 g/dL (6.5-8.0); Triglycerides 164 mg/dL (<150)
[2024-12-27 10:17] LABS: Vitamin D 25-OH Total 30.9 ng/mL (>30)
== END 2024-12-27 07:38 | disposition home or self-care (01) ==
LOC: HO.LAB 07:37
PROVIDERS: PCP Internal Medicine; Visit Provider Internal Medicine
DX: D64.9 Anemia, unspecified (principal); E55.9 Vitamin D deficiency, unspecified; R30.0 Dysuria; R73.01 Impaired fasting glucose; E78.00 Pure hypercholesterolemia, unspecified
CPT/HCPCS: 36415; 80053; 80061; 81003; 82306; 83036; 85025

== ENCOUNTER 2025-01-06 09:05 | Outpatient (REF) | payer MEDICARE, SELFPAY ==
--- NOTE | ~2025-01-06 | XR_ITS ---
EXAMINATION: XR KNEE, RIGHT CLINICAL INFORMATION: M25.562 - Pain in right knee COMPARISON: June 02, 2024. TECHNIQUE: Four views of the right knee. FINDINGS: No acute cortical disruption or malalignment. Chondrocalcinosis in the lateral and medial compartment. No suprapatellar bursa joint effusion. No lytic or blastic lesions. XR/XR knee RT 4V IMPRESSION: Consider CPPD. Electronically signed by: Bryson Gonzales MD 01/08/2025 01:07 PM CORIE JEFFERS
--- OUTSIDE RECORDS SUMMARY | 2025-01-06 12:48 | XMS_ITS | Encounter Summary ---
Author Organization [employer] [facility] Address [address] [place] [address] [address] [place] [address] Care Team Providers Care Manufacturing Test Technician Name Role Phone Unavailable Primary Care Provider Unavailabl e Encounter Details Date Type Department Care Team (Latest Contact Info) Description 01/13/2020 Abstract [facility] CONVERSIONS Dental, Provider, DDS Social History [facility] [address] [place] [address] Epifanio Alberts 01/30/2025 9:00 AM EDT Office Visit [facility] ADULT DENTAL [address] [place] [address] Yash Gregg DDS [address] [place] [address] documented as of this encounter Visit Diagnoses Not on filedocumented in this encounter
--- OUTSIDE RECORDS SUMMARY | 2025-01-06 12:48 | XMS_ITS | Clinical Summary ---
Author Organization [employer] [facility] Address [address] [place] [address] [address] [place] [address] Care Team Providers Care Janitorial Maintenance Worker Name Role Phone Unavailable Primary Care Provider [...] Description 01/23/2025 8:00 AM EDT Office Visit [facility] ADULT DENTAL [address] [place] [address] Epifanio Alberts 01/30/2025 9:00 AM EDT Office Visit [facility] ADULT DENTAL [address] [place] [address] Yash Gregg DDS [address] [place] [address] Health Maintenance Due Date Last Done Comments [...] Recently Relevant to Health Maintenance Insurance MEDICARE [facility] [place] [address]
--- OUTSIDE RECORDS SUMMARY | 2025-01-06 12:48 | XMS_ITS | Encounter Summary ---
Author Organization [employer] [facility] Address [address] [place] [address] [address] [place] [address] Care Team Providers Care Pt Sitter Name Role Phone Unavailable Primary Care Provider Unavailabl e Encounter Details Date Type Department Care Team (Latest Contact Info) Description 12/02/2018 Abstract [facility] CONVERSIONS Dental, Provider, DDS Social [...] Description 01/23/2025 8:00 AM EDT Office Visit [facility] ADULT DENTAL [address] [place] [address] Epifanio Alberts 01/30/2025 9:00 AM EDT Office Visit [facility] ADULT DENTAL [address] [place] [address] Yash Gregg DDS [address] [place] [address] documented as of this encounter Visit Diagnoses Not on filedocumented in this encounter
== END 2025-01-06 09:06 | disposition home or self-care (01) ==
LOC: HO.XRAY 09:05
PROVIDERS: PCP Internal Medicine; Visit Provider Internal Medicine
DX: M25.561 Pain in right knee (principal); E78.00 Pure hypercholesterolemia, unspecified; I25.10 Atherosclerotic heart disease of native coronary artery without angina pectoris; I10 Essential (primary) hypertension; R73.01 Impaired fasting glucose; G62.9 Polyneuropathy, unspecified; M25.511 Pain in right shoulder; E55.9 Vitamin D deficiency, unspecified; K59.09 Other constipation; N40.1 Benign prostatic hyperplasia with lower urinary tract symptoms; R39.11 Hesitancy of micturition; N20.0 Calculus of kidney; E66.9 Obesity, unspecified; Z68.34 Body mass index [BMI] 34.0-34.9, adult; I25.2 Old myocardial infarction; Z79.899 Other long term (current) drug therapy
CPT/HCPCS: 73564; 96127; 99212

== ENCOUNTER 2025-01-06 09:05 | Outpatient (AMB) | payer MEDICARE, SELFPAY ==
[2025-01-06 09:20] VITALS: BP 126/84; PULSE 97; O2SAT 98; BMI 34.1
--- NOTE | 2025-01-06 09:20 | A.OFFPC_ITS ---
Vital Signs 01/06/25 09:20 Height 5 ft 10 in Weight 238 lb BMI 34.1 BP 126/84 Blood Pressure Location Lt brachial Position Sitting Pulse 97 Pulse Source Pulse Oximeter Pulse Oximetry (%) 98 Oxygen Delivery Method Room Air Intake Visit Reasons: 4mth f/u Data Clerk Required: No Accompanied by: Self / Same As Patient Allergies Penicillins Allergy (Intermediate, Verified 01/06/25 09:58) PASSED OUT atorvastatin Adverse Reaction (Intermediate, Verified 01/06/25 09:58) blurring of vision gabapentin Adverse Reaction (Intermediate, Verified 01/06/25 09:58) Dizziness simvastatin Adverse Reaction (Intermediate, Verified 01/06/25 09:58) blurring of vision tamsulosin Adverse Reaction (Intermediate, Verified 01/06/25 09:58) Dizziness Medication List - Last Reconciled 01/06/25 by Cristhian Han MD celecoxib (Celebrex) 200 mg PO BID 30 days cholecalciferol (vitamin D3) 50 mcg PO DAILY 90 days doxazosin 4 mg PO BEDTIME hydrocortisone 2.5% (Proctozone-HC) 1 appl WA BID PRN ketorolac 10 mg PO TID PRN 5 days lidocaine 5% 1 appl topical QID PRN 15 days lisinopril 10 mg PO DAILY 90 days naproxen 500 mg PO BID oxycodone 5 mg PO Q6H PRN pyridoxine (vitamin B6) 50 mg PO DAILY 90 days rosuvastatin 10 mg PO DAILY 90 days tizanidine 4 mg PO BEDTIME PRN 30 days Tobacco use date assessed: 01/06/25 Fall risk assessment: 1 Fall in past year Last assessed Fall Risk: 01/06/25 Dental Screening Dental Screen Date: 01/06/25 Did you have a dental visit in the last 12 months?: Yes Did you have a dental problem in the last 6 months where you did not have access to dental care?: No Was dental information given to patient?: Patient has dentist HPI 4mth f/u HPI Details Patient comes in today for his follow up visit States that he feels okay except for increasing left knee pain, which he states has been bothering him for about 6 months now but the pain has increased significantly lately, mostly over the anteromedial aspect of the knee He denies any recent injury or trauma to his knee and states that his knee has been bothering him a lot when he is riding his stationary bike lately He denies any headaches or dizziness Denies any chest pains, no increased SOB No nausea/vomiting, no abdominal pain No change in bowel habits noted He continues to follow up with urology regularly for his recurrent kidney stones - states that he has not had any attacks of kidney stones for the past few months now He had his follow up labs done about a week ago - to discuss his results [facility] Medical History (Updated 01/06/25 @ 10:16 by Cristhian Han MD) Bilateral nephrolithiasis Benign prostatic hyperplasia with lower urinary tract symptoms Vitamin D deficiency Neuropathy Hemorrhoids Chronic constipation Obesity (BMI 30-39.9) Benign essential hypertension Pure hypercholesterolemia Peripheral neuropathy History of back pain Hx of hepatitis Amputation of thumb, left DJD (degenerative joint disease) of cervical spine DDD (degenerative disc disease), lumbar Hx of vertigo Asthma Myocardial infarction CAD (coronary artery disease) Surgical History Hx of hand surgery History of amputation of both great toes Hx of cystoscopy History of surgery on left wrist History of circumcision History of rhinoplasty Hx of colonoscopy Family History Unknown No family history of colorectal cancer Social History Household Members: None Housing: House Alcohol intake: never Patient Tobacco Use Status: Former Tobacco user e-Cigarette/Vaping Use: Never Used Second Hand Smoke Exposure: Yes service: No Current occupational status: retired Cognitive needs: No Hearing needs: Yes (? B/L hearing loss) Vision needs: Yes Questionnaire PHQ-9 Over the last 2 weeks, how often have you been bothered by any of the following problems? 1. Little interest or pleasure in doing things: not at all 2. Feeling down, depressed, or hopeless: not at all 3. Trouble falling or staying asleep, or sleeping too much: not at all 4. Feeling tired or having little energy: not at all 5. Poor appetite or overeating: not at all 6. Feeling bad about yourself - or that you are a failure or have let yourself or your family down: not at all 7. Trouble concentrating on things, such as reading the newspaper or watching television: not at all 8. Moving or speaking so slowly that other people could have noticed. Or the opposite - being so fidgety or restless that you have been moving around a lot more than usual: not at all 9. Thoughts that you would be better off or of hurting yourself in some way: not at all Total score: 0 Depression Screening Interpretation: Negative Depression Screening Done: Yes 87621 - PHQ-9 Billing: Yes Source: Developed by Drs. Brendon Nixon, Marlen Tanner, Angelo Arreola and colleagues, with an educational zen from [employer]. Thrive Questionnaire Date Thrive assessed: 01/06/25 I am a: Patient What is your living situation today?: I have a steady place to live Within the past 12 months, did the food you bought not last and you didn't have the money to get more?: Never true Within the past 12 months, did you worry whether your food would run out before you got money to buy more?: Never true Do you have trouble paying for medicines?: No Do you have trouble getting transportation to medical appointments?: No Do you have trouble paying your heating and electricity bill?: No Do you have trouble taking care of your child, family member or friend?: No Do you have trouble with day-to-day activities such as bathing, preparing meals, shopping, managing finances, etc.?: No Are you currently unemployed and looking for a job?: No Are you interested in more education?: No Please select the resources that you would like help with: None Currently or been in a relationship where the following occur: No concerns reported THRIVE Score: 0 AUDIT C Alcohol Use Questionnaire (AUDIT-C) 1. How often do you have a drink containing alcohol?: Never 3. How often do you have six or more drinks on one occasion?: Never Total Score: 0 Score Reviewed/Action Taken: Yes LING-7 AMB Questionnaire LING-7 Date LING - 7 assessed: 01/06/25 Feeling nervous, anxious, or on edge: 0 = Not at all Not being able to stop or control worryin = Not at all Worrying too much about different things: 0 = Not at all Trouble relaxin = Not at all Being so restless that it is hard to sit still: 0 = Not at all Becoming easily annoyed or irritable: 0 = Not at all Feeling afraid as if something awful might happen: 0 = Not at all Total LING-7 score (0-4 normal; 5-9 mild; 10-14 moderate; 15-21 severe): 0 Source: Developed by Drs. Brendon Nixon, Marlen Tanner, Angelo Arreola and colleagues, with an educational zen from [employer]. Review of Systems Const Denies chills, Denies fatigue, Denies fever(s) and Denies headache(s) ENT Denies dysphagia, Denies dizziness, Reports dry mouth (mostly at night ), Denies otalgia, Denies headache(s), Denies neck pain, Denies odynophagia and Denies sore throat Card Denies chest pain, Denies palpitations and Denies dyspnea Resp Denies chest congestion, Denies cough and Denies dyspnea GI Denies abdominal pain, Denies constipation, Denies dysphagia, Denies heartburn, Denies diarrhea, Denies nausea, Denies odynophagia and Denies vomiting Denies hematuria, Denies difficulty urinating, Denies dysuria, Denies nocturia and Denies urinary frequency Musc Reports back pain (over the lower back, on and off), Reports arthralgias (increased over the left knee x past 6 months (see HPI)) and Denies neck pain Skin/Breast Denies rash Neuro Denies dizziness and Denies headache(s) Psych Denies anxiety and Denies depression Endo Denies fatigue and Denies palpitations Physical exam (Primary Care) Vital Signs: Last Vital Signs Pulse 97 01/06/25 09:20 BP 126/84 01/06/25 09:20 Pulse Ox 98 01/06/25 09:20 Oxygen Delivery Method Room Air 01/06/25 09:20 BMI result Body Mass Index 34.1 Tobacco/Smoking Status: Tobacco use Status Tobacco use date assessed 01/06/25 01/06/25 09:25 Patient Tobacco Use Status Former Tobacco user 01/06/25 09:25 e-Cigarette/Vaping Use Never Used 01/06/25 09:25 PHQ-9: PHQ-9 Score PHQ-9: Total score 0 01/06/25 09:25 Depression Screening Interpretation: Negative Thrive Assessment: Date of Thrive Assessment Date Thrive assessed 01/06/25 01/06/25 09:25 Currently or been in a relationship where the following occur: No concerns reported Const General: no acute distress and alert HENMT Ears: TM's normal bilaterally and EAC's normal Throat: Yes posterior oropharynx normal and Yes tonsils normal (no TP congestion) Neck Neck: Yes supple and No lymphadenopathy Thyroid: Thyroid normal Resp Auscultation: clear to auscultation bilaterally, no rales and no wheezes Cardio Rate: regular rate Rhythm: regular rhythm Heart sounds: no murmurs GI Palpation (GI): Soft to palpation and nontender Auscultation: normal bowel sounds General: Yes no CVA tenderness Back/Spine/Pelvis Back: no CVA tenderness Thoracic/Lumbar Spine: lumbar spinal tenderness Skin Rashes: no rashes Extrem General: Yes no clubbing, cyanosis or edema Right upper extremity: shoulder/upper arm Details: tenderness Location: of the A-C joint Left lower extremity: knee Details: tenderness Location: of the medial joint line; no swelling Results Reviewed Results Reviewed: Laboratory Tests 12/27/24 12/27/24 07:54 07:58 WBC 6.0 Hgb 14.7 Hct 41.3 L Plt Count 256 Sodium 142 Potassium 3.6 Creatinine 1.02 Estimated GFR > 60 Fasting Glucose 109 H Hemoglobin A1c % 5.6 Calcium 9.2 D AST 41 H ALT 42 H Triglycerides 164 H Cholesterol 142 LDL Cholesterol, Calc 77 HDL Cholesterol 33 L 25-OH Vitamin D Total 30.9 Ur Specific [place] 1.020 Urine Protein Negative Urine Glucose (UA) Negative Urine Blood Negative Urine Nitrite Negative Ur Leukocyte Esterase Negative Coding Level of Care Code Est Pt Level 4 (81418) Diagnoses Pure hypercholesterolemia E78.00 Coronary artery disease involving [place] coronary artery of [place] heart without angina pectoris I25.10 Coronary Disease-Associated Artery/Lesion type: [place] artery [place] vs. transplanted heart: [place] heart Associated angina: without angina Benign essential hypertension I10 Impaired fasting glucose R73.01 Neuropathy G62.9 Right shoulder pain, unspecified chronicity M25.511 Chronicity: unspecified Vitamin D deficiency E55.9 Chronic constipation K59.09 Benign prostatic hyperplasia with urinary hesitancy N40.1; R39.11 Lower urinary tract symptom detail: urinary hesitancy Bilateral nephrolithiasis N20.0 Acute pain of left knee M25.562 Chronicity: acute Obesity (BMI 30-39.9) E66.9 Additional Codes PHQ-9 - 49859 - PHQ-9 Billing: Yes ([id number]) Assessment & Plan Assessment & Plan (1) Pure hypercholesterolemia: Code(s): E78.00 - Pure hypercholesterolemia, unspecified Category: Medical Plan: Results of his labs done about a week ago reviewed and discussed with patient Reinforced low cholesterol diet Continue Rosuvastatin 10 mg QD Will recheck his labs and fasting lipids in 3 months for follow up (2) CAD (coronary artery disease): Comment: S/P DC in 2005 Code(s): I25.10 - Atherosclerotic heart disease of [place] coronary artery without angina pectoris Category: Medical Qualifiers: Coronary Disease-Associated Artery/Lesion type: [place] artery [place] vs. transplanted heart: [place] heart Associated angina: without angina Qualified Code(s): I25.10 - Atherosclerotic heart disease of [place] coronary artery without angina pectoris Plan: Patient currently remains asymptomatic from a cardiac standpoint Follow up with cardiology as scheduled (3) Benign essential hypertension: Code(s): I10 - Essential (primary) hypertension Category: Medical Plan: Reinforced low sodium diet - goal is systolic BP of 120 to 130 mm or less Continue Lisinopril 10 mg QD (4) Impaired fasting glucose: Code(s): R73.01 - Impaired fasting glucose Category: Medical Plan: His HgbA1c was normal at 5.7%, 5.2% and 5.6% when checked previously Patient is again reassured that he does NOT have diabetes Reinforced low calorie diet/exercise as tolerated (5) Neuropathy: Code(s): G62.9 - Polyneuropathy, unspecified Category: Medical Plan: He was previously started on Gabapentin 100 mg BID but he stopped taking this a few months ago when he experienced dizziness every time he took the Rx He still does not wish to take anything else for his neuropathy at this time (6) Right shoulder pain: Code(s): M25.511 - Pain in right shoulder Category: Medical Qualifiers: Chronicity: unspecified Qualified Code(s): M25.511 - Pain in right shoulder Plan: (+) Hx of bicipital tendinitis; shoulder x-rays done back in April 2024 also revealed (+) AC arthritis changes We offered to refer him to orthopedics previously for possible cortisone injection for symptomatic relief but he is averse to needles and will NOT go for any injections He has been to physical therapy for his shoulder pain - states that PT has helped a lot, especially iontophoresis We can refer him again to physical therapy for further management and Tx with ultrasound and iontophoresis if appropriate and when needed Continue topical Lidocaine 5% ointment QID to the shoulder PRN for pain (7) Vitamin D deficiency: Code(s): E55.9 - Vitamin D deficiency, unspecified Category: Medical Plan: Continue Vitamin D3 2000 units QD (8) Chronic constipation: Comment: Colace 200 mg, MiraLax 17 g q.h.s. maintain high-fiber diet, Proctozone is need for hemorrhoid Code(s): K59.09 - Other constipation Category: Medical Plan: Reinforced again increased oral fluids and dietary fiber States that his bowels are presently well-controlled on his current regimen of fiber laxative and stool softeners PRN Continue Senna 8.6 mg 2 tablets Q HS Follow up with GI as scheduled (9) Benign prostatic hyperplasia with lower urinary tract symptoms: Code(s): N40.1 - Benign prostatic hyperplasia with lower urinary tract symptoms Category: Medical Qualifiers: Lower urinary tract symptom detail: urinary hesitancy Qualified Code(s): N40.1 - Benign prostatic hyperplasia with lower urinary tract symptoms; R39.11 - Hesitancy of micturition Plan: Continue Doxazosin 4 mg QD Follow up with urology as scheduled (10) Bilateral nephrolithiasis: Code(s): N20.0 - Calculus of kidney Category: Medical Plan: S/P ESWL multiple times in the past; reports no flare up of symptoms over the past few months Follow up with urology as scheduled (11) Left knee pain: Code(s): M25.562 - Pain in left knee Category: Medical Qualifiers: Chronicity: acute Qualified Code(s): M25.562 - Pain in left knee Plan: Will send patient for x-rays of the left knee for further evaluation (12) Obesity (BMI 30-39.9): Code(s): E66.9 - Obesity, unspecified Category: Medical Plan: Reinforced diet/exercise as tolerated/lose weight Plan Follow up in 3 months Orders: Orders Comprehensive [place]. Panel Fast 3 Months E78.00 - Pure hypercholesterolemia, unspecified Lipid Panel 3 Months E78.00 - Pure hypercholesterolemia, unspecified UA CC w/rflx Micro + Cult 3 Months R30.0 - Dysuria Vitamin B12 and Folate 3 Months E53.8 - Deficiency of other specified B group vitamins Hemoglobin A1c 3 Months R73.01 - Impaired fasting glucose XR knee LT 4V Today M25.562 - Pain in left knee Complete Blood Count Auto Diff 3 Months D64.9 - Anemia, unspecified TSH reflex Free T4 3 Months E78.00 - Pure hypercholesterolemia, unspecified Vitamin D 25-OH Total 3 Months E55.9 - Vitamin D deficiency, unspecified
--- OUTSIDE RECORDS SUMMARY | 2025-01-06 10:01 | XMS_ITS | Clinical Summary ---
Author Organization [facility] Address [address] [place] [address] [address] [place] [address] Care Team Providers Care Nuclear Engineering Technician Name Role Phone Unavailable Primary Care Provider [...] Description 01/23/2025 8:00 AM EDT Office Visit [facility] ADULT [facility]AL [address] [place] [address] Epifanio Alberts 01/30/2025 9:00 AM EDT Office Visit [facility] ADULT D[facility]AL [address] [place] [address] Yash Gregg DDS [address] [place] [address] Health Maintenance Due Date Last Done Comments [...] Recently Relevant to Health Maintenance Insurance MEDICARE [facility]
--- OUTSIDE RECORDS SUMMARY | 2025-01-06 10:01 | XMS_ITS | Encounter Summary ---
Author Organization [employer] [facility] Address [address] [place] [address] 7 [place] [address] Care Team Providers Care Assistant Paralegal Name Role Phone Unavailable Primary Care Provider Unavailabl e Encounter Details Date Type Department Care Team (Latest Contact Info) Description 01/13/2020 Abstract [facility] CONVERSIONS Dental, Provider, DDS Social History Tobacco [...] 8:00 AM EDT Office Visit [facility] ADULT DENTAL [address] [place] [address] Epifanio Albetrs 01/30/2025 9:00 AM EDT Office Visit [facility] ADULT DENTAL [address] [place] [address] Yash Gregg DDS [address] [place] [address] documented as of this encounter Visit Diagnoses Not on filedocumented in this encounter
--- OUTSIDE RECORDS SUMMARY | 2025-01-06 10:01 | XMS_ITS | Encounter Summary ---
Author Organization [employer] [facility] Address [address] [place] [address] [address] [place] [address] Care Team Providers Care Oil Distributor Name Role Phone Unavailable Primary Care Provider Unavailabl e Encounter Details Date Type Department Care Team (Latest Contact Info) Description 12/02/2018 Abstract [facility] CONVERSIONS Dental, Provider, DDS Social [...] 8:00 AM EDT Office Visit [facility] ADULT DENTAL [address] [place] [address] Epifanio Alberts 01/30/2025 9:00 AM EDT Office Visit [facility] ADULT DENTAL [address] [place] [address] Yash Gregg DDS [address] [place] [address] documented as of this encounter Visit Diagnoses Not on filedocumented in this encounter
== END 2025-01-06 10:14 | disposition home or self-care (01) ==
PROVIDERS: PCP Internal Medicine; Visit Provider Internal Medicine
DX: E78.00 Pure hypercholesterolemia, unspecified (principal); I25.10 Atherosclerotic heart disease of native coronary artery without angina pectoris; I10 Essential (primary) hypertension; R73.01 Impaired fasting glucose; G62.9 Polyneuropathy, unspecified; M25.511 Pain in right shoulder; E55.9 Vitamin D deficiency, unspecified; K59.09 Other constipation; N40.1 Benign prostatic hyperplasia with lower urinary tract symptoms; R39.11 Hesitancy of micturition; N20.0 Calculus of kidney; M25.562 Pain in left knee

== ENCOUNTER → 2025-01-06 10:35 | Outpatient (BNV) | payer MEDICARE, SELFPAY | PROVIDERS: PCP Internal Medicine; Visit Provider Radiology Diagnostic Radiology | DX: M25.561 Pain in right knee (principal) | CPT/HCPCS: 73564 ==

== ENCOUNTER → 2025-02-04 07:00 | Outpatient (BNV) | payer MEDICARE, SELFPAY | PROVIDERS: PCP Internal Medicine; Visit Provider Radiology Diagnostic Radiology | DX: N28.89 Other specified disorders of kidney and ureter (principal) | CPT/HCPCS: 74018 ==

== ENCOUNTER 2025-02-04 09:08 | Day surgery (SDC) | payer MEDICARE, SELFPAY ==
--- OUTSIDE RECORDS SUMMARY | 2025-01-05 16:33 | XMS_ITS | Clinical Summary ---
Author Organization [employer] [facility] Address [address] [place] [address] [address] [place] [address] Care Team Providers Care Realty Loan Specialist Name Role Phone Unavailable Primary Care Provider [...] Mass Index - - Plan of Treatment Upcoming Encounters Date Type Department Care Team (Late st Contact Info) Description 01/23/2025 8:00 AM EDT Office Visit [facility] [address] [place] [address] Epifanio Alberts 01/30/2025 9:00 AM EDT Office Visit [facility] [address] [place] [address] Yash Gregg DDS [address] [place] [address] Health Maintenance Due Date Last Done Comments [...] Recently Relevant to Health Maintenance Insurance MEDICARE [facility]
--- OUTSIDE RECORDS SUMMARY | 2025-01-05 16:33 | XMS_ITS | Encounter Summary ---
Author Organization [employer] [facility] Address [address] [place] [address] [address] [place] [address] Care Team Providers Care Trauma Nurse Name Role Phone Unavailable Primary Care Provider Unavailabl e Encounter Details Date Type Department Care Team (Latest Contact Info) Description 12/02/2018 Abstract [facility] CONVERSIONS Dental, Provider, DDS Social History Tobacco Use Types Packs/Day Years Used Date Smoking Tobacco: Never Assessed Sex and Gender Information Value Date Recorded Sex Assigned at Male 09/04/2022 10:18 AM EDT Legal Sex Male 10:18 AM EDT Gender Identity Male 09/04/2022 10:18 AM EDT Sexual Orientation Straight 09/04/2022 10 :18 AM EDT documented as of this encounter Plan of Treatment Upcoming Encounters Date Type Department Care Team (Late st Contact Info) Description 01/23/2025 8:00 AM EDT Office Visit [facility] [address] [place] [address] Epifanio Alberts 01/30/2025 9:00 AM EDT Office Visit [facility] [address] [place] [address] Yash Gregg DDS [address] [place] [address] documented as of this encounter Visit Diagnoses Not on filedocumented in this encounter
--- OUTSIDE RECORDS SUMMARY | 2025-01-05 16:33 | XMS_ITS | Encounter Summary ---
Author Organization [employer] [facility] Address [address] [place] [address] [address] [place] [address] Care Team Providers Care Telegraph Lineman Name Role Phone Unavailable Primary Care Provider Unavailabl e Encounter Details Date Type Department Care Team (Latest Contact Info) Description 01/13/2020 Abstract [facility] CONVERSIONS Dental, Provider, DDS Social History Tobacco [...] Description 01/23/2025 8:00 AM EDT Office Visit [facility] [address] [place] [address] Epifanio Alberts 01/30/2025 9:00 AM EDT Office Visit [facility] [address] [place] [address] Yash Gregg DDS [address] [place] [address] documented as of this encounter Visit Diagnoses Not on filedocumented in this encounter
[2025-02-02 14:25] VITALS: BMI 34.1
--- NOTE | 2025-02-03 09:59 | HO.ANESPROP2 ---
Documented by User: Jasmin Newell NP 02/03/25 10:04 HPI - Anesthesia Eval Consult details Narrative: 64yo M for Left Lithotripsy ESW s/p same 05/2024 with GA-LMA 5 Hx [facility] 2005 [facility] Active Problems Active Problems: All Active Problems Left knee pain (Acute) Right knee pain (Acute) Tendinitis of right rotator cuff (Acute) Arthritis of right acromioclavicular joint (Acute) Right shoulder pain (Acute) BPH loc w urin obs/LUTS (Acute) Elevated fasting glucose (Acute) Chronic pyelonephritis (Acute) Left flank pain (Acute) Nephrolithiasis (Acute) Cellulitis of thumb, left (Acute) Nail deformity (Acute) Amputation of left thumb (Acute) Lateral epicondylitis of left elbow (Acute) Urinary hesitancy due to benign prostatic hyperplasia (Acute) Left elbow pain (Acute) Dermoid cyst of arm (Acute) Right foot pain (Acute) Daytime sleepiness (Acute) Loud snoring (Acute) Skin lesion of neck (Acute) Witnessed apneic spells (Acute) Urinary frequency (Acute) Impaired fasting glucose (Acute) Viral illness (Acute) Tubular adenoma of colon (Acute) Skin lesions (Acute) Left lower quadrant abdominal mass (Acute) Left sided abdominal pain (Acute) Sessile colonic polyp (Acute) Hemorrhoids (Acute) Diverticulosis (Acute) Bilateral nephrolithiasis (Acute) Benign prostatic hyperplasia with lower urinary tract symptoms (Acute) Vitamin D deficiency (Acute) Neuropathy (Acute) Asthma (Acute) Hemorrhoids (Acute) Chronic constipation (Acute) Obesity (BMI 30-39.9) (Acute) Benign essential hypertension (Acute) Pure hypercholesterolemia (Acute) CAD (coronary artery disease) (Acute) Past Medical History Medical History Bilateral nephrolithiasis Benign prostatic hyperplasia with lower urinary tract symptoms Vitamin D deficiency Neuropathy Hemorrhoids Chronic constipation Obesity (BMI 30-39.9) Benign essential hypertension Pure hypercholesterolemia Peripheral neuropathy History of back pain Hx of hepatitis Amputation of thumb, left DJD (degenerative joint disease) of cervical spine DDD (degenerative disc disease), lumbar Hx of vertigo Asthma Myocardial infarction CAD (coronary artery disease) Family History Family History Unknown No family history of colorectal cancer Family history of problems with anesthesia: No Surgical History Surgical History History of surgery on extremity Hx of lithotripsy (05/2024) Hx of hand surgery History of amputation of both great toes Hx of cystoscopy History of surgery on left wrist History of circumcision History of rhinoplasty Hx of colonoscopy History of Problems with Anesthesia: No Social History Social History Household Members: None Housing: House Are you a primary dialysis patient care technician to a significant other at home: No Do you presently have visiting nurse or other home services: No Alcohol intake: never Patient Tobacco Use Status: Former Tobacco user Tobacco use type: Cigarette e-Cigarette/Vaping Use: Never Used Second Hand Smoke Exposure: Yes Use of substances other than those prescribed or required for medical reasons: No Advance Directives: No Advance Directives Information Provided: Yes Advance Directives on File: No Recently lost weight without trying: No Nutrition Risks: No Nutritional Risk Poor oral hygiene: No service: No Current occupational status: retired Cognitive needs: No Hearing needs: Yes (? B/L hearing loss) Vision needs: Yes Meds Allergies Allergy/AdvReac Type Severity Reaction Status Date / Time Penicillins Allergy Intermediate PASSED Verified 02/04/25 10:11 OUT atorvastatin AdvReac Intermediate blurring Verified 02/04/25 10:11 of vision gabapentin AdvReac Intermediate Dizziness Verified 02/04/25 10:11 simvastatin AdvReac Intermediate blurring Verified 02/04/25 10:11 of vision tamsulosin AdvReac Intermediate Dizziness Verified 02/04/25 10:11 Exam Height,Weight and Vital Signs: Height 5 ft 10 in Weight 107.955 kg Pertinent Lab Results Pertinent Lab Results: Laboratory Tests 12/27/24 07:58 WBC 6.0 Hgb 14.7 Hct 41.3 L Plt Count 256 Sodium 142 Potassium 3.6 Chloride 107 Carbon Dioxide 29 BUN 10 Creatinine 1.02 Assessment and Plan Assessment Anesthesia Assessment: Chart Reviewed Final Anesthetic Review Family History of Problems with Anesthesia: No History of Problems with Anesthesia: No Documented by User: Mariola Arias MD 02/04/25 13:44 [facility] Active Problems Active Problems: All Active Problems Left knee pain (Acute) Right knee pain (Acute) Tendinitis of right rotator cuff (Acute) Arthritis of right acromioclavicular joint (Acute) Right shoulder pain (Acute) BPH loc w urin obs/LUTS (Acute) Elevated fasting glucose (Acute) Chronic pyelonephritis (Acute) Left flank pain (Acute) Nephrolithiasis (Acute) Cellulitis of thumb, left (Acute) Nail deformity (Acute) Amputation of left thumb (Acute) Lateral epicondylitis of left elbow (Acute) Urinary hesitancy due to benign prostatic hyperplasia (Acute) Left elbow pain (Acute) Dermoid cyst of arm (Acute) Right foot pain (Acute) Daytime sleepiness (Acute) Loud snoring (Acute) Skin lesion of neck (Acute) Witnessed apneic spells (Acute) Urinary frequency (Acute) Impaired fasting glucose (Acute) Viral illness (Acute) Tubular adenoma of colon (Acute) Skin lesions (Acute) Left lower quadrant abdominal mass (Acute) Left sided abdominal pain (Acute) Sessile colonic polyp (Acute) Hemorrhoids (Acute) Diverticulosis (Acute) Bilateral nephrolithiasis (Acute) Benign prostatic hyperplasia with lower urinary tract symptoms (Acute) Vitamin D deficiency (Acute) Neuropathy (Acute) Asthma (Acute)- patient denies. Never used inhalers Hemorrhoids (Acute) Chronic constipation (Acute) Obesity (BMI 30-39.9) (Acute) Benign essential hypertension (Acute) Pure hypercholesterolemia (Acute) CAD (coronary artery disease) (Acute)- denies having VA. No chest pains recently Apneic episodes witnessed while patient sleeping by his sister- [employer] Past Medical History Medical History Bilateral nephrolithiasis Benign prostatic hyperplasia with lower urinary tract symptoms Vitamin D deficiency Neuropathy Hemorrhoids Chronic constipation Obesity (BMI 30-39.9) Benign essential hypertension Pure hypercholesterolemia Peripheral neuropathy History of back pain Hx of hepatitis Amputation of thumb, left DJD (degenerative joint disease) of cervical spine DDD (degenerative disc disease), lumbar Hx of vertigo Asthma Myocardial infarction CAD (coronary artery disease) Family History Family History Unknown No family history of colorectal cancer Family history of problems with anesthesia: No Surgical History Surgical History History of surgery on extremity Hx of lithotripsy (05/2024) Hx of hand surgery History of amputation of both great toes Hx of cystoscopy History of surgery on left wrist History of circumcision History of rhinoplasty Hx of colonoscopy History of Problems with Anesthesia: Yes (Slow awakening ) Social History Social History Household Members: None Housing: House Are you a primary dialysis patient care technician to a significant other at home: No Do you presently have visiting nurse or other home services: No Alcohol intake: never Patient Tobacco Use Status: Former Tobacco user Tobacco use type: Cigarette e-Cigarette/Vaping Use: Never Used Second Hand Smoke Exposure: Yes Use of substances other than those prescribed or required for medical reasons: No Advance Directives: No Advance Directives Information Provided: Yes Advance Directives on File: No Recently lost weight without trying: No Nutrition Risks: No Nutritional Risk Poor oral hygiene: No service: No Current occupational status: retired Cognitive needs: No Hearing needs: Yes (? B/L hearing loss) Vision needs: Yes Meds Allergies Allergy/AdvReac Type Severity Reaction Status Date / Time Penicillins Allergy Intermediate PASSED Verified 02/04/25 10:11 OUT atorvastatin AdvReac Intermediate blurring Verified 02/04/25 10:11 of vision gabapentin AdvReac Intermediate Dizziness Verified 02/04/25 10:11 simvastatin AdvReac Intermediate blurring Verified 02/04/25 10:11 of vision tamsulosin AdvReac Intermediate Dizziness Verified 02/04/25 10:11 Exam Height,Weight and Vital Signs: Height 5 ft 10 in Weight 107.955 kg Vital Signs Temp Pulse Resp BP Pulse Ox O2 Del Method 02/04/25 10:15 97.6 F 107 H 16 149/92 H 97 Room Air Airway Mallampati Class: II TM Dist: >3cm Neck ROM: Full Loose/Missing/Broken Teeth: Yes (Missing teeth. Denies broken or loose teeth) Heart: RRR Lungs: CTAB Assessment and Plan Assessment Anesthesia Assessment: Anesthesia Plan Discussed and Chart Reviewed Final Anesthetic Review Family History of Problems with Anesthesia: No History of Problems with Anesthesia: Yes (Slow awakening ) NPO: Yes ASA Class: III Final Preanesthetic Review: No Changes in Pt Med Stat, Meds/Allgs Chart Reviewed, Consent Obtained/Reviewed and Anes Risks/Benef Reviewed Patient Risk: Intermediate Procedure Risk: Low Assessment/Block/Sedation in SS: Assess/Block/Sedation-SS Anesthetic Plan Anesthetic Plan: GA Disposition: Standard PACU
[2025-02-04] VITALS (7 sets, daily range): BP systolic 115–149; BP diastolic 52–92; PULSE 88–107; RESP 16–20; TEMP 36.1–36.4; O2SAT 92–97; BMI 34.1
--- NOTE | ~2025-02-04 | XR_ITS ---
EXAMINATION: XR ABDOMEN KUB CLINICAL INDICATION: pre ESWL COMPARISON: Correlation made with CT abdomen and pelvis 09/25/2024. TECHNIQUE: AP view of the abdomen. FINDINGS: Bowel gas pattern is normal/nonspecific. 4 mm calcification overlying the superior left renal shadow. No definite calcifications seen overlying the right renal shadow although there is stool overlying, mildly obscuring. There are phleboliths within the pelvis. No definite organomegaly. No large abdominal mass. Lung bases appear clear. Osseous structures demonstrate moderate degenerative spondylosis of the lumbar spine with a mild right convex scoliosis. There is mild degenerative arthritis in both hip joints. XR/XR KUB IMPRESSION: 1. 4 mm calcification overlying the left superior renal shadow. 2. No definite right renal calcifications although the right renal shadow is somewhat obscured by stool. Electronically signed by: Willie Bush MD 02/05/2025 08:27 AM EDT
[2025-02-04] MEDS: Acetaminophen 1,000 MG/100 ML PIGGYBACK 400 MG IV (10:29)
[2025-02-04] MEDS: Lactated Ringers 1,000 ML 100 ML IVCONT (10:29)
--- NOTE | 2025-02-04 12:08 | W.PM.OPN ---
Operative Note Operative Note Date of Service: 02/04/25 Narrative: PreOperative Diagnosis:? ? Left Renal stone Post Operative Diagnosis:?Left? Renal stone Procedure:?Left? ESWL Surgeon:?Dr Jonathan Deleon Anesthesia:? General Indications for procedure: The patient understands there is a risk of bruising or hematoma to the kidney, infection, and stone migration following the procedure and subsequent intervention may be required.? - Imaging 5mm x 6mm stone Procedure: After informed consent was verified the patient was brought to the operating room and placed in a supine position.? Anesthesia was performed per protocol. Safety pause time-out was performed. Imaging was displayed in the room and laterality confirmed. Left ESWL was performed.?The stone was visualized on both fluoroscopy and ultrasound.? Shockwave lithotripsy was performed, with a maximum rate of 120 hertz. After the first 300 shocks a pause for 3 minutes was completed.? A total of 2500 shocks to a maximum of power of 20 with a maximum rate of 120 hertz.? Good fragmentation of the stone was appreciated. The patient tolerated the procedure well and was transferred to the recovery area upon completion. Complications: None
--- NOTE | 2025-02-04 12:08 | MHC.SHP ---
Pre-Procedural Eval Section A - 24 Hr Update-Section A only Date of Service: 02/04/25 The patient is an INPATIENT: No The patient has been examined within 24 hours of the surgical procedure. The History & Physical has been completed within 30 days and I have reviewed it.: Yes Section B - Complete if H&P > 30 days Chief Complaint: Calculus of kidney, left Allergies: Allergies Allergy/AdvReac Type Severity Reaction Status Date / Time Penicillins Allergy Intermediate PASSED Verified 02/04/25 10:11 OUT atorvastatin AdvReac Intermediate blurring Verified 02/04/25 10:11 of vision gabapentin AdvReac Intermediate Dizziness Verified 02/04/25 10:11 simvastatin AdvReac Intermediate blurring Verified 02/04/25 10:11 of vision tamsulosin AdvReac Intermediate Dizziness Verified 02/04/25 10:11 Plan Diagnosis/Plan: Unchanged I have reviewed the history and physical and performed a pertinent physical examination on my patient. No changes have occurred unless specified. Left ESWL. Discussed risks to include but not limited to, blood in the urine, bruising to the skin, kidney hematoma, possible need for another procedure if a stone fragment obstructs the ureter while passing, possible need to repeat procedure if stone is not completely fragmented. Time Spent With Patient Time: Total time managing care of this patient today ____ minutes.
[2025-02-04] MEDS: Ciprofloxacin Lactate/D5W 400 MG/200 ML PIGGYBACK 200 MG IV (12:13)
== END 2025-02-04 14:37 | disposition home or self-care (01) ==
PROVIDERS: PCP Internal Medicine; Visit Provider Urology
PROC: (CPT 50590; principal; 2025-02-04 11:30)
DX: N20.0 Calculus of kidney (principal); N40.1 Benign prostatic hyperplasia with lower urinary tract symptoms; Z87.442 Personal history of urinary calculi; I10 Essential (primary) hypertension; E78.00 Pure hypercholesterolemia, unspecified; I25.10 Atherosclerotic heart disease of native coronary artery without angina pectoris; I25.2 Old myocardial infarction; G62.9 Polyneuropathy, unspecified; J45.909 Unspecified asthma, uncomplicated; M47.896 Other spondylosis, lumbar region; M41.86 Other forms of scoliosis, lumbar region; Z79.899 Other long term (current) drug therapy; Z88.0 Allergy status to penicillin; Z88.8 Allergy status to other drugs, medicaments and biological substances; Z98.890 Other specified postprocedural states; Z87.891 Personal history of nicotine dependence
CPT/HCPCS: 50590; 74018; J0131; J0744; J1100; J1940; J2003; J2371; J2405; J2704; J3010

== ENCOUNTER → 2025-02-04 09:08 | Outpatient (BNV) | payer MEDICARE, SELFPAY | PROVIDERS: PCP Internal Medicine; Visit Provider Urology | DX: N20.0 Calculus of kidney (principal) | CPT/HCPCS: 50590 ==

== ENCOUNTER 2025-03-20 13:49 | Outpatient (AMB) | payer MEDICARE, MEDICAID, SELFPAY ==
--- OUTSIDE RECORDS SUMMARY | 2025-03-20 13:50 | XMS_ITS | Clinical Summary ---
Author Organization [employer] Address [address] [place] [address] [address] [place] [address] Care Team Providers Care Aerial Gunner Name Role Phone Unavailable Primary Care Provider Unavailabl e Allergies Active Allergy Reactions Criticality Noted Date Comments Penicillins 06/03/2014 Medications gabapentin (Neurontin) 100 MG capsule Take 100 mg by mouth 2 times daily. 3 Active lisinopril 10 MG tablet Take 10 mg by mouth in the morning. 3 Active pyridoxine (Vitamin B-6) 50 MG tablet Take 50 mg by mouth in the morning. 3 Active phenazopyridine (Pyridium) 200 MG tablet Take 200 mg by mouth 3 times daily. 3 Active rosuvastatin (Crestor) 10 MG tablet Take 10 mg by mouth in the morning. 3 Active traMADol (Ultram) 50 MG tablet Take 50 mg by mouth every 8 (eight) hours if needed. 3 Active naproxen (Naprosyn) 500 MG tablet TAKE 1 TABLET BY MOUTH EVERY EIGHT TO TWELVE HOURS NEEDED FOR PAIN (PAIN SCALE 4-6) 4 Active doxazosin (Cardura) 4 MG tablet Take 4 mg by mouth at bedtime. 4 Active tamsulosin (Flomax) 0.4 MG 24 hr capsule TAKE 2 CAPSULES BY MOUTH EVERY DAY AT BEDTIME 4 Active cholecalciferol (Vitamin D-3) 50 MCG (1999 UT) tablet Take 1 tablet by mouth Once per day. 4 Active acetaminophen (Tylenol 8 Hour) 650 MG ER tablet Take 1 tablet (650 mg) by mouth every 8 (eight) hours if needed for mild pain. Do not crush, chew, or split. 30 tablet 5 Active chlorhexidine (Peridex) 0.12 % solution Swish 15 mL morning and night for 1 minute. Spit, do not swallow. Do not eat or drink for 30 minutes following use. 473 mL 5 Active Active Problems Problem Noted Date Diagnosed Date Ill-fitting dentures 01/30/2025 Dental calculus 10/19/2023 Partial edentulism 10/19/2023 Dental caries on smooth surface limited to ename l 10/19/2023 Encounters Date Type Department Care Team Description 02/26/2025 3:30 PM EDT Office Visit [facility] ADULT [facility] [address] [place] [address] Yash Gregg DDS Partial edentulism, unspecified edentulism class (Primary Dx) 01/30/2025 9:00 AM EDT Office Visit [facility]ULT [facility] [address] [place] [address] Yash Gregg DDS Atypical odontalgia (Primary Dx) 01/23/2025 8:00 AM EDT Office Visit [facility] ADULT DENT[facility] [address] [place] [address] Epifanio Alberts Dental calculus (Primary Dx) from Last 3 Months Immunizations Immunization Administration Dates Next Due Influenza injectable quadrivalent [...] Sign Reading Time Taken Comments Blood Pressure 136/82 02/26/2025 3:20 PM EDT Pulse 66 02/26/2025 3:20 PM EDT Temperature - - Respiratory Rate - - Oxygen Saturation - - Inhaled Oxygen Concentration - - Weight - - Height - - Body Mass Index - - Plan of Treatment Upcoming Encounters Date Type Department Care Team (Late st Contact Info) Description 07/27/2025 2:00 PM EDT Office Visit [facility]ULT [facility] [address] [place] [address] Epifanio Alberts Health Maintenance Due Date Last Done Comments [...] of 3 - Risk 3-dose series) 2018 COVID-19 Vaccine ( season) 2025 07/29/2024, 08/15/2023, 08/08/2022, Additional history exists Dental Prophylaxis 07/27/2025 01/23/2025, 0 04/30/2024, 10/30/2023, Additional history exists Dental Oral Exam 08/03/2025 01/30/2025, , 09/29/2020, Additional history exists Dental X-Ray: Bitewings 01/24/2026 01/24/20 25, 12/28/2023, 11/21/2023, Additional history exists Tobacco Screening 02/26/2026 02/26/2025 Dental X-Ray: Full Mouth 10/20/2026 023, 06/02/2019, 05/11/2014 RSV Patients and Patients Aged 60 years or older (1 - 1-dose 75+ series) 2033 Influenza Vaccine Completed 07/29/2024, 09/18/2023 HIB Vaccines Aged Out No longer eligi ble based on patient's age to complete this topic HPV Vaccines Aged Out No longer eligi ble based on patient's age to complete this topic IPV Vaccines Aged Out No longer eligi ble based on patient's age to complete this topic Meningococcal B Vaccine Aged Out No l onger eligible based on patient's age to complete [...] Procedure Name Priority Date/Time Associated Diagnosis Comments 3 LIMITED ORAL EVALUATION - PROBLEM FOCUSED Routine 02/26/2025 3:30 PM EDT 3 INTRAORAL - PERIAPICAL FIRST RADIOGRAPHIC IMAGE Routine 01/30/2025 9:00 AM EDT PERIODIC ORAL EVALUATION - ESTABLISHED PATIENT Routine 01/30/2025 9:00 AM EDT 25 INTRAORAL - PERIAPICAL FIRST RADIOGRAPHIC IMAGE Routine 01/23/2025 8:00 AM EDT ORAL HYGIENE INSTRUCTIONS Routine 2024 8:00 AM EDT BITEWINGS - 4 RADIOGRAPHIC IMAGES Routine 01/23/2025 8:00 AM EDT Full PROPHYLAXIS - ADULT Routine 025 8:00 AM EDT 7 INTRAORAL - PERIAPICAL EACH ADDITIONAL RADIOGRAPHIC IMAGE Routine 01/23/2025 8:00 AM EDT CASE PRESENTATION, DETAILED AND EXTENSIVE TREATMENT PLANNING Routine 01/23/2025 8:00 AM EDT INTRAORAL - COMPLETE SERIES OF RADIOGRAPHIC IMAGES Routine 10/19/2023 8:00 AM EST from Last 3 Months or Most Recently Relevant to Health Maintenance Insurance MEDICARE [facility] STANDARD [facility] [employer] OPTIONS (HMO D-SNP) DENTAL-[facility] MEDICAID STAND ADULT DENTAL - [facility] FULL (MEDICAID)
--- OUTSIDE RECORDS SUMMARY | 2025-03-20 13:50 | XMS_ITS | Encounter Summary ---
Author Organization [employer] Address [address] [place] [address] [address] [place] [address] Care Team Providers Care Termite Exterminator Name Role Phone Unavailable Primary Care Provider Unavailabl e Encounter Details Date Type Department Care Team (Latest Contact Info) Description 01/13/2020 Abstract [facility] CONVERSIONS Dental, Provider, DDS Social [...] Description 07/27/2025 2:00 PM EDT Office Visit [facility] ADULT D[facility]AL [address] [place] [address] Epifanio Alberts documented as of this encounter Visit Diagnoses Not on filedocumented in this encounter
--- OUTSIDE RECORDS SUMMARY | 2025-03-20 13:50 | XMS_ITS | Encounter Summary ---
Author Organization [employer] Address [address] [place] [address] [address] [place] [address] Care Team Providers Care Equipment Operator/Laborer/Supervisor Name Role Phone Unavailable Primary Care Provider Unavailabl e Encounter Details Date Type Department Care Team (Latest Contact Info) Description 12/02/2018 Abstract [facility] CONVERSIONS Dental, Provider, DDS Social History [...] Description 07/27/2025 2:00 PM EDT Office Visit [facility] ADULT D[facility]AL [address] [place] [address] Epifanio Alberts documented as of this encounter Visit Diagnoses Not on filedocumented in this encounter
--- NOTE | 2025-03-20 13:51 | MHC.OFFVIS ---
Intake Visit Reasons: ESWL- follow up/KUB Intake Note: Patient is present for follow up/ESWL/KUB KUB 02/04 Urology Med: Doxazosin, Vitamin B6 Antibiotic Allergy: Penicillins Blood Thinner: None Efficiency Engineer Required: Yes Efficiency Engineer Name: [id number] Perez Accompanied by: Self / Same As Patient Allergies Penicillins Allergy (Intermediate, Verified 03/20/25 13:57) PASSED OUT atorvastatin Adverse Reaction (Intermediate, Verified 03/20/25 13:57) blurring of vision gabapentin Adverse Reaction (Intermediate, Verified 03/20/25 13:57) Dizziness simvastatin Adverse Reaction (Intermediate, Verified 03/20/25 13:57) blurring of vision tamsulosin Adverse Reaction (Intermediate, Verified 03/20/25 13:57) Dizziness HPI Comments Details: 03/20/25-- 10/10/24--FU 3 ER visits--for flank/abd pain. Reviewed CTAP, bilateral renal calculi, small. Previous stone treatments including ESWL and ureteroscopy with lithotripsy. He states pain mainly left flank and radiates to left lower abd. Discussed repeat ESWL vs ureteroscopy. risks discussed including placement of stent with uretoscopy. Pt states stent was very painful previously. Plan 24 hr urine, sche Left ESWL stop celebrex 14 dy, Continue doxazosin for BPH symptoms. CTAP--09/25/24--1.5 mm calculus in the lower pole right pelvicalyceal system. No hydronephrosis. 2 mm calculus in the upper pole midportion of the pelvicalyceal system, left kidney. No hydronephrosis. 07/17/24--status post left ESWL 05/07/2024- follow-up renal ultrasound 06/12/2024 remaining 3 mm upper pole fragment KUB 06/12/2024 nonspecific findings. Will cont doxazosin 4mg daily and Vit b 6 100 mg. FU in one year with renal US. 03/24/2024 Yash is a 63-year-old male who presents today to the office for a follow-up. Yash is evaluated due to nephrolithiasis and BPH. I have reviewed recent CT scan, 03/10/2024. There are a few kidney stones in the left kidney largest measuring up to 5 mm. Right kidney no renal calculi noted. No hydronephrosis present. He is prescribed doxazosin 4 mg daily. He states that the tamsulosin affects his breathing. motor vehicle parts interpreter by meena Steele [id number]. The patient states he gets intermittent left kidney pain. I have discussed scheduling left ESWL. Pashto pamphlet provided. 11/26/23-- s/p cystoscopy bilateral stent removal on 09/25/23; he complains of urinary frequency and ocassional dysuria. He finished the cardura that was prescribed by Dr. Kearney and did not get it refilled. I have discussed that I will prescribe tamsulosin. UA today no signs of infection. He continues to has intermittent left flank pain, recent Abd sono on 11/06/23 was WNL. Plan discussed tamsulosin 0.8 mg qhs, CTAP stone protocol in 3 months, FU post. 09/13/2023--followed today post outpatient procedure 08/21/23 for Cystoscopy, bilateral ureteral stent, right ureteroscopy and laser stone which was performed due to 6 mm obstructing right ureteral stone and Left flank pain, left kidney pyelonephritis. He has seen Terry Neves in the past for kidney stones. He had circumcision about 7-8 years ago. Evaluation today--UA--Leukocytes: neg blood: tr. PFSH Medical History Bilateral nephrolithiasis Benign prostatic hyperplasia with lower urinary tract symptoms Vitamin D deficiency Neuropathy Hemorrhoids Chronic constipation Obesity (BMI 30-39.9) Benign essential hypertension Pure hypercholesterolemia Peripheral neuropathy History of back pain Hx of hepatitis Amputation of thumb, left DJD (degenerative joint disease) of cervical spine DDD (degenerative disc disease), lumbar Hx of vertigo Asthma Myocardial infarction CAD (coronary artery disease) Surgical History History of surgery on extremity Hx of lithotripsy (05/2024) Hx of hand surgery History of amputation of both great toes Hx of cystoscopy History of surgery on left wrist History of circumcision History of rhinoplasty Hx of colonoscopy Family History Unknown No family history of colorectal cancer Social History Household Members: None Housing: House Are you a primary day care provider to a significant other at home: No Do you presently have visiting nurse or other home services: No Alcohol intake: never Patient Tobacco Use Status: Former Tobacco user Tobacco use type: Cigarette e-Cigarette/Vaping Use: Never Used Second Hand Smoke Exposure: Yes service: No Current occupational status: retired Cognitive needs: No Hearing needs: Yes (? B/L hearing loss) Vision needs: Yes Results AMB Urinalysis, Automated UA Leukoctes 0 Michelle/uL Last Edit by Aliza Gandara on 03/20/25 15:25 UA Nitrite Negative Last Edit by Aliza Gandara on 03/20/25 15:25 UA Urobilinogen 3.5 mg/dL Last Edit by Aliza Gandara on 03/20/25 15:25 UA Protein 0 mg/dL Last Edit by Aliza Gandara on 03/20/25 15:25 UA pH 5.5 Last Edit by Aliza Gandara on 03/20/25 15:25 UA Blood 0 Jose/uL Last Edit by Aliza Gandara on 03/20/25 15:25 UA Specific [place] 1.025 Last Edit by Aliza Gandara on 03/20/25 15:25 UA Ketone Negative Last Edit by Aliza Gandara on 03/20/25 15:25 UA Bilirubin 0 mg/dL Last Edit by Aliza Gandara on 03/20/25 15:25 UA Glucose 0 mg/dL Last Edit by Aliza Gandara on 03/20/25 15:25 Assessment & Plan Assessment & Plan (1) Nephrolithiasis: Code(s): N20.0 - Calculus of kidney Category: Medical (2) BPH loc w urin obs/LUTS: Code(s): N40.1 - Benign prostatic hyperplasia with lower urinary tract symptoms Category: Medical Orders: Orders US renal BI Today N20.0 - Calculus of kidney PSA,Total (Free>4and<10) Today N40.1 - Benign prostatic hyperplasia with lower urinary tract symptoms AMB Urinalysis Automated Today Z13.9 - Encounter for screening, unspecified Surgical Today N20.0 - Calculus of kidney Medications: New utsgrsmkw-wcetubcr-tycsv-w.pet 0.25-1 % (Hemorrhoidal Cream) 1 appl CO BEDTIME 51 grams 0RF Coding Diagnoses Nephrolithiasis N20.0 BPH loc w urin obs/LUTS N40.1
== END 2025-03-20 15:11 | disposition home or self-care (01) ==
LOC: HO.HUSH 13:49
PROVIDERS: PCP Internal Medicine; Visit Provider Urology
DX: Z13.9 Encounter for screening, unspecified (principal)

== ENCOUNTER → 2025-03-20 13:49 | Outpatient (BNVA) | payer MEDICARE, MEDICAID, SELFPAY | PROVIDERS: PCP Internal Medicine; Visit Provider Urology | DX: Z13.89 Encounter for screening for other disorder (principal) | CPT/HCPCS: 81003 ==

== ENCOUNTER 2025-03-20 16:12 | Outpatient (REF) | payer MEDICARE, MEDICAID, SELFPAY ==
--- OUTSIDE RECORDS SUMMARY | 2025-03-23 12:48 | XMS_ITS | Clinical Summary ---
Author Organization [employer] Address [address] [place] [address] [address] [place] [address] Care Team Providers Care Perianesthesia Manager Name Role Phone Unavailable Primary Care [...] Description 02/26/2025 3:30 PM EDT Office Visit [facility] [address] [place] [address] Yash Gregg DDS Partial edentulism, unspecified edentulism class (Primary Dx) 01/30/2025 9:00 AM EDT Office Visit [facility] [address] [place] [address] Yash Gregg DDS Atypical odontalgia (Primary Dx) 01/23/2025 8:00 AM EDT Office Visit [facility] [address] [place] [address] Epifanio Alberts Dental calculus (Primary Dx) from [...] Description 07/27/2025 2:00 PM EDT Office Visit [facility] [address] [place] [address] Epifanio Alberts Health Maintenance Due Date Last [...] Recently Relevant to Health Maintenance Insurance MEDICARE [facility] STANDARD [facility] OPTIONS (HMO D-SNP) DENTAL-[facility] MEDICAID STAND ADULT DENTAL - [facility] FULL (MEDICAID)
--- OUTSIDE RECORDS SUMMARY | 2025-03-23 12:48 | XMS_ITS | Encounter Summary ---
Author Organization [employer] Address [address] [place] [address] [address] [place] [address] Care Team Providers Care Spar Finisher Name Role Phone Unavailable Primary Care Provider Unavailabl e Encounter Details Date Type Department Care Team (Latest Contact Info) Description 01/13/2020 Abstract [facility] CONVERSIONS Dental, Provider, DDS Social History [...] Description 07/27/2025 2:00 PM EDT Office Visit [facility] [address] [place] [address] Epifanio Alberts documented as of this encounter Visit Diagnoses Not on filedocumented in this encounter
--- OUTSIDE RECORDS SUMMARY | 2025-03-23 12:48 | XMS_ITS | Encounter Summary ---
Author Organization [employer] Address [address] [place] [address] [address] [place] [address] Care Team Providers Care Butting Saw Operator Name Role Phone Unavailable Primary Care Provider Unavailabl e Encounter Details Date Type Department Care Team (Latest Contact Info) Description 12/02/2018 Abstract [facility] CONVERSIONS Dental, Provider, DDS Social [...] Description 07/27/2025 2:00 PM EDT Office Visit [facility] [address] [place] [address] Epifanio Alberts documented as of this encounter Visit Diagnoses Not on filedocumented in this encounter
[2025-04-08 12:52] LABS: Stone Source KIDSTS2419A
== END 2025-03-20 16:13 | disposition home or self-care (01) ==
LOC: HO.LNP 16:12
PROVIDERS: Visit Provider Urology
DX: N20.0 Calculus of kidney (principal); Z13.9 Encounter for screening, unspecified
CPT/HCPCS: 81003; 82365; 88300

== ENCOUNTER 2025-04-25 07:24 | Outpatient (REF) | payer MEDICARE, MEDICAID, SELFPAY ==
[2025-04-25 07:52] LABS: MANUAL DIFF FLAG NO
[2025-04-25 08:37] LABS: Basophils Percent Auto 0.5 % (0-2); Eosinophils Absolute Auto 0.2 X10*3/uL (0.0-0.4); Eosinophils Percent Auto 2.6 % (0-4); Hematocrit 40.4 % (42.0-52.0); Hemoglobin 14.3 g/dl (14.0-18.0); Imm Gran Abs Auto 0.01 X10*3/uL (0.00-0.03); Imm Gran Pct Auto 0.2 % (0.0-0.4); Lymphocytes Absolute Auto 1.8 X10*3/uL (1.2-4.9); Lymphocytes Percent Auto 28.2 % (20-40); Mean Corpuscular HGB Conc 35.4 g/dl (31.0-36.0); Mean Corpuscular Hemoglobin 30.9 pg (27.0-33.0); Mean Corpuscular Volume 87.3 fL (80.0-98.0); Mean Platelet Volume 9.7 fL (9.4-12.4); Monocytes Absolute Auto 0.5 X10*3/uL (0.1-1.2); Neutrophils Absolute Auto 3.9 x10*3/uL (2.0-8.3); Neutrophils Percent Auto 60.5 % (45-73); Platelet Count 297 X10*3/uL (160-400); Red Blood Count 4.63 X10*6/uL (4.60-5.80); Red Cell Distribution Width 12.8 % (11.0-16.0); White Blood Count 6.5 X10*3/uL (4.8-10.8)
[2025-04-25 08:50] LABS: Estimated Average Glucose 117 mg/dL; Hemoglobin A1c % 5.7 % (<6.0)
[2025-04-25 09:04] LABS: Appearance Urine Clear; Color Urine Yellow; Glucose Urine UA Negative (Negative); Leukocyte Esterase Urine Negative (Negative); Nitrite Urine Negative (Negative); Specific Gravity - Urine 1.015 (1.005-1.025); Urine Blood Negative (Negative); Urine Ketones Negative (Negative); Urine Protein Negative (Neg-Trace)
[2025-04-25 09:13] LABS: Alanine Aminotransferase 44 U/L (0-40); Albumin Level 4.4 g/dL (3.5-5.0); Alkaline Phosphatase 71 U/L (39-117); Anion Gap 10 (12-20); Aspartate Amino Transferase 41 U/L (5-37); Bilirubin Total 0.9 mg/dL (0.0-1.0); Blood Urea Nitrogen 13 mg/dL (9-16); Calcium 9.3 mg/dL (8.4-10.2); Carbon Dioxide 32 mmol/L (22-29); Chloride 106 mmol/L (96-108); Cholesterol 137 mg/dL (<200); Estimated Glomerular Filt Rate > 60; Glucose Fasting 99 mg/dL (60-99); HDL Cholesterol 31 mg/dL (>40); LDL Cholesterol Calculated 78 mg/dL (<100); Potassium 3.7 mmol/L (3.3-5.1); Sodium 144 mmol/L (135-145); Total Protein 6.6 g/dL (6.5-8.0); Triglycerides 144 mg/dL (<150)
[2025-04-25 09:29] LABS: TSH reflex Free T4 1.47 uIU/mL (0.32-4.0); Vitamin D 25-OH Total 39.8 ng/mL (>30)
[2025-04-25 09:32] LABS: PSA,Total (Free>4and<10) 2.82 ng/mL (0.00-4.00)
[2025-04-25 09:45] LABS: Folate 5.8 ng/mL (> or = 4.0); Vitamin B12 363 pg/mL (200-900)
== END 2025-04-25 07:25 | disposition home or self-care (01) ==
LOC: HO.LAB 07:24
PROVIDERS: Absent Provider Urology; PCP Internal Medicine; Visit Provider Internal Medicine
DX: E78.00 Pure hypercholesterolemia, unspecified (principal); R30.0 Dysuria; E53.8 Deficiency of other specified B group vitamins; R73.01 Impaired fasting glucose; D64.9 Anemia, unspecified; E55.9 Vitamin D deficiency, unspecified; N40.1 Benign prostatic hyperplasia with lower urinary tract symptoms; Z12.5 Encounter for screening for malignant neoplasm of prostate
CPT/HCPCS: 36415; 80053; 80061; 81003; 82306; 82607; 82746; 83036; 84153; 84443; 85025

== ENCOUNTER 2025-05-01 09:12 | Outpatient (AMB) | payer MEDICARE, MEDICAID, SELFPAY ==
--- NOTE | 2025-05-01 09:20 | A.OFFVIS_ITS ---
Intake Visit Reasons: 6week f/u PSA/US Intake Note: Patient is present for follow up/ESWL/KUB * 04/25 PSA:2.82 Urology Med: Doxazosin, Vitamin B6 Antibiotic Allergy: Penicillins Blood Thinner: None PVR:29ml Pack Train Driver Required: Yes Pack Train Driver Name: Farzana Castillo Accompanied by: Self / Same As Patient Allergies Penicillins Allergy (Intermediate, Verified 05/01/25 09:21) PASSED OUT atorvastatin Adverse Reaction (Intermediate, Verified 05/01/25 09:21) blurring of vision gabapentin Adverse Reaction (Intermediate, Verified 05/01/25 09:21) Dizziness simvastatin Adverse Reaction (Intermediate, Verified 05/01/25 09:21) blurring of vision tamsulosin Adverse Reaction (Intermediate, Verified 05/01/25 09:21) Dizziness Medication List - Last Reconciled 05/01/25 by Jonathan Deleon MD celecoxib (Celebrex) 200 mg PO BID 30 days Held on 02/04/25. Instructions: Resume on 02/20/25. doxazosin 4 mg PO BEDTIME hydrocortisone 2.5% (Proctozone-HC) 1 appl OK BID PRN lisinopril 10 mg PO DAILY 90 days oxycodone-acetaminophen 5-325 mg (Percocet) 1 tab PO Q6-8H PRN ahxuopjnh-pdztfanx-qjxod-w.pet 0.25-1 % (Hemorrhoidal Cream) 1 appl OK BEDTIME pyridoxine (vitamin B6) 50 mg PO DAILY 90 days rosuvastatin 10 mg PO DAILY 90 days tizanidine 4 mg PO BEDTIME PRN 30 days HPI Comments Details: 05/01/25--Yash is here for follow-up PSA screening anterior review 24 hour urine results. History of Present Illness - The patient is a 65-year-old male managed for on kidney stones and prostate health. - The PSA level was normal, indicating no immediate prostate concerns. - A kidney ultrasound is planned for July to assess kidney condition. - The patient has a history of calcium oxalate kidney stones, with normal urine calcium and oxalate levels but insufficient urine volume, indicating a need for increased hydration. - high normal sodium levels in urine, importanc for low sodium diet Results - Labs: Normal PSA level- 04/25/25--2.82 ng/mL - Labs: 24h Urine calcium level at 215 mg/day, within normal range - Labs: 24h Urine oxalate level normal - Labs: 24h Urine citrate level over 600 mg/day, normal - Labs: 24h sodium level 136 - Stone analysis- CaOx Discussion Notes I discussed with the patient that his PSA level was normal. We have scheduled a kidney ultrasound for July to further evaluate his kidney health. I advised him to increase his fluid intake to prevent kidney stone formation and to monitor his dietary sodium intake. We will follow up after the ultrasound to review the results and adjust the management plan as necessary. Cont Doxazosin 4 mg for BPH symptoms. 03/20/25--Yash is a 65-year-old male who presents today to the office for a follow-up. Yash is evaluated due to nephrolithiasis and BPH. Diagnosis status post left ESWL on 02/04/2025. The patient did not have post op imaging. He complains of vague left-sided discomfort, denies blood in the urine. He is intrusive capacity fragments. I will re-evaluate kidneys with renal ultrasound. Continue management of BPH. PSA screening. 10/10/24--FU 3 ER visits--for flank/abd pain. Reviewed CTAP, bilateral renal calculi, small. Previous stone treatments including ESWL and ureteroscopy with lithotripsy. He states pain mainly left flank and radiates to left lower abd. Discussed repeat ESWL vs ureteroscopy. risks discussed including placement of stent with uretoscopy. Pt states stent was very painful previously. Plan 24 hr urine, sche Left ESWL stop celebrex 14 dy, Continue doxazosin for BPH symptoms. CTAP--09/25/24--1.5 mm calculus in the lower pole right pelvicalyceal system. No hydronephrosis. 2 mm calculus in the upper pole midportion of the pelvicalyceal system, left kidney. No hydronephrosis. 07/17/24--status post left ESWL 05/07/2024- follow-up renal ultrasound 06/12/2024 remaining 3 mm upper pole fragment KUB 06/12/2024 nonspecific findings. Will cont doxazosin 4mg daily and Vit b 6 100 mg. FU in one year with renal US. 03/24/2024 Yash is a 63-year-old male who presents today to the office for a follow-up. Yash is evaluated due to nephrolithiasis and BPH. I have reviewed recent CT scan, 03/10/2024. There are a few kidney stones in the left kidney largest measuring up to 5 mm. Right kidney no renal calculi noted. No hydronephrosis present. He is prescribed doxazosin 4 mg daily. He states that the tamsulosin affects his breathing. juvenile justice officer by video Cedric [id number]. The patient states he gets intermittent left kidney pain. I have discussed scheduling left ESWL. Nigerian pamphlet provided. 11/26/23-- s/p cystoscopy bilateral stent removal on 09/25/23; he complains of urinary frequency and ocassional dysuria. He finished the cardura that was prescribed by Dr. Kearney and did not get it refilled. I have discussed that I will prescribe tamsulosin. UA today no signs of infection. He continues to has intermittent left flank pain, recent Abd sono on 11/06/23 was WNL. Plan discussed tamsulosin 0.8 mg qhs, CTAP stone protocol in 3 months, FU post. 09/13/2023--followed today post outpatient procedure 08/21/23 for Cystoscopy, bilateral ureteral stent, right ureteroscopy and laser stone which was performed due to 6 mm obstructing right ureteral stone and Left flank pain, left kidney pyelonephritis. He has seen Terry Neves in the past for kidney stones. He had circumcision about 7-8 years ago. Evaluation today--UA--Leukocytes: neg blood: tr. PFSH Medical History Bilateral nephrolithiasis Benign prostatic hyperplasia with lower urinary tract symptoms Vitamin D deficiency Neuropathy Hemorrhoids Chronic constipation Obesity (BMI 30-39.9) Benign essential hypertension Pure hypercholesterolemia Peripheral neuropathy History of back pain Hx of hepatitis Amputation of thumb, left DJD (degenerative joint disease) of cervical spine DDD (degenerative disc disease), lumbar Hx of vertigo Asthma Myocardial infarction CAD (coronary artery disease) Surgical History History of surgery on extremity Hx of lithotripsy (05/2024) Hx of hand surgery History of amputation of both great toes Hx of cystoscopy History of surgery on left wrist History of circumcision History of rhinoplasty Hx of colonoscopy Family History Unknown No family history of colorectal cancer Social History Household Members: None Housing: House Are you a primary manager urgent care to a significant other at home: No Do you presently have visiting nurse or other home services: No Alcohol intake: never Patient Tobacco Use Status: Former Tobacco user Tobacco use type: Cigarette e-Cigarette/Vaping Use: Never Used Second Hand Smoke Exposure: Yes service: No Current occupational status: retired Cognitive needs: No Hearing needs: Yes (? B/L hearing loss) Vision needs: Yes Review of Systems Const All systems reviewed & are unremarkable except as noted in HPI and below Reports no additional complaints Eyes Reports no additional complaints ENT Reports no additional complaints Card Reports no additional complaints Resp Reports no additional complaints GI Reports no additional complaints Reports as per HPI Musc Reports no additional complaints Skin/Breast Reports system reviewed and no additional complaints, except as documented Neuro Reports no additional complaints Psych Reports no additional complaints Endo Reports no additional complaints Niko/Lymph Reports no additional complaints Aller/Immun Reports no additional complaints Results AMB Urinalysis, Automated UA Leukoctes 0 Michelle/uL Last Edit by Aliza Gandara on 05/01/25 09:52 UA Nitrite Negative Last Edit by Aliza Gandara on 05/01/25 09:52 UA Urobilinogen 3.5 mg/dL Last Edit by Aliza Gandara on 05/01/25 09:52 UA Protein 0 mg/dL Last Edit by Aliza Gandara on 05/01/25 09:52 UA pH 6.0 Last Edit by Aliza Gandara on 05/01/25 09:52 UA Blood 0 Jose/uL Last Edit by Aliza Gandara on 05/01/25 09:52 UA Specific [place] 1.015 Last Edit by Aliza Gandara on 05/01/25 09:52 UA Ketone Negative Last Edit by Aliza Gandara on 05/01/25 09:52 UA Bilirubin 0 mg/dL Last Edit by Aliza Gandara on 05/01/25 09:52 UA Glucose 0 mg/dL Last Edit by Aliza Gandara on 05/01/25 09:52 Results Reviewed Results Reviewed: Laboratory Last Values Urine pH (Auto) 6.0 05/01/25 09:30 Specific [place] (Auto) 1.015 05/01/25 09:30 Urine Protein (Auto) 0 mg/dL 05/01/25 09:30 Glucose (UA)(Auto) 0 mg/dL 05/01/25 09:30 Urine Ketones (Auto) Negative 05/01/25 09:30 Urine Blood (Auto) 0 Jose/uL 05/01/25 09:30 Urine Nitrite (Auto) Negative 05/01/25 09:30 Urine Bilirubin (Auto) 0 mg/dL 05/01/25 09:30 Urine Urobilinogen (Auto) 3.5 mg/dL 05/01/25 09:30 Leukocyte Esterase (Auto) 0 Michelle/uL 05/01/25 09:30 SACHI: 09/13/231609 STATUS: COMP REQ : [id number] RECD: 09/14/23-[address]: Jonathan Deleon MD COMP: 09/21/23 ENTERED: 09/14/[address] [facility] DR: ORDERED: Kidney Stone QUERIES: Kidney Stone Source: KID STONE [id number] Test Result Flag Reference Component 1 SEE NOTE Calcium Oxalate Dihydrate ([place]) 20% Calcium Oxalate Monohydrate ([place]) 80% See Note 1 Stone Weight 0.033 g Note 1 This test was developed and its analytical performance characteristics have been determined by [facility]. It has not been cleared or approved by the FDA. This assay has been validated pursuant to the CLIA regulations and is used for clinical purposes. THIS TEST WAS PERFORMED AT: [facility] [facility] [id number] [place] [id number] ANDREIA MOMIN MD Stone Source KIDNEY STONE Procedure(s): XR KUB XR ABDOMEN KUB CLINICAL INDICATION: pre ESWL COMPARISON: Correlation made with CT abdomen and pelvis 09/25/2024. TECHNIQUE: AP view of the abdomen. FINDINGS: Bowel gas pattern is normal/nonspecific. 4 mm calcification overlying the superior left renal shadow. No definite calcifications seen overlying the right renal shadow although there is stool overlying, mildly obscuring. There are phleboliths within the pelvis. No definite organomegaly. No large abdominal mass. Lung bases appear clear. Osseous structures demonstrate moderate degenerative spondylosis of the lumbar spine with a mild right convex scoliosis. There is mild degenerative arthritis in both hip joints. IMPRESSION: 1. 4 mm calcification overlying the left superior renal shadow. 2. No definite right renal calcifications although the right renal shadow is somewhat obscured by stool. Date of Service: 09/25/24 CT ABDOMEN AND PELVIS WITHOUT CONTRAST CLINICAL INFORMATION: Left flank pain COMPARISON: CT dated September 18, 2024. TECHNIQUE: Multidetector volumetric imaging was performed from the superior aspect of the liver through the pubic symphysis. Sagittal and coronal reformatted images were obtained on the technologist's workstation. This CT examination was performed using dose optimization techniques as appropriate, variously including the following: *Automated exposure control *Adjustment of mA and/or kV according to patient size (this includes techniques or standardized protocols for targeted exams where dose is matched to indication/reason for exam; i.e. extremities or head) *Use of iterative reconstruction technique DLP: 789 mGy-cm FINDINGS: Limited examination of the intra-abdominal organs and vascular structures due to lack of IV contrast. 12 mm thin-walled cystic structure right lung base. LIVER, GALLBLADDER, AND BILIARY TREE: Liver measures 20 cm. Decreased attenuation throughout the parenchyma. No intrahepatic or extrahepatic biliary ductal dilatation. Contracted gallbladder without pericholecystic fluid collection or gallbladder thickening. PANCREAS: No peripancreatic edema pattern. No main pancreatic ductal dilatation. SPLEEN: 9 cm. ADRENAL GLANDS: There is a 1.7 cm well-defined ovoid shaped low density nodule measuring -1 Hounsfield units in the right adrenal gland. No nodular lesions in the left adrenal gland. KIDNEYS AND URETERS: 1.5 mm calculus in the lower pole right pelvicalyceal system. No hydronephrosis. 2 mm calculus in the upper pole midportion of the pelvicalyceal system, left kidney. No hydronephrosis. Questionable 4 mm exophytic cyst in the anterior midportion lower junction of the left kidney. BLADDER: Fluid-filled. GASTROINTESTINAL TRACT: Appendix is normal. No intestinal obstruction pattern. No pneumatosis intestinalis. No pneumoperitoneum. No ascites. ABDOMINAL WALL: Small tiny fat-containing umbilical hernia. LYMPH NODES: No gross lymphadenopathy. 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 Calcified plaques abdominal aorta wall without aneurysm. Calcified plaques in the iliac arteries. PELVIC VISCERA: Nonenlarged prostate gland or seminal vesicles. OSSEOUS STRUCTURES: Multilevel thoracolumbar spondylosis. Dextroconvex rotoscoliosis apex at L2-3. Focal blastic lesions in the posterior right iliac bone likely benign bony island. Bilateral neuroforamina narrowing/stenosis from L3-4 to L5-S1 on a degenerative basis. IMPRESSION: Nonobstructing nephrolithiasis, bilaterally. Hepatomegaly and likely steatosis. Small fat-containing umbilical hernia. Multilevel thoracolumbar spondylosis resulting in bilateral neuroforamina stenosis, L3-4 to L5-S1. 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 Date of Service: 06/12/24 US RETROPERITONEAL LIMITED (RENAL ONLY) CLINICAL INFORMATION: BPH with lower urinary tract symptoms. COMPARISON: CT abdomen pelvis 03/10/2024 and ultrasound abdomen 11/06/2023 TECHNIQUE: Ultrasound of the the kidneys was performed. FINDINGS: RIGHT KIDNEY: 10.6 x 6.3 x 5.3 cm (SAG x AP x TRV). The kidney is normal in size, contour, and echogenicity. Renal cortical thickness is normal. No calculi or focal parenchymal lesions. No hydronephrosis. LEFT KIDNEY: 12.1 x 5.7 x 4.9 cm (SAG x AP x TRV). The kidney is normal in size, contour, and echogenicity. Renal cortical thickness is normal. There is a 3 mm echogenic focus seen in the upper pole of the kidney with twinkle artifact consistent with a nonobstructing calculus. At the time of the prior CT, it least additional calculi are seen not identified on this exam. No hydronephrosis. A benign lower pole 0.8 cm Bosniak class I renal cyst is noted which requires no additional imaging or follow up. No solid renal masses are seen. IMPRESSION: Nonobstructing 3 mm left upper pole renal calculus. Date of Service: 03/10/24 CT ABDOMEN AND PELVIS WITHOUT CONTRAST CLINICAL INFORMATION: Unspecified abdominal pain. Left flank pain. Calculus of kidney. COMPARISON: Abdominal ultrasound 11/06/[address] abdomen pelvis 08/17/2023 TECHNIQUE: Multidetector volumetric imaging was performed from the superior aspect of the liver through the pubic symphysis. Sagittal and coronal reformatted images were obtained on the technologist's workstation. This CT examination was performed using dose optimization techniques as appropriate, variously including the following: *Automated exposure control *Adjustment of mA and/or kV according to patient size (this includes techniques or standardized protocols for targeted exams where dose is matched to indication/reason for exam; i.e. extremities or head) *Use of iterative reconstruction technique DLP: 671 mGy-cm FINDINGS: Visualized lung bases are well aerated. Similar partially visualized small right middle lobe granuloma. Small cystic focus within the posterior right lung base is unchanged. The liver is normal in size but demonstrates diffusely decreased attenuation. The gallbladder is normal in appearance. The pancreas, spleen and left adrenal gland are unremarkable. Stable 1.7 cm right adrenal lesion most consistent with an adenoma. Symmetrically sized kidneys. There are a few nonobstructing calculi present within the left kidney, largest measuring approximately 5 mm. No right-sided renal calculi are identified. There is no hydronephrosis of either kidney. Normal caliber loops of small and large bowel. Normal appendix. Normal caliber abdominal aorta demonstrating mild atherosclerotic disease. Retroaortic left renal vein. No retroperitoneal lymphadenopathy. The bladder is normal in appearance. The prostate gland is normal in size. Tiny fat-containing inguinal hernias bilaterally. No inguinal lymphadenopathy. No gross free pelvic fluid. Mild to moderate diffuse degenerative changes of the spine. Stable sclerotic focus within the right ilium, likely bone island. IMPRESSION: 1. There are a few nonobstructing calculi present within the left kidney, largest measuring approximately 5 mm. No right-sided renal calculi are identified. There is no hydronephrosis of either kidney. 2. Diffusely decreased liver attenuation suggesting hepatic steatosis. Correlation with liver enzymes recommended. 3. Stable 1.7 cm right adrenal lesion most consistent with an adenoma. Date of Service: 11/06/23 EXAMINATION: US ABDOMEN LIMITED CLINICAL INFORMATION: Unspecified abdominal pain Left lower quadrant tender lump. COMPARISON: Renal ultrasound 09/12/2023 TECHNIQUE: Real-time imaging of the left lower quadrant over the palpable area indicated by the patient. FINDINGS: The area indicated by the patient was the left flank/left kidney. No abnormality is seen in the area indicated by the patient. There is no free fluid, no hernia. LEFT KIDNEY: No hydronephrosis. No renal calculi. 0.8 x 0.7 x 0.8 cm simple exophytic cyst in the lower pole requires no imaging follow-up. The kidney measures 12.2 cm in maximum dimension. FREE FLUID: None. IMPRESSION: No abnormality demonstrated in the area indicated by the patient in the left flank/left kidney. Assessment & Plan Assessment & Plan (1) Nephrolithiasis: Code(s): N20.0 - Calculus of kidney Category: Medical (2) BPH loc w urin obs/LUTS: Code(s): N40.1 - Benign prostatic hyperplasia with lower urinary tract symptoms Category: Medical Plan Plan - Schedule a follow-up kidney ultrasound in July to assess kidney health. - Advise the patient to increase fluid intake to at least 2-2.5 liters per day to prevent kidney stone formation. - Recommend reducing dietary sodium intake due to slightly high normal urine sodium levels. - Cont doxazosin 4 mg for the patient. Medications: Refilled doxazosin 4 mg PO BEDTIME 90 tabs 3RF N40.1 - Benign prostatic hyperplasia with lower urinary tract symptoms, R39.11 - Hesitancy of micturition Patient Instructions: The patient had an opportunity to ask questions regarding treatment plan. The patient expressed understanding and agreement with the above treatment plan. The patient is aware they should contact our office by phone for worsening of their current condition or the appearance of new symptoms. Compliance is encouraged with any medications and followup testing that is ordered. It is a privilege to be allowed the opportunity to participate in the urologic care of your patient. If you have any questions or concerns regarding treatment for the above conditions please do not hesitate to contact me. The office telephone contact is [phone]. This note is constructed in part using voice recognition software. While every effort has been made to ensure accuracy diesel service journeyman errors may have been included. Yours sincerely, Jonathan Deleon MD Scribe Plan - Not visible on output: Patient was informed and verbally consented to the use of an ambient scribe for clinic note documentation during this visit. Coding Level of Care Code Est Pt Level 4 (65642) Diagnoses Nephrolithiasis N20.0 BPH loc w urin obs/LUTS N40.1
--- OUTSIDE RECORDS SUMMARY | 2025-05-01 09:34 | XMS_ITS | Encounter Summary ---
Author Organization [employer] Address [address] [place] [address] [address] [place] [address] Care Team Providers Care Director Media Name Role Phone Unavailable Primary Care Provider Unavailabl e Encounter Details Date Type Department Care Team (Latest Contact Info) Description 01/13/2020 Abstract [facility] CONVERSIONS Dental, Provider, DDS Social History [...] Description 07/27/2025 2:00 PM EDT Office Visit [facility] [address] [place] [address] Epifanio Alberts documented as of this encounter Visit Diagnoses Not on filedocumented in this encounter
== END 2025-05-01 10:15 | disposition home or self-care (01) ==
LOC: HO.HUSH 09:14
PROVIDERS: PCP Internal Medicine; Visit Provider Urology
DX: N40.1 Benign prostatic hyperplasia with lower urinary tract symptoms (principal); N20.0 Calculus of kidney; Z13.9 Encounter for screening, unspecified
CPT/HCPCS: 99214

== ENCOUNTER → 2025-05-01 09:12 | Outpatient (BNVA) | payer MEDICARE, MEDICAID, SELFPAY | PROVIDERS: PCP Internal Medicine; Visit Provider Urology | DX: I25.10 Atherosclerotic heart disease of native coronary artery without angina pectoris (principal); E78.00 Pure hypercholesterolemia, unspecified; N20.0 Calculus of kidney; N40.1 Benign prostatic hyperplasia with lower urinary tract symptoms; N13.8 Other obstructive and reflux uropathy; R39.11 Hesitancy of micturition; I10 Essential (primary) hypertension; R73.01 Impaired fasting glucose; G62.9 Polyneuropathy, unspecified; M25.511 Pain in right shoulder; E55.9 Vitamin D deficiency, unspecified; M25.562 Pain in left knee; K59.09 Other constipation; E66.9 Obesity, unspecified; Z68.32 Body mass index [BMI] 32.0-32.9, adult; I25.2 Old myocardial infarction; Z79.899 Other long term (current) drug therapy; Z13.31 Encounter for screening for depression; Z13.30 Encounter for screening examination for mental health and behavioral disorders, unspecified | CPT/HCPCS: 81003; 96127; 99212 ==

== ENCOUNTER 2025-05-01 12:06 | Outpatient (AMB) | payer MEDICARE, SELFPAY ==
[2025-05-01 12:35] VITALS: BP 110/78; PULSE 89; O2SAT 97; BMI 32.5
--- NOTE | 2025-05-01 12:35 | MHC.PC.OV ---
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 Instructions: Resume on 02/20/25. doxazosin 4 mg PO BEDTIME hydrocortisone 2.5% (Proctozone-HC) 1 appl [place] BID PRN lisinopril 10 mg PO DAILY 90 days oxycodone-acetaminophen 5-325 mg (Percocet) 1 tab PO Q6-8H PRN wytpdzdwl-fnojhrjl-svjuu-w.pet 0.25-1 % (Hemorrhoidal Cream) 1 appl [place] BEDTIME pyridoxine (vitamin B6) 50 mg PO DAILY 90 days rosuvastatin 10 mg PO DAILY 90 days tizanidine 4 mg PO BEDTIME PRN 30 days Tobacco use date assessed: 05/01/25 Fall risk assessment: No Falls in past year Last assessed Fall Risk: 05/01/25 Dental Screening Dental Screen Date: 05/01/25 Did you have a dental visit in the last 12 months?: Yes Did you have a dental problem in the last 6 months where you did not have access to dental care?: No Was dental information given to patient?: Patient has dentist HPI 3 Month F/U HPI Details Patient comes in today for his follow up visit States that he feels okay Reports that he has been able to lose over 10 pounds of weight since his last visit States that he was on vacation in [place] [facility] for a couple of weeks recently and he was walking a lot and eating a lot of healthy foods while he was on vacation He denies any headaches or dizziness Denies any chest pains, no increased SOB No nausea/vomiting, no abdominal pain No change in bowel habits noted He continues to follow up with urology regularly for his recurrent kidney stones - states that he has not had any attacks of kidney stones for the past few months Needs a couple of his Rx refilled He had his follow up labs done last week - to discuss his results [facility] Medical History Bilateral nephrolithiasis Benign prostatic hyperplasia with lower urinary tract symptoms Vitamin D deficiency Neuropathy Hemorrhoids Chronic constipation Obesity (BMI 30-39.9) Benign essential hypertension Pure hypercholesterolemia Peripheral neuropathy History of back pain Hx of hepatitis Amputation of thumb, left DJD (degenerative joint disease) of cervical spine DDD (degenerative disc disease), lumbar Hx of vertigo Asthma Myocardial infarction CAD (coronary artery disease) Surgical History History of surgery on extremity Hx of lithotripsy (05/2024) Hx of hand surgery History of amputation of both great toes Hx of cystoscopy History of surgery on left wrist History of circumcision History of rhinoplasty Hx of colonoscopy Family History Unknown No family history of colorectal cancer Social History Household Members: None Housing: House Are you a primary nursing care partner to a significant other at home: No Do you presently have visiting nurse or other home services: No Alcohol intake: never Patient Tobacco Use Status: Former Tobacco user Tobacco use type: Cigarette e-Cigarette/Vaping Use: Never Used Second Hand Smoke Exposure: Yes service: No Current occupational status: retired Cognitive needs: No Hearing needs: Yes (? B/L hearing loss) Vision needs: Yes Questionnaire PHQ-9 Over the last 2 weeks, how often have you been bothered by any of the following problems? 1. Little interest or pleasure in doing things: not at all 2. Feeling down, depressed, or hopeless: not at all 3. Trouble falling or staying asleep, or sleeping too much: not at all 4. Feeling tired or having little energy: not at all 5. Poor appetite or overeating: not at all 6. Feeling bad about yourself - or that you are a failure or have let yourself or your family down: not at all 7. Trouble concentrating on things, such as reading the newspaper or watching television: not at all 8. Moving or speaking so slowly that other people could have noticed. Or the opposite - being so fidgety or restless that you have been moving around a lot more than usual: not at all 9. Thoughts that you would be better off or of hurting yourself in some way: not at all Total score: 0 Depression Screening Interpretation: Negative Depression Screening Done: Yes 97082 - PHQ-9 Billing: Yes Source: Developed by Drs. Brendon Nixon, Marlen Tanner, Angelo Arreola and colleagues, with an educational zen from [employer]. Thrive Questionnaire Date Thrive assessed: 05/01/25 I am a: Patient What is your living situation today?: I have a steady place to live Within the past 12 months, did the food you bought not last and you didn't have the money to get more?: I choose not to answer this question Within the past 12 months, did you worry whether your food would run out before you got money to buy more?: I choose not to answer this question Do you have trouble paying for medicines?: No Do you have trouble getting transportation to medical appointments?: No Do you have trouble paying your heating and electricity bill?: No Do you have trouble taking care of your child, family member or friend?: No Do you have trouble with day-to-day activities such as bathing, preparing meals, shopping, managing finances, etc.?: No Are you currently unemployed and looking for a job?: No Are you interested in more education?: No Please select the resources that you would like help with: None Currently or been in a relationship where the following occur: No concerns reported THRIVE Score: 0 AUDIT C Alcohol Use Questionnaire (AUDIT-C) 1. How often do you have a drink containing alcohol?: Never 3. How often do you have six or more drinks on one occasion?: Never Total Score: 0 Score Reviewed/Action Taken: Yes LING-7 AMB Questionnaire LING-7 Date LING - 7 assessed: 05/01/25 Feeling nervous, anxious, or on edge: 0 = Not at all Not being able to stop or control worryin = Not at all Worrying too much about different things: 0 = Not at all Trouble relaxin = Not at all Being so restless that it is hard to sit still: 0 = Not at all Becoming easily annoyed or irritable: 0 = Not at all Feeling afraid as if something awful might happen: 0 = Not at all Total LING-7 score (0-4 normal; 5-9 mild; 10-14 moderate; 15-21 severe): 0 Source: Developed by Drs. Brendon Nixon, Marlen Tanner, Angelo Arreola and colleagues, with an educational zen from [employer]. Review of Systems Const Denies chills, Denies fatigue, Denies fever(s) and Denies headache(s) ENT Denies dysphagia, Denies dizziness, Reports dry mouth (mostly at night ), Denies otalgia, Denies headache(s), Denies neck pain, Denies odynophagia and Denies sore throat Card Denies chest pain, Denies palpitations and Denies dyspnea Resp Denies chest congestion, Denies cough and Denies dyspnea GI Denies abdominal pain, Denies constipation, Denies dysphagia, Denies heartburn, Denies diarrhea, Denies nausea, Denies odynophagia and Denies vomiting Denies hematuria, Denies difficulty urinating, Denies dysuria, Denies nocturia and Denies urinary frequency Musc Reports back pain (over the lower back, on and off), Reports arthralgias (over the left knee x past 6 months but states his knee pain is better now) and Denies neck pain Skin/Breast Denies rash Neuro Denies dizziness and Denies headache(s) Psych Denies anxiety and Denies depression Endo Denies fatigue and Denies palpitations Physical exam (Primary Care) Vital Signs: Last Vital Signs Pulse 89 05/01/25 12:35 BP 110/78 05/01/25 12:35 Pulse Ox 97 05/01/25 12:35 Oxygen Delivery Method Room Air 05/01/25 12:35 BMI result Body Mass Index 32.5 Tobacco/Smoking Status: Tobacco use Status Tobacco use date assessed 05/01/25 05/01/25 12:41 Patient Tobacco Use Status Former Tobacco user 05/01/25 12:41 Tobacco use type Cigarette 05/01/25 12:41 e-Cigarette/Vaping Use Never Used 05/01/25 12:41 PHQ-9: PHQ-9 Score PHQ-9: Total score 0 05/01/25 12:41 Depression Screening Interpretation: Negative Thrive Assessment: Date of Thrive Assessment Date Thrive assessed 05/01/25 05/01/25 12:41 Currently or been in a relationship where the following occur: No concerns reported Const General: no acute distress and alert HENMT Ears: TM's normal bilaterally and EAC's normal Throat: Yes posterior oropharynx normal and Yes tonsils normal (no TP congestion) Neck Neck: Yes supple and No lymphadenopathy Thyroid: Thyroid normal Resp Auscultation: clear to auscultation bilaterally, no rales and no wheezes Cardio Rate: regular rate Rhythm: regular rhythm Heart sounds: no murmurs GI Palpation (GI): Soft to palpation and nontender Auscultation: normal bowel sounds General: Yes no CVA tenderness Back/Spine/Pelvis Back: no CVA tenderness Thoracic/Lumbar Spine: lumbar spinal tenderness Skin Rashes: no rashes Extrem General: Yes no clubbing, cyanosis or edema Right upper extremity: shoulder/upper arm Details: tenderness Location: of the A-C joint Left lower extremity: knee Details: tenderness (mild) Location: of the medial joint line; no swelling Results AMB Urinalysis, Automated UA Leukoctes 0 Michelle/uL Last Edit by Aliza Gandara on 05/01/25 09:52 UA Nitrite Negative Last Edit by Aliza Gandara on 05/01/25 09:52 UA Urobilinogen 3.5 mg/dL Last Edit by Aliza Gandara on 05/01/25 09:52 UA Protein 0 mg/dL Last Edit by Aliza Gandara on 05/01/25 09:52 UA pH 6.0 Last Edit by Aliza Gandara on 05/01/25 09:52 UA Blood 0 Jose/uL Last Edit by Aliza Gandara on 05/01/25 09:52 UA Specific [place] 1.015 Last Edit by Aliza Gandara on 05/01/25 09:52 UA Ketone Negative Last Edit by Aliza Gandara on 05/01/25 09:52 UA Bilirubin 0 mg/dL Last Edit by Aliza Gandara on 05/01/25 09:52 UA Glucose 0 mg/dL Last Edit by Aliza Gandara on 05/01/25 09:52 Results Reviewed Results Reviewed: Laboratory Tests 04/25/25 07:50 WBC 6.5 Hgb 14.3 Hct 40.4 L Plt Count 297 Sodium 144 Potassium 3.7 Creatinine 1.04 Estimated GFR > 60 Fasting Glucose 99 Hemoglobin A1c % 5.7 Calcium 9.3 AST 41 H ALT 44 H Triglycerides 144 Cholesterol 137 LDL Cholesterol, Calc 78 HDL Cholesterol 31 L Coding Level of Care Code Est Pt Level 4 (63882) Complex EM visit Add On G2211 Diagnoses Pure hypercholesterolemia E78.00 Coronary artery disease involving [place] coronary artery of [place] heart without angina pectoris I25.10 Coronary Disease-Associated Artery/Lesion type: [place] artery [place] vs. transplanted heart: [place] heart Associated angina: without angina Benign essential hypertension I10 Impaired fasting glucose R73.01 Neuropathy G62.9 Right shoulder pain, unspecified chronicity M25.511 Chronicity: unspecified Vitamin D deficiency E55.9 Acute pain of left knee M25.562 Chronicity: acute Chronic constipation K59.09 Benign prostatic hyperplasia with urinary hesitancy N40.1; R39.11 Lower urinary tract symptom detail: urinary hesitancy Bilateral nephrolithiasis N20.0 Obesity (BMI 30-39.9) E66.9 Additional Codes PHQ-9 - 67643 - PHQ-9 Billing: Yes ([id number]) Assessment & Plan Assessment & Plan (1) Pure hypercholesterolemia: Code(s): E78.00 - Pure hypercholesterolemia, unspecified Category: Medical Plan: Results of his labs done last week reviewed and discussed with patient Reinforced low cholesterol diet Continue Rosuvastatin 10 mg QD Will recheck his labs and fasting lipids in 4 months for follow up (2) CAD (coronary artery disease): Comment: S/P SD in 2005 Code(s): I25.10 - Atherosclerotic heart disease of [place] coronary artery without angina pectoris Category: Medical Qualifiers: Coronary Disease-Associated Artery/Lesion type: [place] artery [place] vs. transplanted heart: [place] heart Associated angina: without angina Qualified Code(s): I25.10 - Atherosclerotic heart disease of [place] coronary artery without angina pectoris Plan: Patient currently remains asymptomatic from a cardiac standpoint Follow up with cardiology as scheduled (3) Benign essential hypertension: Code(s): I10 - Essential (primary) hypertension Category: Medical Plan: Reinforced low sodium diet - goal is systolic BP of 120 to 130 mm or less Continue Lisinopril 10 mg QD - Rx refilled (4) Impaired fasting glucose: Code(s): R73.01 - Impaired fasting glucose Category: Medical Plan: His HgbA1c was normal at 5.7%, 5.2% and 5.6% when checked previously and is again normal at 5.7% on his recent labs His recent FBS was also normal at 99 mg/dl Patient is again reassured that he does NOT have diabetes Reinforced low calorie diet/exercise as tolerated (5) Neuropathy: Code(s): G62.9 - Polyneuropathy, unspecified Category: Medical Plan: He was previously started on Gabapentin 100 mg BID but he stopped taking this a few months ago when he experienced dizziness every time he took the Rx He still does not wish to take anything else for his neuropathy at this time - states that his neuropathic symptoms have been mostly tolerable (6) Right shoulder pain: Code(s): M25.511 - Pain in right shoulder Category: Medical Qualifiers: Chronicity: unspecified Qualified Code(s): M25.511 - Pain in right shoulder Plan: (+) Hx of bicipital tendinitis; shoulder x-rays done back in April 2024 also revealed (+) AC arthritis changes We offered to refer him to orthopedics previously for possible cortisone injection for symptomatic relief but he is averse to needles and will NOT go for any injections He has been to physical therapy for his shoulder pain - states that PT has helped a lot, especially iontophoresis We can refer him again to physical therapy for further management and Tx with ultrasound and iontophoresis if appropriate and when needed Continue topical Lidocaine 5% ointment QID to the shoulder PRN for pain (7) Vitamin D deficiency: Code(s): E55.9 - Vitamin D deficiency, unspecified Category: Medical Plan: Continue Vitamin D3 2000 units QD - Rx refilled (8) Left knee pain: Code(s): M25.562 - Pain in left knee Category: Medical Qualifiers: Chronicity: acute Qualified Code(s): M25.562 - Pain in left knee Plan: X-rays of the left knee done a few months ago revealed (+) chondrocalcinosis suggestive of CPPD Patient states that his knee pain has improved a lot with his recent weight loss If his knee pain flares up again, will consider referring him to rheumatology for further evaluation and management (9) Chronic constipation: Comment: Colace 200 mg, MiraLax 17 g q.h.s. maintain high-fiber diet, Proctozone is need for hemorrhoid Code(s): K59.09 - Other constipation Category: Medical Plan: Reinforced again increased oral fluids and dietary fiber States that his bowels are presently well-controlled on his current regimen of fiber laxative and stool softeners PRN Continue Senna 8.6 mg 2 tablets Q HS Follow up with GI as scheduled (10) Benign prostatic hyperplasia with lower urinary tract symptoms: Code(s): N40.1 - Benign prostatic hyperplasia with lower urinary tract symptoms Category: Medical Qualifiers: Lower urinary tract symptom detail: urinary hesitancy Qualified Code(s): N40.1 - Benign prostatic hyperplasia with lower urinary tract symptoms; R39.11 - Hesitancy of micturition Plan: Continue Doxazosin 4 mg QD Follow up with urology as scheduled (11) Bilateral nephrolithiasis: Code(s): N20.0 - Calculus of kidney Category: Medical Plan: S/P ESWL multiple times in the past; reports no flare up of symptoms over the past few months Follow up with urology as scheduled (12) Obesity (BMI 30-39.9): Code(s): E66.9 - Obesity, unspecified Category: Medical Plan: Reinforced diet/exercise as tolerated/lose weight Plan Follow up in 4 months Orders: Orders Comprehensive [place]. Panel Fast 4 Months E78.00 - Pure hypercholesterolemia, unspecified Lipid Panel 4 Months E78.00 - Pure hypercholesterolemia, unspecified Complete Blood Count Auto Diff 4 Months D64.9 - Anemia, unspecified TSH reflex Free T4 4 Months E78.00 - Pure hypercholesterolemia, unspecified UA CC w/rflx Micro + Cult 4 Months R30.0 - Dysuria Vitamin D 25-OH Total 4 Months E55.9 - Vitamin D deficiency, unspecified Medications: Refilled lisinopril 10 mg PO DAILY 90 tabs 1RF 90 days cholecalciferol (vitamin D3) 50 mcg PO DAILY 90 tabs 1RF 90 days R79.89 - Other specified abnormal findings of blood chemistry cholecalciferol (vitamin D3) 50 mcg PO DAILY 90 days 90 tabs 1RF R79.89 - Other specified abnormal findings of blood chemistry lisinopril 10 mg PO DAILY 90 days 90 tabs 1RF
== END 2025-05-01 12:59 | disposition home or self-care (01) ==
LOC: HO.HMCH 12:07
PROVIDERS: PCP Internal Medicine; Visit Provider Internal Medicine
DX: E78.00 Pure hypercholesterolemia, unspecified (principal); I25.10 Atherosclerotic heart disease of native coronary artery without angina pectoris; I10 Essential (primary) hypertension; R73.01 Impaired fasting glucose; G62.9 Polyneuropathy, unspecified; M25.511 Pain in right shoulder; E55.9 Vitamin D deficiency, unspecified; M25.562 Pain in left knee; K59.09 Other constipation; N40.1 Benign prostatic hyperplasia with lower urinary tract symptoms; R39.11 Hesitancy of micturition; N20.0 Calculus of kidney

== ENCOUNTER 2025-06-26 09:18 | Emergency (ER) | payer MEDICARE, SELFPAY ==
[2025-06-26 09:27] VITALS: BP 147/80; PULSE 80; RESP 16; TEMP 36.4; O2SAT 98; BMI 32.9
--- NOTE | 2025-06-26 09:39 | ED_ITS ---
HPI - General Adult General Chief complaint: Wound/Laceration Stated complaint: R Hand Index Finger Lac Time Seen by Provider: 06/26/25 09:39 Source: patient Mode of arrival: ambulatory Limitations: no limitations History of Present Illness ED Provider: Mayi Yang PA-C HPI narrative: Patient is a 65 year old assigned male at with a history of CAD, BPH, asthma, and kidney stones presenting to the emergency department today with a left index finger laceration. Patient states that he was cleaning up at his house and cleaned a knife - causing a cut on his index finger. Patient denies any other complaints at this time. Patient is unsure when his last tetanus shot was. Relieving factors: none Exacerbating factors: none Associated symptoms: denies other symptoms Treatments prior to arrival: none Related Data Previous Rx's ?Medication ?Instructions ?Recorded hydrocortisone 2.5 % topical cream 1 appl IN BID PRN h emorrhoids #30 02/10/21 with perineal applicator grams (Proctozone-HC) tizanidine 4 mg tablet 4 mg PO BEDTIME PRN low back pain 10/02/23 30 days #30 tabs pyridoxine (vitamin B6) 50 mg 50 mg PO DAILY 90 days # 90 tabs 07/17/24 tablet celecoxib 200 mg capsule (Celebrex) 200 mg PO BID 30 d ays #60 caps 10/06/24 Held on 02/04/25. Instructions: Resume on 02/20/25. oxycodone-acetaminophen 5 mg-325 1 tab PO Q6-8H PRN pa in #10 tabs 02/04/25 mg tablet (Percocet) rosuvastatin 10 mg tablet 10 mg PO DAILY 90 days #90 t abs 03/09/25 phenylephrine 0.25 %-pramoxine 1 1 appl IN BEDTIME #51 grams 03/20/25 %-glycerin-wh.petrolatum rectal cream (Hemorrhoidal Cream) cholecalciferol (vitamin D3) 50 50 mcg PO DAILY 90 day s #90 tabs 05/01/25 mcg (2,000 unit) tablet doxazosin 4 mg tablet 4 mg PO BEDTIME #90 tabs lisinopril 10 mg tablet 10 mg PO DAILY 90 days #90 t abs 06/12/25 doxycycline hyclate 100 mg tablet 100 mg PO BID 7 days #14 tabs 06/26/25 Allergies Allergy/AdvReac Type Severity Reaction Status Date / Time Penicillins Allergy Intermediate PASSED Verified 06/26/25 09:28 OUT atorvastatin AdvReac Intermediate blurring Verified 06/26/25 09:28 of vision gabapentin AdvReac Intermediate Dizziness Verified 06/26/25 09:28 simvastatin AdvReac Intermediate blurring Verified 06/26/25 09:28 of vision tamsulosin AdvReac Intermediate Dizziness Verified 06/26/25 09:28 Review of Systems 2 Constitutional: Constitutional: Reports as per HPI Eyes: Eyes: Reports as per HPI ENT: Reports as per HPI Cardiovascular: Cardiovascular: Reports as per HPI Respiratory: Respiratory: Reports as per HPI Gastrointestinal: Gastrointestinal: Reports as per HPI Genitourinary: Genitourinary: Reports as per HPI Musculoskeletal: Comments: left index finger laceration Integumentary/Breasts: Skin/Breast: Reports as per HPI Neurologic: Reports as per HPI Psychiatric: Psychiatric: Reports as per HPI Endocrine: Endocrine: Reports as per HPI Hematologic/Lymphatic: Hematologic/Lymphatic: Reports as per HPI Allergic/Immunologic: Allergic/Immunologic: Reports as per HPI [facility] Past Medical History Attestation statement: The following information was validated with the patient. Source: old records reviewed and nursing notes reviewed Medical History Bilateral nephrolithiasis Benign prostatic hyperplasia with lower urinary tract symptoms Vitamin D deficiency Neuropathy Hemorrhoids Chronic constipation Obesity (BMI 30-39.9) Benign essential hypertension Pure hypercholesterolemia Peripheral neuropathy History of back pain Hx of hepatitis Amputation of thumb, left DJD (degenerative joint disease) of cervical spine DDD (degenerative disc disease), lumbar Hx of vertigo Asthma Myocardial infarction CAD (coronary artery disease) Surgical History History of surgery on extremity Hx of lithotripsy (05/2024) Hx of hand surgery History of amputation of both great toes Hx of cystoscopy History of surgery on left wrist History of circumcision History of rhinoplasty Hx of colonoscopy Family History Family History Unknown No family history of colorectal cancer Social History Social History Household Members: None Housing: House Are you a primary primary care sales representative to a significant other at home: No Do you presently have visiting nurse or other home services: No Alcohol intake: never Patient Tobacco Use Status: Former Tobacco user Tobacco use type: Cigarette e-Cigarette/Vaping Use: Never Used Second Hand Smoke Exposure: Yes Advance Directives: No Advance Directives Information Provided: No service: No Current occupational status: retired Cognitive needs: No Hearing needs: Yes (? B/L hearing loss) Vision needs: Yes Physical Exam ED Vital Signs: Vital Signs - 24 hr 06/26/25 09:27 06/26/25 10:29 Temperature 97.5 F 97.5 F Pulse Rate 80 80 Respiratory Rate 16 16 Blood Pressure 147/80 H 147/80 H Pulse Oximetry 98 98 Oxygen Delivery Method Room Air Room Air BMI result Body Mass Index 32.9 Const General: cooperative, no acute distress, alert and awake Nutritional Appearance: well nourished Orientation/consciousness: patient oriented x3 HENMT Head: Yes normal to inspection and Yes atraumatic Ears: hearing grossly normal bilaterally and external ears normal General nose exam: Normal external nose present, no nasal discharge noted and no epistaxis Face and sinus: Yes normal facial exam, No abrasion and No laceration Mouth: Normal oral and palatal mucosa present, no drooling and no muffled voice Eyes General: appearance normal, both eyes and all related structures Periorbital: periorbital findings normal Eyelids: Yes eyelids normal Conjunctivae: conjunctivae normal Pupils: Equal, round and reactive pupils present EOM: EOMs intact bilaterally Neck Neck: Yes normal visual inspection and Yes full ROM Resp Effort & Inspection: normal respiratory effort and able to speak in complete sentences Neuro General: patient oriented x3, moves all extremities and CN's II-XI intact bilaterally Cranial nerves: Yes Equal, round and reactive pupils present Cognition (Neuro): normal cognition Extrem Other: General: Yes full ROM and Yes capillary refill normal Psych Appearance: grossly normal Mental Status: mental status grossly normal Affect: normal affect Attitude: cooperative Thought process: Normal thought process present Thought content: Normal thought content present Insight: Good insight present (Psych) Medications Administered Discontinued Medications Generic Name Dose Route Start Last Admin Trade Name Freq PRN Reason Stop Dose Admin Diphtheria/Tetanus/Acell Pertussis 0.5 ml 06/26/25 09:54 06/26/25 10:21 Diphth,Pertus(Acell),Tet Adult 0.5 Ml Syringe IM 06/26/25 09:55 0.5 ml .ONCE ONE Administration Procedures Laceration Laceration 1: Side (If applicable): left Size (cm): 2 Description: linear Depth: simple, single layer Pre-repair: wound explored, irrigated extensively and deep structures intact Skin layer closed with: other (dermabond) Size (cm): other (dermabond) Technique: other (dermabond) Medical Decision Making Medical Decision Making MDM Narrative: Patient is a 65 year old assigned male at with a history of CAD, BPH, asthma, and kidney stones presenting to the emergency department today with a left index finger laceration. Patient's physical exam was as noted in the physical exam portion of this note. Patient's laceration was not gaping. I explained my physical exam findings to the patient. I answered all questions asked by the patient. I applied dermabond to the patient's laceration after extensive cleaning, without incident. Patient's PMS was intact prior to and after dermabond placement. I stressed the importance of the patient taking his medication as directed (either prescribed or as the over the counter packaging recommends). I stressed the importance of the patient following up with his primary care provider. I stressed the importance of the patient returning to the emergency department immediately if his symptoms were to worsen or if he were to develop any dizziness, shortness of breath, difficulty breathing, chest pain, blurry vision, loss of vision, nausea, vomiting, abdominal pain, fever, chills, back pain, or any other complaints. Patient verbalized agreement and understanding with this treatment plan and discharge. Differential Diagnosis Differential Diagnoses: The differential diagnosis associated with the presentation includes Index finger laceration Laceration Abrasion Admission/Observation Consideration of admission/observation: Escalation of care including admission/observation considered Patient would have been admitted to the hospital had his clinical presentation warranted hospital admission. Prescription Management I considered prescription management with: Antibiotic (given the patient's mechanism of injury, will treat with PO prophylactic antibiotic.) Discharge Plan Discharge Clinical Impression: Finger laceration Patient Disposition: Home, Self-Care Instructions: Finger Laceration (ED), Skin Adhesive Care (ED) Additional Instructions: Do NOT get the affected area wet for at LEAST 7 days. Take your antibiotic as prescribed. No moje la marcia afectada ronaldo al menos 7 d?as. Brilliant el antibi?renetta seg?n lo prescrito. IF you are prescribed home medications and/or you are taking over the counter medications at home- it is very important you continue to do so as prescribed / directed unless told otherwise. SI le recetan medicamentos y/o est? tomando medicamentos de venta radha, es muy importante que contin?e haci?ndolo seg?n lo recetado/indicado a menos que le indiquen lo contrario. Follow up with your primary care provider. Return to the emergency department immediately if your symptoms worsen or if you develop any dizziness, shortness of breath, difficulty breathing, chest pain, blurry vision, loss of vision, nausea, vomiting, abdominal pain, fever, chills, back pain, or any other complaints. Viki?seguimiento?con pizano m?dico de atenci?n primaria. Acuda inmediatamente al servicio de urgencias si mary s?ntomas empeoran o si presenta falta de aliento, dificultad para respirar, dolor tor?cico, mareos, aturdimiento, dolor de espalda, dolor abdominal, fiebre, escalofr?os o cualquier otro s?ntoma. Please see the information below about our Patient Portal. If you are not yet enrolled in the [facility] Patient Portal, you will receive an enrollment email invitation following your visit to any [facility] care setting. You may also self-enroll in the Patient Portal by visiting our website: [email or web address] The following information is required to access the Patient Portal: - Your [facility] Medical Record Number - Your personal home email address (must match what is in your electronic medical record, Registration staff can assist with this) - Name - Date of Capabilities of the Patient Portal: - Message some providers - View upcoming appointments - Access your health summary, medical history, and visit history - View current conditions and allergies - View procedure and lab results - View your medications, including guidelines, side effects, and precautions - Complete pre-appointment questionnaires requested by your provider - Ready summary reports of your office visits and procedures To access the Patient Portal Mobile Leroy, follow these directions: - Search Compute in the Leroy Store or Privcap Store - Download the Leroy - Search for [facility] - Enter your login/password Portal del paciente Si usted no esta inscrito en el portal de pacientes de [facility], recibira negro invitacion de inscripcion despues de pizano visita al [facility] o al [facility] via correo electronico. Tambien puede inscribirse voluntariamente en el portal de pacientes visitando nuestra pagina web: [email or web address] La siguiente informacion sera requerida para acceder al portal: - Pizano hector de historia medica de [facility] - Pizano direccion de correo electronico personal - Nombre - Fecha de nacimiento Capacidades: Las siguientes capacidades estan disponibles en el portal de pacientes: - Enviar mensajes a algunos doctores - Verificar proximas citas - Acceso a pizano historial de fara, registro medico e historial de visitas - Leticia las condiciones actuales y alergias leticia procedimientos y resultados del laboratorio - Leticia mayr medicamentos, incluyendo las pautas - Efectos secundarios y precauciones - Completar o llenar formularios / cuestionarios de - Citas solicitadas por pizano doctor - Leer los resumenes de reportes medicos de mary visitas y procedimientos Juan acceder a la aplicacion movil: - Busque Really Cheap GeeksealN-1-1 en la Leroy Store o Privcap Store - Descargue la aplicacion - Busque [facility] - Ingrese pizano nombre de usuario / Contrasena Prescriptions: New doxycycline hyclate 100 mg tablet 100 mg PO BID 7 Days Qty: 14 0RF No Action rosuvastatin 10 mg tablet 10 mg PO DAILY 90 Days Qty: 90 1RF lisinopril 10 mg tablet 10 mg PO DAILY 90 Days Qty: 90 1RF oxycodone-acetaminophen [Percocet] 5-325 mg tablet 1 tab PO Q6-8H PRN (Reason: pain) Qty: 10 0RF Rx Instructions: Partial Fill upon patient request. tizanidine 4 mg tablet 4 mg PO BEDTIME PRN (Reason: low back pain) 30 Days Qty: 30 3RF hydrocortisone [Proctozone-HC] 2.5 % cream with perineal applicator 1 appl IN BID PRN (Reason: hemorrhoids) Qty: 30 3RF Rx Instructions: apply IN BID prn cholecalciferol (vitamin D3) 50 mcg (2,000 unit) tablet 50 mcg PO DAILY 90 Days Qty: 90 1RF doxazosin 4 mg tablet 4 mg PO BEDTIME Qty: 90 3RF pyridoxine (vitamin B6) 50 mg tablet 50 mg PO DAILY 90 Days Qty: 90 3RF celecoxib [Celebrex] 200 mg capsule 200 mg PO BID 30 Days Qty: 60 3RF Hemorrhoidal Cream 0.25-1 % cream 1 appl IN BEDTIME Qty: 51 0RF Referrals: Cristhian Han MD [Primary Care Provider, Internal Medicine] Interventions: ED Discharge Assessment Last Done: 06/26/25 10:29 Discharge Date/Time: 06/26/25 10:30 Print Language: Macedonian
--- OUTSIDE RECORDS SUMMARY | 2025-06-26 09:52 | XMS_ITS | Encounter Summary ---
Author Organization [employer] Address [address] [place] [address] 7 [place] [address] Care Team Providers Care Program Evaluator Name Role Phone Unavailable Primary Care Provider Unavailabl e Encounter Details Date Type Department Care Team (Latest Contact Info) Description 01/13/2020 Abstract [facility] CONVERSIONS Dental, Provider, DDS Social History Tobacco [...] Description 07/27/2025 2:00 PM EDT Office Visit [facility] ADULT DENTAL [address] [place] [address] Epifanio Alberts documented as of this encounter Visit Diagnoses Not on filedocumented in this encounter
[2025-06-26] MEDS: Diphth,Pertus(ACell),Tet Adult 0.5 ML SYRINGE IM (10:21)
[2025-06-26 10:29] VITALS: BP 147/80; PULSE 80; RESP 16; TEMP 36.4; O2SAT 98
== END 2025-06-26 10:30 | disposition home or self-care (01) ==
PROVIDERS: Emergency Provider Emergency Medicine; PCP Internal Medicine
DX: S61.210A Laceration without foreign body of right index finger without damage to nail, initial encounter (principal); W26.0XXA Contact with knife, initial encounter; Y93.E9 Activity, other interior property and clothing maintenance; Y92.009 Unspecified place in unspecified non-institutional (private) residence as the place of occurrence of the external cause; Z23 Encounter for immunization
CPT/HCPCS: 12001; 90471; 90715; 99282; 99284

== ENCOUNTER 2025-07-08 12:29 | Outpatient (REF) | payer MEDICARE, MEDICAID, SELFPAY ==
--- NOTE | ~2025-07-08 | US_ITS ---
CLINICAL HISTORY: N20.0 - Calculus of kidney US of kidneys Comparison: US/SR - US KIDNEY BILATERAL - 06/12/24 14:00 EDT Findings: Right kidney is normal in size, echogenicity and morphology, 11.3 cm in length. No calculus, mass or hydronephrosis. Left kidney is normal in size, echogenicity and morphology, 11.9 cm in length. No calculus or hydronephrosis. Exophytic avascular cyst 1.2 cm lower pole, previously 0.8 cm. Limited color Doppler demonstrates unremarkable bilateral blood flow. Impression: 1. No nephrolithiasis. 2. Left renal cyst. This document has been electronically signed by: Mily Osman MD on 07/09/2025 09:48:14
== END 2025-07-08 12:30 | disposition home or self-care (01) ==
LOC: HO.US 12:29
PROVIDERS: PCP Internal Medicine; Visit Provider Urology
DX: N20.0 Calculus of kidney (principal)
CPT/HCPCS: 76775

== ENCOUNTER → 2025-07-08 12:31 | Outpatient (BNV) | payer MEDICARE, MEDICAID, SELFPAY | PROVIDERS: PCP Internal Medicine; Visit Provider Radiology Diagnostic Radiology | DX: N28.1 Cyst of kidney, acquired (principal) | CPT/HCPCS: 76775 ==

== ENCOUNTER 2025-08-20 07:07 | Outpatient (REF) | payer MEDICARE, MEDICAID, SELFPAY ==
--- OUTSIDE RECORDS SUMMARY | 2025-08-20 07:13 | XMS_ITS | Encounter Summary ---
Author Organization [employer] [facility] Address [address] [place] [address] Care Team Providers Care Board Liner Operator Name Role Phone Unavailable Primary Care Provider Unavailabl e Encounter Details Date Type Department Care Team (Latest Contact Info) Description 01/13/2020 Abstract [facility] CONVERSIONS Dental, Provider, DDS Social [...] Care Team (Late st Contact Info) Description 02/01/2026 8:00 AM EDT Office Visit [facility] CHC ADULT DENTAL [address] [place] [address] Epifanio Alberts documented as of this encounter Visit Diagnoses Not on filedocumented in this encounter
--- OUTSIDE RECORDS SUMMARY | 2025-08-20 07:13 | XMS_ITS | Clinical Summary ---
Author Organization [employer] Address [address] [place] [address] Care Team Providers Care Laundry Aide Name Role Phone Unavailable Primary Care Provider [...] for 30 minutes following use. 473 mL Active Active Problems Problem Noted Date Diagnosed Date Ill-fitting dentures 01/30/2025 Dental calculus 10/19/2023 Partial edentulism 10/19/2023 Dental caries on smooth surface limited to ename l 10/19/2023 Encounters Date Type Department Care Team Description 08/03/2025 8:00 AM EDT Office Visit [facility] ADULT D[facility]AL [address] [place] [address] Yash Gregg DDS Dental caries on smooth surface limited to enamel (Primary Dx) 07/27/2025 2:00 PM EDT Office Visit [facility] ADULT DENTAL [address] [place] [address] Epifanio Alberts Dental calculus (Primary Dx) 07/20/2025 Travel from Last 3 Months Immunizations Immunization Administration [...] Sign Reading Time Taken Comments Blood Pressure 120/86 08/03/2025 8:03 AM EDT Pulse 78 07/27/2025 2:03 PM EDT Temperature - - Respiratory Rate - - Oxygen Saturation - - Inhaled Oxygen Concentration - - Weight - - Height - - Body Mass Index - - Plan of Treatment Upcoming Encounters Date Type Department Care Team (Late st Contact Info) Description 02/01/2026 8:00 AM EDT Office Visit [facility] ADULT D[facility] [address] [place] [address] Epifanio Alberts Health Maintenance Due Date Last [...] 2008 Zoster Vaccines (1 of 2) 2008 Hepatitis B Vaccines (1 of 3 - Risk 3-dose series) 2018 COVID-19 Vaccine ( season) 2025 07/29/2024, 08/15/2023, 08/08/2022, Additional history exists Dental X-Ray: Bitewings 01/24/2026 01/24/20 25, 12/28/2023, 11/21/2023, Additional history exists Dental Prophylaxis 01/25/2026 07/27/2025, 0 01/23/2025, 04/30/2024, Additional history exists Dental Oral Exam 02/01/2026 08/03/2025, , 10/19/2023, Additional history exists Tobacco Screening 08/03/2026 08/03/2025 Dental X-Ray: Full Mouth 10/20/2026 023, 06/02/2019, 05/11/2014 RSV Patients and Patients Aged 60 years or older (1 - 1-dose 75+ series) 2033 DTaP/Tdap/Td Vaccines (2 - Td or Tdap) 06/26/2035 06/26/2025, 10/28/2015 Influenza Vaccine Completed 06/24/2025, , 09/18/2023 HIB Vaccines Aged Out No longer [...] Procedure Name Priority Date/Time Associated Diagnosis Comments PERIODIC ORAL EVALUATION - ESTABLISHED PATIENT Routine 08/03/2025 8:00 AM EDT 29 B(V) RESIN-BASED COMPOSITE - 1 SURF, POSTERIOR Routine 08/03/2025 8:00 AM EDT 28 B(V) RESIN-BASED COMPOSITE - 1 SURF, POSTERIOR Routine 08/03/2025 8:00 AM EDT PROPHYLAXIS - ADULT Routine 07/27/2025 2 :00 PM EDT ORAL HYGIENE INSTRUCTIONS Routine 2024 2:00 PM EDT BITEWINGS - 4 RADIOGRAPHIC IMAGES Routine 01/23/2025 8:00 AM EDT INTRAORAL - COMPLETE SERIES OF RADIOGRAPHIC IMAGES Routine 10/19/2023 8:00 AM EST from Last 3 Months or Most Recently Relevant to Health Maintenance Insurance [place] [address] [place] [id number] [facility] [employer] (HMO D-SNP) [facility]
--- OUTSIDE RECORDS SUMMARY | 2025-08-20 07:13 | XMS_ITS | Encounter Summary ---
Author Organization [employer] [facility] Address [address] [place] [address] Care Team Providers Care Live Games Dealer Name Role Phone Unavailable Primary Care Provider Unavailabl e Encounter Details Date Type Department Care Team (Latest Contact Info) Description 12/02/2018 Abstract [facility] CONVERSIONS Dental, Provider, DDS Social History [...] Description 02/01/2026 8:00 AM EDT Office Visit [facility] CHC ADULT DENTAL [address] [place] [address] Epifanio Alberts documented as of this encounter Visit Diagnoses Not on filedocumented in this encounter
[2025-08-20 07:19] LABS: MANUAL DIFF FLAG NO
[2025-08-20 07:39] LABS: Hematocrit 43.1 % (42.0-52.0); Hemoglobin 15.0 g/dl (14.0-18.0); Imm Gran Abs Auto 0.01 X10*3/uL (0.00-0.03); Imm Gran Pct Auto 0.2 % (0.0-0.4); Lymphocytes Absolute Auto 1.9 X10*3/uL (1.2-4.9); Mean Corpuscular HGB Conc 34.8 g/dl (31.0-36.0); Mean Corpuscular Hemoglobin 31.2 pg (27.0-33.0); Mean Corpuscular Volume 89.6 fL (80.0-98.0); NRBC Abs Auto 0.000 X10*3/uL (0.0-0.012); NRBC Pct Auto 0.0 /100WBC (0.0-0.2); Platelet Count 251 X10*3/uL (160-400); Red Blood Count 4.81 X10*6/uL (4.60-5.80); White Blood Count 6.3 X10*3/uL (4.8-10.8)
[2025-08-20 07:40] LABS: Appearance Urine Clear; Glucose Urine UA Negative (Negative); PH 5.5 (5.0-9.0); Specific Gravity - Urine 1.020 (1.005-1.025)
[2025-08-20 08:00] LABS: Alanine Aminotransferase 33 U/L (0-40); Albumin Level 4.5 g/dL (3.5-5.0); Alkaline Phosphatase 71 U/L (39-117); Anion Gap 11 (12-20); Aspartate Amino Transferase 30 U/L (5-37); Blood Urea Nitrogen 16 mg/dL (9-16); Calcium 9.4 mg/dL (8.4-10.2); Carbon Dioxide 31 mmol/L (22-29); Chloride 106 mmol/L (96-108); Cholesterol 145 mg/dL (<200); Estimated Glomerular Filt Rate > 60; HDL Cholesterol 49 mg/dL (>40); Potassium 4.0 mmol/L (3.3-5.1); Sodium 144 mmol/L (135-145); Total Protein 6.9 g/dL (6.5-8.0); Triglycerides 162 mg/dL (<150)
== END 2025-08-20 07:08 | disposition home or self-care (01) ==
LOC: HO.LAB 07:07
PROVIDERS: Visit Provider Internal Medicine
DX: E78.00 Pure hypercholesterolemia, unspecified (principal); E55.9 Vitamin D deficiency, unspecified; D64.9 Anemia, unspecified; R30.0 Dysuria
CPT/HCPCS: 36415; 80053; 80061; 81003; 82306; 84443; 85025

== ENCOUNTER 2025-08-26 08:34 | Outpatient (AMB) | payer MEDICARE, MEDICAID, SELFPAY ==
[2025-08-26 08:46] VITALS: BP 142/70; PULSE 88; RESP 18; TEMP 36.2; O2SAT 95; BMI 36.0
--- NOTE | 2025-08-26 08:46 | MHC.PC.OV ---
Vital Signs 08/26/25 08:46 Height 5 ft 7 in Weight 230 lb BMI 36.0 BP 142/70 H Blood Pressure Location Lt brachial Position Standing Respiration 18 Pulse 88 Pulse Source Pulse Oximeter Temp 97.1 F Temp Source Temporal Artery Scan Pulse Oximetry (%) 95 Oxygen Delivery Method Room Air Intake Visit Reasons: htn, hyperlipidemia Clinical Safety Manager Required: No Accompanied by: Self / Same As Patient Allergies Penicillins Allergy (Intermediate, Verified 08/26/25 09:19) PASSED OUT atorvastatin Adverse Reaction (Intermediate, Verified 08/26/25 09:19) blurring of vision gabapentin Adverse Reaction (Intermediate, Verified 08/26/25 09:19) Dizziness simvastatin Adverse Reaction (Intermediate, Verified 08/26/25 09:19) blurring of vision tamsulosin Adverse Reaction (Intermediate, Verified 08/26/25 09:19) Dizziness Medication List - Last Reconciled 08/26/25 by Cristhian Han MD celecoxib (Celebrex) 200 mg PO BID 30 days Held on 02/04/25. Instructions: Resume on 02/20/25. cholecalciferol (vitamin D3) 50 mcg PO DAILY 90 days doxazosin 4 mg PO BEDTIME hydrocortisone 2.5% (Proctozone-HC) 1 appl TX BID PRN lisinopril 10 mg PO DAILY 90 days kzgvhzdcf-afnwemcg-qwuqm-w.pet 0.25-1 % (Hemorrhoidal Cream) 1 appl TX BEDTIME pyridoxine (vitamin B6) 50 mg PO DAILY 90 days rosuvastatin 10 mg PO DAILY 90 days Tobacco use date assessed: 08/26/25 Fall risk assessment: No Falls in past year Last assessed Fall Risk: 08/26/25 Dental Screening Dental Screen Date: 08/26/25 Did you have a dental visit in the last 12 months?: Yes Did you have a dental problem in the last 6 months where you did not have access to dental care?: No Was dental information given to patient?: Patient has dentist HPI htn, hyperlipidemia HPI Details Patient comes in today for his follow up visit States that he feels okay but would like to get something for his eyes - states that he has been waking up every morning for the past couple of weeks with a lot of dried secretions/crusts over his eyes Notes (+) irritation and sometimes increased tearing of his eyes lately; he denies any eye pain or significant change in his vision He has also noticed a palpable lump under his right jaw lately - states that the lump does not hurt and he's had no problems swallowing when eating or drinking He denies any headaches or dizziness Denies any chest pains, no increased SOB No nausea/vomiting, no abdominal pain No change in bowel habits noted He is still following up with urology for his kidney stones - states that he has not had any attacks of kidney stones for the past few months Needs his Vitamin D Rx refilled He had his follow up labs done last week - to discuss his results [facility] Medical History Bilateral nephrolithiasis Benign prostatic hyperplasia with lower urinary tract symptoms History of amputation of both great toes Vitamin D deficiency Neuropathy Hemorrhoids Chronic constipation Obesity (BMI 30-39.9) Benign essential hypertension Pure hypercholesterolemia Peripheral neuropathy History of back pain Hx of hepatitis Amputation of thumb, left DJD (degenerative joint disease) of cervical spine DDD (degenerative disc disease), lumbar Hx of vertigo Asthma Myocardial infarction CAD (coronary artery disease) Surgical History History of surgery on extremity Hx of lithotripsy (05/2024) Hx of hand surgery Hx of cystoscopy History of surgery on left wrist History of circumcision History of rhinoplasty Hx of colonoscopy Family History Unknown No family history of colorectal cancer Social History Household Members: None Housing: House Are you a primary progressive care nurse to a significant other at home: No Do you presently have visiting nurse or other home services: No Alcohol intake: never Patient Tobacco Use Status: Former Tobacco user Tobacco use type: Cigarette e-Cigarette/Vaping Use: Never Used Second Hand Smoke Exposure: Yes service: No Current occupational status: retired Cognitive needs: No Hearing needs: Yes (? B/L hearing loss) Vision needs: Yes Questionnaire Thrive Questionnaire Date Thrive assessed: 05/01/25 I am a: Patient What is your living situation today?: I have a steady place to live Within the past 12 months, did the food you bought not last and you didn't have the money to get more?: I choose not to answer this question Within the past 12 months, did you worry whether your food would run out before you got money to buy more?: I choose not to answer this question Do you have trouble paying for medicines?: No Do you have trouble getting transportation to medical appointments?: No Do you have trouble paying your heating and electricity bill?: No Do you have trouble taking care of your child, family member or friend?: No Do you have trouble with day-to-day activities such as bathing, preparing meals, shopping, managing finances, etc.?: No Are you currently unemployed and looking for a job?: No Are you interested in more education?: No Please select the resources that you would like help with: None Currently or been in a relationship where the following occur: No concerns reported THRIVE Score: 0 LING-7 AMB Questionnaire LING-7 Date LING - 7 assessed: 05/01/25 Source: Developed by Drs. Brendon Nixon, Marlen Tanner, Angelo Arreola and colleagues, with an educational zen from [employer]. Review of Systems Const Denies chills, Denies fatigue, Denies fever(s) and Denies headache(s) Eyes Reports as per HPI, Denies change in vision and Reports irritation ENT Details: (+) palpable lump/cyst under the right mandible/jaw Denies dysphagia, Denies dizziness, Reports dry mouth (mostly at night ), Denies otalgia, Denies headache(s), Denies neck pain, Denies odynophagia and Denies sore throat Card Denies chest pain, Denies palpitations and Denies dyspnea Resp Denies chest congestion, Denies cough and Denies dyspnea GI Denies abdominal pain, Denies constipation, Denies dysphagia, Denies heartburn, Denies diarrhea, Denies nausea, Denies odynophagia and Denies vomiting Denies hematuria, Denies difficulty urinating, Denies dysuria, Denies nocturia and Denies urinary frequency Musc Reports back pain (over the lower back, on and off), Reports arthralgias (over the left knee x past 6 months but states his knee pain is better now) and Denies neck pain Skin/Breast Denies rash Neuro Denies dizziness and Denies headache(s) Psych Denies anxiety and Denies depression Endo Denies fatigue and Denies palpitations Physical exam (Primary Care) Vital Signs: Last Vital Signs Temp 97.1 F 08/26/25 08:46 Pulse 88 08/26/25 08:46 Resp 18 08/26/25 08:46 BP 142/70 H 08/26/25 08:46 Pulse Ox 95 08/26/25 08:46 Oxygen Delivery Method Room Air 08/26/25 08:46 BMI result Body Mass Index 36.0 Tobacco/Smoking Status: Tobacco use Status Tobacco use date assessed 08/26/25 08/26/25 08:54 Patient Tobacco Use Status Former Tobacco user 08/26/25 08:54 Tobacco use type Cigarette 08/26/25 08:54 e-Cigarette/Vaping Use Never Used 08/26/25 08:54 Thrive Assessment: Date of Thrive Assessment Date Thrive assessed 05/01/25 08/26/25 08:54 Currently or been in a relationship where the following occur: No concerns reported Const General: no acute distress and alert HENMT Ears: TM's normal bilaterally and EAC's normal Throat: Yes posterior oropharynx normal and Yes tonsils normal (no TP congestion) Eyes Periorbital: periorbital findings normal Eyelids: Yes eyelids normal Conjunctivae: conjunctivae normal Neck Other: (+) palpable, non-tender lump / mass under the right mandible/right submental area Neck: Yes supple and No lymphadenopathy Thyroid: Thyroid normal Resp Auscultation: clear to auscultation bilaterally, no rales and no wheezes Cardio Rate: regular rate Rhythm: regular rhythm Heart sounds: no murmurs GI Palpation (GI): Soft to palpation and nontender Auscultation: normal bowel sounds General: Yes no CVA tenderness Back/Spine/Pelvis Back: no CVA tenderness Thoracic/Lumbar Spine: lumbar spinal tenderness Skin Rashes: no rashes Extrem General: Yes no clubbing, cyanosis or edema Right upper extremity: shoulder/upper arm Details: tenderness Location: of the A-C joint Left lower extremity: knee Details: tenderness (mild) Location: of the medial joint line; no swelling Results Reviewed Results Reviewed: Laboratory Tests 08/20/25 08/20/25 07:13 07:17 WBC 6.3 Hgb 15.0 Hct 43.1 Plt Count 251 Sodium 144 Potassium 4.0 Creatinine 1.12 Estimated GFR > 60 Fasting Glucose 103 H Calcium 9.4 AST 30 ALT 33 Triglycerides 162 H Cholesterol 145 LDL Cholesterol, Calc 64 HDL Cholesterol 49 25-OH Vitamin D Total 38.3 TSH 2.18 Ur Specific [place] 1.020 Urine Protein Negative Urine Glucose (UA) Negative Urine Blood Negative Urine Nitrite Negative Ur Leukocyte Esterase Negative Coding Level of Care Code Est Pt Level 4 (14431) Diagnoses Pure hypercholesterolemia E78.00 Coronary artery disease involving morongo coronary artery of morongo heart without angina pectoris I25.10 Coronary Disease-Associated Artery/Lesion type: morongo artery [place] vs. transplanted heart: morongo heart Associated angina: without angina Benign essential hypertension I10 Impaired fasting glucose R73.01 Neuropathy G62.9 Mass of submental region R22.1 Right shoulder pain, unspecified chronicity M25.511 Chronicity: unspecified Vitamin D deficiency E55.9 Acute pain of left knee M25.562 Chronicity: acute Chronic constipation K59.09 Eye irritation H57.89 Benign prostatic hyperplasia with urinary hesitancy N40.1; R39.11 Lower urinary tract symptom detail: urinary hesitancy Bilateral nephrolithiasis N20.0 Obesity (BMI 30-39.9) E66.9 Assessment & Plan Assessment & Plan (1) Pure hypercholesterolemia: Code(s): E78.00 - Pure hypercholesterolemia, unspecified Category: Medical Plan: Results of his labs done last week reviewed and discussed with patient Reinforced low cholesterol diet Continue Rosuvastatin 10 mg QD Will recheck his labs and fasting lipids in 4 months for follow up (2) CAD (coronary artery disease): Comment: S/P [place] in 2005 Code(s): I25.10 - Atherosclerotic heart disease of morongo coronary artery without angina pectoris Category: Medical Qualifiers: Coronary Disease-Associated Artery/Lesion type: [place] artery [place] vs. transplanted heart: morongo heart Associated angina: without angina Qualified Code(s): I25.10 - Atherosclerotic heart disease of [place] coronary artery without angina pectoris Plan: Patient currently remains asymptomatic from a cardiac standpoint Follow up with cardiology as scheduled (3) Benign essential hypertension: Code(s): I10 - Essential (primary) hypertension Category: Medical Plan: Reinforced low sodium diet - goal is systolic BP of 120 to 130 mm or less Continue Lisinopril 10 mg QD Patient is reminded to monitor his blood pressure regularly (4) Impaired fasting glucose: Code(s): R73.01 - Impaired fasting glucose Category: Medical Plan: His HgbA1c was normal at 5.7%, 5.2% and 5.6% when checked previously His recent FBS was slightly up at 103 mg/dl Reinforced low calorie diet/exercise as tolerated (5) Neuropathy: Code(s): G62.9 - Polyneuropathy, unspecified Category: Medical Plan: He was previously started on Gabapentin 100 mg BID but he stopped taking this a few months ago when he experienced dizziness every time he took the Rx He still does not wish to take anything else for his neuropathy at this time - states that his neuropathic symptoms have been mostly tolerable (6) Mass of submental region: Code(s): R22.1 - Localized swelling, mass and lump, neck Category: Medical Plan: Will send patient for soft tissue US of the neck for further evaluation (7) Right shoulder pain: Code(s): M25.511 - Pain in right shoulder Category: Medical Qualifiers: Chronicity: unspecified Qualified Code(s): M25.511 - Pain in right shoulder Plan: (+) Hx of bicipital tendinitis; shoulder x-rays done back in April 2024 also revealed (+) AC arthritis changes We offered to refer him to orthopedics previously for possible cortisone injection for symptomatic relief but he is averse to needles and will NOT go for any injections He has been to physical therapy for his shoulder pain - states that PT has helped a lot, especially iontophoresis We can refer him again to physical therapy for further management and Tx with ultrasound and iontophoresis if appropriate and when needed Continue topical Lidocaine 5% ointment QID to the shoulder PRN for pain (8) Vitamin D deficiency: Code(s): E55.9 - Vitamin D deficiency, unspecified Category: Medical Plan: Continue Vitamin D3 2000 units QD - Rx refilled (9) Left knee pain: Code(s): M25.562 - Pain in left knee Category: Medical Qualifiers: Chronicity: acute Qualified Code(s): M25.562 - Pain in left knee Plan: X-rays of the left knee done a few months ago revealed (+) chondrocalcinosis suggestive of CPPD Patient states that his knee pain has improved a lot with his recent weight loss If his knee pain flares up again, will consider referring him to rheumatology for further evaluation and management (10) Chronic constipation: Comment: Colace 200 mg, MiraLax 17 g q.h.s. maintain high-fiber diet, Proctozone is need for hemorrhoid Code(s): K59.09 - Other constipation Category: Medical Plan: Reinforced again increased oral fluids and dietary fiber intake States that his bowels are presently well-controlled on his current regimen of fiber laxative and stool softeners PRN Continue Senna 8.6 mg 2 tablets Q HS Follow up with GI as scheduled (11) Eye irritation: Code(s): H57.89 - Other specified disorders of eye and adnexa Category: Medical Plan: Will start patient on Olopatadine 0.2% eyedrops 1 drop into each eye Q HS Advised patient that if his symptoms persist despite the Rx, will likely need to refer him for ophthalmology evaluation (12) Benign prostatic hyperplasia with lower urinary tract symptoms: Code(s): N40.1 - Benign prostatic hyperplasia with lower urinary tract symptoms Category: Medical Qualifiers: Lower urinary tract symptom detail: urinary hesitancy Qualified Code(s): N40.1 - Benign prostatic hyperplasia with lower urinary tract symptoms; R39.11 - Hesitancy of micturition Plan: Continue Doxazosin 4 mg QD His PSA recently came back at 2.82 Follow up with urology as scheduled (13) Bilateral nephrolithiasis: Code(s): N20.0 - Calculus of kidney Category: Medical Plan: S/P ESWL multiple times in the past; reports no flare up of symptoms over the past few months Follow up with urology as scheduled (14) Obesity (BMI 30-39.9): Code(s): E66.9 - Obesity, unspecified Category: Medical Plan: Reinforced diet/exercise as tolerated/lose weight - he has gained back all of the weight that he previously lost, and then some Plan Follow up in 4 months Orders: Orders US soft tiss head and/or neck Today R22.1 - Localized swelling, mass and lump, neck Microalbumin, Random (w Creat) 4 Months I10 - Essential (primary) hypertension Vitamin D 25-OH Total 4 Months E55.9 - Vitamin D deficiency, unspecified Hemoglobin A1c 6 Months E11.9 - Type 2 diabetes mellitus without complications Hemoglobin A1c 4 Months R73.01 - Impaired fasting glucose Complete Blood Count Auto Diff 4 Months D64.9 - Anemia, unspecified Lipid Panel 4 Months E78.00 - Pure hypercholesterolemia, unspecified Comprehensive [place]. Panel Fast 4 Months E78.00 - Pure hypercholesterolemia, unspecified TSH reflex Free T4 4 Months E78.00 - Pure hypercholesterolemia, unspecified UA CC w/rflx Micro + Cult 4 Months R30.0 - Dysuria Medications: New olopatadine 0.2% 1 drp ophthalmic (eye) BEDTIME PRN 5 mL 0RF eye irritation Refilled cholecalciferol (vitamin D3) 50 mcg PO DAILY 90 tabs 1RF 90 days R79.89 - Other specified abnormal findings of blood chemistry
--- OUTSIDE RECORDS SUMMARY | 2025-08-26 08:58 | XMS_ITS | Encounter Summary ---
Author Organization [facility] Address [address] [place] [address] Care Team Providers Care Wind Operations Manager Name Role Phone Unavailable Primary Care Provider Unavailabl e Encounter Details Date Type Department Care Team (Latest Contact Info) Description 01/13/2020 Abstract [facility] CONVERSIONS Dental, Provider, DDS Social [...] Description 02/01/2026 8:00 AM EDT Office Visit [facility] ADULT DENTAL [address] [place] [address] Epifanio Alberts documented as of this encounter Visit Diagnoses Not on filedocumented in this encounter
--- OUTSIDE RECORDS SUMMARY | 2025-08-26 08:58 | XMS_ITS | Encounter Summary ---
Author Organization [facility] Address [address] [place] [address] Care Team Providers Care Repair Armature Winder Name Role Phone Unavailable Primary Care Provider Unavailabl e Encounter Details Date Type Department Care Team (Latest Contact Info) Description 12/02/2018 Abstract [facility] CONVERSIONS Dental, Provider, DDS Social [...] Description 02/01/2026 8:00 AM EDT Office Visit [facility] ADULT DENTAL [address] [place] [address] Epifanio Alberts documented as of this encounter Visit Diagnoses Not on filedocumented in this encounter
--- OUTSIDE RECORDS SUMMARY | 2025-08-26 08:58 | XMS_ITS | Clinical Summary ---
Author Organization [employer] Address [address] [place] [address] Care Team Providers Care Boarding House Cook Name Role Phone Unavailable Primary Care Provider [...] Description 08/03/2025 8:00 AM EDT Office Visit [facility] ADULT DENTAL [address] [place] [address] Yash Gregg DDS Dental caries on smooth surface limited to enamel (Primary Dx) 07/27/2025 2:00 PM EDT Office Visit [facility] ADULT DENTAL [address] [place] [address] Epifanio Alberts Dental calculus (Primary Dx) 07/20/2025 [...] Description 02/01/2026 8:00 AM EDT Office Visit [facility]ULT [facility] [address] [place] [address] Epifanio Alberts Health Maintenance Due Date Last [...] Recently Relevant to Health [place] [id number] [facility] INTERMEDIATE OPTIONS (HMO D-SNP) [facility]
== END 2025-08-26 09:36 | disposition home or self-care (01) ==
LOC: HO.HMCH 08:35
PROVIDERS: PCP Internal Medicine; Visit Provider Internal Medicine
DX: E78.00 Pure hypercholesterolemia, unspecified (principal); I25.10 Atherosclerotic heart disease of native coronary artery without angina pectoris; I10 Essential (primary) hypertension; R73.01 Impaired fasting glucose; G62.9 Polyneuropathy, unspecified; R22.1 Localized swelling, mass and lump, neck; M25.511 Pain in right shoulder; E55.9 Vitamin D deficiency, unspecified; M25.562 Pain in left knee; K59.09 Other constipation; H57.89 Other specified disorders of eye and adnexa; N40.1 Benign prostatic hyperplasia with lower urinary tract symptoms

== ENCOUNTER → 2025-08-26 08:34 | Outpatient (BNVA) | payer MEDICARE, MEDICAID, SELFPAY | PROVIDERS: PCP Internal Medicine; Visit Provider Internal Medicine | DX: I10 Essential (primary) hypertension (principal); R22.9 Localized swelling, mass and lump, unspecified; E78.00 Pure hypercholesterolemia, unspecified; I25.10 Atherosclerotic heart disease of native coronary artery without angina pectoris; R73.01 Impaired fasting glucose; G62.9 Polyneuropathy, unspecified; R22.1 Localized swelling, mass and lump, neck; M25.511 Pain in right shoulder; E55.9 Vitamin D deficiency, unspecified; M25.562 Pain in left knee; K59.09 Other constipation; H57.89 Other specified disorders of eye and adnexa; N40.1 Benign prostatic hyperplasia with lower urinary tract symptoms; R39.11 Hesitancy of micturition; N20.0 Calculus of kidney; E66.9 Obesity, unspecified; Z68.36 Body mass index [BMI] 36.0-36.9, adult; Z87.442 Personal history of urinary calculi | CPT/HCPCS: 99212 ==

== ENCOUNTER 2025-08-27 09:31 | Outpatient (AMB) | payer MEDICARE, MEDICAID, SELFPAY ==
--- NOTE | 2025-08-27 09:57 | A.OFFVIS_ITS ---
Intake Visit Reasons: 4m/US Intake Note: Patient is present for 4m/US * 07/09 Renal US Urology Med:Vitamin B6 Antibiotic Allergy:Penicillins Blood Thinner:None PVR:0ml Reheat Furnace Operator Required: Yes Reheat Furnace Operator Name: Dayanna Agrawal2 Information Interpreted: non-clinical & clinical Accompanied by: Self / Same As Patient Allergies Penicillins Allergy (Intermediate, Verified 08/27/25 09:57) PASSED OUT atorvastatin Adverse Reaction (Intermediate, Verified 08/27/25 09:57) blurring of vision gabapentin Adverse Reaction (Intermediate, Verified 08/27/25 09:57) Dizziness simvastatin Adverse Reaction (Intermediate, Verified 08/27/25 09:57) blurring of vision tamsulosin Adverse Reaction (Intermediate, Verified 08/27/25 09:57) Dizziness Medication List - Last Reconciled 08/27/25 by Jonathan Deleon MD celecoxib (Celebrex) 200 mg PO BID 30 days Held on 02/04/25. Instructions: Resume on 02/20/25. cholecalciferol (vitamin D3) 50 mcg PO DAILY 90 days doxazosin 4 mg PO BEDTIME hydrocortisone 2.5% (Proctozone-HC) 1 appl MI BID PRN lisinopril 10 mg PO DAILY 90 days olopatadine 0.2% 1 drp ophthalmic (eye) BEDTIME PRN qltvpveww-wkufzswa-jvplk-w.pet 0.25-1 % (Hemorrhoidal Cream) 1 appl MI BEDTIME pyridoxine (vitamin B6) 50 mg PO DAILY 90 days rosuvastatin 10 mg PO DAILY 90 days HPI Comments Details: 08/27/25-- History of Present Illness The patient is a 65-year-old male presenting for follow-up of nephrolithiasis and preventative care. The patient has a history of nephrolithiasis, for which he is being followed up. A recent renal ultrasound performed on July 08, 2025, showed no evidence of kidney stones, indicating a stable condition. In terms of preventative care, the patient underwent a prostate-specific antigen (PSA) test on April 25, 2025, which returned a result of 2.82, within normal limits. This result suggests no signs of prostate cancer at this time. Results - Renal ultrasound on 07/08/2025: No kidney stones detected - PSA test on 04/25/2025: 2.82, within normal limits Plan 1. Nephrolithiasis - Continue monitoring renal health with periodic ultrasounds. - Follow-up appointment scheduled in one year. 2. Preventative Care: Psa Monitoring - Continue annual PSA testing to monitor prostate health. 05/01/25--Yash is here for follow-up PSA screening anterior review 24 hour urine results. History of Present Illness - The patient is a 65-year-old male managed for on kidney stones and prostate health. - The PSA level was normal, indicating no immediate prostate concerns. - A kidney ultrasound is planned for July to assess kidney condition. - The patient has a history of calcium oxalate kidney stones, with normal urine calcium and oxalate levels but insufficient urine volume, indicating a need for increased hydration. - high normal sodium levels in urine, importanc for low sodium diet Results - Labs: Normal PSA level- 04/25/25--2.82 ng/mL - Labs: 24h Urine calcium level at 215 mg/day, within normal range - Labs: 24h Urine oxalate level normal - Labs: 24h Urine citrate level over 600 mg/day, normal - Labs: 24h sodium level 136 - Stone analysis- CaOx Discussion Notes I discussed with the patient that his PSA level was normal. We have scheduled a kidney ultrasound for July to further evaluate his kidney health. I advised him to increase his fluid intake to prevent kidney stone formation and to monitor his dietary sodium intake. We will follow up after the ultrasound to review the results and adjust the management plan as necessary. Cont Doxazosin 4 mg for BPH symptoms. 03/20/25--Yash is a 65-year-old male who presents today to the office for a fo llow-up. Yash is evaluated due to nephrolithiasis and BPH. Diagnosis status post left ESWL on 02/04/2025. The patient did not have post op imaging. He complains of vague left-sided discomfort, denies blood in the urine. He is intrusive capacity fragments. I will re-evaluate kidneys with renal ultrasound. Continue management of BPH. PSA screening. 10/10/24--FU 3 ER visits--for flank/abd pain. Reviewed CTAP, bilateral renal calculi, small. Previous stone treatments including ESWL and ureteroscopy with lithotripsy. He states pain mainly left flank and radiates to left lower abd. Discussed repeat ESWL vs ureteroscopy. risks discussed including placement of stent with uretoscopy. Pt states stent was very painful previously. Plan 24 hr urine, sche Left ESWL stop celebrex 14 dy, Continue doxazosin for BPH symptoms. CTAP--09/25/24--1.5 mm calculus in the lower pole right pelvicalyceal system. No hydronephrosis. 2 mm calculus in the upper pole midportion of the pelvicalyceal system, left kidney. No hydronephrosis. 07/17/24--status post left ESWL 05/07/2024- follow-up renal ultrasound 06/12/2024 remaining 3 mm upper pole fragment KUB 06/12/2024 nonspecific findings. Will cont doxazosin 4mg daily and Vit b 6 100 mg. FU in one year with renal US. 03/24/2024 Yash is a 63-year-old male who presents today to the office for a follow-up. Yash is evaluated due to nephrolithiasis and BPH. I have reviewed recent CT scan, 03/10/2024. There are a few kidney stones in the left kidney largest measuring up to 5 mm. Right kidney no renal calculi noted. No hydronephrosis present. He is prescribed doxazosin 4 mg daily. He states that the tamsulosin affects his breathing. 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 The patient states he gets intermittent left kidney pain. I have discussed scheduling left ESWL. Croatian pamphlet provided. 11/26/23-- s/p cystoscopy bilateral stent removal on 09/25/23; he complains of urinary frequency and ocassional dysuria. He finished the cardura that was prescribed by Dr. Kearney and did not get it refilled. I have discussed that I will prescribe tamsulosin. UA today no signs of infection. He continues to has intermittent left flank pain, recent Abd sono on 11/06/23 was WNL. Plan discussed tamsulosin 0.8 mg qhs, CTAP stone protocol in 3 months, FU post. 09/13/2023--followed today post outpatient procedure 08/21/23 for Cystoscopy, bilateral ureteral stent, right ureteroscopy and laser stone which was performed due to 6 mm obstructing right ureteral stone and Left flank pain, left kidney pyelonephritis. He has seen Terry Neves in the past for kidney stones. He had circumcision about 7-8 years ago. Evaluation today--UA--Leukocytes: neg blood: tr. PFS Medical History Bilateral nephrolithiasis Benign prostatic hyperplasia with lower urinary tract symptoms History of amputation of both great toes Vitamin D deficiency Neuropathy Hemorrhoids Chronic constipation Obesity (BMI 30-39.9) Benign essential hypertension Pure hypercholesterolemia Peripheral neuropathy History of back pain Hx of hepatitis Amputation of thumb, left DJD (degenerative joint disease) of cervical spine DDD (degenerative disc disease), lumbar Hx of vertigo Asthma Myocardial infarction CAD (coronary artery disease) Surgical History History of surgery on extremity Hx of lithotripsy (05/2024) Hx of hand surgery Hx of cystoscopy History of surgery on left wrist History of circumcision History of rhinoplasty Hx of colonoscopy Family History Unknown No family history of colorectal cancer Social History Household Members: None Housing: House Are you a primary healthcare management to a significant other at home: No Do you presently have visiting nurse or other home services: No Alcohol intake: never Patient Tobacco Use Status: Former Tobacco user Tobacco use type: Cigarette e-Cigarette/Vaping Use: Never Used Second Hand Smoke Exposure: Yes service: No Current occupational status: retired Cognitive needs: No Hearing needs: Yes (? B/L hearing loss) Vision needs: Yes Review of Systems Const All systems reviewed & are unremarkable except as noted in HPI and below Reports no additional complaints Eyes Reports no additional complaints ENT Reports no additional complaints Card Reports no additional complaints Resp Reports no additional complaints GI Reports no additional complaints Reports as per HPI Musc Reports no additional complaints Skin/Breast Reports system reviewed and no additional complaints, except as documented Neuro Reports no additional complaints Psych Reports no additional complaints Endo Reports no additional complaints Niko/Lymph Reports no additional complaints Aller/Immun Reports no additional complaints Office Procedures Post Void Residual Post Residual Void Post Void Residual (PVR): [id number] Void Residual by ultrasound Results AMB Urinalysis, Automated UA Leukoctes 0 Michelle/uL Last Edit by Crystal Gandara on 08/27/25 17:20 UA Nitrite Negative Last Edit by Crystal Gandara on 08/27/25 17:20 UA Urobilinogen 0.2 mg/dL Last Edit by Crystal Gandara on 08/27/25 17:20 UA Protein 0 mg/dL Last Edit by Crystal Gandara on 08/27/25 17:20 UA pH 6.0 Last Edit by Crystal Gandara on 08/27/25 17:20 UA Blood 10 Jose/uL Last Edit by Crystal Gandara on 08/27/25 17:20 UA Specific [place] 1.015 Last Edit by Crystal Gandara on 08/27/25 17:20 UA Ketone Negative Last Edit by Crystal Gandara on 08/27/25 17:20 UA Bilirubin 0 mg/dL Last Edit by Crystal Gandara on 08/27/25 17:20 UA Glucose 0 mg/dL Last Edit by Crystal Gandara on 08/27/25 17:20 Results Reviewed Results Reviewed: Date of Service: 07/08/25 CLINICAL HISTORY: N20.0 - Calculus of kidney US of kidneys Comparison: US/SR - US KIDNEY BILATERAL - 06/12/24 14:00 EDT Findings: Right kidney is normal in size, echogenicity and morphology, 11.3 cm in length. No calculus, mass or hydronephrosis. Left kidney is normal in size, echogenicity and morphology, 11.9 cm in length. No calculus or hydronephrosis. Exophytic avascular cyst 1.2 cm lower pole, previously 0.8 cm. Limited color Doppler demonstrates unremarkable bilateral blood flow. Impression: 1. No nephrolithiasis. 2. Left renal cyst. SACHI: 09/13/23-1609 STATUS: COMP REQ : [id number] RECD: 09/14/23-[address]: Jonathan Deleon MD COMP: 09/21/23-1812 ENTERED: 09/14/23-[address]: ORDERED: Kidney Stone QUERIES: Kidney Stone Source: KID STONE [id number] Test Result Flag Reference Component 1 SEE NOTE Calcium Oxalate Dihydrate (Weddellite) 20% Calcium Oxalate Monohydrate (Whewell[place]) 80% See Note 1 Stone Weight 0.033 g Note 1 This test was developed and its analytical performance characteristics have been determined by [employer]. It has not been cleared or approved by the FDA. This assay has been validated pursuant to the CLIA regulations and is used for clinical purposes. THIS TEST WAS PERFORMED AT: [employer] [facility] [address] [place] [address] ANDREIA MOMIN MD Stone Source KIDNEY STONE Procedure(s): XR KUB XR ABDOMEN KUB CLINICAL INDICATION: pre ESWL COMPARISON: Correlation made with CT abdomen and pelvis 09/25/2024. TECHNIQUE: AP view of the abdomen. FINDINGS: Bowel gas pattern is normal/nonspecific. 4 mm calcification overlying the superior left renal shadow. No definite calcifications seen overlying the right renal shadow although there is stool overlying, mildly obscuring. There are phleboliths within the pelvis. No definite organomegaly. No large abdominal mass. Lung bases appear clear. Osseous structures demonstrate moderate degenerative spondylosis of the lumbar spine with a mild right convex scoliosis. There is mild degenerative arthritis in both hip joints. IMPRESSION: 1. 4 mm calcification overlying the left superior renal shadow. 2. No definite right renal calcifications although the right renal shadow is somewhat obscured by stool. Date of Service: 09/25/24 CT ABDOMEN AND PELVIS WITHOUT CONTRAST CLINICAL INFORMATION: Left flank pain COMPARISON: CT dated September 18, 2024. TECHNIQUE: Multidetector volumetric imaging was performed from the superior aspect of the liver through the pubic symphysis. Sagittal and coronal reformatted images were obtained on the technologist's workstation. This CT examination was performed using dose optimization techniques as appropriate, variously including the following: *Automated exposure control *Adjustment of mA and/or kV according to patient size (this includes techniques or standardized protocols for targeted exams where dose is matched to indication/reason for exam; i.e. extremities or head) *Use of iterative reconstruction technique DLP: 789 mGy-cm FINDINGS: Limited examination of the intra-abdominal organs and vascular structures due to lack of IV contrast. 12 mm thin-walled cystic structure right lung base. LIVER, GALLBLADDER, AND BILIARY TREE: Liver measures 20 cm. Decreased attenuation throughout the parenchyma. No intrahepatic or extrahepatic biliary ductal dilatation. Contracted gallbladder without pericholecystic fluid collection or gallbladder thickening. PANCREAS: No peripancreatic edema pattern. No main pancreatic ductal dilatation. SPLEEN: 9 cm. ADRENAL GLANDS: There is a 1.7 cm well-defined ovoid shaped low density nodule measuring -1 Hounsfield units in the right adrenal gland. No nodular lesions in the left adrenal gland. KIDNEYS AND URETERS: 1.5 mm calculus in the lower pole right pelvicalyceal system. No hydronephrosis. 2 mm calculus in the upper pole midportion of the pelvicalyceal system, left kidney. No hydronephrosis. Questionable 4 mm exophytic cyst in the anterior midportion lower junction of the left kidney. BLADDER: Fluid-filled. GASTROINTESTINAL TRACT: Appendix is normal. No intestinal obstruction pattern. No pneumatosis intestinalis. No pneumoperitoneum. No ascites. ABDOMINAL WALL: Small tiny fat-containing umbilical hernia. LYMPH NODES: No gross lymphadenopathy. 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 Calcified plaques abdominal aorta wall without aneurysm. Calcified plaques in the iliac arteries. PELVIC VISCERA: Nonenlarged prostate gland or seminal vesicles. OSSEOUS STRUCTURES: Multilevel thoracolumbar spondylosis. Dextroconvex rotoscoliosis apex at L2-3. Focal blastic lesions in the posterior right iliac bone likely benign bony island. Bilateral neuroforamina narrowing/stenosis from L3-4 to L5-S1 on a degenerative basis. IMPRESSION: Nonobstructing nephrolithiasis, bilaterally. Hepatomegaly and likely steatosis. Small fat-containing umbilical hernia. Multilevel thoracolumbar spondylosis resulting in bilateral neuroforamina stenosis, L3-4 to L5-S1. 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 Date of Service: 06/12/24 US RETROPERITONEAL LIMITED (RENAL ONLY) CLINICAL INFORMATION: BPH with lower urinary tract symptoms. COMPARISON: CT abdomen pelvis 03/10/2024 and ultrasound abdomen 11/06/2023 TECHNIQUE: Ultrasound of the the kidneys was performed. FINDINGS: RIGHT KIDNEY: 10.6 x 6.3 x 5.3 cm (SAG x AP x TRV). The kidney is normal in size, contour, and echogenicity. Renal cortical thickness is normal. No calculi or focal parenchymal lesions. No hydronephrosis. LEFT KIDNEY: 12.1 x 5.7 x 4.9 cm (SAG x AP x TRV). The kidney is normal in size, contour, and echogenicity. Renal cortical thickness is normal. There is a 3 mm echogenic focus seen in the upper pole of the kidney with twinkle artifact consistent with a nonobstructing calculus. At the time of the prior CT, it least additional calculi are seen not identified on this exam. No hydronephrosis. A benign lower pole 0.8 cm Bosniak class I renal cyst is noted which requires no additional imaging or follow up. No solid renal masses are seen. IMPRESSION: Nonobstructing 3 mm left upper pole renal calculus. Date of Service: 03/10/24 CT ABDOMEN AND PELVIS WITHOUT CONTRAST CLINICAL INFORMATION: Unspecified abdominal pain. Left flank pain. Calculus of kidney. COMPARISON: Abdominal ultrasound 11/06/[address] abdomen pelvis 08/17/2023 TECHNIQUE: Multidetector volumetric imaging was performed from the superior aspect of the liver through the pubic symphysis. Sagittal and coronal reformatted images were obtained on the technologist's workstation. This CT examination was performed using dose optimization techniques as appropriate, variously including the following: *Automated exposure control *Adjustment of mA and/or kV according to patient size (this includes techniques or standardized protocols for targeted exams where dose is matched to indication/reason for exam; i.e. extremities or head) *Use of iterative reconstruction technique DLP: 671 mGy-cm FINDINGS: Visualized lung bases are well aerated. Similar partially visualized small right middle lobe granuloma. Small cystic focus within the posterior right lung base is unchanged. The liver is normal in size but demonstrates diffusely decreased attenuation. The gallbladder is normal in appearance. The pancreas, spleen and left adrenal gland are unremarkable. Stable 1.7 cm right adrenal lesion most consistent with an adenoma. Symmetrically sized kidneys. There are a few nonobstructing calculi present within the left kidney, largest measuring approximately 5 mm. No right-sided renal calculi are identified. There is no hydronephrosis of either kidney. Normal caliber loops of small and large bowel. Normal appendix. Normal caliber abdominal aorta demonstrating mild atherosclerotic disease. Retroaortic left renal vein. No retroperitoneal lymphadenopathy. The bladder is normal in appearance. The prostate gland is normal in size. Tiny fat-containing inguinal hernias bilaterally. No inguinal lymphadenopathy. No gross free pelvic fluid. Mild to moderate diffuse degenerative changes of the spine. Stable sclerotic focus within the right ilium, likely bone island. IMPRESSION: 1. There are a few nonobstructing calculi present within the left kidney, largest measuring approximately 5 mm. No right-sided renal calculi are identified. There is no hydronephrosis of either kidney. 2. Diffusely decreased liver attenuation suggesting hepatic steatosis. Correlation with liver enzymes recommended. 3. Stable 1.7 cm right adrenal lesion most consistent with an adenoma. Date of Service: 11/06/23 EXAMINATION: US ABDOMEN LIMITED CLINICAL INFORMATION: Unspecified abdominal pain Left lower quadrant tender lump. COMPARISON: Renal ultrasound 09/12/2023 TECHNIQUE: Real-time imaging of the left lower quadrant over the palpable area indicated by the patient. FINDINGS: The area indicated by the patient was the left flank/left kidney. No abnormality is seen in the area indicated by the patient. There is no free fluid, no hernia. LEFT KIDNEY: No hydronephrosis. No renal calculi. 0.8 x 0.7 x 0.8 cm simple exophytic cyst in the lower pole requires no imaging follow-up. The kidney measures 12.2 cm in maximum dimension. FREE FLUID: None. IMPRESSION: No abnormality demonstrated in the area indicated by the patient in the left flank/left kidney. Assessment & Plan Assessment & Plan (1) Nephrolithiasis: Code(s): N20.0 - Calculus of kidney Category: Medical (2) BPH loc w urin obs/LUTS: Code(s): N40.1 - Benign prostatic hyperplasia with lower urinary tract symptoms Category: Medical Orders: Orders AMB Urinalysis Automated Today I10 - Essential (primary) hypertension AMB Post Void Residual by ultrasound Today I10 - Essential (primary) hypertension Medications: Refilled doxazosin 4 mg PO BEDTIME 90 tabs 3RF N40.1 - Benign prostatic hyperplasia with lower urinary tract symptoms, R39.11 - Hesitancy of micturition Patient Instructions: The patient had an opportunity to ask questions regarding treatment plan. The patient expressed understanding and agreement with the above treatment plan. The patient is aware they should contact our office by phone for worsening of their current condition or the appearance of new symptoms. Compliance is encouraged with any medications and followup testing that is ordered. It is a privilege to be allowed the opportunity to participate in the urologic care of your patient. If you have any questions or concerns regarding treatment for the above conditions please do not hesitate to contact me. The office telephone contact is [phone]. This note is constructed in part using voice recognition software. While every effort has been made to ensure accuracy emd special education teacher errors may have been included. Yours sincerely, Jonathan Deleon MD Scribe Plan - Not visible on output: Patient was informed and verbally consented to the use of an ambient scribe for clinic note documentation during this visit. Coding Diagnoses Nephrolithiasis N20.0 BPH loc w urin obs/LUTS N40.1 CPT Codes Post Residual Void - PVR CPT Code: 71042-Khsn Void Residual by ultrasound ([id number])
== END 2025-08-27 10:52 | disposition home or self-care (01) ==
LOC: HO.HUSH 09:32
PROVIDERS: PCP Internal Medicine; Visit Provider Urology
DX: I10 Essential (primary) hypertension (principal)

== ENCOUNTER → 2025-08-27 09:31 | Outpatient (BNVA) | payer MEDICARE, MEDICAID, SELFPAY | PROVIDERS: PCP Internal Medicine; Visit Provider Urology | DX: N20.0 Calculus of kidney (principal); N40.1 Benign prostatic hyperplasia with lower urinary tract symptoms; R39.11 Hesitancy of micturition; I10 Essential (primary) hypertension | CPT/HCPCS: 51798; 81003; 99212 ==